=== PATIENT | male | born 1950 | race Caucasian/White ===

== ENCOUNTER 2017-04-28 07:20 | Inpatient (IN) | payer MEDICARE, OTHER, SELFPAY ==
[2017-04-24 14:51] VITALS: BP 151/82; PULSE 71; RESP 16; TEMP 36.3; O2SAT 96; BMI 27.5
--- NOTE | 2017-04-24 14:58 | SDCEKG_ITS ---
Test Reason : Blood Pressure : / mmHG Vent. Rate : 066 BPM Atrial Rate : 066 BPM P-R Int : 192 ms QRS Dur : 078 ms QT Int : 396 ms P-R-T Axes : 019 044 046 degrees QTc Int : 415 ms Normal sinus rhythm Normal ECG Confirmed by JONI DUKE, MAYRA ([id number]), editorial writer TALITA MORFIN ([id number]) on 04/25/2017 11:48:55 AM Referred By: Dimas Amezcua Confirmed By:MAYRA QUINONES MD
[2017-04-24 15:25] LABS: Hematocrit 42.6 % (40-54); Mean Corp Hgb Conc 32.9 g/gl (32-36); Mean Corpuscular Hgb 29.4 pg (27.0-32.0); Mean Corpuscular Volume 89.5 fL (80-94); Mean Platelet Vol. 10.5 fl (6.2-12.0); Platelet Count 254 K/mm3 (150-450); RBC Distribution Width CV 14.1 % (11.6-14.6); RBC Distribution Width SD 45.4 fl (35.1-43.9); Red Blood Count 4.76 M/mm3 (4.6-6.2)
[2017-04-24 15:53] LABS: Scan Indicated on CBC? Y/N NO
[2017-04-24 16:16] LABS: Anion Gap 9 (5-15); BUN 11 mg/dL (7-18); BUN/Creat Ratio 13.7 RATIO (10-20); Calcium,Total 9.1 mg/dL (8.5-10.1); Chloride 103 mmol/L (98-107); EST Glomerular Filtration Rate 103 mL/min (>60); Est Glom Filt Rate - Afr Amer 124 mL/min (>60); Estimated Creatinine Clearance 92.06 ml/min; Glucose 79 mg/dL (70-110); Potassium 3.9 mmol/L (3.5-5.1); Sodium Level 139 mmol/L (136-145)
[2017-04-25 08:37] LABS: Carcinoembryonic Antigen 2.2 ng/mL (0.0-4.7)
[2017-04-28] VITALS (12 sets, daily range): BP systolic 87–134; BP diastolic 55–79; PULSE 67–92; RESP 16–18; TEMP 36.2–36.8; O2SAT 91–100; BMI 27.5
--- NOTE | 2017-04-28 | COL_PTH ---
PATIENT: FREDY KAMARA LOC: MS3 U#:[id number] AGE/SX: 67/M ROOM: NV323 RE04/28/[address]: Dr. Dimas Amezcua MD : [id number] BED: 1 DIS: 04/30/2017 SPEC #: [id number] RECD: 04/28/17 09:56 STATUS: CHRIS RECleo #: [id number] FLORES: 04/28/17 00:[address]: Dimas Amezcua DEPT: SURGICAL PATHOLOGY RECD BY: Olivia Thompson ENTERED: 04/28/17 10:41 SP TYPE: COLON OTHR DR: Dr. Wil Timmons MD Tissues: Right colon Procedures: Frozen Section (charge) Surgery Specimen Level V HEADER OPERATION: Laparoscopic right hemicolectomy PRE-OP DIAGNOSIS: Ascending colon mass TISSUE SUBMITTED: Right colon to pathology for gross exam at 0951 FROZEN SECTION DIAGNOSIS Right colon, hemicolectomy: Ulcer located 2.5 cm distal to ileocecal valve. No evidence of carcinoma. AM:nahid 04/28/17 MICROSCOPIC DIAGNOSIS Right colon, hemicolectomy: Ulceration with associated acute and chronic inflammation, granulation and reactive epithelial changes. Margins of excision with no pathologic change. Appendix with no pathologic change. Thirteen out of 13 lymph nodes with no pathologic change. No evidence of malignancy. AM:nahid 04/30/17 COMMENT Case has been reviewed in consultation with Dr. Sawyer who concurs with the above diagnosis. IDC:SJ MICROSCOPIC DESCRIPTION Slides are reviewed. GROSS DESCRIPTION Received fresh for frozen section consultation labeled with the patient's name is a specimen designated right colon. The specimen consists of a 20 cm segment of large bowel with attached 7 cm segment of small bowel and a 7.8 cm appendix with an average diameter of 0.8 cm. Located 2.5 cm distal to the ileocecal valve and 9 cm from the closest (proximal) mucosal margin is an area of ulceration measuring 3.5 x 1.5 x 0.5 cm. No other mucosal lesions are identified. The remainder of the large bowel is grossly unremarkable. Serial sections of the appendix do not reveal mass lesions. A jewelry sales representative section of the ulcerated lesion is submitted for frozen section consultation in one block. The tissue contains a number of grossly unremarkable nodules representing lymph nodes. The serosa in the area of the ulcer is inked in black ink. Superintendent [employer] sections are submitted in 11 cassettes as follows: 1 ? frozen section and ulcer, 2 ? mucosal margins, 3 ? appendix, 4 ? ileocecal valve, 5-8 ? ulcer, 9 & 10 ? multiple lymph nodes, 11 ? one lymph node, serially sectioned. / AM:nahid 04/29/17 TC:2 CPT: 13224, 30560
--- NOTE | 2017-04-28 08:16 | PCM.DC.GS ---
Discharge Diet: Light diet - advance as tolerated - if you have questions about your diet instructions, please talk to you doctor. Discharge Activity: May Not Drive - for 1 week or while taking narcotic pain medicine. May shower in (days): 1 Lifting Restrictions: 10 pounds Call your doctor if your incision/area has: Continuous Slow Oozing, Sudden Increased Bleeding, Increased Pain/ Swelling, Increased Redness, Foul Smelling Discharge Call your doctor if you observe: Fever of 101 or Higher Suture Line Care: Avoid Pulling/Pushing, Avoid Pinching/Bending Additional Dressing/Incision Instructions:: Change or remove dressing in 3 days. Leave steri-strips in place for 1 week. Allergies/Adverse Reactions: Allergies ciprofloxacin [From Cipro] Allergy (Verified 04/24/17 14:19) Rash ciprofloxacin HCl [From Cipro] Allergy (Verified 04/24/17 14:19) Rash MAKES CRAZY ertapenem sodium [From Invanz] Allergy (Verified 04/24/17 14:19) Rash hydrocodone Adverse Reaction (Verified 04/24/17 14:19) makes him crazy Medications to take at Discharge Amitriptyline HCl [Elavil] 5 mg PO QHS 06/13/14 Hydrochlorothiazide [Hctz] 25 mg PO DAILY 06/13/14 Atorvastatin Calcium [Lipitor] 20 mg PO QHS 04/09/16 Methocarbamol 750 mg PO PRN PRN 17 Aspirin E.C. [Ecotrin] 81 mg PO DAILY@0800 04/24/17 Clopidogrel Bisulfate [Plavix] 75 mg PO QODAY 04/24/17 Diltiazem HCl [Cartia Xt] 180 mg PO BID 04/24/17 Oxycodone HCl/Acetaminophen [Percocet 5-325] 1 tablet PO Q6H PRN PRN 04/24/17 lisinopril 10 mg tablet 10 mg PO QDAY 04/24/17 Primary Care Physician: Wil Timmons MD [Primary Care Provider] - Please Follow Up With: Dimas Amezcua MD - [phone] When: Call to make an appointment to be seen in about 10 days.
[2017-04-28] MEDS: Bupivacaine Mpf 0.5% 30 ML VIAL (08:42)
--- NOTE | 2017-04-28 10:32 | PCM.OPRPT ---
Problem List (1) Acute colitis Status: Acute Report of Operation Date of Procedure: 04/28/17 Pre-Operative Diagnosis: Ascending colon mass, suspect acute colitis Post-Operative Diagnosis: Pathology pending, ascending colon ulceration Surgery/Procedure Performed:: Laparoscopic right colectomy Description of Surgical Findings:: Time out and informed consent was obtained. 67-year-old gentleman was taken the operating room. He was placed supine on the table. He underwent general endotracheal intubation anesthesia. Cefotetan 2 g are given intravenously preoperatively. The abdomen was sterilely prepped and draped. Ioban drape was used to help facilitate holding the drapes. A supraumbilical vertical incision was created and holding sutures of 0 Vicryl placed. Varies needle inserted. Saline drop test performed. The abdomen was insufflated with CO2 to a pressure of 10 mmHg pressure. 10mm trocar inserted. 10 lap scope inserted. No evidence abnormal trocar placement. The abdomen was inspected there was no free fluid bowel appear to be grossly normal except for photographs obtained of the cecum ascending colon and it was dramatically more pale in coloration than the surrounding bowel. I placed a 5 mm trocar site in the left epigastric area and one in the right lower quadrant. Using noncrushing graspers I was able to find the ileocolic vessels. Using harmonic scalpel I dissected free to identify the ileocolic vessels that I used an extra-large hemoclips as well as regular hemoclips and then the harmonic scalpel to transect these vessels. I incised up to the proximal transverse colon I then released the gastrocolic omentum. This is actually reasonably densely adherent to the greater curvature of the stomach. I had to identify the sweep of the duodenum was then able to free the hepatic flexure of the colon release the white line of Toldt all the way down to where the appendix was then released the appendix as well in the terminal ileum. Having now mobilized the entire right colon I then slightly lengthen the supraumbilical midline incision I placed a medium wound protector exited about that point. I completed the mesentery transection of the proximal transverse colon under direct visitation and hemostasis was obtained with interrupted 4-0 silk sutures were needed as well as hemoclips and Harmonic scalpel. I dissected free to the terminal ileum as well. Then I used Alvaro clamps and transected the bowel both proximally and distally. I elected to do a handsewn anastomosis. I performed a posterior row with interrupted 4-0 silk. I then released the clamps and performed the mucosa some mucosal approximation with a running 3-0 chromic. The posterior row was done in a simple fashion and the anterior row was done with a canal stitch. Despite the size mismatch I was able to get excellent approximation. The bowel appeared to be viable that had been good blood flow. I then reinforced the anterior wall with a running Lembert style 4-0 silk. Nicely patent anastomosis was achieved. Mesenteric trap was very minimal did not attempt to further follow-up on the bowel to close that. There is been no spillage. The bowel was viable. I dropped that back within the abdomen. I closed the midline fascia with a running #1 PDS. I then reinspected the abdomen inspected the anastomotic site it appeared to be nicely viable and intact there was no bleeding. There have been no spillage. Inspected the remainder of the bowel that she was unremarkable. I then released the intra-abdominal air remove the trochars. It is of note that at the very initial part of the operation I placed the trochars I used 20 cc of 0.5% Marcaine in a circumference around the epigastrium in the subcostal area extending down to the level of the umbilicus bilaterally injecting Marcaine under laparoscopic visualization to assure placement official to the posterior sheath. An attempt to perform a tap block. At the end the procedure I placed the remainder of the local directly around the wound area. The midline wound was irrigated. The remainder wounds were closed with a running or interrupted subcuticular 4-0 Monocryl. Steri-Strips Telfa and OpSite dressings were applied. Sponge instrument and needle counts were reported to surgeon for correct. Blood loss eczema 150 cc. He tired procedure well was taken to recovery or insect condition there is no apparent complication. The specimen was sent for simple gross analysis to the pathologist. Apparently they elected to do a frozen section as they identified an ulcer. All tissue the identified currently is benign. Specimens include right colon. Drains none. Blood loss 150 cc. Dimas Amezcua M.D., F.A.C.S.
--- NOTE | 2017-04-28 12:18 | PCM.DC.APPY ---
Discharge Diet: Light diet - advance as tolerated - if you have questions about your diet instructions, please talk to you doctor. Discharge Activity: May Not Drive - for 1 week or while taking narcotic pain medicine. May shower in (days): 1 Call your doctor if your incision/area has: Continuous Slow Oozing, Sudden Increased Bleeding, Increased Pain/ Swelling, Increased Redness, Foul Smelling Discharge Call your doctor if you observe: Fever of 101 or Higher Suture Line Care: Avoid Pulling/Pushing, Avoid Pinching/Bending Additional Dressing/Incision Instructions:: Change or remove dressing in 3 days. Leave steri-strips in place for 1 week. Medications to take at Discharge Amitriptyline HCl [Elavil] 5 mg PO QHS 06/13/14 Hydrochlorothiazide [Hctz] 25 mg PO DAILY 06/13/14 Atorvastatin Calcium [Lipitor] 20 mg PO QHS 04/09/16 Methocarbamol 750 mg PO PRN PRN 03/07/17 Aspirin E.C. [Ecotrin] 81 mg PO DAILY@0800 04/24/17 Clopidogrel Bisulfate [Plavix] 75 mg PO QODAY 04/24/17 Diltiazem HCl [Cartia Xt] 180 mg PO BID 04/24/17 Oxycodone HCl/Acetaminophen [Percocet 5-325] 1 tablet PO Q6H PRN PRN 04/24/17 lisinopril 10 mg tablet 10 mg PO QDAY 04/24/17 Oxycodone HCl/Acetaminophen [Percocet 5/325] 1 tablet PO Q6H PRN PRN #10 tablet 04/28/17 Allergies/Adverse Reactions: Allergies ciprofloxacin [From Cipro] Allergy (Verified 04/24/17 14:19) Rash ciprofloxacin HCl [From Cipro] Allergy (Verified 04/24/17 14:19) Rash MAKES CRAZY ertapenem sodium [From Invanz] Allergy (Verified 04/24/17 14:19) Rash hydrocodone Adverse Reaction (Verified 04/24/17 14:19) makes him crazy The following prescriptions were given: Oxycodone HCl/Acetaminophen [Percocet 5/325] 1 tablet PO Q6H PRN PRN #10 tablet PRN Reason: Pain Primary Care Physician: Wil Timmons MD [Primary Care Provider] - Please Follow Up With: Dimas Amezcua MD - [phone] When: Call the office to make a follow up appointment in one week.
[2017-04-28] MEDS: Lactated Ringers 1,000 ML 50 ML IV (16:36)
[2017-04-28] MEDS: Tamsulosin HCl 0.4 MG Capsule PO (19:44)
[2017-04-28] MEDS: 0.9% NaCl Peripheral Flush Adult/Peds IV ×2 (19:45→22:23)
[2017-04-28] MEDS: dilTIAZem CD 180 MG Capsule PO (21:58)
[2017-04-28] MEDS: Atorvastatin Calcium 20 MG Tablet PO (21:58)
[2017-04-28] MEDS: Amitriptyline 10 MG Tablet 5 MG PO (21:59)
[2017-04-29 02:00] VITALS: BP 100/61; PULSE 82; RESP 18; TEMP 36.7; O2SAT 93
[2017-04-29] MEDS: Enoxaparin 40 MG/0.4 ML Syringe SC (06:11)
--- NOTE | 2017-04-29 06:16 | PCM.PN.SRG ---
Subjective: Pt has been able to ambulate No flatus Still rating discomfort at 5 - Physical Exam General: Alert, Oriented x3, Cooperative, No apparent distress Lungs: Clear to auscultation Abdomen: Soft, Hypoactive Bowel Sounds, - - wounds clean Vital Signs Temp Pulse Resp BP Pulse Ox 98.1 F 82 18 100/61 93 04/29/17 02:00 04/29/17 02:00 04/29/17 02:00 04/29/17 02:00 04/29/17 02:00 Oxygen Flow Rate 2 Oxygen Delivery Method Room Air Weight: 186 lb 8.177 oz Body Mass Index (BMI) 27.5 Intake and Output for Last 24 Hours 04/27/17 04/28/17 04/29/17 23:59 23:59 23:59 Intake Total 3128 / 3128 507 / 507 Output Total 100 / 100 400 / 400 Balance 3028 / 3028 107 / 107 Assessment/Plan Will start clears
[2017-04-29] MEDS: oxyCODONE 5 MG Tablet PO ×3 (07:00→21:12)
[2017-04-29 08:09] VITALS: BP 104/53; PULSE 74; RESP 16; TEMP 36.6; O2SAT 92
[2017-04-29] MEDS: dilTIAZem CD 180 MG Capsule PO ×2 (08:13→21:12)
[2017-04-29] MEDS: Aspirin E.C. 81 MG Tablet PO (08:13)
[2017-04-29] MEDS: Lisinopril 10 MG Tablet PO (08:14)
[2017-04-29] MEDS: hydroCHLOROthiazide 25 MG Tablet PO (08:14)
[2017-04-29 11:12] VITALS: BP 101/62; PULSE 67; RESP 16; TEMP 36.6; O2SAT 93
[2017-04-29 14:54] VITALS: BP 102/62; PULSE 65; RESP 16; TEMP 36.2; O2SAT 92
--- NOTE | 2017-04-29 15:00 | CASEMGMT ---
RN ANDERS Face to Face with patient for initial transition planning/care coordination assessment. RN CM introduced self and role at [facility]. Patient lying in bed, alert and oriented, with at bedside. Patient willing to participate in assessment and is able to answer all questions appropriately. Care providers, pharmacy, and demographics verified. See link attached. Patient wishes to discharge home, denies need for home health at this time. Patient states he has no further needs or concerns at this time. CM to follow for discharge planning needs that may arise. Disposition Plan: Patient to discharge home with family support and follow-up plans in place.
[2017-04-29] MEDS: Tamsulosin HCl 0.4 MG Capsule PO (17:06)
[2017-04-29] MEDS: Lactated Ringers 1,000 ML 30 ML IV (17:07)
[2017-04-29 20:26] VITALS: BP 114/74; PULSE 76; RESP 18; TEMP 37; O2SAT 93
[2017-04-29] MEDS: Atorvastatin Calcium 20 MG Tablet PO (21:12)
[2017-04-29] MEDS: BENZOCAINE/MENTHOL 1 LOZENGE MUCOUS MEM (21:12)
[2017-04-29] MEDS: Amitriptyline 10 MG Tablet 5 MG PO (21:12)
[2017-04-30 02:30] VITALS: BP 113/67; PULSE 73; RESP 16; TEMP 36.9; O2SAT 92
[2017-04-30] MEDS: oxyCODONE 5 MG Tablet PO ×2 (03:34→12:56)
[2017-04-30] MEDS: Enoxaparin 40 MG/0.4 ML Syringe SC (05:38)
--- NOTE | 2017-04-30 06:04 | PCM.PN.SRG ---
Subjective: Steady progress, small smear of stool. No nausea. Pain is improved - Physical Exam Lungs: Clear to auscultation Abdomen: Soft, Non Tender, Hypoactive Bowel Sounds Vital Signs Temp Pulse Resp BP Pulse Ox 98.4 F 73 16 113/67 92 04/30/17 02:30 04/30/17 02:30 04/30/17 02:30 04/30/17 02:30 04/30/17 02:30 Oxygen Flow Rate 2 Oxygen Delivery Method Room Air Weight: 186 lb 8.177 oz Body Mass Index (BMI) 27.5 Intake and Output for Last 24 Hours 04/28/17 04/29/17 04/30/17 23:59 23:59 23:59 Intake Total 3128 / 3128 1654 / 1654 975 / 975 Output Total 100 / 100 2975 / 2975 900 / 900 Balance 3028 / 3028 -1321 / -1321 75 / 75 Assessment/Plan Diet advanced to fulls Hopeful discharge mid day today
[2017-04-30 07:43] VITALS: BP 124/81; PULSE 66; RESP 18; TEMP 36.5; O2SAT 94
[2017-04-30] MEDS: Lisinopril 10 MG Tablet PO (07:45)
[2017-04-30] MEDS: Aspirin E.C. 81 MG Tablet PO (07:45)
[2017-04-30] MEDS: dilTIAZem CD 180 MG Capsule PO (07:45)
[2017-04-30] MEDS: hydroCHLOROthiazide 25 MG Tablet PO (07:45)
--- NOTE | 2017-04-30 12:50 | PCM.DC.SUM ---
Discharge Date and Diagnosis Date of Admission: 04/28/17 Date of Discharge: 04/30/17 - Primary Discharge Diagnosis Acute colitis Colonic mass - Secondary Discharge Diagnosis Chronic Problems (Last Reviewed 04/24/17 @ 13:15 by Daniela Paz) History of abdominal pain (Chronic) Right sided Glaucoma (Chronic) HTN (hypertension) (Chronic) Hospital Course and Treatment Operations: colectomy - laparoscopic right hemicolectomy Procedures: None Summary of Care Provided: The patient is a 67 year old M with acute colitis and colonic mass. Dr. Amezcua performed a laparoscopic right hemicolectomy on 04/28/17. Patient tolerated the procedure well. He had an uneventful hospitalization. Upon discharge, he notes minimal amount of abdominal discomfort. He rates his pain at a 1 out of 10 on the pain scale. He denies nausea, vomiting. He is tolerating a full liquid diet well. He is passing large amounts of flatus and had a small bowel movement. He will follow-up at our office as an outpatient in 7-10 days. Discharge Diet: Light diet - advance as tolerated - if you have questions about your diet instructions, please talk to you doctor. Discharge Activity: May Not Drive - for 1 week or while taking narcotic pain medicine. May shower in (days): 1 Call your doctor if your incision/area has: Continuous Slow Oozing, Sudden Increased Bleeding, Increased Pain/ Swelling, Increased Redness, Foul Smelling Discharge Call your doctor if you observe: Fever of 101 or Higher Suture Line Care: Avoid Pulling/Pushing, Avoid Pinching/Bending Cleanse incision/area with: Soap & Water Additional Dressing/Incision Instructions:: Change or remove dressing in 3 days. Leave steri-strips in place for 1 week. Home Medications: Medications to take at Discharge Amitriptyline HCl [Elavil] 5 mg PO QHS 06/13/14 Hydrochlorothiazide [Hctz] 25 mg PO DAILY 06/13/14 Atorvastatin Calcium [Lipitor] 20 mg PO QHS 04/09/16 Methocarbamol 750 mg PO PRN PRN 03/07/17 Aspirin E.C. [Ecotrin] 81 mg PO DAILY@0800 04/24/17 Clopidogrel Bisulfate [Plavix] 75 mg PO QODAY 04/24/17 Diltiazem HCl [Cartia Xt] 180 mg PO BID 04/24/17 Oxycodone HCl/Acetaminophen [Percocet 5-325] 1 tablet PO Q6H PRN PRN 04/24/17 lisinopril 10 mg tablet 10 mg PO QDAY 04/24/17 Oxycodone HCl/Acetaminophen [Percocet 5/325] 1 tablet PO Q6H PRN PRN #10 tablet 04/28/17 Following Prescrptions Were Given to Patient: Oxycodone HCl/Acetaminophen [Percocet 5/325] 1 tablet PO Q6H PRN PRN #10 tablet PRN Reason: Pain Primary Care Physician: Wil Timmons MD [Primary Care Provider] - Please Follow Up With: Dimas Amezcua MD - [phone] When: Call to make an appointment to be seen in about 10 days. Disposition: Home Minutes spent on discharge:: 25 Patient Condition:: Stable Meaningful Use Info Meaningful Use Diagnoses (Choose all that apply): None applicable Code Visit Inpatient E&M: 88798 Disch Hosp
[2017-04-30 12:56] VITALS: BP 131/81; PULSE 71; RESP 18; TEMP 36.6; O2SAT 96
== END 2017-04-30 13:23 | disposition home or self-care (01) | DRG 330 ==
LOC: ACINP 07:23 → MS3 07:33
PROVIDERS: Admitting Provider Surgery; Family Provider Internal Medicine; PCP Internal Medicine; Visit Provider Surgery
PROC: 0DTF4ZZ Resection of Right Large Intestine, Percutaneous Endoscopic Approach (ICD-10-PCS; CPT 44205; principal; 2017-04-28 06:55)
DX: K52.9 Noninfective gastroenteritis and colitis, unspecified (principal); K63.3 Ulcer of intestine; H40.9 Unspecified glaucoma; I10 Essential (primary) hypertension; Z87.891 Personal history of nicotine dependence
CPT/HCPCS: 80048; 82378; 85027; 88305; 88307; 88331; 93005; J7120; A4216; J2405

== ENCOUNTER → 2017-07-11 10:14 | Outpatient (CLI) | payer MEDICARE, OTHER, SELFPAY ==
[2017-07-11 10:17] LABS: Bacteria 0 SEEN /hpf (None Seen); Mucous, Urine 0 SEEN /hpf (<or=2+); Red Blood Cells-Urine 0 SEEN /hpf (0-5); Squamous Epithelial Cells - UA 0 SEEN /hpf (0-5); White Blood Cells 0 SEEN /hpf (0-5)
[2017-07-11 12:09] LABS: Color, Urine Yellow (Yellow); Glucose, Dipstick Normal (Normal); Ketone-Dipstick Negative (Negative); Leukocyte Esterase-Dipstick Negative /ul (Negative); Nitrite-Dipstick Negative (Negative); Occult Blood-Urine Negative /ul (Negative); Protein-Dipstick Negative (Negative); Urine Bilirubin Dipstick Negative (Negative); Urine Clarity Clear (Clear); Urine Urobilinogen Normal (Normal)
[2017-07-11 12:14] LABS: Absolute Lymphocyte Count 1.75 X10^3/ul (0.83-4.51); Absolute Neutrophil Count 3.6 X10^3/uL (2.0-7.7); Basophil# 0.03 X10^3/uL; Basophil% 0.5 % (0-1); Eosinophils% 3.3 % (0-5); Hematocrit 47.1 % (40-54); Hemoglobin 15.4 g/dl (13.0-16.5); Lymphocyte # 1.75 X10^3/ul (4.0); Lymphocyte % 28.6 % (19-41); Mean Corp Hgb Conc 32.7 g/gl (32-36); Mean Corpuscular Hgb 28.5 pg (27.0-32.0); Mean Corpuscular Volume 87.2 fL (80-94); Mean Platelet Vol. 11.5 fl (6.2-12.0); Monocyte# 0.53 X10^3/uL; Monocyte% 8.7 % (0-10); Neutrophil # 3.58 X10^3/uL (2.7-7.7); Neutrophil % 58.6 % (47-70); POSITIVE COUNT NO; POSITIVE DIFFERENTIAL NO; POSITIVE MORPHOLOGY NO; Platelet Count 219 K/mm3 (150-450); RBC Distribution Width CV 13.2 % (11.6-14.6); RBC Distribution Width SD 41.8 fl (35.1-43.9); White Blood Count 6.1 K/mm3 (4.4-11.0)
[2017-07-11 12:46] LABS: Vitamin D,25 Hydroxy 34.4 ng/mL (29.95-100.01)
[2017-07-11 12:55] LABS: ALB/GLOB Ratio 1.3 RATIO (0.9-2.4); AST(SGOT) 22 U/L (15-37); Alanine Aminotransfer ALT/SGPT 30 U/L (16-61); Alkaline Phosphatase 98 U/L (45-117); Anion Gap 7 (5-15); BUN 15 mg/dL (7-18); BUN/Creat Ratio 17.3 RATIO (10-20); Calcium,Total 9.3 mg/dL (8.5-10.1); Chloride 104 mmol/L (98-107); Cholesterol 161 mg/dL (200); Creatinine, Serum 0.87 mg/dL (0.70-1.30); EST Glomerular Filtration Rate 94 mL/min (>60); Est Glom Filt Rate - Afr Amer 113 mL/min (>60); Glucose 79 mg/dL (74-106); High Density Lipoprotein 61 mg/dL; Potassium 3.6 mmol/L (3.5-5.1); Sodium Level 139 mmol/L (136-145); Thyroid Stim Hormone (TSH) 1.12 uIU/mL (0.358-3.74); Triglycerides 102 mg/dL; Very Low Density Lipoprotein 20 mg/dL (5-40)
== END ==
PROVIDERS: Family Provider Family Medicine; PCP Family Medicine; Visit Provider Family Medicine
DX: I10 Essential (primary) hypertension (principal); E78.5 Hyperlipidemia, unspecified; E55.9 Vitamin D deficiency, unspecified
CPT/HCPCS: 80053; 80061; 81001; 82306; 84443; 85025

== ENCOUNTER → 2017-08-08 09:29 | Outpatient (CLI) | payer MEDICARE, OTHER, SELFPAY ==
[2017-08-08 12:40] LABS: CPK Total, Creatine Kinase 73 U/L (39-308); Magnesium 2.1 mg/dL (1.6-2.6)
== END ==
PROVIDERS: Family Provider Family Medicine; PCP Family Medicine; Visit Provider Family Medicine
DX: R25.2 Cramp and spasm (principal)
CPT/HCPCS: 36415; 82550; 83735

== ENCOUNTER → 2017-08-21 13:14 | Outpatient (CLI) | payer MEDICARE, OTHER, SELFPAY ==
--- NOTE | 2017-08-21 13:17 | CT_ITS ---
STUDY: CT TEMPORAL BONES WITHOUT CONTRAST - ATTN: I.A.C. S REASON FOR EXAM: Male, 67 years old. Pain for 2 years after her bowel implant. RADIATION DOSAGE (If Supplied By Facility): CTDIvol = ( 77.13 ) mGy, DLP = ( 944.5 ) mGycm TECHNIQUE: The patient was scanned in a multi detector CT scanner. Transaxial imaging was performed without the administration of intravenous contrast material. Sagittal and coronal images were reconstructed. Individualized dose optimization techniques were used for this CT. COMPARISON: None. FINDINGS: RIGHT TEMPORAL BONE Normal right external auditory canal. Normal visualized ossicles. There is mild thickening of the tympanic cavity. Normal right cochlea and semicircular canals. Normal vestibular aqueduct. Normal right petrous carotid artery. Normal right jugular fossa. There is underdevelopment of the mastoid air cells. Normal right petrous apex. Slightly higher on the right there is a metallic device extending from the skin surface through to the inner table of the right parietal bone. There is no evidence of lucency about the device or evidence of this surrounding osseous abnormality. The soft tissues appear grossly unremarkable. LEFT TEMPORAL BONE Normal left external auditory canal. There is no demonstrated enhancing abnormality. Normal visualized ossicles and tympanic cavity. Normal left cochlea and semicircular canals. Normal vestibular aqueduct. Normal left petrous carotid artery. Normal right jugular fossa. Normal left mastoid air cells. Normal left petrous apex. CT/Orb Sella Post Fossa Ear w/o IMPRESSION: 1. Metallic device in the right posterior parietal bone. There is no evidence of bony resorption or soft tissue abnormality about the device. 2. Slight thickening of the right tympanic membrane. 3. Underdevelopment of the right mastoid air cells. 4. No other evidence of abnormality. Electronically Signed: Ezequiel Marquez DO at 15:27 EDT Tel [phone], Service support ,
== END ==
PROVIDERS: Family Provider Family Medicine; PCP Family Medicine
DX: H66.90 Otitis media, unspecified, unspecified ear (principal); H90.2 Conductive hearing loss, unspecified; G89.18 Other acute postprocedural pain
CPT/HCPCS: 70480

== ENCOUNTER → 2017-09-16 08:37 | Outpatient (CLI) | payer MEDICARE, OTHER, SELFPAY ==
--- NOTE | 2017-09-16 08:59 | EKG12_ITS ---
Test Reason : PRE OP Blood Pressure : / mmHG Vent. Rate : 073 BPM Atrial Rate : 073 BPM P-R Int : 210 ms QRS Dur : 080 ms QT Int : 388 ms P-R-T Axes : 047 064 062 degrees QTc Int : 427 ms Sinus rhythm with 1st degree A-V block Otherwise normal ECG Confirmed by PHILOMENA GALEANO ([id number]), assistant production editor TALITA MORFIN ([id number]) on 09/29/2017 5:00:00 PM Referred By: Elizabeth Romo Confirmed By:PHILOMENA GALEANO
[2017-09-16 10:53] LABS: Hematocrit 42.8 % (40-54); Hemoglobin 14.3 g/dl (13.0-16.5); Mean Corp Hgb Conc 33.4 g/gl (32-36); Mean Corpuscular Hgb 28.9 pg (27.0-32.0); Mean Corpuscular Volume 86.6 fL (80-94); Mean Platelet Vol. 11.4 fl (6.2-12.0); Platelet Count 258 K/mm3 (150-450); RBC Distribution Width CV 13.3 % (11.6-14.6); RBC Distribution Width SD 42.4 fl (35.1-43.9); Red Blood Count 4.94 M/mm3 (4.6-6.2)
[2017-09-16 10:56] LABS: Scan Indicated on CBC? Y/N NO
[2017-09-16 10:58] LABS: Prothrombin Time (Protime)PT. 12.7 SECONDS (11.7-14.9)
[2017-09-16 11:20] LABS: ALB/GLOB Ratio 1.2 RATIO (0.9-2.4); AST(SGOT) 17 U/L (15-37); Alanine Aminotransfer ALT/SGPT 24 U/L (16-61); Albumin, Serum 3.8 g/dL (3.2-5.0); Alkaline Phosphatase 98 U/L (45-117); Anion Gap 6 (5-15); BUN 15 mg/dL (7-18); BUN/Creat Ratio 15.2 RATIO (10-20); Calcium,Total 9.1 mg/dL (8.5-10.1); Chloride 107 mmol/L (98-107); Creatinine, Serum 0.99 mg/dL (0.70-1.30); EST Glomerular Filtration Rate 81 mL/min (>60); Est Glom Filt Rate - Afr Amer 98 mL/min (>60); Globulin 3.1 g/dL (2.2-4.2); Glucose 75 mg/dL (74-106); Potassium 3.8 mmol/L (3.5-5.1); Protein, Total 6.9 g/dL (6.4-8.2); Sodium Level 141 mmol/L (136-145)
== END ==
PROVIDERS: Family Provider Family Medicine; PCP Family Medicine; Visit Provider Radiology Diagnostic Radiology
DX: Z01.818 Encounter for other preprocedural examination (principal)
CPT/HCPCS: 36415; 80053; 85027; 85610; 93005

== ENCOUNTER → 2017-11-18 07:16 | Outpatient (CLI) | payer MEDICARE, OTHER, SELFPAY ==
--- NOTE | 2017-11-18 07:21 | CT_ITS ---
STUDY: CT TEMPORAL BONES WITHOUT CONTRAST - ATTN: I.A.C. S REASON FOR EXAM: Male, 67 years old. Hearing loss. RADIATION DOSAGE (If Supplied By Facility): CTDIvol = ( 82.28 ) mGy, DLP = ( 1146.17 ) mGycm TECHNIQUE: The patient was scanned in a multi detector CT scanner. Transaxial imaging was performed without the administration of intravenous contrast material. Sagittal and coronal images were reconstructed. Individualized dose optimization techniques were used for this CT. COMPARISON: Comparison is made with prior examination of August 21, 2017. FINDINGS: RIGHT TEMPORAL BONE Normal right internal auditory canal. Since prior study, there has been progressive soft tissue thickening along the ossicles of the middle air cavity and tympanic membrane. Normal right cochlea and semicircular canals. Normal vestibular aqueduct. Normal right petrous carotid artery. Normal right jugular fossa. Underdevelopment of the right mastoid air cells with mild mucosal thickening along its anterior medial portion. Normal right petrous apex. The previously seen metallic device overlying the right posterior parietal bone as been removed. LEFT TEMPORAL BONE Normal left internal auditory canal. Normal visualized ossicles and tympanic cavity. Normal left cochlea and semicircular canals. Normal vestibular aqueduct. Normal left petrous carotid artery. Normal right jugular fossa. Normal left mastoid air cells. Normal left petrous apex. CT/Orb Sella Post Fossa Ear w/o IMPRESSION: Since prior examination, there has been progressive soft tissue density in the right middle ear in the region of the ossicles. Electronically Signed: Jordan Cano MD at 15:24 EDT Tel [phone], Service support ,
== END ==
PROVIDERS: Family Provider Family Medicine; PCP Family Medicine; Visit Provider Radiology Diagnostic Radiology
DX: H66.90 Otitis media, unspecified, unspecified ear (principal); H90.2 Conductive hearing loss, unspecified; G89.18 Other acute postprocedural pain; Z98.890 Other specified postprocedural states
CPT/HCPCS: 70480

== ENCOUNTER → 2017-12-02 09:13 | Outpatient (CLI) | payer MEDICARE, OTHER, SELFPAY ==
[2017-12-02 12:04] LABS: Absolute Lymphocyte Count 1.14 X10^3/ul (0.83-4.51); Absolute Neutrophil Count 3.4 X10^3/uL (2.0-7.7); Basophil# 0.02 X10^3/uL; Basophil% 0.4 % (0-1); Eosinophil# 0.18 X10^3/uL; Eosinophils% 3.4 % (0-5); Hematocrit 46.2 % (40-54); Hemoglobin 15.4 g/dl (13.0-16.5); Lymphocyte # 1.14 X10^3/ul (4.0); Lymphocyte % 21.7 % (19-41); Mean Corp Hgb Conc 33.3 g/gl (32-36); Mean Corpuscular Hgb 29.1 pg (27.0-32.0); Mean Corpuscular Volume 87.3 fL (80-94); Mean Platelet Vol. 11.9 fl (6.2-12.0); Monocyte# 0.52 X10^3/uL; Monocyte% 9.9 % (0-10); Neutrophil # 3.38 X10^3/uL (2.7-7.7); Neutrophil % 64.4 % (47-70); Platelet Count 247 K/mm3 (150-450); RBC Distribution Width CV 12.8 % (11.6-14.6); RBC Distribution Width SD 40.5 fl (35.1-43.9); Red Blood Count 5.29 M/mm3 (4.6-6.2); White Blood Count 5.3 K/mm3 (4.4-11.0)
[2017-12-02 12:17] LABS: ALB/GLOB Ratio 1.4 RATIO (0.9-2.4); AST(SGOT) 16 U/L (15-37); Alanine Aminotransfer ALT/SGPT 22 U/L (16-61); Albumin, Serum 3.9 g/dL (3.2-5.0); Alkaline Phosphatase 93 U/L (45-117); Anion Gap 6 (5-15); BUN 14 mg/dL (7-18); BUN/Creat Ratio 14.6 RATIO (10-20); Calcium,Total 9.4 mg/dL (8.5-10.1); Chloride 106 mmol/L (98-107); Cholesterol 188 mg/dL (200); Creatinine, Serum 0.96 mg/dL (0.70-1.30); EST Glomerular Filtration Rate 84 mL/min (>60); Est Glom Filt Rate - Afr Amer 101 mL/min (>60); Globulin 2.8 g/dL (2.2-4.2); Glucose 87 mg/dL (74-106); High Density Lipoprotein 51 mg/dL; Potassium 4.3 mmol/L (3.5-5.1); Protein, Total 6.7 g/dL (6.4-8.2); Sodium Level 142 mmol/L (136-145); Triglycerides 109 mg/dL; Very Low Density Lipoprotein 22 mg/dL (5-40)
[2017-12-02 12:22] LABS: POSITIVE COUNT NO; POSITIVE DIFFERENTIAL NO; POSITIVE MORPHOLOGY NO
== END ==
PROVIDERS: Family Provider Family Medicine; PCP Family Medicine; Visit Provider Family Medicine
DX: I10 Essential (primary) hypertension (principal); E78.5 Hyperlipidemia, unspecified
CPT/HCPCS: 36415; 80053; 80061; 85025

== ENCOUNTER → 2017-12-24 11:03 | Outpatient (CLI) | payer MEDICARE, OTHER, SELFPAY | PROVIDERS: Family Provider Family Medicine; PCP Family Medicine; Visit Provider Family Medicine | DX: M46.90 Unspecified inflammatory spondylopathy, site unspecified (principal) | CPT/HCPCS: 72110 ==

== ENCOUNTER 2018-02-04 12:08 | Inpatient (IN) | payer MEDICARE, OTHER, SELFPAY ==
[2018-02-04 12:09] VITALS: BP 108/76; PULSE 98; RESP 16; TEMP 36.4; O2SAT 96; BMI 26.6
--- NOTE | 2018-02-04 12:27 | CT_ITS ---
STUDY: CT ABDOMEN AND PELVIS WITH CONTRAST REASON FOR EXAM: Male, 67 years old. Nausea and vomiting. Possible ischemic colitis. RADIATION DOSAGE (If Supplied By Facility): CTDIvol = ( 22.25 ) mGy, DLP = ( 769.91 ) mGycm TECHNIQUE: Transaxial images were obtained from the dome of the diaphragm to the symphysis pubis without oral contrast. 100 ml of Isovue 300 contrast was administered. Sagittal and coronal images were reconstructed. # of Images: 452 Individualized dose optimization techniques were used for this CT. COMPARISON: Comparison is made with prior examination dated March 06, 2017. FINDINGS: Linear density in the anterior medial aspect of the right middle lobe suggestive of scarring. The visualized portions of the heart are within normal limits. Stable appearance of the small cysts in the liver. The largest cyst is seen along the medial aspect of the left lobe measuring 1.7 cm. Normal gallbladder and extrahepatic biliary system. Normal spleen. Normal pancreas. Normal bilateral adrenal glands. Stable 1.6 cm cyst in the anterior midportion of the right kidney. Stable nonobstructive left intrarenal calculi. There is a small hiatal hernia. Normal small intestine. There is evidence of circumferential wall thickening of the transverse colon and the descending colon as well as sigmoid colon with increased markings in the surrounding peritoneal fat suggestive of colitis. The superior mesenteric artery and its major branches are patent as well as the celiac artery trunk. Scattered sigmoid diverticula. The appendix is visualized and appears normal. There is diffuse atherosclerotic calcification of the abdominal aorta, without a demonstrated aneurysm. Normal inferior vena cava. Normal retroperitoneum. Diffuse bladder wall thickening. Prominence of the prostate gland with indentation at the bladder base. Small right hydrocele. Normal abdominal wall. There are diffuse degenerative changes of the visualized lumbar spine. CT/Abdomen/Pelvis W IV Cont ONLY IMPRESSION: Findings in keeping with colitis involving the transverse colon as well as the left; scattered sigmoid diverticula. The remainder of the examination is unchanged. Electronically Signed: Jordan Cano MD at 14:23 EDT Tel [phone], Service support ,
--- NOTE | 2018-02-04 12:28 | ED.VISSUMM ---
- ER Visit Summary Date of Service: 02/04/18 Chief Complaint: Abdominal pain with rectal bleeding History of Present Illness: The patient is a 67 M history of ischemic colitis, hypertension and high cholesterol. Prior partial colectomy done by Dr. Dimas Amezcua. Patient states last evening he has had crampy diffuse abdominal pain. Intermittent rectal bleeding sometimes with clots. He is on Plavix and aspirin for his ischemic colitis. He is also had some mild nausea and vomiting. No fever. No diarrhea. No melena. He states the pain is not nearly as severe as the pain he had when he has prior ischemic colitis. Physical Examination: He does not look septic or toxic. He is in no distress. His is at bedside. H EENT exam unremarkable. Neck nontender. Lungs clear to auscultation bilaterally. Heart regular rate and rhythm no murmur about 90. Abdomen is soft. Nondistended. Normal bowel sounds. He has mild diffuse tenderness. Pain is not out of proportion to exam. There are no hernias or masses. No pulsatile mass. He is moving all 4 extremities. They are neurovascularly intact. There is no edema in the lower extremities. Calves are nontender. Neurologically is awake and alert without focal motor deficits. Test Results: CBC White count is 18,000. Hemoglobin 16. Electrolytes unremarkable normal creatinine and gap. Liver enzymes normal. Amylase and lipase normal. Lactate normal. CT abdomen pelvis with IV contrast shows transverse colitis. Otherwise no acute abnormality. Emergency Department Course and Treatment: Labs and CT abdomen and pelvis with IV contrast to be obtained. At this time patient does not want any pain medication or nausea medication. He is being given 1 L normal saline. Treatment Plan: [place] exam patient is doing well at 14 10 PM. I spoke to the hospitalist Dr. Monroe and the patient will be admitted. Disposition: admit Impression: Acute abdominal pain with hematochezia and transverse colitis on CT History of prior ischemic colitis with partial colectomy Anticoagulated on Plavix and aspirin This note was generated with [employer] dictation software. It may contain incorrect words, spelling, and punctuation that were not noted in review of the chart prior to signing ED Disposition - Plan for ED Patient: Chief Complaint: Abd Pain Referrals: Jose E Ace MD [Primary Care Provider] -
[2018-02-04 13:02] LABS: Absolute Lymphocyte Count 1.16 X10^3/ul (0.83-4.51); Absolute Neutrophil Count 16.3 X10^3/uL (2.0-7.7); Basophil# 0.01 X10^3/uL; Basophil% 0.1 % (0-1); Eosinophil# 0.01 X10^3/uL; Eosinophils% 0.1 % (0-5); Hemoglobin 16.5 g/dl (13.0-16.5); Lymphocyte # 1.16 X10^3/ul (4.0); Lymphocyte % 6.2 % (19-41); Mean Corp Hgb Conc 33.7 g/gl (32-36); Mean Corpuscular Hgb 29.5 pg (27.0-32.0); Mean Corpuscular Volume 87.7 fL (80-94); Monocyte% 5.9 % (0-10); Neutrophil # 16.32 X10^3/uL (2.7-7.7); Neutrophil % 87.5 % (47-70); Platelet Count 334 K/mm3 (150-450); RBC Distribution Width CV 13.3 % (11.6-14.6); Red Blood Count 5.59 M/mm3 (4.6-6.2); White Blood Count 18.6 K/mm3 (4.4-11.0)
[2018-02-04 13:03] LABS: POSITIVE COUNT NO; POSITIVE DIFFERENTIAL NO; POSITIVE MORPHOLOGY NO
[2018-02-04 13:05] LABS: AST(SGOT) 14 U/L (15-37); Alanine Aminotransfer ALT/SGPT 30 U/L (16-61); Albumin, Serum 4.4 g/dL (3.2-5.0); Alkaline Phosphatase 99 U/L (45-117); Amylase 49 U/L (25-115); BUN 11 mg/dL (7-18); Bilirubin, Direct 0.15 mg/dL (0.00-0.30); Calcium,Total 10.1 mg/dL (8.5-10.1); Chloride 100 mmol/L (98-107); EST Glomerular Filtration Rate 80 mL/min (>60); Est Glom Filt Rate - Afr Amer 96 mL/min (>60); Estimated Creatinine Clearance 73.65 ml/min; Globulin 3.5 g/dL (2.2-4.2); Glucose 116 mg/dL (74-106); Lipase 116 U/L (73-393); Potassium 3.7 mmol/L (3.5-5.1); Protein, Total 7.9 g/dL (6.4-8.2); Sodium Level 137 mmol/L (136-145)
[2018-02-04 13:06] LABS: Anion Gap 9 (5-15)
[2018-02-04 13:16] LABS: Lactic Acid 1.6 mmol/L (0.4-2.0)
[2018-02-04] MEDS: 0.9% Normal Saline 1,000 ML 1000 ML IV (13:17)
--- NOTE | 2018-02-04 14:49 | HP.PCM_ITS ---
Problem List (1) Hyperlipidemia Status: Chronic (2) History of ischemic colitis Status: Chronic (3) Glaucoma Status: Chronic (4) HTN (hypertension) Status: Chronic History of Present Illness Date of Admission: 02/04/18 Chief Complaint: Abdominal pain. The patient is a 67 year old M with past medical history as mentioned above p resented to the emergency room because of abdominal pain. Her symptoms started last evening with abdominal pain, around the mid abdomen, dull aching pain, 2-3 out of 10 in severity, not radiating, associated with rectal bleeding and nausea and without aggravating or relieving factors. Initially, he had couple of episodes of stool mixed with bright red blood and since early this morning, it has been bright red blood only. He estimated the amount of the bleeding as moderate amount of blood. He denies fever or chills. He had a history of ischemic colitis status post right hemicolectomy in April, and he has been on aspirin and Plavix since then. In the emergency department, his vital signs were stable. His routine blood work was remarkable for leukocytosis, otherwise normal. LFT and lipase were normal. Lactic acid was normal. CT scan abdomen and pelvis with IV contrast revealed findings consistent with acute colitis of the transverse colon as well as left hemicolon. He is being admitted for acute colitis of the transverse and left hemicolon for treatment. Past Medical History Past Medical History (Chronic Problems): Chronic Problems (Last Updated 02/04/18 @ 14:44 by Britta Evans MD) Hyperlipidemia (Chronic) History of ischemic colitis (Chronic) Glaucoma (Chronic) HTN (hypertension) (Chronic) Medical History: Medical History (Last Updated 02/04/18 @ 14:44 by Britta Evans MD) Glaucoma (Chronic) H40.9 HTN (hypertension) (Chronic) I10 Allergies ciprofloxacin [From Cipro] Allergy (Verified 02/04/18 13:43) Rash ciprofloxacin HCl [From Cipro] Allergy (Verified 02/04/18 13:43) Rash MAKES CRAZY ertapenem sodium [From Invanz] Allergy (Verified 02/04/18 13:43) Rash hydrocodone Adverse Reaction (Verified 02/04/18 13:43) makes him crazy Home Medications: Ambulatory Orders Medication Instructions Recorded Amitriptyline HCl [Elavil] 5 mg PO QHS 06/13/14 Hydrochlorothiazide [Hctz] 25 mg PO DAILY 06/13/14 Methocarbamol 750 mg PO PRN PRN 03/07/17 Aspirin E.C. [Ecotrin] 81 mg PO DAILY@0800 04/24/17 Clopidogrel Bisulfate [Plavix] 75 mg PO QODAY 04/24/17 Diltiazem HCl [Cartia Xt] 180 mg PO BID 04/24/17 Oxycodone HCl/Acetaminophen 1 tab PO Q6H PRN PRN 04/24/17 [Percocet 5-325] lisinopril 10 mg tablet 10 mg PO QDAY 04/24/17 Rosuvastatin Calcium 10 mg PO TH 02/04/18 Surgical History: Surgical History (Last Updated 02/04/18 @ 14:44 by Britta Evans MD) History of partial colectomy Z98.890, Z90.49 Surgical History: colectomy, - - RLE surgery s/p fracture x 2, R facial sinus surgery, R ear multiple surgeries. Psychiatric History: No pertinent psych hx Lives: Spouse/ Significant Other Smoking Status: Former smoker Alcohol: None Drugs: None - *Family History Maternal Family History: Family History (Last Reviewed 05/09/17 @ 13:56 by Alka Portillo) Mother Heart disease Hypertension Father Hypertension Heart disease History Items: Heart Disease, Hypertension Paternal Family History: Family History (Last Reviewed 05/09/17 @ 13:56 by Alka Portillo) Mother Heart disease Hypertension Father Hypertension Heart disease History Items: Heart Disease, Hypertension Review of Systems Constitutional: Denies: Anorexia, Chills, Fever, Weakness Eyes: Denies: Blurred vision, Double vision, Drainage, Redness HEENT: Denies: Difficulty Hearing, Ear Pain, Eye Pain, Nasal Congestion, Sore Throat Cardiovascular: Denies: Chest Pain, Chest Pressure, Edema, Heaviness, Palpitations Respiratory: Denies: Cough, Pleuritic Pain, Shortness of Breath, Sputum production, Wheezing Gastrointestinal: Reports: Abdominal Pain, Hematochezia, Nausea. Denies: Constipation, Diarrhea, Melena, Vomiting Genitourinary: Denies: Dysuria, Frequency, Hematuria Musculoskeletal: Denies: Arm Pain, Back Pain, Foot Pain Skin: Denies: Dryness, Rash Neurological: Denies: Balance problems, Double vision, Change in Speech, Slurred speech, Confusion, Headaches, Numbness Psychiatric: Denies: Anxiety, Depression Endocrine: Denies: Change in Body Habitus, Polydipsia VTE Information - Inpt Only VTE Present on Admission: No VTE Mechan Device Prophylaxis: SCD's VTE Pharm Prophylaxis ordered?: No - Physical Exam General: Alert, Oriented x3, Cooperative, No apparent distress HEENT: Atraumatic, PERRLA, EOMI, Normocephalic Oral: Moist Mucosa, No Gingival or Mucosal Lesions/ Ulcerations Neck: Supple, No JVD, Negative Carotid Bruits Lungs: Clear to auscultation, Normal air movement, No rhonchi, No wheeze, No rales Cardiovascular: Regular rate, Regular Rhythm, Normal S1, Normal S2, PMI Normal Abdomen: Bowel Sounds Present, Soft, Non-Distended, No Hepato-splenomegaly, Tender Extremities: No clubbing, No cyanosis, No edema Skin: No rashes, No breakdown Lymphatic: No Cervical, Supraclavicular, or Inguinal Adenopathy Neurological: Cranial nerves II-XII grossly intact, Motor Exam 5/5 strength throughout Psych/Mental Status: Normal Affect, Appropriate, Alert and oriented to time, place, person, mood and affect Vital Signs Temp Pulse Resp BP Pulse Ox 97.5 F L 98 16 108/76 96 02/04/18 12:09 02/04/18 12:09 02/04/18 12:09 02/04/18 12:09 02/04/18 12:09 Oxygen Delivery Method Room Air Weight: 180 lb Body Mass Index (BMI) 26.6 Laboratory Tests Past 24 Hrs 02/04/18 02/04/18 02/04/18 12:32 12:32 12:32 WBC 18.6 H RBC 5.59 Hgb 16.5 Hct 49.0 MCV 87.7 MCH 29.5 MCHC 33.7 RDW 13.3 RDW Differential 42.0 Plt Count 334 MPV 11.0 Immature Gran % (Auto) 0.200 Neut % (Auto) 87.5 H Lymph % (Auto) 6.2 L [place] % (Auto) 5.9 Eos % (Auto) 0.1 Baso % (Auto) 0.1 Absolute Neuts (auto) 16.3 H Absolute Lymphs (auto) 1.16 Total Counted Not Reportable Sodium 137 Potassium 3.7 Chloride 100 Carbon Dioxide 28.0 Anion Gap 9 BUN 11 Creatinine 1.00 Estim Creat Clear Calc 73.65 Est GFR (MDRD) Af Amer 96 Est GFR (MDRD) Non-Af 80 BUN/Creatinine Ratio 11.0 Glucose 116 H Lactic Acid 1.6 Calcium 10.1 Total Bilirubin 0.60 Direct Bilirubin 0.15 AST 14 L ALT 30 Alkaline Phosphatase 99 Total Protein 7.9 Albumin 4.4 Globulin 3.5 Amylase 49 Lipase 116 Clinical Impression(s) from Imaging Studies Abdomen/Pelvis CT 02/04/18 12:27 IMPRESSION: Findings in keeping with colitis involving the transverse colon as well as the left; scattered sigmoid diverticula. The remainder of the examination is unchanged. Electronically Signed: Jordan Cano MD at 14:23 EDT Tel [phone], Service support , Assessment/Plan This is a 67 years old male patient presented to the emergency room because of abdominal pain and hematochezia and he was found to have findings consistent with acute colitis of the transverse colon and left hemicolon and he is being admitted for treatment. #1 acute colitis of the transverse colon/left hemicolon: CT scan abdomen and pelvis with IV contrast reviewed. Patient has history of ischemic colitis status post right lavon-colectomy in April, and he has been on aspirin and Plavix since then. His lactic acid is normal. Differential diagnosis is ischemic colitis versus infectious colitis. Plan: Admit to [facility] floor, keep on clear liquids, IV fluids, IV morphine as needed, IV Flagyl and ciprofloxacin, IV antiemetics, repeat CBC and CMP tomorrow morning, general surgery consult. #2 hematochezia: Secondary to above. Hemoglobin and hematocrit are stable. Patient is not tachycardic, blood pressure stable. Plan to repeat CBC tomorrow morning. #3 history of ischemic colitis: Status post right lavon-colectomy. Patient has been on aspirin and Plavix since then. Both aspirin and Plavix will be held because of hematochezia, will do pro time and INR. #4 hypertension: Blood pressure stable, continue Cardizem, HCTZ and lisinopril. #5 hyperlipidemia: Continue statins. #6 DVT prophylaxis: SCDs. No chemical prophylaxis because of hematochezia. This note was generated with [employer] dictation software. It may contain incorrect words, spelling, and punctuation that were not noted in checking the note before signing. Code Visit Inpatient E&M: 18292 Init Hosp L3
[2018-02-04] MEDS: 0.9% Normal Saline 1,000 ML 100 ML IV (14:50)
[2018-02-04 15:17] VITALS: BMI 26.4
[2018-02-04 15:20] VITALS: BMI 26.5
[2018-02-04 15:24] VITALS: BP 158/83; PULSE 75; RESP 14; TEMP 36.8; O2SAT 100
[2018-02-04 15:56] VITALS: PULSE 80
[2018-02-04 18:02] LABS: Prothrombin Time (Protime)PT. 12.8 SECONDS (11.7-14.9)
--- NOTE | 2018-02-04 19:36 | CON.PCM_ITS ---
Problem List (1) Acute ischemic colitis Status: Acute Reason for Consult Date of Consultation: 02/04/18 History of Present Illness: The patient is a 67 year old M who I have been asked to see by for episode of recurrent colitis. Written copy my surgical consult will be placed on the chart. This is a very pleasant 67-year-old gentleman who I know well. The patient's had a remote history of splenic flexure colitis. More recently March and April had ascending colitis. CT scan failed to demonstrate resolution. Colonoscopy demonstrated significant inflammatory change with inability to reach the cecum. Out of concern regarding the etiology to the colitis the potential for mass-effect more proximally he underwent a laparoscopic right colectomy. Prior to that he had had ultrasound of the aorta he had had a CTA of the aorta all looking for potential source for embolization. None was identified. Unfortunately the right colon pathology is very nonspecific with ulceration with acute and chronic inflammation granulation and reactive epithelial changes. The appendix had no acute pathology. 13 lymph nodes were negative. The etiology to that episode of severe acute colitis remained indeterminate. It was still felt possibly be as an ischemic colitis. The patient was therefore maintained on clopidogrel and aspirin in addition to his routine medications. He is done very well. It is of note however that a month or so ago he had a brief episode of mid abdominal pain similar to his previous episode of colitis but in a different location. It resolved. On this occasion he has had slightly more severe pain with some rectal bleeding. He states that the degree of the pain that he has currently is nowhere near the severity of the pain that he had with his right-sided colitis prior to his laparoscopic right colectomy. He actually states that right now he is very mild amount of pain.On his presentation his white count is 18.6 with a hemoglobin 16.5 hematocrit 49 platelet count 3 and 34,000 with 87% neutrophils. BUN is 11 and creatinine 1. Liver panel normal. Amylase lipase normal. A CT scan had findings consistent with transverse and descending colitis. He also has diverticulosis.His most recent colonoscopy was March 11, 2017 identifying cecal and ascending colon colitis Past Medical History Past Medical History (Chronic Problems): Chronic Problems (Last Updated 02/04/18 @ 14:44 by Britta Evans MD) Hyperlipidemia (Chronic) History of ischemic colitis (Chronic) Glaucoma (Chronic) HTN (hypertension) (Chronic) Medical History: Medical History (Last Updated 02/04/18 @ 14:44 by Britta Evans MD) Glaucoma (Chronic) H40.9 HTN (hypertension) (Chronic) I10 Allergies ciprofloxacin [From Cipro] Allergy (Verified 02/04/18 13:43) Rash ciprofloxacin HCl [From Cipro] Allergy (Verified 02/04/18 13:43) Rash MAKES CRAZY ertapenem sodium [From Invanz] Allergy (Verified 02/04/18 13:43) Rash hydrocodone Adverse Reaction (Verified 02/04/18 13:43) makes him crazy Home Medications: Ambulatory Orders Medication Instructions Recorded Amitriptyline HCl [Elavil] 5 mg PO QHS 06/13/14 Hydrochlorothiazide [Hctz] 25 mg PO DAILY 06/13/14 Methocarbamol 750 mg PO PRN PRN 03/07/17 Aspirin E.C. [Ecotrin] 81 mg PO DAILY@0800 04/24/17 Clopidogrel Bisulfate [Plavix] 75 mg PO QODAY 04/24/17 Diltiazem HCl [Cartia Xt] 180 mg PO BID 04/24/17 Oxycodone HCl/Acetaminophen 1 tab PO Q6H PRN PRN 04/24/17 [Percocet 5-325] lisinopril 10 mg tablet 10 mg PO QDAY 04/24/17 Rosuvastatin Calcium 10 mg PO TH 02/04/18 Surgical History: Surgical History (Last Updated 02/04/18 @ 14:44 by Britta Evans MD) History of partial colectomy Z98.890, Z90.49 Surgical History: colectomy, - - RLE surgery s/p fracture x 2, R facial sinus surgery, R ear multiple surgeries. Psychiatric History: No pertinent psych hx Lives: Spouse/ Significant Other Smoking Status: Former smoker Alcohol: None Drugs: None - *Family History Maternal Family History: Family History (Last Reviewed 05/09/17 @ 13:56 by Alka Portillo) Mother Heart disease Hypertension Father Hypertension Heart disease History Items: Heart Disease, Hypertension Paternal Family History: Family History (Last Reviewed 05/09/17 @ 13:56 by Alka Portillo) Mother Heart disease Hypertension Father Hypertension Heart disease History Items: Heart Disease, Hypertension Review of Systems Constitutional: Denies: Anorexia HEENT: Denies: Difficulty Hearing Cardiovascular: Denies: Chest Pain Respiratory: Denies: Cough Gastrointestinal: Reports: Abdominal Pain, Diarrhea, Hematochezia. Denies: Vomiting Genitourinary: Denies: Dysuria Skin: Denies: Jaundice Endocrine: Denies: Change in Body Habitus Patient Problems: Active and Suspected Problems (Last Updated 02/04/18 @ 14:44 by Britta Evans MD) Acute ischemic colitis (Acute) - Physical Exam General: Alert, Oriented x3, Cooperative, No apparent distress HEENT: Atraumatic Oral: Moist Mucosa Neck: Supple Lungs: Clear to auscultation Cardiovascular: Regular rate, Regular Rhythm Abdomen: Bowel Sounds Present, Soft, Tender Extremities: No clubbing, No Calf Tenderness Skin: No rashes Lymphatic: No Cervical, Supraclavicular, or Inguinal Adenopathy Neurological: Cranial nerves II-XII grossly intact Psych/Mental Status: Normal Affect Vital Signs Temp Pulse Resp BP Pulse Ox 98.3 F 80 14 158/83 H 100 02/04/18 15:24 02/04/18 15:56 02/04/18 15:24 02/04/18 15:24 02/04/18 15:24 Oxygen Delivery Method Room Air Weight: 178 lb 12.8 oz Body Mass Index (BMI) 26.4 Laboratory Tests Past 24 Hrs 02/04/18 02/04/18 02/04/18 12:32 12:32 12:32 WBC 18.6 H RBC 5.59 Hgb 16.5 Hct 49.0 MCV 87.7 MCH 29.5 MCHC 33.7 RDW 13.3 RDW Differential 42.0 Plt Count 334 MPV 11.0 Immature Gran % (Auto) 0.200 Neut % (Auto) 87.5 H Lymph % (Auto) 6.2 L [place] % (Auto) 5.9 Eos % (Auto) 0.1 Baso % (Auto) 0.1 Absolute Neuts (auto) 16.3 H Absolute Lymphs (auto) 1.16 Total Counted Not Reportable PT INR Sodium 137 Potassium 3.7 Chloride 100 Carbon Dioxide 28.0 Anion Gap 9 BUN 11 Creatinine 1.00 Estim Creat Clear Calc 73.65 Est GFR (MDRD) Af Amer 96 Est GFR (MDRD) Non-Af 80 BUN/Creatinine Ratio 11.0 Glucose 116 H Lactic Acid 1.6 Calcium 10.1 Total Bilirubin 0.60 Direct Bilirubin 0.15 AST 14 L ALT 30 Alkaline Phosphatase 99 Total Protein 7.9 Albumin 4.4 Globulin 3.5 Amylase 49 Lipase 116 02/04/18 16:10 WBC RBC Hgb Hct MCV MCH MCHC RDW RDW Differential Plt Count MPV Immature Gran % (Auto) Neut % (Auto) Lymph % (Auto) [place] % (Auto) Eos % (Auto) Baso % (Auto) Absolute Neuts (auto) Absolute Lymphs (auto) Total Counted PT 12.8 INR 1.0 Sodium Potassium Chloride Carbon Dioxide Anion Gap BUN Creatinine Estim Creat Clear Calc Est GFR (MDRD) Af Amer Est GFR (MDRD) Non-Af BUN/Creatinine Ratio Glucose Lactic Acid Calcium Total Bilirubin Direct Bilirubin AST ALT Alkaline Phosphatase Total Protein Albumin Globulin Amylase Lipase Assessment/Plan All Active Problems (Last Updated 02/04/18 @ 14:44 by Britta Evans MD) Acute ischemic colitis (Acute) Recurrent acute colitis of undetermined etiology. This time it is involving the transverse and descending colon. Fortunately is of more mild degree. He does not have any significant ongoing blood loss. Recommendations would be for medical management and the patient is getting appropriate treatment. He will not be requiring a colonoscopy at this time. As noted above he has undergone previous extensive evaluation and did attempt to determine the etiology to this process. He even had a portion of his colon removed with active ulceration but still unable to determine a definitive cause. I anticipate that he likely will improve with appropriate medical management. I think then as an outpatient would be reasonable to recruit the help of tertiary level consultation regarding potential etiologies and treatment options. It is unlikely at this time that the patient will require emergent endoscopic or surgical intervention. I appreciate the opportunity of assisting with surgical care. We will follow expectantly. Dimas Amezcua M.D., F.A.C.S.
[2018-02-04 20:13] VITALS: BP 123/83; PULSE 85; RESP 18; TEMP 36.6; O2SAT 100
[2018-02-04] MEDS: dilTIAZem CD 180 MG Capsule PO (21:10)
[2018-02-05 02:27] VITALS: BP 131/75; PULSE 83; RESP 17; TEMP 37.2; O2SAT 98
[2018-02-05] MEDS: 0.9% Normal Saline 1,000 ML 100 ML IV (02:34)
--- NOTE | 2018-02-05 05:30 | PCM.PN.SRG ---
Patient Problems: Active and Suspected Problems (Last Updated 02/04/18 @ 14:44 by Britta Evans MD) Acute ischemic colitis (Acute) Subjective: Pt able to rest last night Flatus but no stool - Physical Exam Abdomen: Bowel Sounds Present, Soft, Non Tender Vital Signs Temp Pulse Resp BP Pulse Ox 99 F 83 17 131/75 H 98 02/05/18 02:27 02/05/18 02:27 02/05/18 02:27 02/05/18 02:27 02/05/18 02:27 Oxygen Delivery Method Room Air Weight: 178 lb 12.8 oz Body Mass Index (BMI) 26.4 Intake and Output for Last 24 Hours 02/03/18 02/04/18 02/05/18 23:59 23:59 23:59 Intake Total 1186 / 1186 594 / 594 Balance 1186 / 1186 594 / 594 Laboratory Tests Past 24 Hrs 02/04/18 02/04/18 02/04/18 12:32 12:32 12:32 WBC 18.6 H RBC 5.59 Hgb 16.5 Hct 49.0 MCV 87.7 MCH 29.5 MCHC 33.7 RDW 13.3 RDW Differential 42.0 Plt Count 334 MPV 11.0 Immature Gran % (Auto) 0.200 Neut % (Auto) 87.5 H Lymph % (Auto) 6.2 L [place] % (Auto) 5.9 Eos % (Auto) 0.1 Baso % (Auto) 0.1 Absolute Neuts (auto) 16.3 H Absolute Lymphs (auto) 1.16 Total Counted Not Reportable PT INR Sodium 137 Potassium 3.7 Chloride 100 Carbon Dioxide 28.0 Anion Gap 9 BUN 11 Creatinine 1.00 Estim Creat Clear Calc 73.65 Est GFR (MDRD) Af Amer 96 Est GFR (MDRD) Non-Af 80 BUN/Creatinine Ratio 11.0 Glucose 116 H Lactic Acid 1.6 Calcium 10.1 Total Bilirubin 0.60 Direct Bilirubin 0.15 AST 14 L ALT 30 Alkaline Phosphatase 99 Total Protein 7.9 Albumin 4.4 Globulin 3.5 Amylase 49 Lipase 116 02/04/18 16:10 WBC RBC Hgb Hct MCV MCH MCHC RDW RDW Differential Plt Count MPV Immature Gran % (Auto) Neut % (Auto) Lymph % (Auto) [place] % (Auto) Eos % (Auto) Baso % (Auto) Absolute Neuts (auto) Absolute Lymphs (auto) Total Counted PT 12.8 INR 1.0 Sodium Potassium Chloride Carbon Dioxide Anion Gap BUN Creatinine Estim Creat Clear Calc Est GFR (MDRD) Af Amer Est GFR (MDRD) Non-Af BUN/Creatinine Ratio Glucose Lactic Acid Calcium Total Bilirubin Direct Bilirubin AST ALT Alkaline Phosphatase Total Protein Albumin Globulin Amylase Lipase Medical Necessity - Tobacco Use Smoking Status: Former smoker Assessment/Plan All Active Problems (Last Updated 02/04/18 @ 14:44 by Britta Evans MD) Acute ischemic colitis (Acute) He would like to stay at [facility] at least for breakfast Await labs to evaluate leukocytosis Appears to be improving
[2018-02-05 06:39] LABS: Absolute Lymphocyte Count 1.09 X10^3/ul (0.83-4.51); Absolute Neutrophil Count 10.5 X10^3/uL (2.0-7.7); Basophil# 0.02 X10^3/uL; Basophil% 0.2 % (0-1); Eosinophil# 0.05 X10^3/uL; Eosinophils% 0.4 % (0-5); Hemoglobin 13.8 g/dl (13.0-16.5); Lymphocyte # 1.09 X10^3/ul (4.0); Lymphocyte % 8.6 % (19-41); Mean Corp Hgb Conc 33.7 g/gl (32-36); Mean Corpuscular Hgb 29.7 pg (27.0-32.0); Mean Corpuscular Volume 88.2 fL (80-94); Monocyte# 0.99 X10^3/uL; Monocyte% 7.8 % (0-10); Neutrophil # 10.53 X10^3/uL (2.7-7.7); Neutrophil % 82.8 % (47-70); Platelet Count 258 K/mm3 (150-450); RBC Distribution Width CV 13.7 % (11.6-14.6); RBC Distribution Width SD 43.4 fl (35.1-43.9); Red Blood Count 4.65 M/mm3 (4.6-6.2); White Blood Count 12.7 K/mm3 (4.4-11.0)
[2018-02-05 06:48] LABS: POSITIVE COUNT NO; POSITIVE DIFFERENTIAL NO; POSITIVE MORPHOLOGY NO
[2018-02-05 06:58] LABS: ALB/GLOB Ratio 1.1 RATIO (0.9-2.4); AST(SGOT) 11 U/L (15-37); Alanine Aminotransfer ALT/SGPT 22 U/L (16-61); Albumin, Serum 3.2 g/dL (3.2-5.0); Alkaline Phosphatase 72 U/L (45-117); Anion Gap 7 (5-15); BUN 12 mg/dL (7-18); BUN/Creat Ratio 13.8 RATIO (10-20); Calcium,Total 8.6 mg/dL (8.5-10.1); Chloride 106 mmol/L (98-107); Creatinine, Serum 0.87 mg/dL (0.70-1.30); EST Glomerular Filtration Rate 93 mL/min (>60); Est Glom Filt Rate - Afr Amer 113 mL/min (>60); Globulin 2.8 g/dL (2.2-4.2); Glucose 97 mg/dL (74-106); Potassium 3.7 mmol/L (3.5-5.1); Sodium Level 141 mmol/L (136-145)
[2018-02-05 07:50] VITALS: O2SAT 95
[2018-02-05 08:02] VITALS: BP 135/87; PULSE 82; RESP 18; TEMP 36.5; O2SAT 96
[2018-02-05] MEDS: Acetaminophen 325 MG Tablet 650 MG PO (08:08)
[2018-02-05] MEDS: Lisinopril 10 MG Tablet PO (08:08)
[2018-02-05] MEDS: hydroCHLOROthiazide 25 MG Tablet PO (08:09)
[2018-02-05] MEDS: dilTIAZem CD 180 MG Capsule PO (08:09)
[2018-02-05 08:11] VITALS: PULSE 90
--- NOTE | 2018-02-05 10:21 | PCM.DC ---
- Discharge Diagnoses Current Active Problems: Current Active and Chronic Problems (Last Updated 02/04/18 @ 14:44 by Britta Evans MD) Acute ischemic colitis (Acute) Hyperlipidemia (Chronic) History of ischemic colitis (Chronic) You will use the following diet at home:: Other - Liquid diet today and soft diet for next 3 days and low residue regular diet afterwards. Discharge Activity: Return to Normal Activity - After 3 days Call your doctor if you observe: Fever of 101 or Higher, Inability to have a bowel movement, Shortness of breath, Dizziness, Fainting spells, Swelling in the ankles, Chest pain, Increased palpitations (irregular heartbeat) Allergies/Adverse Reactions: Allergies ciprofloxacin [From Cipro] Allergy (Verified 02/04/18 13:43) Rash ciprofloxacin HCl [From Cipro] Allergy (Verified 02/04/18 13:43) Rash MAKES CRAZY ertapenem sodium [From Invanz] Allergy (Verified 02/04/18 13:43) Rash hydrocodone Adverse Reaction (Verified 02/04/18 13:43) makes him crazy Medications to take at Discharge Amitriptyline HCl [Elavil] 5 mg PO QHS 06/13/14 Hydrochlorothiazide [Hctz] 25 mg PO DAILY 06/13/14 Methocarbamol 750 mg PO PRN PRN 03/07/17 Diltiazem HCl [Cartia Xt] 180 mg PO BID 04/24/17 Oxycodone HCl/Acetaminophen [Percocet 5-325] 1 tab PO Q6H PRN PRN 04/24/17 lisinopril 10 mg tablet 10 mg PO QDAY 04/24/17 Rosuvastatin Calcium 10 mg PO TH 02/04/18 Aspirin E.C. [Ecotrin] 81 mg PO DAILY@0800 #0 02/05/18 Clopidogrel Bisulfate [Plavix] 75 mg PO QODAY #0 02/05/18 Metronidazole [Flagyl] 500 mg PO TID #15 tablet 02/05/18 The following prescriptions were given: Metronidazole [Flagyl] 500 mg PO TID #15 tablet Primary Care Physician: Jose E Ace MD [Primary Care Provider] - Please follow up with your Primary Care Physician in: [place] 1-2 weeks Test Results: Test results from this visit will be discussed in further detail at your follow-up appointment, if applicable. Please Follow Up With: Dimas Amezcua MD When: in 2 [facility]
--- NOTE | 2018-02-05 10:24 | DCINST_ITS ---
- Discharge Diagnoses Current Active Problems: Current Active and Chronic Problems (Last Updated 02/04/18 @ 14:44 by Britta Evans MD) Acute ischemic colitis (Acute) Hyperlipidemia (Chronic) History of ischemic colitis (Chronic) You will use the following diet at home:: Other - Liquid diet today and soft diet for next 3 days and low residue regular diet afterwards. Discharge Activity: Return to Normal Activity - After 3 days Call your doctor if you observe: Fever of 101 or Higher, Inability to have a bowel movement, Shortness of breath, Dizziness, Fainting spells, Swelling in the ankles, Chest pain, Increased palpitations (irregular heartbeat) Allergies/Adverse Reactions: Allergies ciprofloxacin [From Cipro] Allergy (Verified 02/04/18 13:43) Rash ciprofloxacin HCl [From Cipro] Allergy (Verified 02/04/18 13:43) Rash MAKES CRAZY ertapenem sodium [From Invanz] Allergy (Verified 02/04/18 13:43) Rash hydrocodone Adverse Reaction (Verified 02/04/18 13:43) makes him crazy Medications to take at Discharge Amitriptyline HCl [Elavil] 5 mg PO QHS 06/13/14 Hydrochlorothiazide [Hctz] 25 mg PO DAILY 06/13/14 Methocarbamol 750 mg PO PRN PRN 03/07/17 Diltiazem HCl [Cartia Xt] 180 mg PO BID 04/24/17 Oxycodone HCl/Acetaminophen [Percocet 5-325] 1 tab PO Q6H PRN PRN 04/24/17 lisinopril 10 mg tablet 10 mg PO QDAY 04/24/17 Rosuvastatin Calcium 10 mg PO TH 02/04/18 Aspirin E.C. [Ecotrin] 81 mg PO DAILY@0800 #0 02/05/18 Clopidogrel Bisulfate [Plavix] 75 mg PO QODAY #0 02/05/18 Metronidazole [Flagyl] 500 mg PO TID #15 tablet 02/05/18 The following prescriptions were given: Metronidazole [Flagyl] 500 mg PO TID #15 tablet Primary Care Physician: Jose E Ace MD [Primary Care Provider] - Please follow up with your Primary Care Physician in: [place] 1-2 weeks Test Results: Test results from this visit will be discussed in further detail at your follow- up appointment, if applicable. Please Follow Up With: Dimas Amezcua MD When: [facility]
--- NOTE | 2018-02-05 10:24 | DS.PCM_ITS ---
Discharge Date and Diagnosis - Problem List Patient Problems: Active and Suspected Problems (Last Updated 02/04/18 @ 14:44 by Britta Evans MD) Acute ischemic colitis (Acute) Date of Admission: 02/04/18 Date of Discharge: 02/05/18 - Primary Discharge Diagnosis Active and Suspected Problems (Last Updated 02/04/18 @ 14:44 by Britta Evans MD) Acute ischemic colitis (Acute) - Secondary Discharge Diagnosis Chronic Problems (Last Updated 02/04/18 @ 14:44 by Britta Evans MD) Hyperlipidemia (Chronic) History of ischemic colitis (Chronic) Glaucoma (Chronic) HTN (hypertension) (Chronic) Hospital Course and Treatment Operations: colectomy - laparoscopic right hemicolectomy Summary of Care Provided: [] This is a 67 years old male patient presented to the emergency room because of abdominal pain and hematochezia and he was found to have findings consistent with acute colitis of the transverse colon and left hemicolon, thought to be acute ischemic colitis but there is suspicion of infectious colitis too. #1 acute colitis of the transverse colon/left hemicolon: CT scan abdomen and pelvis with IV contrast reviewed. Patient has history of ischemic colitis status post right lavon-colectomy in April, and he has been on aspirin and Plavix since then. His lactic acid is normal. The patient was seen by Dr. Dimas Amezcua. He has a remarkable surgical history of ascending colitis in March/April this year with a concern of potential for mass-effect that led to laparoscopic right colectomy. Biopsy report was nonspecific with ulceration; acute on chronic inflammation and granulation tissue. 13 lymph nodes were negative. Exact etiology remained indeterminate. After that patient had this episode of colitis. His most recent colonoscopy in March 11, 2017 showed cecal/ascending colon colitis; prior to right hemicolectomy. Dr. Dimas Amezcua recommended outpatient tertiary level consultation regarding potential etiology and treatment option of this colitis. With conservative management, IV fluid, IV Flagyl, and supportive treatment he got better. He is requesting to go home as he has to accompany his for her doctor's appointment. The patient was advised to picker packer medical packet of Dr. Amezcua's office and follow-up with the [facility]. #2 hematochezia: Secondary to above. Hemoglobin and hematocrit are stable. Patient is not tachycardic, blood pressure stable. Plan to repeat CBC tomorrow morning. #3 history of ischemic colitis: Status post right lavon-colectomy. Patient has been on aspirin and Plavix since then. Both aspirin and Plavix will be held because of hematochezia, INR normal. LFT within normal limit. #4 hypertension: Blood pressure stable, continue Cardizem, HCTZ and lisinopril. #5 hyperlipidemia: Continue statins. #6 DVT prophylaxis: SCDs. No chemical prophylaxis because of hematochezia. Discharge medication reconciliation done. Discharge follow-up instructions completed. Patient was advised to hold aspirin and Plavix for 1 week and then resume Plavix every other day and aspirin. Discharge plan was discussed with the patient. The patient was advised to keep clear liquid today and start soft diet for next 3 days and gradually advance as per tolerated Total time spent, exact 35 minutes on discharge meds reconciliation, examination, review of imaging and blood test and discussion with the patient on follow-up instructions. Patient Problems: Active and Suspected Problems (Last Updated 02/04/18 @ 14:44 by Britta Evans MD) Acute ischemic colitis (Acute) - Physical Exam General: Alert, Oriented x3, Cooperative HEENT: Atraumatic, PERRLA, EOMI, Normocephalic Neck: Supple, No JVD, Negative Carotid Bruits Lungs: Clear to auscultation, Normal air movement, No rhonchi, No wheeze, No rales Cardiovascular: Regular rate, Regular Rhythm, Normal S1, Normal S2, No murmurs Abdomen: Bowel Sounds Present, Soft, Non Tender - No rebound tenderness, Non- Distended Extremities: No edema, Capillary Refill Less than 3 Seconds Skin: No rashes, No breakdown Musculoskeletal: No Tenderness to Palpation of Joints or Extremities, Arthritic Changes Neurological: Cranial nerves II-XII grossly intact, Motor Exam 5/5 strength throughout Psych/Mental Status: Normal Affect, Appropriate Vital Signs Temp Pulse Resp BP Pulse Ox 97.7 F L 90 18 135/87 H 96 02/05/18 08:02 02/05/18 08:11 02/05/18 08:02 02/05/18 08:02 02/05/18 08:02 Oxygen Delivery Method Room Air Weight: 178 lb 12.8 oz Body Mass Index (BMI) 26.4 Intake and Output for Last 24 Hours 02/03/18 02/04/18 02/05/18 23:59 23:59 23:59 Intake Total 1186 / 1186 594 / 594 Balance 1186 / 1186 594 / 594 Laboratory Tests Past 24 Hrs 02/04/18 02/04/18 02/04/18 12:32 12:32 12:32 WBC 18.6 H RBC 5.59 Hgb 16.5 Hct 49.0 MCV 87.7 MCH 29.5 MCHC 33.7 RDW 13.3 RDW Differential 42.0 Plt Count 334 MPV 11.0 Immature Gran % (Auto) 0.200 Neut % (Auto) 87.5 H Lymph % (Auto) 6.2 L [place] % (Auto) 5.9 Eos % (Auto) 0.1 Baso % (Auto) 0.1 Absolute Neuts (auto) 16.3 H Absolute Lymphs (auto) 1.16 Total Counted Not Reportable PT INR Sodium 137 Potassium 3.7 Chloride 100 Carbon Dioxide 28.0 Anion Gap 9 BUN 11 Creatinine 1.00 Estim Creat Clear Calc 73.65 Est GFR (MDRD) Af Amer 96 Est GFR (MDRD) Non-Af 80 BUN/Creatinine Ratio 11.0 Glucose 116 H Lactic Acid 1.6 Calcium 10.1 Total Bilirubin 0.60 Direct Bilirubin 0.15 AST 14 L ALT 30 Alkaline Phosphatase 99 Total Protein 7.9 Albumin 4.4 Globulin 3.5 Albumin/Globulin Ratio Amylase 49 Lipase 116 02/04/18 02/05/18 02/05/18 16:10 05:58 05:58 WBC 12.7 H RBC 4.65 Hgb 13.8 Hct 41.0 MCV 88.2 MCH 29.7 MCHC 33.7 RDW 13.7 RDW Differential 43.4 Plt Count 258 MPV 11.0 Immature Gran % (Auto) 0.200 Neut % (Auto) 82.8 H Lymph % (Auto) 8.6 L [place] % (Auto) 7.8 Eos % (Auto) 0.4 Baso % (Auto) 0.2 Absolute Neuts (auto) 10.5 H Absolute Lymphs (auto) 1.09 Total Counted Not Reportable PT 12.8 INR 1.0 Sodium 141 Potassium 3.7 Chloride 106 Carbon Dioxide 28.0 Anion Gap 7 BUN 12 Creatinine 0.87 Estim Creat Clear Calc 81.90 Est GFR (MDRD) Af Amer 113 Est GFR (MDRD) Non-Af 93 BUN/Creatinine Ratio 13.8 Glucose 97 Lactic Acid Calcium 8.6 Total Bilirubin 0.60 Direct Bilirubin AST 11 L ALT 22 Alkaline Phosphatase 72 Total Protein 6.0 L Albumin 3.2 Globulin 2.8 Albumin/Globulin Ratio 1.1 Amylase Lipase Discharge Activity: Return to Normal Activity - After 3 days Call your doctor if you observe: Fever of 101 or Higher, Inability to have a bowel movement, Shortness of breath, Dizziness, Fainting spells, Swelling in the ankles, Chest pain, Increased palpitations (irregular heartbeat) Home Medications: Medications to take at Discharge Amitriptyline HCl [Elavil] 5 mg PO QHS 06/13/14 Hydrochlorothiazide [Hctz] 25 mg PO DAILY 06/13/14 Methocarbamol 750 mg PO PRN PRN 03/07/17 Diltiazem HCl [Cartia Xt] 180 mg PO BID 04/24/17 Oxycodone HCl/Acetaminophen [Percocet 5-325] 1 tab PO Q6H PRN PRN 04/24/17 lisinopril 10 mg tablet 10 mg PO QDAY 04/24/17 Rosuvastatin Calcium 10 mg PO TH 02/04/18 Aspirin E.C. [Ecotrin] 81 mg PO DAILY@0800 #0 02/05/18 Clopidogrel Bisulfate [Plavix] 75 mg PO QODAY #0 02/05/18 Metronidazole [Flagyl] 500 mg PO TID #15 tablet 02/05/18 Following Prescrptions Were Given to Patient: Metronidazole [Flagyl] 500 mg PO TID #15 tablet Primary Care Physician: Jose E Ace MD [Primary Care Provider] - Please follow up with your Primary Care Physician in: IN 1-2 weeks Please Follow Up With: Dimas Amezcua MD When: [facility] Medical Necessity - Tobacco Use Smoking Status: Former smoker Meaningful Use Info Meaningful Use Diagnoses (Choose all that apply): None applicable
--- NOTE | 2018-02-05 11:20 | CASEMGMT ---
RN ANDERS Face to Face with patient for initial transition planning/care coordination assessment. RN CM introduced self and role at [facility]. Patient sitting in chair, alert and oriented. Patient willing to participate in assessment and is able to answer all questions appropriately. Care providers, pharmacy, and demographics verified. Patient wishes to discharge home, denies need for home health at this time. Patient states he has no further needs or concerns at this time. CM to follow for discharge planning needs that may arise. PCP: Db Specialists: None Preferred Pharmacy: [facility] Insurance: [facility] Prescription Benefit: [employer] Living Will/HPOA: No LNOK: Living Arrangements: Lives with in 1 story Transportation: DME/HHC: Declines DME and HHC Disposition Plan: Patient to discharge home with family support and follow-up plans in place. Argenis MATTSON, RN, CM
[2018-02-05 13:38] VITALS: BP 120/78; PULSE 76; RESP 18; TEMP 36.7; O2SAT 99
== END 2018-02-05 15:45 | disposition home or self-care (01) | DRG 395 ==
LOC: ED 12:52 → MS3 16:16
PROVIDERS: Admitting Provider Hospitalist; Emergency Provider Emergency Medicine; Family Provider Family Medicine; PCP Family Medicine; Visit Provider Family Medicine
DX: K55.039 Acute (reversible) ischemia of large intestine, extent unspecified (principal); I10 Essential (primary) hypertension; E78.5 Hyperlipidemia, unspecified; Z90.49 Acquired absence of other specified parts of digestive tract; H40.9 Unspecified glaucoma; Z87.891 Personal history of nicotine dependence
CPT/HCPCS: 36415; 74177; 80048; 80053; 80076; 82150; 83605; 83690; 85025; 85610; 99284; J7030; Q9967; A4216

== ENCOUNTER → 2018-02-16 07:23 | Outpatient (CLI) | payer MEDICARE, OTHER, SELFPAY ==
--- NOTE | 2018-02-16 07:27 | MRI_ITS ---
STUDY: MRI LUMBAR SPINE WITHOUT CONTRAST REASON FOR EXAM: Male, 67 years old. back pain, rt leg pain. TECHNIQUE: Standardized fat and water weighted pulse sequences were obtained in the sagittal and axial planes. # of Images: 129 COMPARISON: None FINDINGS: T12-L1: There is mild disc space narrowing and endplate spondylosis. There is no significant disc herniation, central canal or foraminal stenosis. Normal lumbar lordosis. There is no substantial scoliosis. Normal conus medullaris that terminates at the L1 L1-2: There is mild disc space narrowing and endplate spondylosis. There is no significant disc herniation, central canal or foraminal stenosis. L2-3: There is mild disc space narrowing and endplates spondylosis. There is a mild disc bulge and facet hypertrophy with mild central canal stenosis. There is mild bilateral foraminal stenosis. L3-4: There is mild disc space narrowing and endplates spondylosis. There is a mild disc bulge and facet hypertrophy with mild central canal stenosis. There is mild bilateral foraminal stenosis. L4-5: There is moderate disc space narrowing and endplates spondylosis. There is mild disc bulge and facet arthropathy with mild central canal stenosis. There is moderate right and mild left foraminal stenosis L5-S1: There is moderate disc space narrowing and endplates spondylosis. There is a moderate disc osteophyte complex and mild facet osteoarthropathy with mild central canal stenosis. There is moderate right and moderate left foraminal stenosis. Normal visualized sacral ala. Normal visualized paraspinous soft tissue structures. MRI/Spine Lumbar (Routine) IMPRESSION: L4/L5: Moderate right foraminal stenosis. L5/S1: Moderate bilateral foraminal stenosis. Electronically Signed: Alexandra Max MD at 8:03 EDT Tel , Service support ,
== END ==
PROVIDERS: Family Provider Family Medicine; PCP Family Medicine; Referring Provider Anesthesiology Pain Medicine; Visit Provider Anesthesiology Pain Medicine
DX: M54.9 Dorsalgia, unspecified (principal); M79.604 Pain in right leg
CPT/HCPCS: 72148

== ENCOUNTER → 2018-03-30 09:13 | Outpatient (CLI) | payer MEDICARE, OTHER, SELFPAY ==
[2018-03-30 09:17] LABS: Bacteria 0 SEEN /hpf (None Seen); Mucous, Urine 0 SEEN /hpf (<or=2+); Red Blood Cells-Urine 0 SEEN /hpf (0-5); White Blood Cells 0 SEEN /hpf (0-5)
[2018-03-30 10:05] LABS: Color, Urine Yellow (Yellow); Glucose, Dipstick Normal (Normal); Ketone-Dipstick Negative (Negative); Leukocyte Esterase-Dipstick Negative /ul (Negative); Nitrite-Dipstick Negative (Negative); Occult Blood-Urine Negative /ul (Negative); Protein-Dipstick Negative (Negative); Specific Gravity, Urine 1.015 (1.002-1.030); Urine Bilirubin Dipstick Negative (Negative); Urine Clarity Clear (Clear); Urine Urobilinogen Normal (Normal)
[2018-03-30 10:11] LABS: Squamous Epithelial Cells - UA 0-5 SEEN /hpf (0-5)
[2018-03-30 10:17] LABS: Absolute Lymphocyte Count 1.12 X10^3/ul (0.83-4.51); Basophil# 0.02 X10^3/uL; Basophil% 0.4 % (0-1); Eosinophil# 0.15 X10^3/uL; Eosinophils% 3.1 % (0-5); Hematocrit 43.2 % (40-54); Lymphocyte # 1.12 X10^3/ul (4.0); Lymphocyte % 23.2 % (19-41); Mean Corp Hgb Conc 32.4 g/gl (32-36); Mean Corpuscular Hgb 29.1 pg (27.0-32.0); Mean Corpuscular Volume 89.8 fL (80-94); Mean Platelet Vol. 10.6 fl (6.2-12.0); Monocyte# 0.53 X10^3/uL; Neutrophil % 62.1 % (47-70); POSITIVE COUNT NO; POSITIVE DIFFERENTIAL NO; POSITIVE MORPHOLOGY NO; Platelet Count 260 K/mm3 (150-450); RBC Distribution Width CV 13.5 % (11.6-14.6); RBC Distribution Width SD 43.7 fl (35.1-43.9); Red Blood Count 4.81 M/mm3 (4.6-6.2); White Blood Count 4.8 K/mm3 (4.4-11.0)
[2018-03-30 10:51] LABS: ALB/GLOB Ratio 1.3 RATIO (0.9-2.4); AST(SGOT) 19 U/L (15-37); Alanine Aminotransfer ALT/SGPT 26 U/L (16-61); Albumin, Serum 3.7 g/dL (3.2-5.0); Alkaline Phosphatase 88 U/L (45-117); Anion Gap 5 (5-15); BUN 14 mg/dL (7-18); BUN/Creat Ratio 15.3 RATIO (10-20); Calcium,Total 9.2 mg/dL (8.5-10.1); Chloride 105 mmol/L (98-107); Cholesterol 203 mg/dL (200); Creatinine, Serum 0.92 mg/dL (0.70-1.30); EST Glomerular Filtration Rate 88 mL/min (>60); Est Glom Filt Rate - Afr Amer 106 mL/min (>60); Globulin 2.9 g/dL (2.2-4.2); Glucose 83 mg/dL (74-106); High Density Lipoprotein 54 mg/dL; Potassium 4.1 mmol/L (3.5-5.1); Protein, Total 6.6 g/dL (6.4-8.2); Sodium Level 142 mmol/L (136-145); Triglycerides 114 mg/dL; Very Low Density Lipoprotein 23 mg/dL (5-40)
[2018-03-30 10:56] LABS: Vitamin D,25 Hydroxy 44.5 ng/mL (29.95-100.01)
== END ==
PROVIDERS: Family Provider Family Medicine; PCP Family Medicine; Visit Provider Family Medicine
DX: I10 Essential (primary) hypertension (principal); E55.9 Vitamin D deficiency, unspecified; E78.5 Hyperlipidemia, unspecified
CPT/HCPCS: 36415; 80053; 80061; 81001; 82306; 85025

== ENCOUNTER → 2018-08-01 | Outpatient (CLI) | payer MEDICARE, OTHER, SELFPAY ==
[2018-08-01 09:43] LABS: Absolute Lymphocyte Count 1.25 X10^3/ul (0.83-4.51); Absolute Neutrophil Count 3.2 X10^3/uL (2.0-7.7); Basophil# 0.04 X10^3/uL; Basophil% 0.8 % (0-1); Eosinophil# 0.22 X10^3/uL; Eosinophils% 4.2 % (0-5); Hematocrit 44.7 % (40-54); Hemoglobin 14.8 g/dl (13.0-16.5); Lymphocyte # 1.25 X10^3/ul (4.0); Lymphocyte % 23.7 % (19-41); Mean Corp Hgb Conc 33.1 g/gl (32-36); Mean Corpuscular Hgb 28.8 pg (27.0-32.0); Mean Platelet Vol. 10.7 fl (6.2-12.0); Monocyte# 0.56 X10^3/uL; Monocyte% 10.6 % (0-10); Neutrophil # 3.18 X10^3/uL (2.7-7.7); Neutrophil % 60.3 % (47-70); Platelet Count 256 K/mm3 (150-450); RBC Distribution Width CV 13.6 % (11.6-14.6); RBC Distribution Width SD 42.3 fl (35.1-43.9); Red Blood Count 5.14 M/mm3 (4.6-6.2); White Blood Count 5.3 K/mm3 (4.4-11.0)
[2018-08-01 09:44] LABS: POSITIVE COUNT NO; POSITIVE DIFFERENTIAL NO; POSITIVE MORPHOLOGY NO
[2018-08-01 10:33] LABS: ALB/GLOB Ratio 1.2 RATIO (0.9-2.4); AST(SGOT) 24 U/L (15-37); Alanine Aminotransfer ALT/SGPT 34 U/L (16-61); Albumin, Serum 3.8 g/dL (3.2-5.0); Alkaline Phosphatase 96 U/L (45-117); Anion Gap 5 (5-15); BUN 13 mg/dL (7-18); BUN/Creat Ratio 13.6 RATIO (10-20); Calcium,Total 9.4 mg/dL (8.5-10.1); Chloride 105 mmol/L (98-107); Cholesterol 192 mg/dL (200); Creatinine, Serum 0.96 mg/dL (0.70-1.30); EST Glomerular Filtration Rate 84 mL/min (>60); Est Glom Filt Rate - Afr Amer 101 mL/min (>60); Globulin 3.1 g/dL (2.2-4.2); Glucose 92 mg/dL (74-106); High Density Lipoprotein 60 mg/dL; Potassium 4.1 mmol/L (3.5-5.1); Protein, Total 6.9 g/dL (6.4-8.2); Sodium Level 142 mmol/L (136-145); Triglycerides 89 mg/dL; Very Low Density Lipoprotein 18 mg/dL (5-40)
[2018-08-03 09:57] LABS: Vitamin D,25 Hydroxy 31.3 ng/mL (29.95-100.01)
== END | disposition home or self-care (01) ==
LOC: LAB 09:23
PROVIDERS: Family Provider Family Medicine; PCP Family Medicine; Referring Provider Family Medicine; Visit Provider Family Medicine
DX: I10 Essential (primary) hypertension (principal); E55.9 Vitamin D deficiency, unspecified; E78.5 Hyperlipidemia, unspecified
CPT/HCPCS: 36415; 80053; 80061; 82306; 85025

== ENCOUNTER → 2018-12-09 | Outpatient (CLI) | payer MEDICARE, OTHER, SELFPAY ==
[2018-12-09 10:34] LABS: PSA,Total - Annual Screen 0.47 ng/mL (0.00-4.00)
== END | disposition home or self-care (01) ==
LOC: MFPLAB 09:16
PROVIDERS: Family Provider Family Medicine; PCP Family Medicine; Referring Provider Family Medicine; Visit Provider Family Medicine
DX: Z12.5 Encounter for screening for malignant neoplasm of prostate (principal)
CPT/HCPCS: 36415; 84153; G0103

== ENCOUNTER → 2019-03-26 08:58 | Outpatient (CLI) | payer MEDICARE, OTHER, SELFPAY ==
[2019-03-26 10:01] LABS: Absolute Neutrophil Count 2.3 X10^3/uL (2.0-7.7); Basophil# 0.03 X10^3/uL; Basophil% 0.7 % (0-1); Eosinophils% 2.3 % (0-5); Hematocrit 44.2 % (40-54); Hemoglobin 14.4 g/dL (13.0-16.5); Lymphocyte % 30.4 % (19-41); Mean Corp Hgb Conc 32.6 g/dL (32-36); Mean Corpuscular Hgb 29.9 pg (27.0-32.0); Mean Corpuscular Volume 91.7 fL (80-94); Mean Platelet Vol. 10.7 fl (6.2-12.0); Monocyte# 0.52 X10^3/uL; Monocyte% 12.2 % (0-10); NRBC Flagged by Analyzer 0 % (0-5); Neutrophil % 53.9 % (47-70); Platelet Count 259 K/mm3 (150-450); RBC Distribution Width SD 43.3 fl (35.1-43.9); Red Blood Count 4.82 M/mm3 (4.6-6.2); White Blood Count 4.3 K/mm3 (4.4-11.0)
[2019-03-26 10:38] LABS: ALB/GLOB Ratio 1.4 RATIO (0.9-2.4); AST(SGOT) 18 U/L (15-37); Alanine Aminotransfer ALT/SGPT 28 U/L (16-61); Albumin, Serum 3.9 g/dL (3.2-5.0); Alkaline Phosphatase 75 U/L (45-117); Anion Gap 3 (5-15); BUN 11 mg/dL (7-18); BUN/Creat Ratio 11.5 RATIO (10-20); Calcium,Total 9.3 mg/dL (8.5-10.1); Chloride 106 mmol/L (98-107); Cholesterol 185 mg/dL (200); Creatinine, Serum 0.95 mg/dL (0.70-1.30); EST Glomerular Filtration Rate 84 mL/min (>60); Est Glom Filt Rate - Afr Amer 101 mL/min (>60); Globulin 2.8 g/dL (2.2-4.2); Glucose 82 mg/dL (74-106); High Density Lipoprotein 65 mg/dL; Protein, Total 6.7 g/dL (6.4-8.2); Sodium Level 141 mmol/L (136-145); Triglycerides 66 mg/dL; Very Low Density Lipoprotein 13 mg/dL (5-40)
[2019-03-26 10:49] LABS: Vitamin D,25 Hydroxy 39.2 ng/mL (29.95-100.01)
== END ==
PROVIDERS: Family Provider Family Medicine; PCP Family Medicine; Referring Provider Family Medicine; Visit Provider Family Medicine
DX: I10 Essential (primary) hypertension (principal); E55.9 Vitamin D deficiency, unspecified; E78.5 Hyperlipidemia, unspecified
CPT/HCPCS: 36415; 80053; 80061; 82306; 85025

== ENCOUNTER → 2020-01-13 | Outpatient (CLI) | payer MEDICARE, OTHER, SELFPAY ==
[2020-01-13 09:54] LABS: Absolute Lymphocyte Count 1.17 X10^3/uL (0.83-4.51); Basophil# 0.04 X10^3/uL; Basophil% 0.8 % (0-1); Eosinophil# 0.27 X10^3/uL; Eosinophils% 5.4 % (0-5); Hematocrit 44.7 % (40-54); Hemoglobin 14.7 g/dL (13.0-16.5); Lymphocyte # 1.17 X10^3/ul (4.0); Lymphocyte % 23.5 % (19-41); Mean Corp Hgb Conc 32.9 g/dL (32-36); Mean Corpuscular Hgb 29.8 pg (27.0-32.0); Mean Corpuscular Volume 90.5 fL (80-94); Mean Platelet Vol. 11.6 fl (6.2-12.0); Monocyte# 0.49 X10^3/uL; Monocyte% 9.8 % (0-10); NRBC Flagged by Analyzer 0 % (0-5); Neutrophil # 2.98 X10^3/uL (2.7-7.7); Neutrophil % 59.9 % (47-70); Platelet Count 235 K/mm3 (150-450); RBC Distribution Width CV 12.8 % (11.6-14.6); RBC Distribution Width SD 42.1 fl (35.1-43.9); Red Blood Count 4.94 M/mm3 (4.6-6.2)
[2020-01-13 10:11] LABS: ALB/GLOB Ratio 1.3 RATIO (0.9-2.4); AST(SGOT) 19 U/L (15-37); Alanine Aminotransfer ALT/SGPT 27 U/L (16-61); Albumin, Serum 3.8 g/dL (3.2-5.0); Alkaline Phosphatase 87 U/L (45-117); Anion Gap 3 (5-15); BUN 11 mg/dL (7-18); BUN/Creat Ratio 11.4 RATIO (10-20); Calcium,Total 9.3 mg/dL (8.5-10.1); Chloride 103 mmol/L (98-107); Cholesterol 190 mg/dL (200); Creatinine, Serum 0.96 mg/dL (0.70-1.30); EST Glomerular Filtration Rate 83 mL/min (>60); Est Glom Filt Rate - Afr Amer 100 mL/min (>60); Globulin 2.9 g/dL (2.2-4.2); Glucose 85 mg/dL (74-106); High Density Lipoprotein 61 mg/dL; Potassium 3.9 mmol/L (3.5-5.1); Protein, Total 6.7 g/dL (6.4-8.2); Sodium Level 140 mmol/L (136-145); Triglycerides 82 mg/dL; Very Low Density Lipoprotein 16 mg/dL (5-40)
[2020-01-13 10:14] LABS: Vitamin D,25 Hydroxy 50.7 ng/mL
== END | disposition home or self-care (01) ==
LOC: MFPLAB 09:10
PROVIDERS: PCP Family Medicine; Referring Provider Family Medicine; Visit Provider Family Medicine
DX: I10 Essential (primary) hypertension (principal); E78.5 Hyperlipidemia, unspecified; E55.9 Vitamin D deficiency, unspecified
CPT/HCPCS: 36415; 80053; 80061; 82306; 85025

== ENCOUNTER → 2020-02-14 | Outpatient (CLI) | payer MEDICARE, OTHER, SELFPAY | END | disposition home or self-care (01) | LOC: MFPLAB 16:39 | PROVIDERS: PCP Family Medicine; Visit Provider Nurse Practitioner Adult Health | DX: R05 Cough (principal); Z20.828 Contact with and (suspected) exposure to other viral communicable diseases | CPT/HCPCS: 87633; 87635; U0003 ==

== ENCOUNTER → 2020-05-12 10:00 | Outpatient (CLI) | payer MEDICARE, OTHER, SELFPAY ==
[2020-05-12 12:49] LABS: Anion Gap 6 (5-15); BUN 15 mg/dL (7-18); BUN/Creat Ratio 15.9 RATIO (10-20); Chloride 107 mmol/L (98-107); Creatinine, Serum 0.95 mg/dL (0.70-1.30); EST Glomerular Filtration Rate 84 mL/min (>60); Est Glom Filt Rate - Afr Amer 102 mL/min (>60); Glucose 85 mg/dL (74-106); PSA,Total - Annual Screen 0.41 ng/mL (0.00-4.00); Potassium 4.1 mmol/L (3.5-5.1); Sodium Level 139 mmol/L (136-145)
== END ==
PROVIDERS: PCP Family Medicine; Referring Provider Family Medicine; Visit Provider Family Medicine
DX: I10 Essential (primary) hypertension (principal); Z12.5 Encounter for screening for malignant neoplasm of prostate
CPT/HCPCS: 36415; 80048; 84153; G0103

== ENCOUNTER → 2020-08-04 09:11 | Outpatient (CLI) | payer MEDICARE, OTHER, SELFPAY ==
[2020-08-04 10:05] LABS: Absolute Lymphocyte Count 1.26 X10^3/uL (0.83-4.51); Basophil# 0.07 X10^3/uL; Basophil% 0.9 % (0-1); Eosinophil# 0.41 X10^3/uL; Eosinophils% 5.4 % (0-5); Hematocrit 46.8 % (40-54); Hemoglobin 14.9 g/dL (13.0-16.5); Lymphocyte # 1.26 X10^3/ul (0.83-4.51); Lymphocyte % 16.7 % (19-41); Mean Corp Hgb Conc 31.8 g/dL (32-36); Mean Corpuscular Hgb 28.8 pg (27.0-32.0); Mean Corpuscular Volume 90.5 fL (80-94); Mean Platelet Vol. 10.8 fl (6.2-12.0); Monocyte# 0.55 X10^3/uL; Monocyte% 7.3 % (0-10); NRBC Flagged by Analyzer 0 % (0-5); Neutrophil # 5.04 X10^3/uL (2.7-7.7); Neutrophil % 66.7 % (47-70); Platelet Count 284 K/mm3 (150-450); RBC Distribution Width SD 42.7 fl (35.1-43.9); Red Blood Count 5.17 M/mm3 (4.6-6.2); White Blood Count 7.6 K/mm3 (4.4-11.0)
[2020-08-04 10:27] LABS: ALB/GLOB Ratio 1.3 RATIO (0.9-2.4); AST(SGOT) 11 U/L (15-37); Alanine Aminotransfer ALT/SGPT 30 U/L (16-61); Albumin, Serum 3.8 g/dL (3.2-5.0); Alkaline Phosphatase 79 U/L (45-117); Anion Gap 3 (5-15); BUN 13 mg/dL (7-18); BUN/Creat Ratio 13.8 RATIO (10-20); Calcium,Total 9.5 mg/dL (8.5-10.1); Chloride 102 mmol/L (98-107); Cholesterol 184 mg/dL (200); Creatinine, Serum 0.94 mg/dL (0.70-1.30); EST Glomerular Filtration Rate 85 mL/min (>60); Est Glom Filt Rate - Afr Amer 102 mL/min (>60); Globulin 2.9 g/dL (2.2-4.2); Glucose 95 mg/dL (74-106); High Density Lipoprotein 85 mg/dL; Protein, Total 6.7 g/dL (6.4-8.2); Sodium Level 138 mmol/L (136-145); Triglycerides 68 mg/dL; Very Low Density Lipoprotein 14 mg/dL (5-40)
[2020-08-04 10:39] LABS: Vitamin D,25 Hydroxy 43.1 ng/mL
== END ==
PROVIDERS: PCP Family Medicine; Referring Provider Family Medicine; Visit Provider Family Medicine
DX: E78.5 Hyperlipidemia, unspecified (principal); I10 Essential (primary) hypertension; E55.9 Vitamin D deficiency, unspecified
CPT/HCPCS: 36415; 80053; 80061; 82306; 85025

== ENCOUNTER → 2020-09-12 12:23 | Outpatient (CLI) | payer MEDICARE, OTHER, SELFPAY ==
[2020-09-12 12:30] LABS: Lyme Ab Screen Interpretation REF LAB
[2020-09-12 16:17] LABS: Absolute Lymphocyte Count 1.16 X10^3/uL (0.83-4.51); Absolute Neutrophil Count 4.6 X10^3/uL (2.0-7.7); Basophil# 0.05 X10^3/uL; Basophil% 0.7 % (0-1); Eosinophil# 0.15 X10^3/uL; Eosinophils% 2.2 % (0-5); Hematocrit 38.8 % (40-54); Hemoglobin 12.4 g/dL (13.0-16.5); Lymphocyte # 1.16 X10^3/ul (0.83-4.51); Lymphocyte % 17.1 % (19-41); Mean Corpuscular Hgb 29.2 pg (27.0-32.0); Mean Corpuscular Volume 91.3 fL (80-94); Mean Platelet Vol. 10.5 fl (6.2-12.0); Monocyte# 0.66 X10^3/uL; Monocyte% 9.7 % (0-10); NRBC Flagged by Analyzer 0 % (0-5); Neutrophil # 4.64 X10^3/uL (2.7-7.7); Neutrophil % 68.4 % (47-70); Platelet Count 371 K/mm3 (150-450); RBC Distribution Width CV 13.3 % (11.6-14.6); RBC Distribution Width SD 44.3 fl (35.1-43.9); Red Blood Count 4.25 M/mm3 (4.6-6.2); White Blood Count 6.8 K/mm3 (4.4-11.0)
[2020-09-12 16:35] LABS: ALB/GLOB Ratio 0.9 RATIO (0.9-2.4); AST(SGOT) 17 U/L (15-37); Alanine Aminotransfer ALT/SGPT 26 U/L (16-61); Albumin, Serum 3.3 g/dL (3.2-5.0); Alkaline Phosphatase 82 U/L (45-117); Anion Gap 5 (5-15); BUN 13 mg/dL (7-18); BUN/Creat Ratio 13.9 RATIO (10-20); Chloride 104 mmol/L (98-107); Creatinine, Serum 0.94 mg/dL (0.70-1.30); EST Glomerular Filtration Rate 85 mL/min (>60); Est Glom Filt Rate - Afr Amer 103 mL/min (>60); Globulin 3.6 g/dL (2.2-4.2); Glucose 95 mg/dL (74-106); Potassium 3.9 mmol/L (3.5-5.1); Protein, Total 6.9 g/dL (6.4-8.2); Rheumatoid Factor < 10.0 IU/mL (<15); Sodium Level 139 mmol/L (136-145); Thyroid Stim Hormone (TSH) 1.69 uIU/mL (0.358-3.74)
[2020-09-12 16:37] LABS: Erythrocyte Sedimentation Rate 15 mm/hr (0-20)
[2020-09-12 17:16] LABS: Vitamin B12 319 pg/mL (211-911)
[2020-09-14 17:33] LABS: Ferritin 253 ng/mL (26-388); Iron 36 ug/dL (65-175); Iron Binding Capacity,Total 204 ug/dL (250-450); PERCENT IRON SATURATION 17.6 % (15.0-55.0)
[2020-09-14 17:36] LABS: Lyme Scn Total Ab w/Rflx <0.91 ISR (0.00-0.90)
[2020-09-14 17:41] LABS: ANTINUCLEAR ANTIBODIES DIRECT Negative (Negative)
== END ==
PROVIDERS: PCP Family Medicine; Referring Provider Family Medicine; Visit Provider Family Medicine
DX: M25.50 Pain in unspecified joint (principal); R53.83 Other fatigue
CPT/HCPCS: 36415; 80053; 82607; 82728; 83540; 83550; 84443; 85025; 85652; 86038; 86431; 86618; 86644

== ENCOUNTER → 2020-09-15 11:35 | Outpatient (CLI) | payer MEDICARE, OTHER, SELFPAY ==
[2020-09-21 09:05] LABS: CMV by PCR Negative (Negative)
== END ==
PROVIDERS: PCP Family Medicine; Referring Provider Family Medicine; Visit Provider Family Medicine
DX: D64.9 Anemia, unspecified (principal)
CPT/HCPCS: 36415; 82746; 87496

== ENCOUNTER → 2020-11-02 06:22 | Outpatient (CLI) | payer MEDICARE, OTHER, SELFPAY ==
--- NOTE | 2020-11-02 06:37 | MRI_ITS ---
STUDY: MRI LUMBAR SPINE WITHOUT CONTRAST REASON FOR EXAM: Male, 70 years old. BACK PAIN TECHNIQUE: Standardized fat and water weighted pulse sequences were obtained in the sagittal and axial planes. COMPARISON: 12/24/2017. FINDINGS: T12-L1: Small Schmorl''s nodes. Disc dehydration. Normal bilateral facet joints. Normal central canal and bilateral lateral recesses. Normal bilateral intervertebral neural foramina. Normal lumbar lordosis. There is no substantial scoliosis. Normal conus medullaris that terminates at the L1 level. L1-2: Normal endplates. Disc dehydration. Normal bilateral facet joints. Normal central canal and bilateral lateral recesses. Normal bilateral intervertebral neural foramina. L2-3: Normal endplates. Disc dehydration. Mild spondylotic bar causes minimal effacement of the ventral thecal sac. No canal stenosis. Mild foraminal encroachment due to spurring. Mild facet hypertrophy. L3-4: Normal endplates. Disc dehydration and mild disc space narrowing. Mild, noncompressive spondylotic bar. Normal bilateral facet joints. Normal central canal and bilateral lateral recesses. Mild foraminal encroachment due to spurring L4-5: Normal endplates. Disc dehydration and moderate disc space narrowing. Mild, noncompressive spondylotic bar. Mild facet hypertrophy. Foraminal stenosis is mild on the left and severe on the right due to spurring. Normal central canal and bilateral lateral recesses. L5-S1: Normal endplates. Marked disc space narrowing. Mild, noncompressive spondylotic bar. Normal bilateral facet joints. Normal central canal and bilateral lateral recesses. Foraminal stenosis is moderate on the left and severe on the right due to spurring. Normal visualized sacral ala. 2.1 cm right renal cyst. MRI/Spine Lumbar (Routine) IMPRESSION: 1. No compressive disc disease or canal stenosis. 2. Moderate to severe foraminal stenosis at L4-5 and L5-S1. 3. Additional degenerative changes are detailed above. Electronically Signed: Ammy Mendoza MD at 23:52 EDT Tel , Service support ,
== END ==
PROVIDERS: PCP Family Medicine; Referring Provider Anesthesiology Pain Medicine; Visit Provider Anesthesiology Pain Medicine
DX: M54.16 Radiculopathy, lumbar region (principal); M54.5 Low back pain; M79.606 Pain in leg, unspecified
CPT/HCPCS: 72148

== ENCOUNTER → 2020-12-13 08:24 | Outpatient (CLI) | payer MEDICARE, OTHER, SELFPAY ==
[2020-12-13 09:54] LABS: Absolute Lymphocyte Count 1.58 X10^3/uL (0.83-4.51); Absolute Neutrophil Count 5.2 X10^3/uL (2.0-7.7); Basophil# 0.05 X10^3/uL; Basophil% 0.6 % (0-1); Eosinophil# 0.24 X10^3/uL; Eosinophils% 2.9 % (0-5); Hematocrit 41.3 % (40-54); Hemoglobin 14.1 g/dL (13.0-16.5); Lymphocyte # 1.58 X10^3/ul (0.83-4.51); Mean Corp Hgb Conc 34.1 g/dL (32-36); Mean Corpuscular Hgb 30.2 pg (27.0-32.0); Mean Corpuscular Volume 88.4 fL (80-94); Monocyte# 1.18 X10^3/uL; Monocyte% 14.2 % (0-10); NRBC Flagged by Analyzer 0 % (0-5); Neutrophil # 5.23 X10^3/uL (2.7-7.7); Neutrophil % 62.9 % (47-70); Platelet Count 318 K/mm3 (150-450); RBC Distribution Width CV 12.8 % (11.6-14.6); RBC Distribution Width SD 41.2 fl (35.1-43.9); Red Blood Count 4.67 M/mm3 (4.6-6.2); White Blood Count 8.3 K/mm3 (4.4-11.0)
[2020-12-13 10:11] LABS: Vitamin B12 371 pg/mL (211-911); Vitamin D,25 Hydroxy 52.8 ng/mL
[2020-12-13 10:49] LABS: ALB/GLOB Ratio 1.2 RATIO (0.9-2.4); AST(SGOT) 17 U/L (15-37); Alanine Aminotransfer ALT/SGPT 32 U/L (16-61); Albumin, Serum 3.7 g/dL (3.2-5.0); Alkaline Phosphatase 72 U/L (45-117); Anion Gap 7 (5-15); BUN 11 mg/dL (7-18); BUN/Creat Ratio 10.1 RATIO (10-20); Calcium,Total 9.2 mg/dL (8.5-10.1); Chloride 105 mmol/L (98-107); Cholesterol 161 mg/dL (200); Creatinine, Serum 1.09 mg/dL (0.70-1.30); EST Glomerular Filtration Rate 71 mL/min (>60); Est Glom Filt Rate - Afr Amer 86 mL/min (>60); Ferritin 171 ng/mL (26-388); Glucose 77 mg/dL (74-106); High Density Lipoprotein 53 mg/dL; Iron 61 ug/dL (65-175); Iron Binding Capacity,Total 241 ug/dL (250-450); Potassium 3.7 mmol/L (3.5-5.1); Protein, Total 6.7 g/dL (6.4-8.2); Sodium Level 138 mmol/L (136-145); Triglycerides 96 mg/dL; Very Low Density Lipoprotein 19 mg/dL (5-40)
== END ==
PROVIDERS: PCP Family Medicine; Referring Provider Family Medicine; Visit Provider Family Medicine
DX: E78.5 Hyperlipidemia, unspecified (principal); D64.9 Anemia, unspecified; E55.9 Vitamin D deficiency, unspecified
CPT/HCPCS: 36415; 80053; 80061; 82306; 82607; 82728; 82746; 83540; 83550; 85025

== ENCOUNTER → 2021-01-18 16:46 | Outpatient (CLI) | payer MEDICARE, OTHER, SELFPAY ==
[2021-01-18 17:32] LABS: Absolute Neutrophil Count 3.7 X10^3/uL (2.0-7.7); Basophil# 0.06 X10^3/uL; Eosinophil# 0.27 X10^3/uL; Eosinophils% 4.4 % (0-5); Hematocrit 43.5 % (40-54); Hemoglobin 14.3 g/dL (13.0-16.5); Lymphocyte % 24.4 % (19-41); Mean Corp Hgb Conc 32.9 g/dL (32-36); Mean Corpuscular Hgb 29.3 pg (27.0-32.0); Mean Corpuscular Volume 89.1 fL (80-94); Monocyte# 0.55 X10^3/uL; NRBC Flagged by Analyzer 0 % (0-5); Neutrophil # 3.73 X10^3/uL (2.7-7.7); Neutrophil % 60.7 % (47-70); Platelet Count 306 K/mm3 (150-450); RBC Distribution Width CV 12.7 % (11.6-14.6); RBC Distribution Width SD 41.9 fl (35.1-43.9); Red Blood Count 4.88 M/mm3 (4.6-6.2); White Blood Count 6.1 K/mm3 (4.4-11.0)
[2021-01-18 17:58] LABS: Anion Gap 9 (5-15); BUN 13 mg/dL (7-18); BUN/Creat Ratio 14.5 RATIO (10-20); Calcium,Total 9.1 mg/dL (8.5-10.1); Chloride 104 mmol/L (98-107); EST Glomerular Filtration Rate 90 mL/min (>60); Est Glom Filt Rate - Afr Amer 108 mL/min (>60); Ferritin 100 ng/mL (26-388); Glucose 85 mg/dL (74-106); Iron 79 ug/dL (65-175); Iron Binding Capacity,Total 250 ug/dL (250-450); Potassium 3.8 mmol/L (3.5-5.1); Sodium Level 139 mmol/L (136-145)
== END ==
PROVIDERS: PCP Family Medicine; Referring Provider Family Medicine; Visit Provider Family Medicine
DX: I10 Essential (primary) hypertension (principal); D64.9 Anemia, unspecified
CPT/HCPCS: 36415; 80048; 82728; 83540; 83550; 85025

== ENCOUNTER → 2021-03-08 08:51 | Outpatient (CLI) | payer MEDICARE, OTHER, SELFPAY ==
[2021-03-08 08:57] LABS: Bacteria 0 SEEN /hpf (None Seen); Mucous, Urine 0 SEEN /hpf (<or=2+); Red Blood Cells-Urine 0 SEEN /hpf (0-5); Squamous Epithelial Cells - UA 0 SEEN /hpf (0-5); White Blood Cells 0 SEEN /hpf (0-5)
[2021-03-08 10:10] LABS: Color, Urine Yellow (Yellow); Glucose, Dipstick Normal (Normal); Ketone-Dipstick Negative (Negative); Leukocyte Esterase-Dipstick Negative /ul (Negative); Nitrite-Dipstick Negative (Negative); Occult Blood-Urine Negative /ul (Negative); Protein-Dipstick Negative (Negative); Urine Bilirubin Dipstick Negative (Negative); Urine Clarity Clear (Clear); Urine Urobilinogen Normal (Normal)
[2021-03-08 10:14] LABS: Absolute Lymphocyte Count 1.35 X10^3/uL (0.83-4.51); Absolute Neutrophil Count 3.3 X10^3/uL (2.0-7.7); Basophil# 0.06 X10^3/uL; Basophil% 1.1 % (0-1); Eosinophil# 0.36 X10^3/uL; Eosinophils% 6.3 % (0-5); Hematocrit 42.1 % (40-54); Hemoglobin 13.9 g/dL (13.0-16.5); Lymphocyte # 1.35 X10^3/ul (0.83-4.51); Lymphocyte % 23.6 % (19-41); Mean Corpuscular Hgb 29.8 pg (27.0-32.0); Mean Corpuscular Volume 90.3 fL (80-94); Monocyte% 10.5 % (0-10); NRBC Flagged by Analyzer 0 % (0-5); Neutrophil # 3.32 X10^3/uL (2.7-7.7); Neutrophil % 58.1 % (47-70); Platelet Count 255 K/mm3 (150-450); RBC Distribution Width CV 12.7 % (11.6-14.6); RBC Distribution Width SD 41.2 fl (35.1-43.9); Red Blood Count 4.66 M/mm3 (4.6-6.2); White Blood Count 5.7 K/mm3 (4.4-11.0)
[2021-03-08 10:35] LABS: ALB/GLOB Ratio 1.1 RATIO (0.9-2.4); AST(SGOT) 20 U/L (15-37); Alanine Aminotransfer ALT/SGPT 26 U/L (16-61); Albumin, Serum 3.5 g/dL (3.2-5.0); Alkaline Phosphatase 83 U/L (45-117); Anion Gap 7 (5-15); BUN 11 mg/dL (7-18); BUN/Creat Ratio 11.7 RATIO (10-20); Chloride 104 mmol/L (98-107); Cholesterol 172 mg/dL (200); Creatinine, Serum 0.94 mg/dL (0.70-1.30); EST Glomerular Filtration Rate 84 mL/min (>60); Est Glom Filt Rate - Afr Amer 102 mL/min (>60); Globulin 3.2 g/dL (2.2-4.2); Glucose 87 mg/dL (74-106); High Density Lipoprotein 54 mg/dL; Potassium 3.9 mmol/L (3.5-5.1); Protein, Total 6.7 g/dL (6.4-8.2); Sodium Level 139 mmol/L (136-145); Thyroid Stim Hormone (TSH) 1.69 uIU/mL (0.358-3.74); Triglycerides 90 mg/dL; Very Low Density Lipoprotein 18 mg/dL (5-40)
== END ==
PROVIDERS: PCP Family Medicine; Referring Provider Family Medicine; Visit Provider Family Medicine
DX: I10 Essential (primary) hypertension (principal); E78.5 Hyperlipidemia, unspecified; E55.9 Vitamin D deficiency, unspecified
CPT/HCPCS: 36415; 80053; 80061; 81001; 82306; 84443; 85025

== ENCOUNTER → 2021-08-16 | Outpatient (CLI) | payer MEDICARE, OTHER, SELFPAY ==
[2021-08-16 09:56] LABS: Absolute Lymphocyte Count 1.04 X10^3/uL (0.83-4.51); Basophil# 0.04 X10^3/uL; Basophil% 0.7 % (0-1); Eosinophil# 0.29 X10^3/uL; Eosinophils% 4.9 % (0-5); Hematocrit 45.4 % (40-54); Hemoglobin 14.9 g/dL (13.0-16.5); Lymphocyte # 1.04 X10^3/ul (0.83-4.51); Lymphocyte % 17.5 % (19-41); Mean Corp Hgb Conc 32.8 g/dL (32-36); Mean Corpuscular Hgb 29.3 pg (27.0-32.0); Mean Corpuscular Volume 89.4 fL (80-94); Mean Platelet Vol. 11.2 fl (6.2-12.0); Monocyte# 0.56 X10^3/uL; Monocyte% 9.4 % (0-10); NRBC Flagged by Analyzer 0 % (0-5); Neutrophil % 67.3 % (47-70); Platelet Count 251 K/mm3 (150-450); RBC Distribution Width CV 12.1 % (11.6-14.6); RBC Distribution Width SD 39.7 fl (35.1-43.9); Red Blood Count 5.08 M/mm3 (4.6-6.2); White Blood Count 5.9 K/mm3 (4.4-11.0)
[2021-08-16 10:43] LABS: ALB/GLOB Ratio 1.3 RATIO (0.9-2.4); AST(SGOT) 22 U/L (15-37); Alanine Aminotransfer ALT/SGPT 33 U/L (16-61); Albumin, Serum 3.9 g/dL (3.2-5.0); Alkaline Phosphatase 77 U/L (45-117); Anion Gap 7 (5-15); BUN 9 mg/dL (7-18); Calcium,Total 9.3 mg/dL (8.5-10.1); Chloride 105 mmol/L (98-107); Cholesterol 179 mg/dL (200); EST Glomerular Filtration Rate 79 mL/min (>60); Est Glom Filt Rate - Afr Amer 95 mL/min (>60); Globulin 2.9 g/dL (2.2-4.2); Glucose 91 mg/dL (74-106); High Density Lipoprotein 62 mg/dL; PSA,Total - Annual Screen 0.41 ng/mL (0.00-4.00); Potassium 3.8 mmol/L (3.5-5.1); Protein, Total 6.8 g/dL (6.4-8.2); Sodium Level 140 mmol/L (136-145); Thyroid Stim Hormone (TSH) 1.61 uIU/mL (0.358-3.74); Triglycerides 110 mg/dL; Very Low Density Lipoprotein 22 mg/dL (5-40)
[2021-08-16 11:34] LABS: Vitamin D,25 Hydroxy 42.2 ng/mL
== END | disposition home or self-care (01) ==
LOC: MFPLAB 09:10
PROVIDERS: PCP Family Medicine; Referring Provider Family Medicine; Visit Provider Family Medicine
DX: I10 Essential (primary) hypertension (principal); Z12.5 Encounter for screening for malignant neoplasm of prostate; E55.9 Vitamin D deficiency, unspecified
CPT/HCPCS: 36415; 80053; 80061; 82306; 84153; 84443; 85025; G0103

== ENCOUNTER → 2021-11-06 | Outpatient (CLI) | payer MEDICARE, OTHER, SELFPAY | END | disposition home or self-care (01) | LOC: MFPLAB 11:49 | PROVIDERS: PCP Family Medicine; Visit Provider Family Medicine | DX: Z00.00 Encounter for general adult medical examination without abnormal findings (principal) ==

== ENCOUNTER → 2021-11-19 | Outpatient (CLI) | payer MEDICARE, OTHER, SELFPAY ==
[2021-11-19 10:18] LABS: Bacteria 0 SEEN /hpf (None Seen); Mucous, Urine 0 SEEN /hpf (<or=2+); Red Blood Cells-Urine 0 SEEN /hpf (0-5); Squamous Epithelial Cells - UA 0 SEEN /hpf (0-5); White Blood Cells 0 SEEN /hpf (0-5)
[2021-11-19 12:14] LABS: Absolute Lymphocyte Count 1.11 X10^3/uL (0.83-4.51); Basophil# 0.05 X10^3/uL; Eosinophil# 0.22 X10^3/uL; Eosinophils% 4.5 % (0-5); Hematocrit 43.9 % (40-54); Hemoglobin 14.5 g/dL (13.0-16.5); Lymphocyte # 1.11 X10^3/ul (0.83-4.51); Lymphocyte % 22.8 % (19-41); Mean Corpuscular Hgb 29.8 pg (27.0-32.0); Mean Corpuscular Volume 90.1 fL (80-94); Mean Platelet Vol. 10.8 fl (6.2-12.0); Monocyte# 0.52 X10^3/uL; Monocyte% 10.7 % (0-10); NRBC Flagged by Analyzer 0 % (0-5); Neutrophil # 2.95 X10^3/uL (2.7-7.7); Neutrophil % 60.8 % (47-70); Platelet Count 275 K/mm3 (150-450); RBC Distribution Width CV 12.5 % (11.6-14.6); RBC Distribution Width SD 41.2 fl (35.1-43.9); Red Blood Count 4.87 M/mm3 (4.6-6.2); White Blood Count 4.9 K/mm3 (4.4-11.0)
[2021-11-19 12:14] LABS: Color, Urine Yellow (Yellow); Glucose, Dipstick Normal (Normal); Ketone-Dipstick Negative (Negative); Leukocyte Esterase-Dipstick Negative /ul (Negative); Nitrite-Dipstick Negative (Negative); Occult Blood-Urine Negative /ul (Negative); Protein-Dipstick Negative (Negative); Urine Bilirubin Dipstick Negative (Negative); Urine Clarity Clear (Clear); Urine Urobilinogen Normal (Normal)
[2021-11-19 12:46] LABS: ALB/GLOB Ratio 1.3 RATIO (0.9-2.4); AST(SGOT) 20 U/L (15-37); Alanine Aminotransfer ALT/SGPT 36 U/L (16-61); Albumin, Serum 3.9 g/dL (3.2-5.0); Alkaline Phosphatase 80 U/L (45-117); Anion Gap 5 (5-15); BUN 9 mg/dL (7-18); BUN/Creat Ratio 8.7 RATIO (10-20); Calcium,Total 9.3 mg/dL (8.5-10.1); Chloride 103 mmol/L (98-107); Cholesterol 179 mg/dL (200); Creatinine, Serum 1.03 mg/dL (0.70-1.30); EST Glomerular Filtration Rate 76 mL/min (>60); Est Glom Filt Rate - Afr Amer 92 mL/min (>60); Globulin 2.9 g/dL (2.2-4.2); Glucose 99 mg/dL (74-106); High Density Lipoprotein 60 mg/dL; Potassium 3.9 mmol/L (3.5-5.1); Protein, Total 6.8 g/dL (6.4-8.2); Sodium Level 139 mmol/L (136-145); Thyroid Stim Hormone (TSH) 1.28 uIU/mL (0.358-3.74); Triglycerides 76 mg/dL; Very Low Density Lipoprotein 15 mg/dL (5-40)
[2021-11-19 13:22] LABS: Vitamin D,25 Hydroxy 52.3 ng/mL
== END | disposition home or self-care (01) ==
LOC: MFPLAB 10:17
PROVIDERS: PCP Family Medicine; Visit Provider Family Medicine
DX: I10 Essential (primary) hypertension (principal); E78.5 Hyperlipidemia, unspecified; E55.9 Vitamin D deficiency, unspecified
CPT/HCPCS: 80053; 80061; 81001; 82306; 84443; 85025

== ENCOUNTER → 2022-08-20 | Outpatient (CLI) | payer MEDICARE, OTHER, SELFPAY ==
[2022-08-20 08:42] LABS: Bacteria 0 SEEN /hpf (None Seen); Mucous, Urine 0 SEEN /hpf (<or=2+); Red Blood Cells-Urine 0 SEEN /hpf (0-5); Squamous Epithelial Cells - UA 0 SEEN /hpf (0-5); White Blood Cells 0 SEEN /hpf (0-5)
[2022-08-20 10:36] LABS: Color, Urine Yellow (Yellow); Glucose, Dipstick Normal (Normal); Ketone-Dipstick Negative (Negative); Leukocyte Esterase-Dipstick Negative /ul (Negative); Nitrite-Dipstick Negative (Negative); Occult Blood-Urine Negative /ul (Negative); Protein-Dipstick Negative (Negative); Urine Bilirubin Dipstick Negative (Negative); Urine Clarity Clear (Clear); Urine Urobilinogen Normal (Normal)
[2022-08-20 10:39] LABS: Absolute Lymphocyte Count 1.11 X10^3/uL (0.83-4.51); Absolute Neutrophil Count 3.9 X10^3/uL (2.0-7.7); Basophil# 0.06 X10^3/uL; Eosinophil# 0.24 X10^3/uL; Eosinophils% 4.1 % (0-5); Hematocrit 47.3 % (40-54); Hemoglobin 15.7 g/dL (13.0-16.5); Lymphocyte # 1.11 X10^3/ul (0.83-4.51); Mean Corp Hgb Conc 33.2 g/dL (32-36); Mean Corpuscular Hgb 29.8 pg (27.0-32.0); Mean Corpuscular Volume 89.8 fL (80-94); Mean Platelet Vol. 11.1 fl (6.2-12.0); Monocyte# 0.52 X10^3/uL; Monocyte% 8.9 % (0-10); NRBC Flagged by Analyzer 0 % (0-5); Neutrophil # 3.88 X10^3/uL (2.7-7.7); Neutrophil % 66.7 % (47-70); Platelet Count 266 K/mm3 (150-450); RBC Distribution Width CV 12.2 % (11.6-14.6); RBC Distribution Width SD 40.2 fl (35.1-43.9); Red Blood Count 5.27 M/mm3 (4.6-6.2); White Blood Count 5.8 K/mm3 (4.4-11.0)
[2022-08-20 11:14] LABS: ALB/GLOB Ratio 1.3 RATIO (0.9-2.4); AST(SGOT) 17 U/L (15-37); Alanine Aminotransfer ALT/SGPT 32 U/L (16-61); Albumin, Serum 3.8 g/dL (3.2-5.0); Alkaline Phosphatase 79 U/L (45-117); Anion Gap 6 (5-15); BUN 13 mg/dL (7-18); BUN/Creat Ratio 12.9 RATIO (10-20); Calcium,Total 9.4 mg/dL (8.5-10.1); Chloride 104 mmol/L (98-107); Cholesterol 158 mg/dL (200); Creatinine, Serum 1.01 mg/dL (0.70-1.30); EST Glomerular Filtration Rate 78 mL/min (>60); Est Glom Filt Rate - Afr Amer 94 mL/min (>60); Globulin 2.9 g/dL (2.2-4.2); Glucose 96 mg/dL (74-106); High Density Lipoprotein 56 mg/dL; PSA,Total - Annual Screen 0.41 ng/mL (0.00-4.00); Potassium 3.9 mmol/L (3.5-5.1); Protein, Total 6.7 g/dL (6.4-8.2); Sodium Level 139 mmol/L (136-145); Thyroid Stim Hormone (TSH) 1.98 uIU/mL (0.358-3.74); Triglycerides 126 mg/dL; Very Low Density Lipoprotein 25 mg/dL (5-40)
== END | disposition home or self-care (01) ==
LOC: MFPLAB 08:40
PROVIDERS: PCP Family Medicine; Visit Provider Family Medicine
DX: I10 Essential (primary) hypertension (principal); Z12.5 Encounter for screening for malignant neoplasm of prostate
CPT/HCPCS: 36415; 80053; 80061; 81001; 84153; 84443; 85025; G0103

== ENCOUNTER → 2022-08-21 | Outpatient (CLI) | payer MEDICARE, OTHER, SELFPAY ==
--- NOTE | 2022-08-21 12:40 | RAD_ITS ---
STUDY: X-RAY - RIGHT CALCANEUS REASON FOR EXAM: Male, 72 years old. Heel pain. TECHNIQUE: 2 view(s) of the calcaneus were obtained. COMPARISON: None. FINDINGS: There is a small plantar spur along the underside of the calcaneus. Minimal bony productivity in the distal Achilles tendon. Subtalar articulations appear normal. Unremarkable soft tissues. RAD/Calcaneus min 2 Views IMPRESSION: Plantar spur. There is no fracture or dislocation. Electronically Signed: Ezequiel Marquez DO at 17:57 EDT ,
== END | disposition home or self-care (01) ==
LOC: MTRAD 12:36
PROVIDERS: PCP Family Medicine; Referring Provider Family Medicine; Visit Provider Family Medicine
DX: M79.673 Pain in unspecified foot (principal)
CPT/HCPCS: 73650

== ENCOUNTER → 2022-12-12 | Outpatient (CLI) | payer MEDICARE, OTHER, SELFPAY ==
[2022-12-12 10:03] LABS: Bacteria 0 SEEN /hpf (None Seen); Mucous, Urine 0 SEEN /hpf (<or=2+); Squamous Epithelial Cells - UA 0 SEEN /hpf (0-5)
[2022-12-12 12:18] LABS: Absolute Lymphocyte Count 1.06 X10^3/uL (0.83-4.51); Absolute Neutrophil Count 9.2 X10^3/uL (2.0-7.7); Basophil# 0.07 X10^3/uL; Basophil% 0.6 % (0-1); Eosinophil# 0.29 X10^3/uL; Eosinophils% 2.5 % (0-5); Hematocrit 40.2 % (40-54); Hemoglobin 12.9 g/dL (13.0-16.5); Lymphocyte # 1.06 X10^3/ul (0.83-4.51); Mean Corp Hgb Conc 32.1 g/dL (32-36); Mean Corpuscular Hgb 30.1 pg (27.0-32.0); Mean Corpuscular Volume 93.7 fL (80-94); Mean Platelet Vol. 10.7 fl (6.2-12.0); Monocyte# 0.95 X10^3/uL; Monocyte% 8.1 % (0-10); NRBC Flagged by Analyzer 0 % (0-5); Neutrophil # 9.23 X10^3/uL (2.7-7.7); Neutrophil % 78.2 % (47-70); Platelet Count 332 K/mm3 (150-450); RBC Distribution Width CV 13.3 % (11.6-14.6); RBC Distribution Width SD 45.4 fl (35.1-43.9); Red Blood Count 4.29 M/mm3 (4.6-6.2); White Blood Count 11.8 K/mm3 (4.4-11.0)
[2022-12-12 12:43] LABS: Vitamin B12 309 pg/mL (211-911); Vitamin D,25 Hydroxy 40.9 ng/mL
[2022-12-12 12:46] LABS: ALB/GLOB Ratio 1.1 RATIO (0.9-2.4); AST(SGOT) 18 U/L (15-37); Alanine Aminotransfer ALT/SGPT 34 U/L (16-61); Albumin, Serum 3.3 g/dL (3.2-5.0); Alkaline Phosphatase 74 U/L (45-117); Anion Gap 6 (5-15); BUN 16 mg/dL (7-18); BUN/Creat Ratio 16.1 RATIO (10-20); Chloride 104 mmol/L (98-107); Cholesterol 146 mg/dL (200); EST Glomerular Filtration Rate 79 mL/min (>60); Est Glom Filt Rate - Afr Amer 95 mL/min (>60); Glucose 84 mg/dL (74-106); High Density Lipoprotein 64 mg/dL; Potassium 3.7 mmol/L (3.5-5.1); Protein, Total 6.3 g/dL (6.4-8.2); Sodium Level 138 mmol/L (136-145); T4 Free Direct 1.16 ng/dL (0.76-1.46); Thyroid Stim Hormone (TSH) 2.49 uIU/mL (0.358-3.74); Triglycerides 55 mg/dL; Very Low Density Lipoprotein 11 mg/dL (5-40)
[2022-12-12 12:50] LABS: Color, Urine Yellow (Yellow); Glucose, Dipstick Normal (Normal); Ketone-Dipstick Negative (Negative); Leukocyte Esterase-Dipstick Negative /ul (Negative); Nitrite-Dipstick Negative (Negative); Occult Blood-Urine Negative /ul (Negative); Protein-Dipstick Negative (Negative); Specific Gravity, Urine 1.005 (1.002-1.030); Urine Bilirubin Dipstick Negative (Negative); Urine Clarity Clear (Clear); Urine Urobilinogen Normal (Normal)
[2022-12-12 13:15] LABS: Red Blood Cells-Urine 0-5 SEEN /hpf (0-5); White Blood Cells 0-5 SEEN /hpf (0-5)
== END | disposition home or self-care (01) ==
PROVIDERS: PCP Family Medicine; Visit Provider Family Medicine
DX: I10 Essential (primary) hypertension (principal); E55.9 Vitamin D deficiency, unspecified; R53.83 Other fatigue
CPT/HCPCS: 36415; 80053; 80061; 81001; 82306; 82607; 84439; 84443; 85025

== ENCOUNTER 2022-12-13 08:33 | Emergency (ER) | payer MEDICARE, OTHER, SELFPAY ==
[2022-12-13 08:35] VITALS: BP 145/118; PULSE 100; RESP 18; TEMP 36.1; O2SAT 99; BMI 27.8
[2022-12-13 08:50] VITALS: BP 135/97; PULSE 99; RESP 24; O2SAT 97
--- NOTE | 2022-12-13 09:05 | EDS_ITS ---
HPI History of Present Illness Chief Complaint: Weakness Informant: patient and family (son) Narrative Narrative: Patient states he has been feeling achy all over and not feeling well for the last couple months. For the past week or 2, he has been having trouble sleeping at night. As a result, he is feeling fatigued all day every day. He saw his doctor for all of this yesterday and states that they did some blood and urine test. He has not heard about those yet, he is concerned about being anemic because he had been in the past and felt poorly although he has not been bleeding or having any obvious reason for anemia lately. He states that he slept poorly overnight, similar to the past week or so, and this morning feeling fatigued and anxious and as a result asked his son to bring him to the emergency department. He denies any other new symptoms. [facility] Medical History (Updated 12/13/22 @ 10:[address] Neftali Castle MD) Glaucoma History of ischemic colitis HTN (hypertension) Hyperlipidemia Home Medications amitriptyline 10 mg tablet 5 mg PO QHS sleep 06/13/14 [History Last Taken 02/03/18] hydrochlorothiazide 25 mg tablet 25 mg PO DAILY bp 06/13/14 [History Last Taken 02/04/18] methocarbamol 750 mg tablet 750 mg PO PRN PRN MUSCLE SPASMS 03/07/17 [History Last Taken 02/03/18] diltiazem HCl 180 mg capsule,extended release 24 hr 180 mg PO BID bp 04/24/17 [History Last Taken 02/04/18] lisinopril 10 mg tablet 10 mg PO QDAY bp 04/24/17 [History Last Taken 02/04/18] oxycodone-acetaminophen 5 mg-325 mg tablet 1 tab PO Q6H PRN PRN Pain 04/24/17 [History Last Taken Unknown] rosuvastatin 10 mg tablet 10 mg PO TH 02/04/18 [History Last Taken 01/29/18] aspirin 81 mg tablet,delayed release 81 mg PO DAILY@0800 heart health ##0 02/05/18 [Rx Last Taken 02/03/18] clopidogrel 75 mg tablet 75 mg PO QODAY blood thinner ##0 02/05/18 [Rx Last Taken 02/02/18] metronidazole 500 mg tablet 500 mg PO TID #15 tabs 02/05/18 [Rx Last Taken Unknown] Allergy/AdvReac Type Severity Reaction Status Date / Time ciprofloxacin [From Cipro] Allergy Rash Verified 12/13/22 08:34 ciprofloxacin HCl Allergy Rash Verified 12/13/22 08:34 [From Cipro] ertapenem sodium Allergy Rash Verified 12/13/22 08:34 [From Invanz] hydrocodone AdvReac makes him Verified 12/13/22 08:34 crazy Family History Mother Heart disease Hypertension Father Hypertension Heart disease Surgical History History of partial colectomy Social History Smoking Status: Former smoker second hand exposure: No alcohol intake: never substance use type: does not use seatbelt use: always ROS ROS ED Constitutional Constitutional ED: Reports body ache(s), chills, fatigue and other Details: insomnia ; Denies fever(s) or poor appetite Eyes Eyes: Denies change in vision or diplopia ENT ENT ED: Denies rhinorrhea or sore throat Cardiovascular Cardiovascular: Denies chest pain or palpitations Respiratory/Chest Respiratory/Chest: Denies cough or dyspnea Gastrointestinal Gastrointestinal: Denies abdominal pain, diarrhea, nausea or vomiting Genitourinary Genitourinary ED: Denies dysuria or hematuria Musculoskeletal Musculoskeletal: Denies back pain or neck pain Integumentary Denies abscess or rash Neurologic Neurologic: Denies headache(s), paresthesias or weakness Psychiatric Psychiatric: Denies anxiety or suicidal thoughts EXAM Physical Exam Const Vital Signs: 12/13/22 08:35 12/13/22 08:50 Temperature 97 F L Temperature Source Temporal Pulse Rate 100 99 Respiratory Rate 18 24 H Blood Pressure 145/118 H 135/97 H Blood Pressure Mean 127 109 Pulse Ox 99 97 Oxygen Delivery Method Room Air Room Air Positive well nourished and well developed Constitutional Narrative: occasional chills General Appearance ED: well developed and NAD HEENT Reports moist mucous membranes normocephalic and atraumatic Eyes PERRL and EOMs intact bilaterally Neck full ROM, no lymphadenopathy, supple and no JVD Resp normal respiratory effort and clear to auscultation bilaterally Cardio regular rate, regular rhythm and no murmurs Rate: tachycardic GI non-tender and non-distended Auscultation: normoactive bowel sounds Palpation: soft Back/Spine no CVA tenderness General Back: other FROM Extremity normal to inspection General Extremety ED: Negative for edema, pulses abnormal or tenderness General Extremity: Negative for edema or pulses abnormal Neuro oriented x3, CN's II-XII intact bilaterally and no sensory deficits noted Sensorium / Orientation: awake and alert Motor Exam: strength 5/5 throughout Psych Mood & Affect: anxious Skin no rashes or lesions noted and no wounds MDM MDM MDM Narrative Medical decision making narrative: I reviewed the patient's outpatient labs that he had done yesterday. They were all normal except for his white blood count which is a little elevated, I repeated that it is lower today, there are a few immature's yesterday and today this is of undetermined significance, I added on a 2 view chest x-ray, it is normal in my interpretation and radiology is in agreement. I also did an EKG given the intermittent throat discomfort he was talking about having, it shows no acute ischemic abnormalities and is essentially normal, and his troponin is normal as well as his lactic acid, arguing against an acute dangerous infection. I reassured the patient, I discussed with his PCP Dr. Ace, who also adds that the patient's within the last several months, and there may be a depression/anxiety component to this more so than the patient has been wanting to admit. I think this makes sense as well. His blood pressure has been fine, although diastolics are a little high, nothing to address emergently. We will discharge him with his son, reassuring him with regards to medical issues right now, his PCP still thinks there could be a component of sleep apnea which is being worked up as an outpatient, advised to continue forward on that as well. His PCP will contact him later after business hours. History & Record Review Additional record(s) reviewed:: Prior labs Lab Data Attestation: I reviewed the patient's lab results. Labs: Laboratory Results - last 24 hr 12/13/22 12/13/22 08:50 09:17 WBC 10.5 RBC 4.54 L Hgb 13.6 Hct 42.5 MCV 93.6 MCH 30.0 MCHC 32.0 RDW Std Deviation 46.4 H RDW Coeff of Marielena 13.5 Plt Count 333 MPV 10.4 Immature Gran % (Auto) 1.700 H Neut % (Auto) 70.7 H Lymph % (Auto) 14.9 L [place] % (Auto) 8.9 Eos % (Auto) 2.8 Baso % (Auto) 1.0 Absolute Neuts (auto) 7.4 Absolute Lymphs (auto) 1.57 Nucleated RBC % 0 Lactic Acid 0.7 Troponin I High Sens 39 Radiography Diagnostic Testing: Clinical Impression(s) from Imaging Studies Chest X-Ray 12/13/22 09:33 IMPRESSION: Hyperinflated lungs. Electronically Signed: Garima Parekh MD at 9:52 EDT , Rhythm Strip Rhythm Strip: Sinus Tach Rate: 102 Ectopy: None EKG Initial EKG: Attestation: I personally reviewed and interpreted this EKG as follows: Interpretation: Sinus Rhythm and No Acute Injury Pattern Prior EKG tracings: available for review Prior: Unchanged Management Discussion w/another healthcare provider: PCP Discharge Plan Triage Chief Complaint: Weakness ED Provider: Neftali Castle Dx/Rx/DC Orders Clinical Impression: Insomnia, Fatigue, Anxiety Instructions: ED Insomnia Prescriptions: No Action lisinopril 10 mg tablet 10 mg PO QDAY amitriptyline 10 MG tablet 5 mg PO QHS Patient Comments: depression hydrochlorothiazide 25 MG tablet 25 mg PO DAILY Patient Comments: bp methocarbamol 750 MG tablet 750 mg PO PRN PRN (Reason: MUSCLE SPASMS) Patient Comments: restless legs diltiazem HCl 180 MG capsule,extended release 24hr 180 mg PO BID oxycodone-acetaminophen 1 TABLET tablet 1 tab PO Q6H PRN PRN (Reason: Pain) rosuvastatin 10 MG tablet 10 mg PO TH metronidazole 500 MG tablet 500 mg PO TID Qty: 15 0RF clopidogrel 75 MG tablet 75 mg PO QODAY Qty: 0 0RF aspirin 81 MG tablet 81 mg PO DAILY@0800 Qty: 0 0RF Primary Care Provider: Jose E Ace Referrals: Jose E Ace MD [Primary Care Provider] - (To contact you later today) Disposition Disposition: Home, Self Care
[2022-12-13 09:29] LABS: Absolute Lymphocyte Count 1.57 X10^3/uL (0.83-4.51); Absolute Neutrophil Count 7.4 X10^3/uL (2.0-7.7); Basophil# 0.11 X10^3/uL; Eosinophils% 2.8 % (0-5); Hematocrit 42.5 % (40-54); Hemoglobin 13.6 g/dL (13.0-16.5); Lymphocyte # 1.57 X10^3/ul (0.83-4.51); Lymphocyte % 14.9 % (19-41); Mean Corpuscular Volume 93.6 fL (80-94); Mean Platelet Vol. 10.4 fl (6.2-12.0); Monocyte# 0.94 X10^3/uL; Monocyte% 8.9 % (0-10); NRBC Flagged by Analyzer 0 % (0-5); Neutrophil # 7.43 X10^3/uL (2.7-7.7); Neutrophil % 70.7 % (47-70); Platelet Count 333 K/mm3 (150-450); RBC Distribution Width CV 13.5 % (11.6-14.6); RBC Distribution Width SD 46.4 fl (35.1-43.9); Red Blood Count 4.54 M/mm3 (4.6-6.2); White Blood Count 10.5 K/mm3 (4.4-11.0)
--- NOTE | 2022-12-13 09:33 | RAD_ITS ---
INDICATION: chills, weakness EXAMINATION/TECHNIQUE: X-RAY - XR Chest 2 Views COMPARISON: Prior study dated: CT of the chest dated March 25, 2017 FINDINGS: LINES/DEVICES: None. LUNGS: The lungs are hyperinflated. No focal consolidation is visualized. No pneumothorax. MEDIASTINUM AND CARDIOVASCULAR STRUCTURES: Cardiac silhouette not enlarged. Central airways and mediastinal contour are unremarkable. BONES AND SOFT TISSUES: Unremarkable. RAD/Chest PA and Lateral IMPRESSION: Hyperinflated lungs. Electronically Signed: Garima Parekh MD at 9:52 EDT ,
[2022-12-13 09:38] LABS: Troponin-I HS 39 pg/mL (3.0-78.0)
[2022-12-13 09:49] LABS: Lactic Acid 0.7 mmol/L (0.4-1.9)
[2022-12-13] MEDS: Acetaminophen 500 MG Tablet 1000 MG PO (10:03)
[2022-12-13 10:34] VITALS: BP 138/78; PULSE 64; RESP 16; O2SAT 98
[2022-12-13 11:00] VITALS: BP 136/76; PULSE 89; RESP 14; TEMP 37.2; O2SAT 99
[2022-12-14 08:10] LABS: Lyme Scn Total Ab w/Rflx Negative (Negative)
== END 2022-12-13 11:29 | disposition home or self-care (01) ==
PROVIDERS: Emergency Provider Emergency Medicine; PCP Family Medicine; Visit Provider Emergency Medicine
DX: G47.00 Insomnia, unspecified (principal); F41.9 Anxiety disorder, unspecified; Z87.891 Personal history of nicotine dependence; R53.1 Weakness; I10 Essential (primary) hypertension; Z63.4 Disappearance and death of family member; E78.5 Hyperlipidemia, unspecified
CPT/HCPCS: 71046; 83605; 84484; 85025; 86618; 87811; 93005; 96360; 99282; J7040; A4216

== ENCOUNTER → 2022-12-19 | Outpatient (CLI) | payer MEDICARE, OTHER, SELFPAY ==
--- NOTE | 2022-12-19 16:15 | RAD_ITS ---
STUDY: X-RAY CHEST REASON FOR EXAM: Male, 72 years old. clear sputurm TECHNIQUE: Frontal and lateral views of the chest. COMPARISON: 12/13/2022 FINDINGS: There is hyperinflation of the lungs consistent with chronic obstructive lung disease (COPD). No infiltrates or effusions. There is no demonstrated pleural abnormality. Normal size heart. Normal mediastinum and xiomara. Normal visualized pulmonary arteries. Normal visualized aortic arch and descending thoracic aorta. There are diffuse degenerative changes of the visualized thoracic spine. There is diffuse ankylosis of the thoracic spine. Normal visualized ribs, clavicles, and shoulders. There is no demonstrated abnormality of the visualized soft tissue structures of the upper abdomen. RAD/Chest PA and Lateral IMPRESSION: There are findings consistent with COPD. There is no evidence of acute chest disease. No change. Electronically Signed: Mehdi Pepper MD at 20:29 EDT ,
--- NOTE | 2022-12-19 16:15 | RAD_ITS ---
STUDY: X-RAY - ABDOMEN/PELVIS REASON FOR EXAM: Male, 72 years old. RUQ pain and bloating after eating TECHNIQUE: AP supine and upright views of the abdomen and pelvis. COMPARISON: None. FINDINGS: Normal visualized lung bases. There is an unremarkable bowel gas pattern. There is no demonstrated free abdominal air. Several calcifications consistent with renal stones seen on the left. The visualized liver, spleen are grossly normal in size and morphology. Normal soft tissue structures. Normal visualized osseous structures. RAD/Abd Inc Decub and/or Erect IMPRESSION: No definite acute or significant abnormality seen. Electronically Signed: Mehdi Pepper MD at 20:31 EDT ,
== END | disposition home or self-care (01) ==
LOC: MTRAD 16:12
PROVIDERS: PCP Family Medicine; Visit Provider Family Medicine
DX: R10.11 Right upper quadrant pain (principal); R05.8 Other specified cough
CPT/HCPCS: 36415; 71046; 74019; 80053; 83690; 85652; 86140

== ENCOUNTER → 2022-12-19 | Outpatient (CLI) | payer MEDICARE, OTHER, SELFPAY ==
[2022-12-19 18:32] LABS: Erythrocyte Sedimentation Rate 21 mm/hr (0-20)
[2022-12-19 18:47] LABS: ALB/GLOB Ratio 0.8 RATIO (0.9-2.4); AST(SGOT) 19 U/L (15-37); Alanine Aminotransfer ALT/SGPT 37 U/L (16-61); Albumin, Serum 2.8 g/dL (3.2-5.0); Alkaline Phosphatase 64 U/L (45-117); Anion Gap 6 (5-15); BUN 13 mg/dL (7-18); BUN/Creat Ratio 13.6 RATIO (10-20); Calcium,Total 8.9 mg/dL (8.5-10.1); Chloride 98 mmol/L (98-107); Creatinine, Serum 0.96 mg/dL (0.70-1.30); EST Glomerular Filtration Rate 83 mL/min (>60); Est Glom Filt Rate - Afr Amer 100 mL/min (>60); Globulin 3.5 g/dL (2.2-4.2); Glucose 76 mg/dL (74-106); Lipase 24 U/L (13-75); Potassium 4.3 mmol/L (3.5-5.1); Protein, Total 6.3 g/dL (6.4-8.2); Sodium Level 131 mmol/L (136-145)
== END | disposition home or self-care (01) ==
LOC: MFPLAB 16:15
PROVIDERS: PCP Family Medicine; Visit Provider Family Medicine
DX: R05.8 Other specified cough (principal); R10.11 Right upper quadrant pain
CPT/HCPCS: 36415; 80053; 83690; 85652; 86140

== ENCOUNTER → 2022-12-31 | Outpatient (CLI) | payer MEDICARE, OTHER, SELFPAY ==
[2022-12-31 10:02] LABS: Erythrocyte Sedimentation Rate 25 mm/hr (0-20)
== END | disposition home or self-care (01) ==
PROVIDERS: PCP Family Medicine; Visit Provider Family Medicine
DX: R05.8 Other specified cough (principal)
CPT/HCPCS: 36415; 85652; 86140

== ENCOUNTER → 2023-01-02 | Outpatient (CLI) | payer MEDICARE, OTHER, SELFPAY ==
--- NOTE | 2023-01-02 13:26 | ECHOD_ITS ---
Reason For Study: SOB Procedure This was a 2D Doppler, Color Flow transthoracic echocardiogram. Exam performed in department. Left Ventricle Normal LV size. Left ventricular systolic function is normal. The estimated ejection fraction is 55 %. Stage 1 diastolic dysfunction. No regional wall motion abnormalities noted. Right Ventricle Normal RV size. Normal systolic function. Tricuspid Valve Normal tricuspid valve. Mild tricuspid valve insufficiency. Pulmonary artery systolic pressure is 34 mmHg. Aortic Valve Normal aortic valve. Trisinus/trileaflet aortic valve. Pulmonic Valve The pulmonic valve is not well visualized. Great Vessels Normal aortic root. The pulmonary artery is normal size. Normal inferior vena cava. Pericardium/Pleural No pericardial effusion. MMode/2D Measurements & Calculations LVIDd: 4.3 cm IVSd: 1.1 cm Ao root diam: 3.2 cm LVIDs: 3.2 cm LVPWd: 1.1 cm FS: 25.3 % LAV(MOD-bp): 81.7 ml LVAd ap4: 29.1 cm2 LVAd ap2: 27.6 cm2 LAV(MOD-bp) Indexed: 41.4 ml/m2 LVLd ap4: 8.6 cm LVLd ap2: 8.2 cm LAV(MOD-sp2): 74.6 ml EDV(MOD-sp4): 80.1 ml EDV(MOD-sp2): 76.9 ml LAV(MOD-sp4): 91.1 ml EDV(sp4-el): 83.8 ml EDV(sp2-el): 78.9 ml LVAs ap4: 17.9 cm2 LVAs ap2: 14.5 cm2 LVLs ap4: 7.2 cm LVLs ap2: 6.3 cm ESV(MOD-sp4): 37.9 ml ESV(MOD-sp2): 28.7 ml ESV(sp4-el): 37.9 ml ESV(sp2-el): 28.3 ml EF(MOD-sp4): 52.7 % EF(MOD-sp2): 62.6 % EF(sp4-el): 54.9 % SV(MOD-sp4): 42.2 ml SV(MOD-sp2): 48.2 ml SV(sp4-el): 46.0 ml LA A4 area: 25.2 cm2 LA dimension(2D): 4.3 cm RA A4 area: 13.6 cm2 Time Measurements MV dec time: 0.19 sec Doppler Measurements & Calculations MV E max felipe: 70.9 cm/sec Lat Peak E' Felipe: 8.5 cm/sec Med Peak E' Felipe: 7.5 cm/sec MV A max felipe: 99.0 cm/sec E/E' lat: 8.4 E/E' med: 9.5 MV E/A: 0.72 MV V2 max: 88.2 cm/sec Ao V2 max: 144.9 cm/sec LV V1 max: 109.7 cm/sec MV max P.1 mmHg Ao max P.4 mmHg LV V1 max P.8 mmHg MV V2 mean: 57.6 cm/sec Ao V2 mean: 100.4 cm/sec LV V1 mean P.9 mmHg MV mean P.5 mmHg Ao mean P.6 mmHg LV V1 mean: 81.3 cm/sec MV V2 VTI: 21.2 cm Ao V2 VTI: 30.9 cm LV V1 VTI: 22.5 cm AV (velocity ratio): 0.73 PA V2 max: 88.4 cm/sec TR max felipe: 281.2 cm/sec PA V2 mean: 59.5 cm/sec TR max P.6 mmHg ECHO/Echo Complete Interpretation Summary Normal LV size. Left ventricular systolic function is normal. The estimated ejection fraction is 55 %. Stage 1 diastolic dysfunction. Pulmonary artery systolic pressure is 34 mmHg. Ordering Physician: Jose E Ace Referring Physician: Jose E Ace Performed By: Arin Najera RDCS, RVT
== END | disposition home or self-care (01) ==
LOC: CVS 13:24
PROVIDERS: PCP Family Medicine; Referring Provider Family Medicine; Visit Provider Family Medicine
DX: R06.02 Shortness of breath (principal)
CPT/HCPCS: 93306

== ENCOUNTER 2023-03-24 09:37 | Observation (INO) | payer MEDICARE, OTHER, SELFPAY ==
[2023-03-24] VITALS (20 sets, daily range): BP systolic 109–188; BP diastolic 73–105; PULSE 69–90; RESP 14–25; TEMP 35.8–36.4; O2SAT 94–100; BMI 28.0; BMI 26.4
--- NOTE | 2023-03-24 09:45 | CT_ITS ---
STUDY: CT HEAD STROKE PROTOCOL W/O CONTRAST INJECTION REASON FOR EXAM: Male, 72 years old. Neuro deficit, acute, stroke suspected RADIATION DOSAGE (If Supplied By Facility): CTDIvol = ( 44.99 ) mGy, DLP = ( 829.85 ) mGycm TECHNIQUE: Transaxial CT imaging of the brain was performed without administration of intravenous contrast material. Individualized dose optimization techniques were used for this CT. COMPARISON: No relevant priors. FINDINGS: Normal soft tissue structures. Normal calvarium. There is mild cerebral atrophy with widening of the extra-axial spaces and ventricular dilatation. There are areas of decreased attenuation within the white matter tracts of the supratentorial brain, consistent with microvascular disease changes. Normal basal ganglia and thalami. Normal brainstem. Normal cerebellum. There is no intracranial hemorrhage. There are no findings of an acute ischemic infarction. Atherosclerotic plaque formation of the cavernous portions of the internal carotid arteries bilaterally. Mucosal thickening at the base of the right maxillary sinus. ASPECT score: 10 CT/STROKE Brain/Head without Cont IMPRESSION: Chronic involutional changes of the brain. N.B. : The above Results were Read Back by Jordan Cano MD to [facility] and understanding confirmed on 03/24/2023 10:20:39 (ET). Electronically Signed: Jordan Cano MD at 10:22 EST ,
--- NOTE | 2023-03-24 09:45 | CT_ITS ---
STUDY: CTA HEAD AND NECK WITH CONTRAST REASON FOR EXAM: Male, 72 years old. Neuro deficit, acute, stroke suspected RADIATION DOSAGE (If Supplied By Facility): CTDIvol = ( 23.78 ) mGy, DLP = ( 725.84 ) mGycm TECHNIQUE: CT angiography was performed with a multi-detector CT scanner. Data acquisition was obtained from the skull base through the vertex following intravenous administration of IV 100mL [id number]-[id number]. MIP images were reconstructed from the axial data set. Post-processing of the angiographic images was performed, with multiplanar reformation and 3D reconstruction. Individualized dose optimization techniques were used for this CT. COMPARISON: No relevant priors. FINDINGS: Normal bilateral petrous carotid arteries. There is calcified plaque formation of the right cavernous carotid artery, without a cross-sectional luminal stenosis. There is calcified plaque formation of the left cavernous carotid artery, without a cross-sectional luminal stenosis. Normal right A1 segments of the anterior cerebral artery. Normal left A1 segments of the anterior cerebral artery. Normal intact anterior communicating artery (ACOM). Normal bilateral A2 segments of the anterior cerebral arteries. Normal right M1 and M2 segments of the middle cerebral arteries, with a normal M1 bifurcation. Normal left M1 and M2 segments of the middle cerebral arteries, with a normal M1 bifurcation. Normal right posterior communicating artery (PCOM). Normal left posterior communicating artery (PCOM). Normal bilateral vertebral arteries. Normal basilar artery with a normal basilar bifurcation. The visualized bilateral superior cerebellar (SCA) arteries are normal. Normal bilateral P1, P2 and visualized P3 segments of the posterior cerebral arteries. There is no demonstrated aneurysm of the iliamna of [place]. There is no demonstrated abnormality of the visualized brain. AORTIC ARCH: There is atherosclerotic calcific plaque formation of the aortic arch and great vessels arising from the aortic arch, without a hemodynamically significant stenosis. There is a normal origin of the brachiocephalic, left common carotid, and left subclavian arteries. Calcific plaques at the origin of the right brachiocephalic artery and left subclavian artery. RIGHT CAROTID ARTERIES: Normal right common carotid artery (CCA). Normal right common carotid bulb. There is extensive atherosclerotic plaque formation of the origin of the right internal carotid artery with an estimated stenosis of greater than 70%. Normal visualized cervical portion of the right internal carotid artery. Normal origin of the right external carotid artery (ECA). LEFT CAROTID ARTERIES: Normal left common carotid artery (CCA). Normal left common carotid bulb. There is severe atherosclerotic plaque formation of the origin of the left internal carotid artery with a near complete occlusion. Normal visualized cervical portion of the left internal carotid artery. Normal origin of the left external carotid artery (ECA). VERTEBRAL ARTERIES: There is enhancement within the bilateral vertebral arteries with a small right vertebral artery, and a dominant left vertebral artery. CT/STROKE CTA Head AND Neck W/Con IMPRESSION: Calcific plaques at the origin of the right internal carotid artery causing 70% stenosis. Calcific plaque at the origin of the left internal carotid artery causing between 85 and 90% stenosis N.B. : The above Results were Read Back by Jordan Cnao MD to [facility] and understanding confirmed on 03/24/2023 10:26:22 (ET). Electronically Signed: Jordan Cano MD at 10:27 EST ,
--- NOTE | 2023-03-24 09:46 | NURSING ---
0944 STROKE ALERT CALLED FROM TRIAGE
--- NOTE | 2023-03-24 09:48 | ED.VIS.STROK ---
HPI History of Present Illness Chief Complaint: Neuro S/Sx Detail of Chief Complaint: Numbness of right upper extremity and face. Informant: patient and family (Daughter is with him.) Onset/Context/Timing Onset: Today (0830 and 3 days ago) Context: Sudden Onset Timing: Intermittent (Duration of symptoms 3 days ago was 10 minutes. He is still having symptoms but they have improved.) Quality and Location: Positive for Right Face Paresthesia and Right Arm Parasthesia Onset: Onset today at 0830. Current Severity: Mild Maximum Severity: Mild Worsened by: Nothing Relieved by: Nothing Associated Symptoms Associated Symptoms: Negative for Headache, Nausea, Vomiting or Chest Pain Narrative Narrative: Patient is a 72-year-old male with history of hypertension. He is on antithrombotic. He is on aspirin as well as Plavix he is also noted to be on an anticholesterol medicine. Patient presents because of numbness to his right upper extremity face that started at 0830. Patient was unaware that his smile is asymmetric. He has asymmetry noted on the right. 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 Patient states he had symptoms approximate 3 days ago that lasted 10 minutes that were similar to today's symptoms which prompted him to come to the emergency department. He denies headache, visual, ocular auditory symptoms. No trouble speech or swallowing. He denies weakness in his upper or lower extremities. No trouble with balance. He denies problems with his vision i.e. blurred, double or loss. Prior similar symptoms: Yes Recent Illness/Hospitalization: No [facility] Medical History Glaucoma History of ischemic colitis HTN (hypertension) Hyperlipidemia Home Medications hydrochlorothiazide 25 mg tablet 25 mg PO DAILY bp 06/13/14 [History Last Taken 03/24/23] diltiazem HCl 180 mg capsule,extended release 24 hr 180 mg PO BID bp 04/24/17 [History Last Taken 03/24/23] oxycodone-acetaminophen 5 mg-325 mg tablet 1 tab PO Q6H PRN PRN Pain 04/24/17 [History Last Taken Unknown] rosuvastatin 10 mg tablet 10 mg PO .COMPLEX 02/04/18 [History Last Taken 03/23/23] aspirin 81 mg tablet,delayed release 81 mg PO DAILY@0800 TwoFish ##0 02/05/18 [Rx Last Taken 03/24/23] Allergy/AdvReac Type Severity Reaction Status Date / Time ciprofloxacin [From Cipro] Allergy Rash Verified 03/24/23 09:37 ciprofloxacin HCl Allergy Rash Verified 03/24/23 09:37 [From Cipro] ertapenem sodium Allergy Rash Verified 03/24/23 09:37 [From Invanz] hydrocodone AdvReac makes him Verified 03/24/23 09:37 gary Family History Mother Heart disease Hypertension Father Hypertension Heart disease Surgical History (Updated 03/24/23 @ 10:31 by Marycarmen Lind) History of partial colectomy History of surgery on lower extremity Social History Smoking Status: Former smoker second hand exposure: No alcohol intake: never substance use type: does not use seatbelt use: always ROS ROS ED Constitutional Constitutional ED: Denies chills, fever(s), subjective, sweats or weakness Eyes Eyes: Denies blurry vision, change in vision or diplopia Cardiovascular Cardiovascular: Denies chest pain or palpitations Respiratory/Chest Respiratory/Chest: Denies cough, dyspnea or dyspnea on exertion Gastrointestinal Gastrointestinal: Denies abdominal pain, nausea or vomiting Musculoskeletal Musculoskeletal: Denies arthralgias, back pain, myalgias or neck pain Integumentary Denies rash Neurologic Neurologic: Reports paresthesias; Denies headache(s) or weakness Endocrine Endocrinology: Denies polydipsia, polyphagia or polyuria EXAM Physical Exam Const Vital Signs: 03/24/23 09:38 03/24/23 09:45 03/24/23 09:45 Temperature 96.9 F L 96.4 F L Temperature Source Temporal Temporal Pulse Rate 77 90 Respiratory Rate 18 17 Blood Pressure 170/81 H 170/81 H Blood Pressure Mean 110 110 Pulse Ox 97 99 99 Oxygen Delivery Method Room Air Room Air Room Air 03/24/23 10:00 03/24/23 10:30 Temperature 96.5 F L 97.5 F L Temperature Source Temporal Temporal Pulse Rate 85 75 Respiratory Rate 16 16 Blood Pressure 188/105 H 167/81 H Blood Pressure Mean 132 109 Pulse Ox 100 98 Oxygen Delivery Method Room Air Room Air Positive well nourished and well developed General Appearance ED: well developed and NAD HEENT Reports moist mucous membranes atraumatic Eyes PERRL and EOMs intact bilaterally Eyes Narrative: There is no nystagmus. There is no visual field cut. Neck no lymphadenopathy, supple and no JVD Neck Narrative: There is no carotid bruit. Chest Wall inspection of chest normal and palpation of chest normal Resp normal respiratory effort and clear to auscultation bilaterally Cardio no murmurs Rate: regular rate Rhythm: regular rhythm Heart Sounds: S1 normal and S2 normal GI normal to inspection, nondistended, normoactive bowel sounds, non-tender, non-distended and no masses Extremity normal to inspection Neuro oriented x3, No CN's II-XII intact bilaterally and No no sensory deficits noted Neuro Narrative: Slight decrease sensation right side of the face. There is asymmetry right side of the face. 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 patient's [place] Coma Scale: document GCS findings Spontaneous Obeys Commands Oriented 15 Sensorium / Orientation: alert Speech: speech normal Gait (Neuro): normal gait Motor Exam: strength 5/5 throughout Psych mental status grossly normal Skin no wounds Lesions: no lesions Rashes: no rashes NIHSS NIHSS Initial: 1a Level of Consciousness: 0 1b LOC Questions (Score 2 if aphasic/stupor): 0 1c LOC Commands (Only score 1st attempt): 0 2 Best Gaze (If aphasic, use reflexive mvmts.): 0 3 Visual: 0 4 Facial Palsy: 1 5 Motor Arm Right (UN = amputation/fusion): 0 5 Motor Arm Left: 0 6 Motor Leg Right: 0 6 Motor Leg Left: 0 7 Limb ataxia (Only + if out of proportion): 0 8 Sensory (Aphasia/stupor=0 or 1, coma=2): 1 9 Best Language: 0 10 Dysarthria (mute, coma=2, intubated=UN): 0 11 Extinction and Inattention (only scored if +): 0 Total Score: 2 MDM MDM MDM Narrative Medical decision making narrative: Patient presents with strokelike symptoms. Patient had a TIA 3 days ago. Patient still has symptoms but they have improved from onset. His only complaint was the right-sided facial numbness and right upper extremity numbness. He was unaware that his face was asymmetric. Stroke team was ordered. Because patient has recurrent symptoms CTA was obtained as well to see if there is any significant stenosis that would require transfer for vascular intervention. Prior records were reviewed. He does have history of hypertension hypercholesterolemia. Patient had an echo December 2022. Summary interpretation authored by Dr. Pankaj Major was reviewed and pasted. Interpretation Summary Normal LV size. Left ventricular systolic function is normal. The estimated ejection fraction is 55 %. Stage 1 diastolic dysfunction. Pulmonary artery systolic pressure is 34 mmHg. Patient is no longer on Plavix. Neurologist, Dr. Rose, recommended full dose aspirin. History & Record Review Additional record(s) reviewed:: Prior inpatient record (Patient was last admitted in 2018 for ischemic colitis. He has had other visits prior to 2018 for ischemic colitis. He also has history of glaucoma.), Prior outpatient record, Prior ED visit (He was recently seen for anxiety in the emergency department.) and Prior labs Lab Data Attestation: I reviewed the patient's lab results. Lab results narrative: CBC is unremarkable. Labs: Laboratory Results - last 24 hr 03/24/23 03/24/23 09:48 10:00 WBC 5.9 RBC 5.10 Hgb 14.3 Hct 44.2 MCV 86.7 MCH 28.0 MCHC 32.4 RDW Std Deviation 42.9 RDW Coeff of Marielena 13.5 Plt Count 250 MPV 10.3 Immature Gran % (Auto) 0.200 Neut % (Auto) 51.6 Lymph % (Auto) 19.5 Kinney % (Auto) 10.7 H Eos % (Auto) 16.8 H Baso % (Auto) 1.2 H Absolute Neuts (auto) 3.1 Absolute Lymphs (auto) 1.15 Nucleated RBC % 0 PT 12.6 INR 0.9 APTT 37.8 H Sodium 139 Potassium 3.7 Chloride 104 Carbon Dioxide 30.0 Anion Gap 5 BUN 13 Creatinine 1.02 Estim Creat Clear Calc 65.20 Est GFR (MDRD) Af Amer 93 Est GFR (MDRD) Non-Af 77 BUN/Creatinine Ratio 12.7 Glucose 85 Calcium 9.0 Troponin I High Sens 17 POC Glucose 78 Radiography Diagnostic Testing: Clinical Impression(s) from Imaging Studies Brain CT 03/24/23 09:45 IMPRESSION: Chronic involutional changes of the brain. N.B. : The above Results were [facility] and understanding confirmed on 03/24/2023 10:20:39 (ET). Electronically Signed: Jordan Cano MD at 10:22 EST , ADDENDUM: 03/24/23 1028 IMPRESSION: Chronic involutional changes of the brain. N.B. : The above Results were Read Back [facility] and understanding confirmed on 03/24/2023 10:20:39 (ET). Electronically Signed: Jordan Cano MD at 10:22 EST , Head/Neck CTA 03/24/23 09:45 IMPRESSION: Calcific plaques at the origin of the right internal carotid artery causing 70% stenosis. Calcific plaque at the origin of the left internal carotid artery causing between 85 and 90% stenosis N.B. : The above Results were Read Back by [facility] to [facility] and understanding confirmed on 03/24/2023 10:26:22 (ET). Electronically Signed: Jordan Cano MD at 10:27 EST , ADDENDUM: 03/24/23 1034 IMPRESSION: Calcific plaques at the origin of the right internal carotid artery causing 70% stenosis. Calcific plaque at the origin of the left internal carotid artery causing between 85 and 90% stenosis N.B. : The above Results were Read Back by [facility] to [facility] and understanding confirmed on 03/24/2023 10:26:22 (ET). Electronically Signed: Jordan Cano MD at 10:27 EST , CT of the head with out contrast was reviewed by me at 0956. There is no evidence of hemorrhage. There is no obvious stroke per my review. Awaiting formal read by radiologist. EKG Initial EKG: Attestation: I personally reviewed and interpreted this EKG as follows: Interpretation: Sinus Rhythm (Rate is 70. There is decreased anterior force. KY interval is 204 ms. Cures duration 72 ms. QT duration 308 ms. Melvin is normal. There are no acute ischemic changes noted.) Management Discussion w/another healthcare provider: Hospitalist, Reception (Patient was evaluated by Dr. Rose the neurologist at [facility]. Patient has an NIH of 0. Recommended admission for TIA workup since this is his second episode within 72 hours.) and Radiologist (Received call from radiologist at [address] without contrast.) Treatment and Re-Evaluation Narrative: Blood pressure is up. We will allow for permissive hypertension since he is not a thrombolytic candidate. Dr. Rose called back to make sure I was aware of the significant stenosis of the left carotid artery. He was informed that we do have vascular capability here. Dr. Gutierrez was repaged for admission. Stroke Documentation Questions Stroke Team Activated: Yes Reviewed Inclusion/Exclusion criteria: Yes No contraindications from thrombolytic administration: Yes Discharge Plan Triage Chief Complaint: Neuro S/Sx ED Provider: Zaid Rogers Dx/Rx/DC Orders Clinical Impression: Transient ischemic attack (TIA), Hypercholesterolemia, HTN (hypertension) Prescriptions: No Action hydrochlorothiazide 25 MG tablet 25 mg PO DAILY Patient Comments: bp diltiazem HCl 180 MG capsule,extended release 24hr 180 mg PO BID oxycodone-acetaminophen 1 TABLET tablet 1 tab PO Q6H PRN PRN (Reason: Pain) rosuvastatin 10 MG tablet 10 mg PO .COMPLEX Patient Comments: TAKES ON FRIDAY, FRIDAY, FRIDAY Rx Instructions: 10 mg orally FRIDAY, FRIDAY, FRIDAY; aspirin 81 MG tablet 81 mg PO DAILY@0800 Qty: 0 0RF Primary Care Provider: Jose E Ace Referrals: Jose E Ace MD [Primary Care Provider] -
[2023-03-24 10:07] LABS: Absolute Lymphocyte Count 1.15 X10^3/uL (0.83-4.51); Absolute Neutrophil Count 3.1 X10^3/uL (2.0-7.7); Basophil# 0.07 X10^3/uL; Basophil% 1.2 % (0-1); Eosinophil# 0.99 X10^3/uL; Eosinophils% 16.8 % (0-5); Hematocrit 44.2 % (40-54); Hemoglobin 14.3 g/dL (13.0-16.5); Lymphocyte # 1.15 X10^3/ul (0.83-4.51); Lymphocyte % 19.5 % (19-41); Mean Corp Hgb Conc 32.4 g/dL (32-36); Mean Corpuscular Volume 86.7 fL (80-94); Mean Platelet Vol. 10.3 fl (6.2-12.0); Monocyte# 0.63 X10^3/uL; Monocyte% 10.7 % (0-10); NRBC Flagged by Analyzer 0 % (0-5); Neutrophil # 3.06 X10^3/uL (2.7-7.7); Neutrophil % 51.6 % (47-70); Platelet Count 250 K/mm3 (150-450); RBC Distribution Width CV 13.5 % (11.6-14.6); RBC Distribution Width SD 42.9 fl (35.1-43.9); White Blood Count 5.9 K/mm3 (4.4-11.0)
[2023-03-24 10:15] LABS: Partial Thromboplast Time 37.8 Seconds (24.1-36.2)
[2023-03-24 10:18] LABS: Bedside Glucose 78 mg/dL (74-106)
[2023-03-24 10:20] LABS: International Normalized Ratio 0.9; Prothrombin Time (Protime)PT. 12.6 SECONDS (11.7-14.9)
[2023-03-24 10:24] LABS: Anion Gap 5 (5-15); BUN 13 mg/dL (7-18); BUN/Creat Ratio 12.7 RATIO (10-20); Chloride 104 mmol/L (98-107); Creatinine, Serum 1.02 mg/dL (0.70-1.30); EST Glomerular Filtration Rate 77 mL/min (>60); Est Glom Filt Rate - Afr Amer 93 mL/min (>60); Glucose 85 mg/dL (74-106); Potassium 3.7 mmol/L (3.5-5.1); Sodium Level 139 mmol/L (136-145); Troponin-I HS 17 pg/mL (3.0-78.0)
--- NOTE | 2023-03-24 10:39 | NURSING ---
DR MARY METZ
--- NOTE | 2023-03-24 10:44 | CDU_ITS ---
Reason For Study: Carotid stenosis Rt. Velocities/BP Lt. Velocities/BP Prox CCA 76.8/18.2 cm/sec. Prox CCA 84.6/18.8 cm/sec. Mid CCA 80.6/20.1 cm/sec. Mid CCA 79/17.6 cm/sec. Dist CCA 75.9/19.2 cm/sec. Dist CCA 90/22.5 cm/sec. Prox ICA 179.6/57.8 cm/sec. Prox ICA 205.5/55.2 cm/sec. Mid ICA 121.4/33.6 cm/sec. Mid ICA 148.5/39.7 cm/sec. Dist ICA 93.7/29.8 cm/sec. Dist ICA 143.3/31.9 cm/sec. Rt. ICA/CCA = 2.34. Lt. ICA/CCA = 2.43. Prox ECA 77.8/6.9 cm/sec. Prox ECA 70.4/7.7 cm/sec. Rt. Vert. 66.3/9.1 cm/sec. Lt. Vert. 54.2/19 cm/sec. Right Extracranial There is intimal thickening but no significant atherosclerotic plaque noted in the right common carotid artery. There is heterogeneous, irregular atherosclerotic plaque noted in the right internal carotid artery. There is homogeneous, smooth atherosclerotic plaque noted in the right external carotid artery. Antegrade flow is noted in the right vertebral artery. Left Extracranial There is intimal thickening but no significant atherosclerotic plaque noted in the left common carotid artery. There is heterogeneous, irregular atherosclerotic plaque noted in the left internal carotid artery. There is intimal thickening but no significant atherosclerotic plaque noted in the left external carotid artery. Antegrade flow is noted in the left vertebral artery. Procedure Carotid Duplex [id number]. This is a Carotid Duplex examination using B-mode, color flow and specral Doppler. Exam performed portable in ED. VL/Carotid Duplex Ultrasound Interpretation Summary Moderate (50-69%) stenosis right extracranial internal carotid. Moderate (50-69%) stenosis left extracranial internal carotid. Patent and antegrade vertebrals bilaterally. Ordering Physician: Ewa Gutierrez Referring Physician: Jose E Ace Performed By: Argenis Benavides RVT
--- NOTE | 2023-03-24 10:44 | MRI_ITS ---
STUDY: MRI BRAIN WITHOUT CONTRAST REASON FOR EXAM: Male, 72 years old. tia/stroke TECHNIQUE: Standardized multiplanar fat and water weighted pulse sequences were obtained. COMPARISON: Head CT dated March 24, 2023 FINDINGS: There is mild cerebral atrophy with widening of the extra-axial spaces and ventricular dilatation. There are a limited number of small white matter hyperintensities, distributed throughout the deep white matter tracts of the cerebral hemispheres, consistent with mild chronic white matter ischemic changes. There is no evidence for recent intracranial ischemia or other cause of cytotoxic edema on diffusion weighted imaging (DWI). Normal T2* images of the brain without demonstrated susceptibility artifact. There is no demonstrated hemosiderin stain. Normal bilateral basal ganglia. Normal thalami. There is no extra-axial fluid accumulation. Normal flow voids within the major intracranial circulation suggesting patency by spin echo criteria. Normal sella turcica, pituitary gland, infundibular stalk, optic chiasm and hypothalamus. Normal tectal plate and pineal gland. Normal midbrain, rico and medulla. Normal cerebellum. Normal basal cisterns. Normal bilateral temporal bones. Normal bilateral internal auditory canals. No demonstrated orbital abnormality, within the constraints of a routine brain study. Normal visualized paranasal sinuses. Normal calvarium and skull base. Normal visualized soft tissue structures. Normal visualized upper cervical spine. MRI/Brain without Contrast IMPRESSION: 1. Involutional and chronic ischemic changes of the brain, as described above. 2. No demonstrated acute infarct or intracranial hemorrhage Electronically Signed: Keaton Benitez MD at 14:16 EST ,
--- NOTE | 2023-03-24 10:44 | ECHOL_ITS ---
Reason For Study: TIA/CVA Procedure This was a limited 2D transthoracic echocardiogram. Performed portable in the ED. Left Ventricle Normal size and thickness. The left ventricular ejection fraction is 65 %. Right Ventricle Normal right ventricle. Atria The left atrium is moderately enlarged. Bubble contrast study negative for right to left interatrial shunt. Mitral Valve Suspect minimal prolapse anterior mitral leaflet. Tricuspid Valve Normal tricuspid valve. Aortic Valve Aortic sclerosis, no stenosis. Pulmonic Valve The pulmonic valve is not well visualized. Great Vessels Normal sized aortic root. Pericardium/Pleural No pericardial effusion. Medication Performed a rapid injection of agitated mix of 9 cc saline and 1cc air to assess for atrial septal defect. MMode/2D Measurements & Calculations LVIDd: 4.2 cm IVSd: 1.4 cm Ao root diam: 3.2 cm LVIDs: 2.5 cm LVPWd: 1.2 cm RVDd: 3.0 cm FS: 41.2 % LAV(MOD-bp): 58.0 ml LVAd ap4: 29.3 cm2 LVAd ap2: 32.1 cm2 LAV(MOD-bp) Indexed: 29.0 ml/m2 LVLd ap4: 8.5 cm LVLd ap2: 8.9 cm LAV(MOD-sp2): 52.0 ml EDV(MOD-sp4): 81.5 ml EDV(MOD-sp2): 94.5 ml LAV(MOD-sp4): 61.3 ml EDV(sp4-el): 85.9 ml EDV(sp2-el): 97.9 ml LVAs ap4: 16.2 cm2 LVAs ap2: 16.9 cm2 LVLs ap4: 7.4 cm LVLs ap2: 7.9 cm ESV(MOD-sp4): 31.0 ml ESV(MOD-sp2): 31.9 ml ESV(sp4-el): 29.8 ml ESV(sp2-el): 30.5 ml EF(MOD-sp4): 62.0 % EF(MOD-sp2): 66.2 % EF(sp4-el): 65.3 % SV(MOD-sp4): 50.5 ml SV(MOD-sp2): 62.6 ml SV(sp4-el): 56.0 ml LA A4 area: 19.7 cm2 LA dimension(2D): 4.4 cm RA A4 area: 14.0 cm2 ECHO/Echo, Limited Study Interpretation Summary The left ventricular ejection fraction is 65 %. Suspect minimal prolapse anterior mitral leaflet. Ordering Physician: Ewa Gutierrez Referring Physician: Jose E Ace Performed By: Melany Michelle RDCS
--- NOTE | 2023-03-24 11:01 | NURSING ---
MEHNAZ HERNANDEZ OBS RECURRENT TIA
--- NOTE | 2023-03-24 12:22 | RAD_ITS ---
STUDY: X-RAY CHEST REASON FOR EXAM: Male, 72 years old. Neuro deficit, acute, stroke suspected TECHNIQUE: Single AP portable view of the chest. COMPARISON: Comparison is made with prior study dated December 19, 2022. FINDINGS: EKG electrodes are seen. The lungs are clear and expanded. There is no demonstrated pleural abnormality. Normal size heart. Normal mediastinum and xiomara. Normal visualized pulmonary arteries. There is atherosclerotic calcification of the aortic arch with tortuosity. There are diffuse degenerative changes of the visualized thoracic spine. Normal visualized ribs, clavicles, and shoulders. There is no demonstrated abnormality of the visualized soft tissue structures of the upper abdomen. RAD/Chest 1 View IMPRESSION: No acute abnormality is seen. Electronically Signed: Jordan Cano MD at 13:10 EST ,
--- NOTE | 2023-03-24 12:39 | ED.RN ---
OK TO DC [facility] PER DR METZ
[2023-03-24 14:14] LABS: Hemoglobin A1c 5.6 % (3.8-5.6)
--- NOTE | 2023-03-24 16:24 | PCM.HP.STD ---
HPI - General General Date of Admission: 03/24/23 Date of Service: 03/24/23 Chief Complaint: Right facial paresthesias right upper extremity paresthesias HPI Narrative FREDY KAMARA, is a 72 M who presented to the ED at [facility] with R UE paraesthesias and R facial paraesthesias that started on the am prior to presenting. Sx are currently resolved. Evidently, he had symptoms that were similar about 3 days ago that lasted a little bit longer but resolved similarly. He has never had anything like this previously. He does have a history of hypertension hyperlipidemia. He does take aspirin daily and has been on Plavix previously. He states Plavix was stopped by his primary doctor as he was having pretty significant bleeding. I did discuss with him the likelihood that we would need to reinitiate Plavix due to the fact that he had these events off Plavix. He was hypertensive on presentation but the rest of his vital signs were unremarkable. His CBC was unremarkable. His chemistry panel was unremarkable. His EKG showed normal sinus rhythm without any ST-T wave changes concerning for acute ischemia. CT of the brain was unremarkable for any acute findings and showed only chronic involutional changes. CTA of the head and neck demonstrated no acute cutoffs however he does have 70% stenosis of the right internal carotid artery and 85 to 90% stenosis of the left internal carotid artery. He was seen by the stroke neurologist in the emergency department they requested admission with TIA workup and permissive hypertension. They recommended full dose aspirin however with the carotid artery stenosis the case was discussed with vascular surgery we will go ahead and add baby aspirin and Plavix. [facility] Medical History Former smoker GI bleed Glaucoma History of ischemic colitis HTN (hypertension) Hyperlipidemia Migraines Sleep apnea Home Medications hydrochlorothiazide 25 mg tablet 25 mg PO DAILY bp 06/13/14 [History Last Taken 03/24/23] diltiazem HCl 180 mg capsule,extended release 24 hr 180 mg PO BID bp 04/24/17 [History Last Taken 03/24/23] oxycodone-acetaminophen 5 mg-325 mg tablet 1 tab PO Q6H PRN PRN Pain 04/24/17 [History Last Taken Unknown] rosuvastatin 10 mg tablet 10 mg PO .COMPLEX 02/04/18 [History Last Taken 03/23/23] aspirin 81 mg tablet,delayed release 81 mg PO DAILY@0800 [facility] Bharat Matrimony ##0 02/05/18 [Rx Last Taken 03/24/23] Allergy/AdvReac Type Severity Reaction Status Date / Time ciprofloxacin [From Cipro] Allergy Rash Verified 03/24/23 09:37 ciprofloxacin HCl Allergy Rash Verified 03/24/23 09:37 [From Cipro] ertapenem sodium Allergy Rash Verified 03/24/23 09:37 [From Invanz] hydrocodone AdvReac makes him Verified 03/24/23 09:37 gary Family History Mother Heart disease Hypertension Father Hypertension Heart disease Surgical History History of partial colectomy History of surgery on lower extremity Social History Smoking Status: Former smoker second hand exposure: No alcohol intake: never substance use type: does not use seatbelt use: always ROS Constitutional Constitutional: Denies anorexia, change in weight, chills, fatigue, fever(s), malaise, night sweats, weakness or other Eyes Eyes: Denies blurry vision, change in eye color, change in vision, discharge from eye(s), double vision, erythema, eye pain, loss of vision or other ENT HEENT: Denies abnormal hearing, dysphagia, ear pain, epistaxis, headache(s), hearing loss, nasal congestion, nasal discharge, post nasal drip, sinus pressure, sore throat or other Cardiovascular Cardiovascular: Denies chest pain, claudication, dyspnea on exertion, edema, lightheadedness, orthopnea, palpitations, paroxysmal nocturnal dyspnea, rapid heart rate, syncope or other Respiratory/Chest Respiratory/Chest: Denies cough, dyspnea, excessive phlegm production, hemoptysis, productive cough, shortness of breath at rest, shortness of breath with exertion, wheezing or other Gastrointestinal Gastrointestinal: Denies abdominal pain, coffee ground emesis, constipation, diarrhea, dyspepsia, hematemesis, hematochezia, loose stools, melena, nausea, vomiting or other Genitourinary Genitourinary: Denies burning urination, difficulty urinating, dysuria, hematuria, nocturia, urinary frequency, urinary hesitancy, urinary incontinence, urinary urgency or other Musculoskeletal Musculoskeletal: Denies arthralgias, back pain, joint pain, joint stiffness, joint swelling, myalgias, neck pain or other Neurologic Neurologic: Reports paresthesias RUE and other Details: Right facial paresthesias Psychiatric Psychiatric: Denies anxiety, depression, homicidal ideation, suicidal ideation or other Endocrine Endocrinology: Denies change in body appearance, cold intolerance, excessive sweating, heat intolerance, polydipsia, polyuria or other Hematologic/Lymphatic Hematologic/Lymphatic: Denies anemia, easy bleeding, easy bruising, lymphadenopathy or other Allergic/Immunologic Allergic/Immunologic: Denies rhinitis, hives, eczemia, asthma or other Vital Signs Vital Signs Vital Signs: 03/24/23 09:38 03/24/23 09:45 03/24/23 09:45 Temperature 96.9 F L 96.4 F L Temperature Source Temporal Temporal Pulse Rate 77 90 Respiratory Rate 18 17 Blood Pressure 170/81 H 170/81 H Blood Pressure Mean 110 110 Blood Pressure Source Blood Pressure Position Blood Pressure Location Pulse Ox 97 99 99 Oxygen Delivery Method Room Air Room Air Room Air 03/24/23 10:00 03/24/23 10:30 03/24/23 11:00 Temperature 96.5 F L 96.6 F L 96.8 F L Temperature Source Temporal Temporal Temporal Pulse Rate 85 75 78 Respiratory Rate 16 16 16 Blood Pressure 188/105 H 167/81 H 166/88 H Blood Pressure Mean 132 109 114 Blood Pressure Source Blood Pressure Position Blood Pressure Location Pulse Ox 100 98 97 Oxygen Delivery Method Room Air Room Air Room Air 03/24/23 11:30 03/24/23 12:00 03/24/23 12:29 Temperature 96.7 F L 96.5 F L 97.6 F L Temperature Source Temporal Temporal Pulse Rate 77 74 78 Respiratory Rate 16 16 18 Blood Pressure 160/81 H 158/82 H 155/84 H Blood Pressure Mean 107 107 107 Blood Pressure Source Blood Pressure Position Blood Pressure Location Pulse Ox 97 99 97 Oxygen Delivery Method Room Air Room Air 03/24/23 13:00 03/24/23 14:00 03/24/23 14:11 Temperature 96.9 F L Temperature Source Temporal Pulse Rate 74 Respiratory Rate 18 18 19 H Blood Pressure 136/74 H Blood Pressure Mean 94 Blood Pressure Source Monitor Blood Pressure Position Semi-Fowlers Blood Pressure Location Right Arm Pulse Ox 99 Oxygen Delivery Method 03/24/23 14:26 03/24/23 14:41 03/24/23 14:56 Temperature Temperature Source Pulse Rate 69 70 75 Respiratory Rate 18 15 14 Blood Pressure 141/73 H 140/75 H 136/74 H Blood Pressure Mean 95 96 94 Blood Pressure Source Monitor Monitor Monitor Blood Pressure Position Semi-Fowlers Semi-Fowlers Semi-Fowlers Blood Pressure Location Left Arm Left Arm Left Arm Pulse Ox 98 99 98 Oxygen Delivery Method Room Air Room Air Room Air Weight Weight: 81.2 kg Body Mass Index (BMI) 26.4 Physical Exam Const alert, oriented x3, no apparent distress, average body habitus, healthy appearing and well nourished HEENT normocephalic, head/scalp atraumatic and hearing grossly normal bilaterally HEENT Narrative: Mallampati 2, no thrush Eyes PERRL, EOMs intact bilaterally and conjunctivae normal Eyes Narrative: No scleral icterus Neck no lymphadenopathy and supple Neck Narrative: Trachea midline, no thyroid enlargement Resp normal respiratory effort, no retractions, no use of accessory muscles and clear to auscultation bilaterally Auscultation: Negative for rales, rhonchi or wheezes Cardio regular rate, regular rhythm, S1 normal heart sound, S2 normal heart sound, no murmurs, no rub, no gallops and no clicks GI normal to inspection, nondistended, normoactive bowel sounds, soft to palpation and non-tender Extremity no clubbing, cyanosis or edema Extremity Narrative: 2+ pedal pulses Neuro oriented x3, moves all extremities and no focal motor deficits Speech: speech normal Psych affect normal Psych Narrative: Pleasant, interacts appropriately Results Lab / Micro Data Attestation: I reviewed the patient's lab results. 03/24/23 10:00 03/24/23 10:00 Labs: Laboratory Results - last 24 hr 03/24/23 09:48: POC Glucose 78 03/24/23 10:00: WBC 5.9, RBC 5.10, Hgb 14.3, Hct 44.2, MCV 86.7, MCH 28.0, MCHC 32.4, RDW Std Deviation 42.9, RDW Coeff of Marielena 13.5, Plt Count 250, MPV 10.3, Immature Gran % (Auto) 0.200, Neut % (Auto) 51.6, Lymph % (Auto) 19.5, Hardin % (Auto) 10.7 H, Eos % (Auto) 16.8 H, Baso % (Auto) 1.2 H, Absolute Neuts (auto) 3.1, Absolute Lymphs (auto) 1.15, Nucleated RBC % 0, PT 12.6, INR 0.9, APTT 37.8 H, Sodium 139, Potassium 3.7, Chloride 104, Carbon Dioxide 30.0, Anion Gap 5, BUN 13, Creatinine 1.02, Estim Creat Clear Calc 65.20, Est GFR (MDRD) Af Amer 93, Est GFR (MDRD) Non-Af 77, BUN/Creatinine Ratio 12.7, Glucose 85, Hemoglobin A1c 5.6, Calcium 9.0, Troponin I High Sens 17 Imagaing Rad[address] Imp[address] Brain CT 03/24/23 09:45 IMPRESSION: Chronic involutional changes of the brain. N.B. : The above Results were Read Back by Jordan Cano MD to Zaid Rogers and understanding confirmed on 03/24/2023 10:20:39 (ET). Electronically Signed: Jordan Cano MD at 10:22 EST , ADDENDUM: 03/24/23 1028 IMPRESSION: Chronic involutional changes of the brain. N.B. : The above Results [facility] and understanding confirmed on 03/24/2023 10:20:39 (ET). Electronically Signed: Jordan Cano MD at 10:22 EST , Head/Neck CTA 03/24/23 09:45 IMPRESSION: Calcific plaques at the origin of the right internal carotid artery causing 70% stenosis. Calcific plaque at the origin of the left internal carotid artery causing between 85 and 90% stenosis N.B. : The above Results were Read Back by Jordan Cano MD to [facility] and understanding confirmed on 03/24/2023 10:26:22 (ET). Electronically Signed: Jordan Cano MD at 10:27 EST , ADDENDUM: 03/24/23 1034 IMPRESSION: Calcific plaques at the origin of the right internal carotid artery causing 70% stenosis. Calcific plaque at the origin of the left internal carotid artery causing between 85 and 90% stenosis N.B. : The above Results were Read Back by Jordan Cano MD to [facility] and understanding confirmed on 03/24/2023 10:26:22 (ET). Electronically Signed: Jordan Cano MD at 10:27 EST , Brain MRI 03/24/23 10:44 IMPRESSION: 1. Involutional and chronic ischemic changes of the brain, as described above. 2. No demonstrated acute infarct or intracranial hemorrhage Electronically Signed: Keaton Benitez MD at 14:16 EST , Carotid Duplex 03/24/23 10:44 Interpretation Summary Moderate (50-69%) stenosis right extracranial internal carotid. Moderate (50-69%) stenosis left extracranial internal carotid. Patent and antegrade vertebrals bilaterally. Ordering Physician: Ewa Gutierrez Referring Physician: Jose E Ace By: Argenis Benavides RVT Echocardiogram 03/24/23 10:44 Interpretation Summary The left ventricular ejection fraction is 65 %. Suspect minimal prolapse anterior mitral leaflet. Ordering Physician: Ewa Gutierrez Referring Physician: Jose E Ace Performed By: Mleany Michelle RDCS Chest X-Ray 03/24/23 12:22 IMPRESSION: No acute abnormality is seen. Electronically Signed: Jordan Cano MD at 13:10 EST , Assessment & Plan Assessment/Plan (1) Paresthesia of right upper extremity: (2) Facial paresthesia: (3) Carotid artery stenosis: PLAN: Plan Paresthesias of the right face and right upper extremity -Currently resolved with an NIH of 0 -Suspect TIA -Continue home aspirin -We will load with Plavix 300 mg x 1 dose now and then start Plavix 75 mg daily -Check echocardiogram -Check MRI -Stroke order set protocol -Check lipids -Check hemoglobin A1c -High intensity dose statin -Will allow for some permissive hypertension while hospitalized -PT/OT consultation Bilateral carotid artery stenosis -Right ICA stenosis at 70% with left ICA stenosis at 85 to 90% -Check carotid Dopplers -Aspirin and Plavix as above -Vascular surgery consultation Hypertension -hold home diltiazem -We will continue home hydrochlorothiazide -As needed occasions per stroke order set protocol Hyperlipidemia -Check lipids -Continue statin with atorvastatin 80 mg daily History of glaucoma -Patient does not appear to be on any medications at this time -Continued outpatient follow-up Remote history of tobacco abuse -Continue ongoing cessation -Patient with about a [id number] history DVT prophylaxis -Lovenox subcu daily CODE STATUS Full code Charges/Coding Visit Charges Inpatient E&M: 16184 Init Hosp L2
[2023-03-24] MEDS: Atorvastatin Calcium 80 MG Tablet PO (21:50)
[2023-03-25] VITALS (11 sets, daily range): BP systolic 107–168; BP diastolic 57–93; PULSE 70–107; RESP 12–21; TEMP 36.3–36.5; O2SAT 92–97
[2023-03-25 04:29] LABS: Absolute Lymphocyte Count 1.05 X10^3/uL (0.83-4.51); Absolute Neutrophil Count 4.5 X10^3/uL (2.0-7.7); Basophil# 0.09 X10^3/uL; Basophil% 1.2 % (0-1); Eosinophil# 1.16 X10^3/uL; Eosinophils% 15.3 % (0-5); Hematocrit 42.5 % (40-54); Hemoglobin 13.7 g/dL (13.0-16.5); Lymphocyte # 1.05 X10^3/ul (0.83-4.51); Lymphocyte % 13.8 % (19-41); Mean Corp Hgb Conc 32.2 g/dL (32-36); Mean Corpuscular Volume 86.7 fL (80-94); Mean Platelet Vol. 11.2 fl (6.2-12.0); Monocyte# 0.81 X10^3/uL; Monocyte% 10.7 % (0-10); NRBC Flagged by Analyzer 0 % (0-5); Neutrophil # 4.48 X10^3/uL (2.7-7.7); Neutrophil % 58.9 % (47-70); Platelet Count 247 K/mm3 (150-450); RBC Distribution Width CV 13.4 % (11.6-14.6); RBC Distribution Width SD 42.5 fl (35.1-43.9); White Blood Count 7.6 K/mm3 (4.4-11.0)
[2023-03-25 05:22] LABS: ALB/GLOB Ratio 1.1 RATIO (0.9-2.4); AST(SGOT) 25 U/L (15-37); Alanine Aminotransfer ALT/SGPT 27 U/L (16-61); Albumin, Serum 3.1 g/dL (3.2-5.0); Alkaline Phosphatase 61 U/L (45-117); Anion Gap 5 (5-15); BUN 12 mg/dL (7-18); BUN/Creat Ratio 12.6 RATIO (10-20); Calcium,Total 8.3 mg/dL (8.5-10.1); Chloride 107 mmol/L (98-107); Cholesterol 134 mg/dL (200); Creatinine, Serum 0.95 mg/dL (0.70-1.30); EST Glomerular Filtration Rate 83 mL/min (>60); Est Glom Filt Rate - Afr Amer 100 mL/min (>60); Estimated Creatinine Clearance 72.35 ml/min; Globulin 2.8 g/dL (2.2-4.2); Glucose 92 mg/dL (74-106); High Density Lipoprotein 47 mg/dL; Phosphorus 3.1 mg/dL (2.5-4.9); Potassium 3.8 mmol/L (3.5-5.1); Protein, Total 5.9 g/dL (6.4-8.2); Sodium Level 140 mmol/L (136-145); Thyroid Stim Hormone (TSH) 1.18 uIU/mL (0.358-3.74); Triglycerides 86 mg/dL; Very Low Density Lipoprotein 17 mg/dL (5-40)
--- NOTE | 2023-03-25 09:11 | NURSING ---
03/25/23@0910- CALLED PTS PCP DR. CAPONE FOR ACCURATE MED REC PER DR. HERNANDEZ D/T LACK OF KNOWLEDGE BY PT.
[2023-03-25] MEDS: Aspirin E.C. 81 MG Tablet PO (11:13)
[2023-03-25] MEDS: Clopidogrel Bisulfate 75 MG Tablet PO (11:13)
[2023-03-25] MEDS: hydroCHLOROthiazide 25 MG Tablet PO (11:13)
[2023-03-25] MEDS: Enoxaparin 40 MG/0.4 ML Syringe SC (11:13)
[2023-03-25] MEDS: 0.9% Saline Lock 10 ML Syringe IV (11:14)
--- NOTE | 2023-03-25 11:20 | STROKE.CONS ---
Assessment and Plan: Stroke Assessment/Plan FREDY KAMARA, is a 72 M who presents and a history of HTN, HLD, being evaluated by teleneurology due to concern for stroke. MRI Brain with small stroke on L frontal parietal region. The LICA was read as 90% on the CTA but the carotid dopplars are not as severe as the cTA would suggest (and on review of the imaging it is not that severe although it is narrowed). Stroke etiology: large vessel atherosclerosis The following tests for stroke work-up have been/should be obtained:? ? Neuroimaging:MRI BRain as above ? Vascular imaging: CTA and carotid dopplers as below and discussed above ? Cardiac testing: TTE with dilated LA ? Cardiac monitoring: continue telemetry while inpatient ? Labs: HgbA1c 5.6, LDL 70 ? Permissive hypertension to goal SBP < 180 mm Hg in the hospital, recommend normotension per vascular risk factor modification below ? Anti-platelet medication: Aspirin 81mg daily and Plavix 75mg daily for 90 days given carotid stenosis <70%, medical management is likely appropriate ? Statin therapy: increase rosuvastatin use 10mg to daily rather than every other day for now. ? Occupational/Physical therapy consults ? NPO until swallow evaluation.? IVF until able to take po ? DVT prophylaxis with SCDs and heparin SQ. ? Vascular risk factor modification.? The following are the recommended guidelines: LDL Goal < 70 Smoking Cessation Diabetes management MCC Blood pressure control should achieve <130/80 mmHg.? BP management should aim to achieve long term acute care registered nurse control in a reasonable amount of time, taking into consideration the individual patient's requirements and characteristics. Weight Management: Goal for BMI is 18.5-24.9 kg/m2. Alcohol: No more than 2 drinks/day for men or 1 drink/day for non- women. ? Promote lifestyle modification: weight control, physical activity, moderation of alcohol intake, moderate sodium intake. Recommend medical therapy with DAPT and statin elevation for 90 days and then repeat outpatient doppler with neurology or PCP followup. If improved, can continue statin therapy and change to single antiplatelet full dose ASA. If the ICA stenosis is proggressed, recommend followup with vascular surgery for intervention planning. HPI Consult Data Date of Consult: 03/25/23 HPI Narrative HPI Narrative: FREDY KAMARA is a 72 M who presents Patient is a 72-year-old male with history of hypertension. He is on antithrombotic. He is on aspirin as well as Plavix he is also noted to be on an anticholesterol medicine. Patient presents because of numbness to his right upper extremity face that started at 0830. Patient was unaware that his smile is asymmetric. He has asymmetry noted on the right. 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 Patient states he had symptoms approximate 3 days ago that lasted 10 minutes that were similar to today's symptoms which prompted him to come to the emergency department. He denies headache, visual, ocular auditory symptoms. No trouble speech or swallowing. He denies weakness in his upper or lower extremities. No trouble with balance. He denies problems with his vision i.e. blurred, double or loss. Neurologic History The above history ws confirmed. Endorses numbness in the R hand (digits 1-3) and R face. When symptoms started, had just finished breakfast. The episode on Friday progressed more slowly and happened while pt was shopping. Did not notice a facial droop when he looked in the mirror. Resolved after 5 min Not as intense as what happened the prior Friday. No difficulty walking afterwards. Was having difficulty stopping bleeding with plavix after he got cuts d/t work but no spontaneous bleeding noted. Compliant on ASA 81mg daily, is on crestor three times a week d/t how good his LDL numbers are (no muscle cramps). Pt is no longer a smoker. BP at home is measures daily and usually 120/70-80s. 10+ years ago had good blood vessels on the neck on angio was normal. Had it checked because of headache and had some visual auras and was likley headache. These occur a couple times an year normally. The scotoma was streaking lights on the R eye Currently feels back to normal, no history of stroke. [facility] Medical History Former smoker GI bleed Glaucoma History of ischemic colitis HTN (hypertension) Hyperlipidemia Migraines Sleep apnea Home Medications hydrochlorothiazide 25 mg tablet 25 mg PO DAILY bp 06/13/14 [History Last Taken 03/24/23] diltiazem HCl 180 mg capsule,extended release 24 hr 180 mg PO BID bp 04/24/17 [History Last Taken 03/24/23] oxycodone-acetaminophen 5 mg-325 mg tablet 1 tab PO Q8H PRN Pain 04/24/17 [History Last Taken Unknown] aspirin 325 mg capsule 325 mg PO DAILY #30 caps 03/25/23 [Rx Last Taken Unknown] cetirizine 10 mg tablet (24Hour Allergy) 10 mg PO DAILY 03/25/23 [History Last Taken 03/24/23] cholecalciferol (vitamin D3) 25 mcg (1,000 unit) capsule (Vitamin D3) 50 mcg PO DAILY 03/25/23 [History Last Taken 03/24/23] clopidogrel 75 mg tablet 75 mg PO DAILY #30 tabs 03/25/23 [Rx Last Taken Unknown] coenzyme Q10 100 mg capsule (Co Q-10) 100 mg PO DAILY 03/25/23 [History Last Taken 03/24/23] fluticasone propionate 50 mcg/actuation nasal spray,suspension 1 spray intranasal BID 03/25/23 [History Last Taken 03/24/23] hydralazine 50 mg tablet 50 mg PO Q8H 03/25/23 [History Last Taken 03/24/23] meloxicam 15 mg tablet 15 mg PO DAILY 03/25/23 [History Last Taken 03/24/23] qlyksare-hxl-swrei acid 0.4 mg-lycopene 300 mcg-lutein 250 mcg tablet (A Thru Z Select 50 Plus Formula) 1 tab PO DAILY 03/25/23 [History Last Taken 03/24/23] riboflavin (vitamin B2) 100 mg tablet (Vitamin B-2) 200 mg PO BID 03/25/23 [History Last Taken 03/24/23] rosuvastatin 10 mg tablet 10 mg PO DAILY #30 tabs 03/25/23 [Rx Last Taken Unknown] valsartan 320 mg tablet 320 mg PO DAILY 03/25/23 [History Last Taken 03/24/23] Allergy/AdvReac Type Severity Reaction Status Date / Time ciprofloxacin [From Cipro] Allergy Rash Verified 03/24/23 09:37 ciprofloxacin HCl Allergy Rash Verified 03/24/23 09:37 [From Cipro] ertapenem sodium Allergy Rash Verified 03/24/23 09:37 [From Invanz] hydrocodone AdvReac makes him Verified 03/24/23 09:37 crazy Family History Mother Heart disease Hypertension Father Hypertension Heart disease Surgical History History of partial colectomy History of surgery on lower extremity Social History Smoking Status: Former smoker second hand exposure: No alcohol intake: never substance use type: does not use seatbelt use: always Vital Signs Vital Signs Vital Signs: 03/24/23 11:30 03/24/23 12:00 03/24/23 12:29 Temperature 96.7 F L 96.5 F L 97.6 F L Temperature Source Temporal Temporal Pulse Rate 77 74 78 Respiratory Rate 16 16 18 Blood Pressure 160/81 H 158/82 H 155/84 H Blood Pressure [BP] Blood Pressure Mean 107 107 107 Blood Pressure Mean [BP] Blood Pressure Source Blood Pressure Source [BP] Blood Pressure Position Blood Pressure Position [BP] Blood Pressure Location Blood Pressure Location [BP] Pulse Ox 97 99 97 Oxygen Delivery Method Room Air Room Air 03/24/23 13:00 03/24/23 14:00 03/24/23 14:11 Temperature 96.9 F L Temperature Source Temporal Pulse Rate 74 Respiratory Rate 18 18 19 H Blood Pressure 136/74 H Blood Pressure [BP] Blood Pressure Mean 94 Blood Pressure Mean [BP] Blood Pressure Source Monitor Blood Pressure Source [BP] Blood Pressure Position Semi-Fowlers Blood Pressure Position [BP] Blood Pressure Location Right Arm Blood Pressure Location [BP] Pulse Ox 99 Oxygen Delivery Method 03/24/23 14:26 03/24/23 14:41 03/24/23 14:56 Temperature Temperature Source Pulse Rate 69 70 75 Respiratory Rate 18 15 14 Blood Pressure 141/73 H 140/75 H 136/74 H Blood Pressure [BP] Blood Pressure Mean 95 96 94 Blood Pressure Mean [BP] Blood Pressure Source Monitor Monitor Monitor Blood Pressure Source [BP] Blood Pressure Position Semi-Fowlers Semi-Fowlers Semi-Fowlers Blood Pressure Position [BP] Blood Pressure Location Left Arm Left Arm Left Arm Blood Pressure Location [BP] Pulse Ox 98 99 98 Oxygen Delivery Method Room Air Room Air Room Air 03/24/23 16:00 03/24/23 16:10 03/24/23 17:50 Temperature Temperature Source Pulse Rate 69 71 Respiratory Rate 14 Blood Pressure 147/87 H Blood Pressure [BP] 147/87 H Blood Pressure Mean 107 Blood Pressure Mean [BP] 107 Blood Pressure Source Monitor Blood Pressure Source [BP] Monitor Blood Pressure Position Semi-Fowlers Blood Pressure Position [BP] Semi-Fowlers Blood Pressure Location Left Arm Blood Pressure Location [BP] Left Arm Pulse Ox 95 97 94 Oxygen Delivery Method Room Air Room Air Room Air 03/24/23 18:00 03/24/23 18:00 03/24/23 20:00 Temperature Temperature Source Pulse Rate 78 85 76 Respiratory Rate 14 15 Blood Pressure Blood Pressure [BP] 109/77 118/73 Blood Pressure Mean Blood Pressure Mean [BP] 87 88 Blood Pressure Source Blood Pressure Source [BP] Monitor Monitor Blood Pressure Position Blood Pressure Position [BP] Blood Pressure Location Blood Pressure Location [BP] Pulse Ox 95 94 Oxygen Delivery Method Room Air Room Air 03/24/23 22:00 03/25/23 00:00 03/25/23 02:00 Temperature Temperature Source Pulse Rate 81 79 80 Respiratory Rate 25 H 19 H 12 Blood Pressure 107/57 L Blood Pressure [BP] 145/86 H 140/85 H Blood Pressure Mean 73 Blood Pressure Mean [BP] 105 103 Blood Pressure Source Blood Pressure Source [BP] Monitor Monitor Blood Pressure Position Blood Pressure Position [BP] Blood Pressure Location Blood Pressure Location [BP] Pulse Ox 97 93 92 Oxygen Delivery Method Room Air Room Air Room Air 03/25/23 04:00 03/25/23 06:00 Temperature Temperature Source Pulse Rate 71 107 H Respiratory Rate 18 21 H Blood Pressure 120/80 Blood Pressure [BP] 125/84 H Blood Pressure Mean 93 Blood Pressure Mean [BP] 97 Blood Pressure Source Monitor Blood Pressure Source [BP] Monitor Blood Pressure Position Blood Pressure Position [BP] Blood Pressure Location Blood Pressure Location [BP] Pulse Ox 92 96 Oxygen Delivery Method Room Air Room Air Weight Weight: 81.2 kg Body Mass Index (BMI) 26.4 EEG Results Procedure Details EEG Procedure Details: FREDY KAMARA is a 72 year old M with a past medical history of , who presents for evaluation of Electroencephalogram on DATE at TIME NIHSS NIHSS Nursing Documentation NIHSS Nursing Documentation: NIHSS: Ischemic Stroke/TIA Start: 03/24/23 14:11 Text: For PCU Patients: NIH and Neuro Check every 4 Status: Active hours and PRN Freq: [id number] Protocol: Activity Type Activity Date Activity User E-sign Co-sign Detail Recorded Client Recorded Date Recorded By Document 03/25/23 05:33 TM Desktop 03/25/23 05:33 TM 03/25/23 05:33 NIH Stroke Scale [NIHSS] A score of 0 is normal or asymptomatic . Total possible score is 42. Inpatient: RN or Physician to activate a stroke alert for onset of new stroke symptoms or with NIHSS increase >/= 3 points. Following change in neurological status, NIHSS will be performed per physician order or more frequently PRN. -1a. Level of Consciousness Alert; keenly responsive -1b. LOC Questions Answers BOTH questions correctly. -1c. LOC Commands Performs both tasks correctly . -2. Best Gaze Normal -3. Visual No visual loss -4. Facial Palsy Normal symmetrical movements -5a. Left Arm No drift; arm holds 90 (or 45 ) degrees for full 10 seconds -5b. Right Arm No drift; arm holds 90 (or 45 ) degrees for full 10 seconds -6a. Left Leg No drift; leg holds 30-degree position for full 5 seconds -6b. Right Leg No drift; leg holds 30-degree position for full 5 seconds -7. Limb Ataxia Absent -8. Sensory Normal; no sensory loss -9. Best Language No aphasia; normal -10. Dysarthria Normal -11. Extinction and Inattention No abnormality -Total 0 Query Text:A score of 0 is normal or asymptomatic. Total possible score is 42 . ED: Notify Physician for NIHSS increase by > / = 3 points. Inpatient: RN or Physician to activate a stroke alert for NIHSS increase of > / = 3 points. NIHSS 1a. Level of Consciousness: Alert; keenly responsive 1b. LOC Questions: Answers BOTH questions correctly. 1c. LOC Commands: Performs both tasks correctly. 2. Best Gaze: Normal 3. Visual: No visual loss 4. Facial Palsy: Normal symmetrical movements 5a. Left Arm: No drift; arm holds 90 (or 45) degrees for full 10 seconds 5b. Right Arm: No drift; arm holds 90 (or 45) degrees for full 10 seconds 6a. Left Leg: No drift; leg holds 30-degree position for full 5 seconds 6b. Right Leg: No drift; leg holds 30-degree position for full 5 seconds 7. Limb Ataxia: Absent 8. Sensory: Normal; no sensory loss 9. Best Language: No aphasia; normal 10. Dysarthria: Normal 11. Extinction and Inattention: No abnormality Total: 0 Physical Exam Narrative -? General: Laying comfortably in bed; in no acute distress. -? HENT: Normal oropharynx and mucosa. Normal external appearance of ears and nose. Exophthalmos. -? Neck: Supple, no pain or tenderness -? CV:? No peripheral edema. -? Pulmonary:? Normal respiratory effort. -? Ext: No cyanosis, edema, or deformity -? Skin: No rash. Normal palpation of skin.? -? Musculoskeletal: full range of motion; no joint tenderness. Normal digits and nails by inspection. No clubbing. -? NEURO: -? Mental Status: The patient was alert and oriented to time, place, and person. Normal recent/remote memory, concentration, and general fund of knowledge. -? Language: speech is clear.? Naming, repetition, fluency, and comprehension intact. -? Cranial Nerves: EOMI, visual bundy full, no facial asymmetry, facial sensation intact, hearing intact -? Motor: normal bulk, tone, and strength throughout. No pronator drift or satelliting. Upper and lower extremities equal bilaterally. -?Detailed strength exam as performed by the nurse/PAUL and witnessed by the physician: R L SA 5 5 EE 5 5 EF 5 5 WE WF Proof Press Operator 5 5 HF KE KF DF PF -? Detailed reflex exam as performed by the nurse/PAUL and witnessed by the physician: R L Biceps Patellar Ankle Babinski Mute mute -? Tone: is normal and bulk is normal -? Sensation- Intact to light touch bilaterally, no difference on LT on dermatomal evaluation of the UE -? Coordination: No dysmetria on [id number], finger follow finger or [id number]. -? Gait- deferred Lab / Micro Data 03/25/23 04:21 03/25/23 04:21 Labs: Laboratory Results - last 24 hr 03/24/23 10:00: Hemoglobin A1c 5.6 03/25/23 04:21: WBC 7.6, RBC 4.90, Hgb 13.7, Hct 42.5, MCV 86.7, MCH 28.0, MCHC 32.2, RDW Std Deviation 42.5, RDW Coeff of Marielena 13.4, Plt Count 247, MPV 11.2, Immature Gran % (Auto) 0.100, Neut % (Auto) 58.9, Lymph % (Auto) 13.8 L, Lake % (Auto) 10.7 H, Eos % (Auto) 15.3 H, Baso % (Auto) 1.2 H, Absolute Neuts (auto) 4.5, Absolute Lymphs (auto) 1.05, Nucleated RBC % 0, Sodium 140, Potassium 3.8, Chloride 107, Carbon Dioxide 28.0, Anion Gap 5, BUN 12, Creatinine 0.95, Estim Creat Clear Calc 72.35, Est GFR (MDRD) Af Amer 100, Est GFR (MDRD) Non-Af 83, BUN/Creatinine Ratio 12.6, Glucose 92, Calcium 8.3 L, Phosphorus 3.1, Magnesium 2.0, Total Bilirubin 0.40, AST 25, ALT 27, Alkaline Phosphatase 61, Total Protein 5.9 L, Albumin 3.1 L, Globulin 2.8, Albumin/Globulin Ratio 1.1, Triglycerides 86, Cholesterol 134, LDL Cholesterol 70, VLDL Cholesterol 17, HDL Cholesterol 47, TSH 1.18 Imagaing Radiology Impression Brain MRI 03/24/23 10:44 IMPRESSION: 1. Involutional and chronic ischemic changes of the brain, as described above. 2. No demonstrated acute infarct or intracranial hemorrhage Electronically Signed: Keaton Benitez MD at 14:16 EST Reading Location ID and State: [facility] / [place] , Service support , Carotid Duplex 03/24/23 10:44 Interpretation Summary Moderate (50-69%) stenosis right extracranial internal carotid. Moderate (50-69%) stenosis left extracranial internal carotid. Patent and antegrade vertebrals bilaterally. Ordering Physician: Ewa Gutierrez Referring Physician: Jose E Ace Performed By: Argenis Benavides Sandy Echocardiogram 03/24/23 10:44 Interpretation Summary The left ventricular ejection fraction is 65 %. Suspect minimal prolapse anterior mitral leaflet. Ordering Physician: Ewa Gutierrez Referring Physician: Jose E Ace Performed By: Melany Michelle [facility] Chest X-Ray 03/24/23 12:22 IMPRESSION: No acute abnormality is seen. Electronically Signed: Jordan Cano MD at 13:10 EST , Active Medications Active Medications Active Medications: Current Medications Generic Name Dose Route Start Last Admin Trade Name Freq PRN Reason Stop Dose Admin Acetaminophen 650 mg 03/24/23 14:11 Acetaminophen 325 Mg Tablet PO Q4H PRN PRN Pain 1-10 Or Fever>99.6 Albuterol Sulfate 2.5 mg 03/24/23 14:11 Albuterol 2.5 Mg/3 Ml Vial.Neb. INHALATION Q2H PRN PRN SOB/Wheezing Aspirin 81 mg 03/25/23 08:00 03/25/23 11:13 Aspirin E.C. 81 Mg Tablet PO 81 mg DAILY@0800 GENEVA Administration Atorvastatin Calcium 80 mg 03/24/23 22:00 03/24/23 21:50 Atorvastatin Calcium 80 Mg Tablet PO 80 mg QHS GENEVA Administration Clopidogrel Bisulfate 75 mg 03/25/23 10:00 03/25/23 11:13 Clopidogrel Bisulfate 75 Mg Tablet PO 75 mg DAILY GENEVA Administration Enoxaparin Sodium 40 mg 03/25/23 10:00 03/25/23 11:13 Enoxaparin 40 Mg/0.4 Ml Syringe SC 40 mg DAILY GENEVA Administration Hydralazine HCl 5 mg 03/24/23 14:11 Hydralazine 20 Mg/Ml Vial IV Q30M PRN to maintain BP goals Hydrochlorothiazide 25 mg 03/25/23 10:00 03/25/23 11:13 Hydrochlorothiazide 25 Mg Tablet PO 25 mg DAILY GENEVA Administration Protocol Sodium Chloride 250 mls @ 15 mls/hr 03/24/23 14:19 IV .[id number] PRN Additional IVPB Infusion Sodium Chloride 250 mls @ 15 mls/hr 03/24/23 14:19 IV .[id number] PRN Saline Flush Labetalol HCl 20 mg 03/24/23 09:45 Labetalol (Prefilled) 20 Mg/4 Ml IV X1 PRN Blood Pressure Labetalol HCl 10 - 20 mg 03/24/23 14:11 Labetalol (Prefilled) 20 Mg/4 Ml IV Q10M PRN PRN to Maintain BP Goals Melatonin 3 mg 03/24/23 14:11 Melatonin 3 Mg Tablet PO QHS PRN PRN INSOMNIA Ondansetron HCl 4 mg 03/24/23 14:11 Ondansetron 4 Mg/2 Ml Vial IV Q8H PRN PRN NAUSEA/VOMITING Oxycodone/Acetaminophen 1 tablet 03/24/23 14:11 Oxycodone/Apap 5/325 Tablet PO Q6H PRN PRN BREAKTHROUGH PAIN (>4/10) Senna/Docusate Sodium 2 tablet 03/24/23 14:11 Senna/Docusate Sodium 1 Tablet PO BID PRN PRN Constipation Sodium Chloride 10 - 40 ml 12/04/23 14:19 03/25/23 11:14 0.9% Saline Lock 10 Ml Syringe IV 40 ml UD PRN Administration SALINE FLUSH
--- NOTE | 2023-03-25 13:01 | CASEMGMT ---
SW completed a PHQ 9 with patient as he may have had a TIA. Patient scored a 0 which indicates no depression. Patient denies need for counseling resources. Sariah MIGUEL
[2023-03-25] MEDS: hydrALAZINE 50 MG Tablet PO (13:26)
--- NOTE | 2023-03-25 13:46 | DS.PCM_ITS ---
Providers Date of Admission: 03/24/23 Date of Discharge: 03/25/23 Primary Care Physician: Dr. Jose E Ace MD Consultations 03/24/23 14:11 Consult: Vascular Surgery Routine Consulting Provider: Caleb Garcia Reason for Consult: carotid artery stenosis EMERGENT Consult: No Notified: Yes Date Notified: 03/24/23 Time Notified: 15:41 Method of Notification: Text 03/25/23 08:29 [facility] [Consult: Tele-Neurology] Routine Consulting Provider: [facility] Reason for Consult: stroke follow up EMERGENT Consult: No Notified: Yes Date Notified: 03/25/23 Time Notified: 10:43 Method of Notification: Answering Service Nursing Unit Staff Notify [facility] of Tele-Neurology Consult: Yes Reason For Visit: R UE AND FACE PARASTHESIAS Diagnosis Discharge Diagnosis (1) Paresthesia of right upper extremity: Status: Acute Code(s): R20.2 - Paresthesia of skin (2) Facial paresthesia: Status: Acute Code(s): R20.2 - Paresthesia of skin (3) Carotid artery stenosis: Status: Acute Code(s): I65.29 - Occlusion and stenosis of unspecified carotid artery Medications at Discharge Home Medications hydrochlorothiazide 25 mg tablet 25 mg PO DAILY bp 06/13/14 diltiazem HCl 180 mg capsule,extended release 24 hr 180 mg PO BID bp 04/24/17 oxycodone-acetaminophen 5 mg-325 mg tablet 1 tab PO Q8H PRN Pain 04/24/17 aspirin 325 mg capsule 325 mg PO DAILY #30 caps 03/25/23 cetirizine 10 mg tablet (24Hour Allergy) 10 mg PO DAILY 03/25/23 cholecalciferol (vitamin D3) 25 mcg (1,000 unit) capsule (Vitamin D3) 50 mcg PO DAILY 03/25/23 clopidogrel 75 mg tablet 75 mg PO DAILY #30 tabs 03/25/23 coenzyme Q10 100 mg capsule (Co Q-10) 100 mg PO DAILY 03/25/23 fluticasone propionate 50 mcg/actuation nasal spray,suspension 1 spray intranasal BID 03/25/23 hydralazine 50 mg tablet 50 mg PO Q8H 03/25/23 meloxicam 15 mg tablet 15 mg PO DAILY 03/25/23 kflkamlp-xvl-dazoo acid 0.4 mg-lycopene 300 mcg-lutein 250 mcg tablet (A Thru Z Select 50 Plus Formula) 1 tab PO DAILY 03/25/23 riboflavin (vitamin B2) 100 mg tablet (Vitamin B-2) 200 mg PO BID 03/25/23 rosuvastatin 10 mg tablet 10 mg PO DAILY #30 tabs 03/25/23 valsartan 320 mg tablet 320 mg PO DAILY 03/25/23 Hospital Course Operations None Procedures 2-D Echocardiogram, EKG and - (CT brain/CTA head and neck/MRI brain) Summary of Care Provided Minutes Spent on Discharge: 38 Hospital Course: Mr. Brar is a 72-year-old white male who presents emergency department at [facility] on 03/24/2023 complaining of right upper extremity paresthesias and right facial paresthesias that started on the morning prior to presenting. At the time my evaluation his symptoms were resolved. Evidently, he had had some symptoms that were similar about 3 days ago that lasted a bit longer but resolved similarly. He takes aspirin at baseline and had been on Plavix previously but this was discontinued due to superficial bleeding. 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 He also has a history of hypertension hyperlipidemia and is compliant with his home medications. He initially was hypertensive on presentation but the rest of his vital signs were unremarkable. His CBC was unremarkable. His chemistry panel was unremarkable. His EKG showed normal sinus rhythm without any ST-T wave changes concerning for acute ischemia. CT of the brain was unremarkable for any acute findings and showed only chronic involutional changes. CTA of the head and neck demonstrated no acute cutoffs however he does have 70% stenosis of the right internal carotid artery and 85 to 90% stenosis of the left internal carotid artery. I did obtain ultrasound which showed a 50 to 69% stenosis bilaterally. Echocardiogram was obtained and demonstrated negative bubble study with an EF of 65% and suspected minimal prolapse of the anterior mitral leaflet. MRI was performed and was reported out with only involutional and chronic ischemic changes of the brain however upon my discussion with neurology they felt that there was a small subacute left middle cerebral artery stroke and recommended aspirin and Plavix. Vascular surgery was consulted as well due to his carotid artery stenosis and recommended full dose aspirin and Plavix 75 mg daily until he follows him up and can intervene upon his carotid stenosis in the future. The patient was agreeable to this. We also recommended that he increase his rosuvastatin from 10 mg 3 times a week to 10 mg daily. His lipid panel demonstrated a total cholesterol of 134, LDL 70, HDL 47 and a triglyceride level of 86. TSH was within normal limits. Hemoglobin A1c was within normal limits. We did order an event monitor to be performed after discharge to rule out any arrhythmia that could be causing stroke as well. Patient was able to be discharged home in stable condition on 03/25/2023. The prescription for his daily rosuvastatin and Plavix were sent to his local pharmacy and he was instructed to take a full dose aspirin daily. I did instruct him to hold his meloxicam and avoid NSAIDs including ibuprofen and naproxen. Discharge diagnoses: Small left MCA stroke Right facial paresthesias-resolved Right upper extremity paresthesias-resolved Bilateral carotid artery stenosis Hyperlipidemia Hypertension History of glaucoma Remote history of tobacco abuse Seasonal allergies Physical Exam Narrative NIH remains 0. Patient states he still has no symptoms. And had no recurrent symptoms overnight. Anxious to go home Const alert, oriented x3, no apparent distress, average body habitus, healthy appearing and well nourished Constitutional Narrative: Older, white male, sitting up in bed, appears comfortable, nontoxic General Appearance: cooperative, comfortable, well kempt and well developed Orientation / Consciousness: awake, oriented to person, oriented to place and oriented to time Exam Limitations: no limitations HEENT normocephalic, head/scalp atraumatic and hearing grossly normal bilaterally HEENT Narrative: Mallampati 2, no thrush Eyes PERRL, EOMs intact bilaterally and conjunctivae normal Eyes Narrative: No scleral icterus Neck no lymphadenopathy and supple Neck Narrative: Trachea midline, no thyroid enlargement Resp normal respiratory effort, no retractions, no use of accessory muscles and clear to auscultation bilaterally Auscultation: Negative for rales, rhonchi or wheezes Cardio regular rate, regular rhythm, S1 normal heart sound, S2 normal heart sound, no murmurs, no rub, no gallops and no clicks GI normal to inspection, nondistended, normoactive bowel sounds, soft to palpation and non-tender Extremity no clubbing, cyanosis or edema Extremity Narrative: 2+ pedal pulses Skin no rashes or lesions noted, no wounds, skin turgor normal and no jaundice Neuro oriented x3, CN's II-XII intact bilaterally, moves all extremities, no focal motor deficits and no sensory deficits noted Speech: speech normal Motor Exam: strength 5/5 throughout Psych affect normal Psych Narrative: Pleasant, interacts appropriately Weight / BMI Weight Weight: 81.2 kg Body Mass Index (BMI) 26.4 ABG / Lab / Microbiology Data 03/25/23 04:21 03/25/23 04:21 Laboratory: Laboratory Results - last 24 hr 03/24/23 10:00: Hemoglobin A1c 5.6 03/25/23 04:21: WBC 7.6, RBC 4.90, Hgb 13.7, Hct 42.5, MCV 86.7, MCH 28.0, MCHC 32.2, RDW Std Deviation 42.5, RDW Coeff of Marielena 13.4, Plt Count 247, MPV 11.2, Immature Gran % (Auto) 0.100, Neut % (Auto) 58.9, Lymph % (Auto) 13.8 L, Hardy % (Auto) 10.7 H, Eos % (Auto) 15.3 H, Baso % (Auto) 1.2 H, Absolute Neuts (auto) 4.5, Absolute Lymphs (auto) 1.05, Nucleated RBC % 0, Sodium 140, Potassium 3.8, Chloride 107, Carbon Dioxide 28.0, Anion Gap 5, BUN 12, Creatinine 0.95, Estim Creat Clear Calc 72.35, Est GFR (MDRD) Af Amer 100, Est GFR (MDRD) Non-Af 83, BUN/Creatinine Ratio 12.6, Glucose 92, Calcium 8.3 L, Phosphorus 3.1, Magnesium 2.0, Total Bilirubin 0.40, AST 25, ALT 27, Alkaline Phosphatase 61, Total Protein 5.9 L, Albumin 3.1 L, Globulin 2.8, Albumin/Globulin Ratio 1.1, Trig lycerides 86, Cholesterol 134, LDL Cholesterol 70, VLDL Cholesterol 17, HDL Cholesterol 47, TSH 1.18 Radiography Diagnostic Testing: Radiology Impression Brain MRI 03/24/23 10:44 IMPRESSION: 1. Involutional and chronic ischemic changes of the brain, as described above. 2. No demonstrated acute infarct or intracranial hemorrhage Electronically Signed: Keaton Benitez MD at 14:16 EST , Carotid Duplex 03/24/23 10:44 Interpretation Summary Moderate (50-69%) stenosis right extracranial internal carotid. Moderate (50-69%) stenosis left extracranial internal carotid. Patent and antegrade vertebrals bilaterally. Ordering Physician: Ewa Gutierrez Referring Physician: Jose E Ace Performed By: Argenis Benavides RVT Meaningful Use Info Meaningful Use Diagnoses (Choose all that apply): Ischemic CVA CVA Therapy Assessed for PT,OT and/or ST?: Yes Ischemic Stroke Antithrombotic order at d/c?: Yes Dx of Atrial fib/flutter?: No Anticoagulant at discharge?: No Reason anticoagulant not ordered: Treatment not Indicated Statins at discharge?: Yes Primary Dx Acute Ischemic CVA?: Yes IV thrombolytic ordered during stay?: No Reason IV thrombolytic not ordered: Treatment not Indicated Discharge Plan Admission Admit Date/Time: 03/24/23 10:34 Primary Reason for Your Visit: stroke Attending Provider: Ewa Gutierrez Primary Care Provider: Jose E Ace Consulting Providers: Caleb Garcia; Daniel Herrera; Patricia Munoz; Mila Reynoso; Jacey Hampton; Lydia Singh; Noah Rose; Val Urias; Eduardo Mckeon; Wilder Yanes; Jane Curry; Calvin Munguia; Mily Angel; Dahiana Younger; Pema Mcneal; Andres Martinez; Wolf Malone; Melchor Cha; Irma Gutierrez; Tabitha Holland Discharge Orders/Prescriptions Prescriptions: New clopidogrel 75 mg Tablet 75 mg PO DAILY Qty: 30 2RF aspirin 325 mg capsule 325 mg PO DAILY Qty: 30 0RF Continued hydrochlorothiazide 25 MG tablet 25 mg PO DAILY Patient Comments: bp diltiazem HCl 180 MG capsule,extended release 24hr 180 mg PO BID oxycodone-acetaminophen 1 TABLET tablet 1 tab PO Q8H PRN (Reason: Pain) fluticasone propionate 50 mcg/actuation spray,suspension 1 spray INTRANASAL BID Patient Comments: SPRAY 1 SPRAY INTO EACH NOSTRIL TWICE A DAY hydralazine 50 mg tablet 50 mg PO Q8H Patient Comments: TAKE 1 TABLET BY MOUTH EVERY 8 HOURS valsartan 320 mg tablet 320 mg PO DAILY Patient Comments: TAKE 1 TABLET BY MOUTH EVERY DAY cholecalciferol (vitamin D3) [Vitamin D3] 25 mcg (1,000 unit) capsule 50 mcg PO DAILY coenzyme Q10 [Co Q-10] 100 mg capsule 100 mg PO DAILY A Thru Z Select 50Plus Formula 0.4 mg-300 mcg- 250 mcg tablet 1 tab PO DAILY cetirizine [24Hour Allergy] 10 mg tablet 10 mg PO DAILY riboflavin (vitamin B2) [Vitamin B-2] 100 mg tablet 200 mg PO BID Changed rosuvastatin 10 MG tablet 10 mg PO DAILY Qty: 30 2RF Held meloxicam 15 mg tablet 15 mg PO DAILY Hold Instructions: hold while on aspirn and plavix and avoid all NSAIDs (Advil, Naproxen, etc) Patient Comments: TAKE 1 TABLET BY MOUTH EVERY DAY. TAKE 1 DAY AFTER COMPLETING STEROID Discontinued aspirin 81 MG tablet 81 mg PO DAILY@0800 Qty: 0 0RF Other Ambulatory Orders: 30 Day Event Recorder Preventi (Urgent) Timeframe: 1 Day Facility: [facility] - Location: Cardiovascular Services Ordered By: Dr. Ewa Gutierrez Referrals / Follow Up: Caleb Garcia MD [Med Staff - Active Staff] - See Referral Note (As directed by Dr. Garcia) Jose E Ace MD [Primary Care Provider] - Within 2 Weeks Roger Gonzalez MD [Non-Staff -Ordering Privileges] - Within 1 Month (stroke hospital follow-up) Disposition Disposition (needs filled in before D/C Order can be placed): Home, Self Care Charges/Coding Visit Charges Inpatient E&M: 62112 Disch Hosp >30min
--- NOTE | 2023-03-25 14:16 | EX.PCM.CON.S ---
Assessment & Plan Assessment/Plan (1) Carotid artery stenosis: QUALIFIERS: Laterality: left Qualified Code(s): I65.22 - Occlusion and stenosis of left carotid artery PLAN: -transient right facial and upper extremity symptoms, sensory only -CTA images reviewed, left ICA 55% stenosis with ulcerated/irregular plaque -duplex 50-69% stenosis -with appearance of plaque, degree of stenosis, and possible left hemispheric symptoms i would recommend endarterectomy -was previously on ASA 81 mg; recommend DC with 325 asa, plavix, increase statin to daily -will schedule for CEA as outpatient; sooner if symptoms recur HPI Consult Data Date of Consult: 03/25/23 HPI Narrative HPI Narrative: FREDY KAMARA, is a 72 M who presents with two episodes of right hand numbness/right facial numbness. First event was most severe and lasted 10 minutes on 03/21. Resolved abruptly with no lingering symptoms. On 03/24 a second event occurred lasting 5 minutes, less severe, and in the same distribution. He denies any motor/speech/vision changes during the events. No prior similar symptoms. No cardiac or pulmonary history, is newly diagnosed with DAYA. He is active at work and around the house doing strenuous activity without CP/SOB. [facility] Medical History Former smoker GI bleed Glaucoma History of ischemic colitis HTN (hypertension) Hyperlipidemia Migraines Sleep apnea Home Medications hydrochlorothiazide 25 mg tablet 25 mg PO DAILY bp 06/13/14 [History Last Taken 03/24/23] diltiazem HCl 180 mg capsule,extended release 24 hr 180 mg PO BID bp 04/24/17 [History Last Taken 03/24/23] oxycodone-acetaminophen 5 mg-325 mg tablet 1 tab PO Q8H PRN Pain 04/24/17 [History Last Taken Unknown] aspirin 325 mg capsule 325 mg PO DAILY #30 caps 03/25/23 [Rx Last Taken Unknown] cetirizine 10 mg tablet (24Hour Allergy) 10 mg PO DAILY 03/25/23 [History Last Taken 03/24/23] cholecalciferol (vitamin D3) 25 mcg (1,000 unit) capsule (Vitamin D3) 50 mcg PO DAILY 03/25/23 [History Last Taken 03/24/23] clopidogrel 75 mg tablet 75 mg PO DAILY #30 tabs 03/25/23 [Rx Last Taken Unknown] coenzyme Q10 100 mg capsule (Co Q-10) 100 mg PO DAILY 03/25/23 [History Last Taken 03/24/23] fluticasone propionate 50 mcg/actuation nasal spray,suspension 1 spray intranasal BID 03/25/23 [History Last Taken 03/24/23] hydralazine 50 mg tablet 50 mg PO Q8H 03/25/23 [History Last Taken 03/24/23] meloxicam 15 mg tablet 15 mg PO DAILY 03/25/23 [History Last Taken 03/24/23] nkjtssfh-siv-bqwxy acid 0.4 mg-lycopene 300 mcg-lutein 250 mcg tablet (A Thru Z Select 50 Plus Formula) 1 tab PO DAILY 03/25/23 [History Last Taken 03/24/23] riboflavin (vitamin B2) 100 mg tablet (Vitamin B-2) 200 mg PO BID 03/25/23 [History Last Taken 03/24/23] rosuvastatin 10 mg tablet 10 mg PO DAILY #30 tabs 03/25/23 [Rx Last Taken Unknown] valsartan 320 mg tablet 320 mg PO DAILY 03/25/23 [History Last Taken 03/24/23] Allergy/AdvReac Type Severity Reaction Status Date / Time ciprofloxacin [From Cipro] Allergy Rash Verified 03/24/23 09:37 ciprofloxacin HCl Allergy Rash Verified 03/24/23 09:37 [From Cipro] ertapenem sodium Allergy Rash Verified 03/24/23 09:37 [From Invanz] hydrocodone AdvReac makes him Verified 03/24/23 09:37 crazy Family History Mother Heart disease Hypertension Father Hypertension Heart disease Surgical History History of partial colectomy History of surgery on lower extremity Social History Smoking Status: Former smoker second hand exposure: No alcohol intake: never substance use type: does not use seatbelt use: always ROS Constitutional Constitutional: Denies chills, fever(s), frequent falls, lethargy or weakness Eyes Eyes: Denies blind spots, change in vision or loss of vision ENT HEENT: Denies bleeding gums, hoarseness or sore throat Cardiovascular Cardiovascular: Denies abdominal pain, bluish discoloration of hand/feet, chest pain with activity, claudication, cold extremities, cyanosis, dyspnea on exertion, erythema on extremities, irregular heart rhythm, leg edema, leg ulcers, numbness in extremities or weakness in extremities Respiratory/Chest Respiratory/Chest: Denies cough, excessive phlegm production, shortness of breath at rest, shortness of breath with exertion or wheezing Gastrointestinal Gastrointestinal: Denies anorexia, change in stool character, constipation, diarrhea, melena or rectal bleeding Genitourinary Genitourinary: Denies dysuria or hematuria Musculoskeletal Musculoskeletal: Denies abnormal gait Integumentary Integumentary: Reports other Details: ; Denies erythema, non-healing lesions or wounds Neurologic Neurologic: Denies abnormal speech, focal weakness, headache(s), loss of vision, numbness, paresthesias or sensory deficit Hematologic/Lymphatic Hematologic/Lymphatic: Denies easy bleeding, easy bruising or lymphadenopathy Physical Exam Back/Spine Cervical Spine: cervical ROM normal Extremity no clubbing, cyanosis or edema Neuro oriented x3, CN's II-XII intact bilaterally, moves all extremities, no focal motor deficits and no sensory deficits noted Lab / Micro Data 03/25/23 04:21 03/25/23 04:21 Labs: Laboratory Results - last 24 hr 03/25/23 04:21: WBC 7.6, RBC 4.90, Hgb 13.7, Hct 42.5, MCV 86.7, MCH 28.0, MCHC 32.2, RDW Std Deviation 42.5, RDW Coeff of Marielena 13.4, Plt Count 247, MPV 11.2, Immature Gran % (Auto) 0.100, Neut % (Auto) 58.9, Lymph % (Auto) 13.8 L, [place] % (Auto) 10.7 H, Eos % (Auto) 15.3 H, Baso % (Auto) 1.2 H, Absolute Neuts (auto) 4.5, Absolute Lymphs (auto) 1.05, Nucleated RBC % 0, Sodium 140, Potassium 3.8, Chloride 107, Carbon Dioxide 28.0, Anion Gap 5, BUN 12, Creatinine 0.95, Estim Creat Clear Calc 72.35, Est GFR (MDRD) Af Amer 100, Est GFR (MDRD) Non-Af 83, BUN/Creatinine Ratio 12.6, Glucose 92, Calcium 8.3 L, Phosphorus 3.1, Magnesium 2.0, Total Bilirubin 0.40, AST 25, ALT 27, Alkaline Phosphatase 61, Total Protein 5.9 L, Albumin 3.1 L, Globulin 2.8, Albumin/Globulin Ratio 1.1, Triglycerides 86, Cholesterol 134, LDL Cholesterol 70, VLDL Cholesterol 17, HDL Cholesterol 47, TSH 1.18 Imagaing Radiology Impression Brain MRI 03/24/23 10:44 IMPRESSION: 1. Involutional and chronic ischemic changes of the brain, as described above. 2. No demonstrated acute infarct or intracranial hemorrhage Electronically Signed: Keaton Benitez MD at 14:16 EST Reading Location ID and State: [address] [place] [address] , Service support , Carotid Duplex 03/24/23 10:44 Interpretation Summary Moderate (50-69%) stenosis right extracranial internal carotid. Moderate (50-69%) stenosis left extracranial internal carotid. Patent and antegrade vertebrals bilaterally. Ordering Physician: Ewa Gutierrez Referring Physician: Jose E Ace Performed By: Argenis Benavides RVT Charges/Coding Visit Charges Inpatient E&M: 37836 Init Hosp L3
--- NOTE | 2023-03-25 14:48 | CASEMGMT ---
RN CM NOTE: Pt being discharged home. RN CM to room. Pt denies home-going/discharge needs. Abraham CARON RN CM
--- NOTE | 2023-03-25 14:54 | CASEMGMT ---
Met with patient to complete MENDEZ form. MENDEZ form explained to patient who voiced understanding and signed form. Original form placed in pt?s chart and copy provided to?patient. Promise Caceres, Discharge Planning Asst
== END 2023-03-25 16:05 | disposition home or self-care (01) ==
LOC: ED 10:49 → ICU 12:15
PROVIDERS: Admitting Provider Internal Medicine; Emergency Provider Emergency Medicine; PCP Family Medicine; Visit Provider Internal Medicine
DX: R20.2 Paresthesia of skin (principal); I65.23 Occlusion and stenosis of bilateral carotid arteries; I10 Essential (primary) hypertension; E78.00 Pure hypercholesterolemia, unspecified; Z87.891 Personal history of nicotine dependence; Z79.82 Long term (current) use of aspirin; Z79.899 Other long term (current) drug therapy
CPT/HCPCS: 70450; 70496; 70498; 70551; 71045; 80048; 80053; 80061; 82962; 83036; 83735; 84100; 84443; 84484; 85025; 85610; 85730; 93005; 93308; 93880; 94668; 96372; 99221; 99252; 99285; Q9967; A4216; G0378; G0463

== ENCOUNTER 2023-04-15 09:14 | Inpatient (IN) | payer MEDICARE, OTHER, SELFPAY ==
[2023-04-15] VITALS (20 sets, daily range): BP systolic 100–179; BP diastolic 42–96; PULSE 66–99; RESP 11–18; TEMP 36.2–36.8; O2SAT 92–100; BMI 27.2; BMI 27.3
[2023-04-15] MEDS: Lactated Ringers 1,000 ML 15 ML IV (09:58)
--- NOTE | 2023-04-15 11:21 | HP.PCM_ITS ---
History and Physical Allergies ciprofloxacin [From Cipro] Allergy (Verified 04/02/23 15:42) Rashciprofloxacin HCl [From Cipro] Allergy (Verified 04/02/23 15:42) Rashertapenem sodium [From Invanz] Allergy (Verified 04/02/23 15:42) Rashhydrocodone Adverse Reaction (Verified 04/02/23 15:42) makes him crazy Medications hydrochlorothiazide 25 mg tablet 25 mg PO DAILY bp 06/13/14 [History Confirmed 04/02/23] diltiazem HCl 180 mg capsule,extended release 24 hr 180 mg PO BID bp 04/24/17 [History Confirmed 04/02/23] oxycodone-acetaminophen 5 mg-325 mg tablet 1 tab PO Q8H PRN Pain 04/24/17 [History Confirmed 04/02/23] aspirin 325 mg capsule 325 mg PO DAILY #30 caps 03/25/23 [Rx Confirmed 04/02/23] cetirizine 10 mg tablet (24Hour Allergy) 10 mg PO DAILY 03/25/23 [History Confirmed 04/02/23] cholecalciferol (vitamin D3) 25 mcg (1,000 unit) capsule (Vitamin D3) 50 mcg PO DAILY 03/25/23 [History Confirmed 04/02/23] clopidogrel 75 mg tablet 75 mg PO DAILY #30 tabs 03/25/23 [Rx Confirmed 04/02/23] coenzyme Q10 100 mg capsule (Co Q-10) 100 mg PO DAILY 03/25/23 [History Confirmed 04/02/23] fluticasone propionate 50 mcg/actuation nasal spray,suspension 1 spray intranasal BID 03/25/23 [History Confirmed 04/02/23] hydralazine 50 mg tablet 50 mg PO Q8H 03/25/23 [History Confirmed 04/02/23] vhwqwzvd-mmq-jaxqb acid 0.4 mg-lycopene 300 mcg-lutein 250 mcg tablet (A Thru Z Select 50 Plus Formula) 1 tab PO DAILY 03/25/23 [History Confirmed 04/02/23] riboflavin (vitamin B2) 100 mg tablet (Vitamin B-2) 200 mg PO BID 03/25/23 [History Confirmed 04/02/23] rosuvastatin 10 mg tablet 10 mg PO DAILY #30 tabs 03/25/23 [Rx Confirmed 04/02/23] valsartan 320 mg tablet 320 mg PO DAILY 03/25/23 [History Confirmed 04/02/23] FOR[facility]LY [facility] Medical History Cochlear implant in place Former smoker GI bleed Glaucoma History of ischemic colitis HTN (hypertension) Hypercholesterolemia Hyperlipidemia Migraines Sleep apnea Transient ischemic attack (TIA) Surgical History History of partial colectomy History of surgery on lower extremity Family History Mother Heart disease HypertensionFather Hypertension Heart disease Social History Smoking Status: Former smoker Tobacco: How many years used: 16 second hand exposure: No alcohol intake: never substance use type: does not use seatbelt use: always HPI HPI HPI: FREDY KAMARA, is a 72 M who presents to the office today for follow up discussion of left carotid stenosis with left hemispheric transient neurologic symptoms. Currently tolerating ASA/plavix/daily statin. No recurrence of RUE/face sensory changes after discharge. ROS General General: Yes fatigue; No weight change, appetite, colon cancer, breast cancer or weakness HEENT HEENT: Yes difficulty swallowing; No eye injury, eye surgery, swollen glands or hoarseness Endo Endocrine: No thyroid disease, diabetes mellitus, thyroid cancer, Hair loss, heat intolerance or cold intolerance Skin Skin: No rash or changing moles Musc Musculoskeletal: No back problems, arthritis, rheumatoid arthritis, gout or joint pain Cardio Cardiovascular: Yes high blood pressure; No murmur, pacemaker, heart disease, atrial fibrillation, heart attack, heart stent, palpitations, shortness of breat with exertion or chest pain Psych Psychiatric: No depression, anxiety or hearing voices Resp Respiratory: No shortness of breath, Yes sleep apnea, No cough, No COPD, No asthma, No emphysema and No wheezing Gastro Gastrointestinal: No abdominal pain, No nausea or vomiting, No diarrhea, No constipation, No blood in stool, No acid reflux, No hemorrhoids, No ulcers, No gallbladder problem and No black,tarry stools Aidan Hematologic: Yes blood thinners, No blood disorders, No bleeding, No anemia and No blood clots Neuro Neurologic: No system reviewed and no additional complaints, except as documented, No as per HPI, No abnormal gait, No abnormal hearing, No abnormal movements, No abnormal speech, No behavioral changes, No burning sensations, No confusion, No convulsions, No disequilibrium, No dizziness, No localized weakness, No frequent falls, No headache(s), No lack of coordination, No loss of vision, No memory loss, Yes numbness, No other visual disturbances, No radicular pain, No restless legs, No sensory deficit, No syncope, No tingling, No tremor(s), No weakness and No other Exam Const General: cooperative, healthy appearing, comfortable, no acute distress and well developed Nutritional Appearance: well nourished Orientation: alert, awake and oriented x3 HENMT Head: normocephalic and atraumatic Ears: hearing grossly normal bilaterally Nose: external nose normal Eyes General: appearance normal, both eyes and all related structures EOM: EOM intact bilaterally Neck Neck: normal visual inspection, full ROM, no lymphadenopathy and trachea midline Thyroid: thyroid normal Lymphatic: no lymphadenopathy noted Resp Effort & Inspection: normal respiratory effort, able to speak in complete sentences, symmetric chest movement, no audible wheezes, not labored, no stridor and no use of accessory muscles Cardio Rate: regular rate Rhythm: regular rhythm Skin General: no rashes or lesions noted and no erythema Wounds: no wounds Neuro Cranial Nerves: CN's II-XI intact bilaterally and EOM intact bilaterally Speech: speech normal Gait: normal gait Motor: strength 5/5 throughout Sensory Exam: no sensory deficits noted Psych Appearance: grossly normal and well kempt Mental Status: mental status grossly normal Mood: congruent mood Speech and Movement: speech and movement normal Thought Content: normal Judgment: judgment good Coding Level of Care Code Off vis,est,level 3 Diagnoses Stenosis of left carotid artery I65.22 Laterality: left Assessment and Plan Assessment and Plan (1) Carotid artery stenosis: Status: Chronic Qualifiers: Laterality: left Qualified Code(s): I65.22 - Occlusion and stenosis of left carotid artery Comment: CTA- left ICA 55% stenosis, irregular/ulcerated plaque Plan: -left CEA
[2023-04-15] MEDS: 0.9% Normal Saline (1000mL) 1,000 ML IV (11:30)
--- NOTE | 2023-04-15 11:30 | PLAQ_PTH ---
PATHOLOGY RESULTS PATIENT: FREDY KAMARA LOC: [facility] U#:[id number] AGE/SX: 72/M ROOM: [place] [id number] RE04/15/[address]: Dr. Caleb Garcia MD : 1950 BED: 1 DIS: 04/16/2023 SPEC #: [id number] RECD: 04/16/23 07:33 STATUS: CHRIS MIGUEL #: [id number] FLORES: 04/15/23 11:[address]: Caleb Garcia DEPT: SURGICAL PATHOLOGY RECD BY: Yudith Krishna ENTERED: 04/16/23 07:34 SP TYPE: PLAQUE OTHR DR: Dr. Jose E Ace MD Tissues: PLAQUE Procedures: Surgery Specimen Level III HEADER OPERATION: Carotid endarterectomy PRE-OP DIAGNOSIS: Carotid artery stenosis TISSUE SUBMITTED: Left carotid plaque MICROSCOPIC DIAGNOSIS Left carotid plaque, endarterectomy: A piece of tissue with moderate atherosclerotic changes with focal moderate calcifications (plaque). SJ:nahid 04/17/2023 GROSS DESCRIPTION Received in fixative is one container labeled with the patient's name and designated left carotid plaque. The specimen consists of a previously opened tubular piece of bonner, indurated tissue measuring 2.0 x 1.0 x 0.7 cm. The specimen is serially sectioned and submitted entirely in one cassette. / DEMARCUS:nahid 04/16/2023 TC:5 CPT: 70300
[2023-04-15] MEDS: Cefazolin 2 GM in 0.9% Normal Saline (100mL Bag) 100 ML IV (12:05)
[2023-04-15] MEDS: Heparin Injection (Vial) 5,000 UNIT/ML VIAL 5000 UNIT (12:28)
--- NOTE | 2023-04-15 14:25 | OP.PCM_ITS ---
Report of Operation Date of Procedure: 04/15/23 Pre-Operative Diagnosis: symptomatic left carotid stenosis Post-Operative Diagnosis: same Surgery/Procedure Performed:: left carotid endarterectomy Surgeon: Caleb Garcia Type of Anesthesia: General Specimen's removed: plaque Drains: 19 Fr MATT Estimated Blood Loss (mL): 25 Description of Procedure: HPI: Patient is a 72-year-old male who initially presented with right upper extremity and right facial neurologic symptoms consistent with a cerebrovascular event. These were transient in nature and his MRI revealed no ischemic injury. CT angiography did not reveal a greater than 50% stenosis ulcerated plaque that was felt to be the culprit and he had already been on appropriate medical therapy. He presents now for left carotid endarterectomy for stroke risk reduction. Description of procedure: Upon obtaining form consent and verification correct patient procedure site patient was taken to the operating was placed under general esthesia. He was then positioned prepped and draped in usual fashion and timeout was performed. Oblique incision made along medial border of the sternocleidomastoid but electrocautery was dissect down through subcutaneous tissue to the level of platysma. The platysma was then divided self-retaining tractors in position after which further dissection was carried down to the sternocleidomastoid. This then freed along the interval order and retracted posterior laterally exposing the carotid sheath. Sharp dissection was then used to dissect free the anterior sternocleidomastoid with the facial vein identified, ligated with silk ties and divided. The internal jugular vein was then retracted laterally exposing the carotid vessels. Sharp dissection was dissect free the proximal common carotid artery with care taken to identify and protect the vagus nerve. A right angle loop has a vessel loop around the proximal common carotid artery and attention was turned to the distal internal carotid artery. Sharp dissection used to dissect free circumferentially beyond the area of palpable and visible plaque with care taken to identify and protect the hypoglossal and vagus nerves. A right angle was then used to place a vessel loop and the patient was heparinized and allowed to circulate for 3 minutes. Further heparin dosing was performed based on ACT results. Next sharp dissection used to dissect free the external carotid artery and a right angle to place a vessel loop. The vessels were then occluded first the internal followed by the common and external. A longitudinal arteriotomy was created with 11 blade on the common carotid artery extended Camp[place] scissors onto the internal carotid artery beyond the area of plaque. A 12 [place] shunt was then placed first distally in the internal carotid artery artery on the backbleed and then placed proximally in the common carotid artery. The shunt was interrogated Doppler from repeating low resistance signal. We then performed her endarterectomy on the plaque that had the appearance of ulceration and intra plaque hemorrhage. We had satisfactory endpoint distally on the internal carotid artery and performed an eversion endarterectomy of the external carotid artery. The limb was then flushed heparinized saline to clear debris in the distal endpoint tacked with 7-0 Prolene interrupted sutures. A bovine pericardial patch was then secured in position with a 6-0 Prolene running fashion. Prior to completing suture line the shunt was removed and the vessels backbled. Prior to complete suture line the internal carotid artery allowed to backbleed and bifurcation then reoccluded as origin. After completing suture line clamps removed from the external and common carotid artery allowing 10 heartbeats of antegrade flow to flush into the external carotid artery before reestablishing flow into the internal carotid artery. The vessel was then interrogated Doppler and the internal carotid arteries patent with low resistance signal in the external carotid arteries patent. Heparin reversed with protamine and hemoblast topical hemostatic applied after which satisfactory stasis was noted. A 19 Green[place]ic channel MATT was then placed via separate stab incision and the incision closed with 2-0 Vicryl, 3-0 Vicryl, 4 Monocryl and Dermabond for the skin. At the conclusion of case patient was loaded anesthesia moving all extremities command cranial nerves intact. He was then taken to recovery room with dissipate admission intensive care unit for hemodynamic and neurologic monitoring.
[2023-04-15] MEDS: Bupivacaine Mpf 0.5% 30 ML VIAL (14:31)
[2023-04-15] MEDS: 0.45% Normal Saline 1,000 ML 100 ML IV (16:59)
[2023-04-15] MEDS: oxyCODONE 5 MG Tablet PO ×2 (17:02→22:31)
[2023-04-15] MEDS: Cefazolin 1 GM/50 ML BAG IV (20:29)
[2023-04-15] MEDS: hydrALAZINE 20 MG/ML Vial 10 MG IV (20:31)
[2023-04-15] MEDS: Fluticasone 0.05% 1 SPRAY NASAL.SRY NASAL (20:34)
[2023-04-15] MEDS: Atorvastatin Calcium 20 MG Tablet PO (20:36)
[2023-04-15] MEDS: Acetaminophen 500 MG Tablet 1000 MG PO (20:36)
[2023-04-16] VITALS (20 sets, daily range): BP systolic 100–159; BP diastolic 56–86; PULSE 68–92; RESP 10–17; TEMP 36.4–36.7; O2SAT 92–98; BMI 27.3; BMI 27.0
[2023-04-16] MEDS: 0.45% Normal Saline 1,000 ML 100 ML IV (03:17)
[2023-04-16] MEDS: Labetalol (Prefilled) 20 MG/4 ML 10 MG IV (03:18)
[2023-04-16] MEDS: oxyCODONE 5 MG Tablet PO (03:22)
[2023-04-16 03:42] LABS: Absolute Lymphocyte Count 0.89 X10^3/uL (0.83-4.51); Absolute Neutrophil Count 7.8 X10^3/uL (2.0-7.7); Basophil# 0.06 X10^3/uL; Basophil% 0.6 % (0-1); Eosinophil# 0.22 X10^3/uL; Eosinophils% 2.2 % (0-5); Hematocrit 40.2 % (40-54); Hemoglobin 12.6 g/dL (13.0-16.5); Lymphocyte # 0.89 X10^3/ul (0.83-4.51); Lymphocyte % 9.1 % (19-41); Mean Corp Hgb Conc 31.3 g/dL (32-36); Mean Corpuscular Hgb 27.8 pg (27.0-32.0); Mean Corpuscular Volume 88.5 fL (80-94); Monocyte# 0.78 X10^3/uL; Monocyte% 7.9 % (0-10); NRBC Flagged by Analyzer 0 % (0-5); Neutrophil # 7.83 X10^3/uL (2.7-7.7); Neutrophil % 79.7 % (47-70); Platelet Count 263 K/mm3 (150-450); Red Blood Count 4.54 M/mm3 (4.6-6.2); White Blood Count 9.8 K/mm3 (4.4-11.0)
[2023-04-16] MEDS: Cefazolin 1 GM/50 ML BAG IV (05:52)
[2023-04-16] MEDS: Acetaminophen 500 MG Tablet 1000 MG PO (05:54)
[2023-04-16] MEDS: Fluticasone 0.05% 1 SPRAY NASAL.SRY NASAL (08:49)
[2023-04-16] MEDS: Enoxaparin 40 MG/0.4 ML Syringe SC (08:50)
[2023-04-16] MEDS: hydroCHLOROthiazide 25 MG Tablet PO (08:51)
[2023-04-16] MEDS: Clopidogrel Bisulfate 75 MG Tablet PO (08:51)
[2023-04-16] MEDS: Loratadine 10 MG Tablet PO (08:51)
[2023-04-16] MEDS: Cholecalciferol (VIT D3) 25 MCG TABLET (1,000 UNITS) 50 MCG PO (08:51)
[2023-04-16] MEDS: Multivitamins,Ther W-Minerals Tablet 1 TABLET PO (08:52)
[2023-04-16] MEDS: Aspirin 325 MG Tablet PO (08:52)
--- NOTE | 2023-04-16 08:57 | PN.SURG_ITS ---
Subjective Subjective Patient was resting comfortably this morning. Reports some discomfort around the operative dressings, he reports his skin is sensitive to adhesive. His blood pressure was elevated through the night requiring PRN medications. Otherwise, he has been hemodynamically stable. Has been voiding without issue. Has tolerated clears. Objective Data Objective Data Vital Signs: Vital Signs Temp Pulse Resp BP Pulse Ox O2 Del Method O2 Flow Rate 98.1 F 78 16 158/64 H 96 Nasal Cannula 2 04/16/23 02:58 04/16/23 07:50 04/16/23 07:50 04/16/23 07:52 04/16/23 08:19 04/16/23 08:19 04/16/23 08:19 Oxygen Flow Rate (L/min) 2 Oxygen Delivery Method Nasal Cannula Weight: 182 lb 12.211 oz Body Mass Index (BMI) 27.0 Intake & Output: Intake and Output for Last 24 Hours 04/14/23 04/15/23 04/16/23 23:59 23:59 23:59 Intake Total 1268.25 / 1268.25 1000 / 1000 Output Total 112 / 132 520 / 520 Balance 1156.25 / 1136.25 480 / 480 Lab / Micro Data 04/16/23 03:27 Labs: Laboratory Results - last 24 hr 04/15/23 09:50: Blood Type O POSITIVE, Antibody Screen NEGATIVE 04/16/23 03:27: WBC 9.8, RBC 4.54 L, Hgb 12.6 L, Hct 40.2, MCV 88.5, MCH 27.8, MCHC 31.3 L, RDW Std Deviation 45.0 H, RDW Coeff of Marielena 14.0, Plt Count 263, MPV 11.0, Immature Gran % (Auto) 0.500, Neut % (Auto) 79.7 H, Lymph % (Auto) 9.1 L, Calvert % (Auto) 7.9, Eos % (Auto) 2.2, Baso % (Auto) 0.6, Absolute Neuts (auto) 7.8 H, Absolute Lymphs (auto) 0.89, Nucleated RBC % 0 Physical Exam Const alert, oriented x3 and no apparent distress General Appearance: cooperative and comfortable HEENT normocephalic, head/scalp atraumatic, hearing grossly normal bilaterally, external ears normal and external nose normal Eyes EOMs intact bilaterally General Eye: normal appearance of both eyes Neck Neck Narrative: L neck incision site with surgical glue intact. Some erythema where the adhesive dressings were in contact with his skin. Mild swelling, no significant ecchymosis. Resp normal respiratory effort, normal air movement, no retractions and no use of accessory muscles Effort and Inspection: able to speak in complete sentences Cardio regular rate and regular rhythm Extremity no clubbing, cyanosis or edema Neuro oriented x3, CN's II-XII intact bilaterally, moves all extremities, no focal motor deficits and no sensory deficits noted Speech: speech normal Psych mental status grossly normal Appearance: grossly normal Attitude: calm and engaged Activity / Motor Behavior: appropriate eye contact Speech: normal speech Mood & Affect: euthymic mood Judgement: judgement good Assessment & Plan Assessment/Plan (1) Carotid artery stenosis: QUALIFIERS: Laterality: left Qualified Code(s): I65.22 - Occlusion and stenosis of left carotid artery PLAN: Plan He is s/p L CEA on 04/15/23. MATT drain was removed without issue. There was noted irritation from the adhesive, will monitor. Restarted his home diltiazem and valsartan. If pressure remain high through the morning can also restart his home hydralazine. Will progress to normal diet. Will plan to have him up to the chair and ambulating with nursing/PT. Will wean O2. Anticipate discharge this afternoon.
[2023-04-16] MEDS: dilTIAZem CD 180 MG Capsule PO (09:23)
[2023-04-16] MEDS: Losartan Potassium 100 MG Tablet PO (09:23)
--- NOTE | 2023-04-16 12:51 | CASEMGMT ---
ROSIE MCNAMARA Assessment Face to Face with patient for initial transition planning/care coordination assessment. ROSIE MCNAMARA introduced self and role at [facility], pt voices understanding. Pt is A&Ox4 and is sitting up in the chair and is calm. Care providers, pharmacy, and demographics verified. Admitting dx:Carotid Endarterectomy LACE Strata: 1 PCP: Db Specialists: Nakita (Pulmonary) Preferred Pharmacy: [facility] Insurance: [facility], [employer] Prescription Benefit: Yes LNOK: Son - Rah Brar Living Arrangements: Pt states living in a 1 story home with a basement. Pt reports there are 14 steps to enter the home and he has no difficulty with these. Pt states that he is working on getting hand rails installed for the steps. Pt states he is living with his step daughter at this time. ADLs/IADLs: States complete independence Transportation: Pt drives DME: Denies all DME use or needs HHC/SNF: Denies history or needs. Pt?s goal/plan: Pt goal and plan is to DC home with his step daughter with no needs. Siena Solis RN, CM
--- NOTE | 2023-04-16 13:03 | PCM.DC.SUM ---
Providers Date of Admission: 04/15/23 Date of Discharge: 04/16/23 Primary Care Physician: Dr. Jose E Ace MD Reason For Visit: Carotid Endarterectomy Diagnosis Discharge Diagnosis (1) Carotid artery stenosis: Status: Chronic Code(s): I65.29 - Occlusion and stenosis of unspecified carotid artery Qualifiers: Laterality: left Qualified Code(s): I65.22 - Occlusion and stenosis of left carotid artery Medications at Discharge Home Medications hydrochlorothiazide 25 mg tablet 25 mg PO DAILY bp 06/13/14 diltiazem HCl 180 mg capsule,extended release 24 hr 180 mg PO BID bp 04/24/17 oxycodone-acetaminophen 5 mg-325 mg tablet 1 tab PO Q8H PRN Pain 04/24/17 aspirin 325 mg capsule 325 mg PO DAILY HEART #30 caps 03/25/23 cetirizine 10 mg tablet (24Hour Allergy) 10 mg PO DAILY ALLERGY 03/25/23 cholecalciferol (vitamin D3) 25 mcg (1,000 unit) capsule (Vitamin D3) 50 mcg PO DAILY SUPPLEMENT 03/25/23 clopidogrel 75 mg tablet 75 mg PO DAILY BLOOD THINNER #30 tabs 03/25/23 coenzyme Q10 100 mg capsule (Co Q-10) 100 mg PO DAILY SUPPLEMENT 03/25/23 fluticasone propionate 50 mcg/actuation nasal spray,suspension 1 spray intranasal BID NASAL CONGESTION 03/25/23 hydralazine 50 mg tablet 50 mg PO Q8H BP 03/25/23 hqnclekj-fyo-dozfk acid 0.4 mg-lycopene 300 mcg-lutein 250 mcg tablet (A Thru Z Select 50 Plus Formula) 1 tab PO DAILY SUPPLEMENT 03/25/23 riboflavin (vitamin B2) 100 mg tablet (Vitamin B-2) 200 mg PO BID SUPPELEMENT 03/25/23 rosuvastatin 10 mg tablet 10 mg PO DAILY CHOLESTEROL #30 tabs 03/25/23 valsartan 320 mg tablet 320 mg PO DAILY BP 03/25/23 oxycodone 5 mg tablet 5 mg PO Q8H PRN PRN Pain Score 4-10 3 days #9 tabs 04/16/23 Hospital Course Summary of Care Provided Hospital Course: Mr. Tian Barr is a 72-year-old male who underwent left carotid endarterectomy with Dr. Garcia on 04/15/2023. He tolerated the procedure well. He was routinely admitted to the ICU for hemodynamic and neurologic monitoring postoperatively. He has had some elevated blood pressures overnight but these have improved with resumption being his home antihypertensive regimen. He has remained neurologically stable. His MATT drain was removed today on postop day 1 without issue. The incision site is satisfactory in appearance with surgical glue intact. He is voiding without difficulty, tolerating a normal diet, ambulating well, and his pain is well-controlled. He denies any headaches, vision changes, weakness, difficulty speaking/chewing swallowing. He is medically stable and appropriate for discharge today. He has outpatient follow-up with our office on 05/15/2023. Physical Exam Const alert, oriented x3 and no apparent distress General Appearance: cooperative and comfortable HEENT normocephalic, head/scalp atraumatic, hearing grossly normal bilaterally, external ears normal and external nose normal Eyes EOMs intact bilaterally General Eye: normal appearance of both eyes Neck Neck Narrative: L neck incision site with surgical glue intact. Some erythema where the adhesive dressings were in contact with his skin. Mild swelling, no significant ecchymosis. Resp normal respiratory effort, normal air movement, no retractions and no use of accessory muscles Effort and Inspection: able to speak in complete sentences Cardio regular rate and regular rhythm Extremity no clubbing, cyanosis or edema Neuro oriented x3, CN's II-XII intact bilaterally, moves all extremities, no focal motor deficits and no sensory deficits noted Speech: speech normal Psych mental status grossly normal Appearance: grossly normal Attitude: calm and engaged Activity / Motor Behavior: appropriate eye contact Speech: normal speech Mood & Affect: euthymic mood Judgement: judgement good Weight / BMI Weight Weight: 182 lb 12.211 oz Body Mass Index (BMI) 27.0 ABG / Lab / Microbiology Data 04/16/23 03:27 Laboratory: Laboratory Results - last 24 hr 04/16/23 03:27: WBC 9.8, RBC 4.54 L, Hgb 12.6 L, Hct 40.2, MCV 88.5, MCH 27.8, MCHC 31.3 L, RDW Std Deviation 45.0 H, RDW Coeff of Marielena 14.0, Plt Count 263, MPV 11.0, Immature Gran % (Auto) 0.500, Neut % (Auto) 79.7 H, Lymph % (Auto) 9.1 L, Stephenson % (Auto) 7.9, Eos % (Auto) 2.2, Baso % (Auto) 0.6, Absolute Neuts (auto) 7.8 H, Absolute Lymphs (auto) 0.89, Nucleated RBC % 0 D/C Instructions Discharge Diet: No restrictions May shower in (days): 1 Weight Bearing Status: Weight bearing as tolerated Lifting Restricted to (Lbs): 20 Lifting Restrictions: Do not lift greater than 20 pounds for 3 weeks Call your doctor if your incision/area has: Sudden Increased Bleeding, Increased Pain/ Swelling and Foul Smelling Discharge Call your doctor if you observe: Fever of 101 or Higher and Uncontrolled pain Additional Instructions: You have a small bandage over the site from which the surgical drain was removed. You may remove this bandage tomorrow. As long as there is no residual drainage, you may leave this open to air. If you do notice some continued drainage, you may re-cover with a Band-Aid. Your incision site is covered with surgical glue which will continue to protect it. The surgical glue will peel/flake off on its own over the next few weeks. Please do not pick at it. You may shower tomorrow. It is okay for soap and water to rinse over the incision site, pat to dry. Do not submerge the incision site in water such as to take a bath or go swimming etc. for 3 weeks. Do not lift greater than 20 pounds for 3 weeks. Otherwise, please continue with activity as tolerated. Do not drive until you can turn your head well enough to safely check your blind spots. I have prescribed a prescription pain medication oxycodone 5 mg tablets to be taken by mouth every 8 hours as needed for pain. This is an opioid pain medication and is to be taken only as directed. Do not take in combination with any other prescription pain medications. You may take this in addition to Tylenol or ibuprofen as allowed. You are scheduled to follow-up in the office on 05/15/2022 at 10:30 AM. Please contact the office at [phone] if you need to change her appointment or if you have any other questions or concerns. Please Follow Up With: Jacey Roblero PA When: 05/15/2023 Meaningful Use Info Meaningful Use Diagnoses (Choose all that apply): None applicable Discharge Plan Admission Admit Date/Time: 04/15/23 09:14 Primary Reason for Your Visit: L carotid endarterectomy Attending Provider: Caleb Garcia Primary Care Provider: Jose E Ace Instructions Additional Instructions / Restrictions: You have a small bandage over the site from which the surgical drain was removed. You may remove this bandage tomorrow. As long as there is no residual drainage, you may leave this open to air. If you do notice some continued drainage, you may re-cover with a Band-Aid. Your incision site is covered with surgical glue which will continue to protect it. The surgical glue will peel/flake off on its own over the next few weeks. Please do not pick at it. You may shower tomorrow. It is okay for soap and water to rinse over the incision site, pat to dry. Do not submerge the incision site in water such as to take a bath or go swimming etc. for 3 weeks. Do not lift greater than 20 pounds for 3 weeks. Otherwise, please continue with activity as tolerated. Do not drive until you can turn your head well enough to safely check your blind spots. I have prescribed a prescription pain medication oxycodone 5 mg tablets to be taken by mouth every 8 hours as needed for pain. This is an opioid pain medication and is to be taken only as directed. Do not take in combination with any other prescription pain medications. You may take this in addition to Tylenol or ibuprofen as allowed. You are scheduled to follow-up in the office on 05/15/2022 at 10:30 AM. Please contact the office at [phone] if you need to change her appointment or if you have any other questions or concerns. Discharge Orders/Prescriptions Prescriptions: New oxycodone 5 mg Tablet 5 mg PO Q8H PRN PRN (Reason: Pain Score 4-10) 3 Days Qty: 9 0RF Continued hydrochlorothiazide 25 MG tablet 25 mg PO DAILY Patient Comments: bp diltiazem HCl 180 MG capsule,extended release 24hr 180 mg PO BID fluticasone propionate 50 mcg/actuation spray,suspension 1 spray INTRANASAL BID Patient Comments: SPRAY 1 SPRAY INTO EACH NOSTRIL TWICE A DAY hydralazine 50 mg tablet 50 mg PO Q8H Patient Comments: TAKE 1 TABLET BY MOUTH EVERY 8 HOURS valsartan 320 mg tablet 320 mg PO DAILY Patient Comments: TAKE 1 TABLET BY MOUTH EVERY DAY cholecalciferol (vitamin D3) [Vitamin D3] 25 mcg (1,000 unit) capsule 50 mcg PO DAILY coenzyme Q10 [Co Q-10] 100 mg capsule 100 mg PO DAILY A Thru Z Select 50Plus Formula 0.4 mg-300 mcg- 250 mcg tablet 1 tab PO DAILY cetirizine [24Hour Allergy] 10 mg tablet 10 mg PO DAILY riboflavin (vitamin B2) [Vitamin B-2] 100 mg tablet 200 mg PO BID clopidogrel 75 mg Tablet 75 mg PO DAILY Qty: 30 2RF aspirin 325 mg capsule 325 mg PO DAILY Qty: 30 0RF rosuvastatin 10 MG tablet 10 mg PO DAILY Qty: 30 2RF Held oxycodone-acetaminophen 1 TABLET tablet 1 tab PO Q8H PRN (Reason: Pain) Hold Instructions: Resume on 04/20/23. Referrals / Follow Up: Jose E Ace MD [Primary Care Provider] - Disposition Disposition (needs filled in before D/C Order can be placed): Home, Self Care
[2023-04-17 04:31] LABS: ACT Activated Clotting Time 169 sec (74-137)
[2023-04-17 04:32] LABS: ACT Activated Clotting Time 266 sec (74-137)
[2023-04-17 04:34] LABS: ACT Activated Clotting Time 233 sec (74-137)
== END 2023-04-16 14:29 | disposition home or self-care (01) | DRG 39 ==
LOC: ACINP 09:17 → ICU 04-16 08:46
PROVIDERS: Admitting Provider Surgery Trauma Surgery; PCP Family Medicine; Referring Provider Surgery Trauma Surgery; Visit Provider Surgery Trauma Surgery
PROC: 03CL0ZZ Extirpation of Matter from Left Internal Carotid Artery, Open Approach (ICD-10-PCS; CPT 35301; principal; 2023-04-15 11:10)
DX: I65.22 Occlusion and stenosis of left carotid artery (principal); E78.00 Pure hypercholesterolemia, unspecified; I10 Essential (primary) hypertension; Z79.02 Long term (current) use of antithrombotics/antiplatelets; Z79.82 Long term (current) use of aspirin; Z79.899 Other long term (current) drug therapy; Z86.16 Personal history of COVID-19; Z86.73 Personal history of transient ischemic attack (TIA), and cerebral infarction without residual deficits; Z87.891 Personal history of nicotine dependence
CPT/HCPCS: 85025; 85347; 86850; 86900; 86901; 88304; 88311; 94668; 94762; 97802; 99252; A4648; J7030; J7120; G0463; J2405

== ENCOUNTER → 2023-05-28 | Outpatient (CLI) | payer MEDICARE, OTHER, SELFPAY ==
[2023-05-28 10:10] LABS: Bacteria 0 SEEN /hpf (None Seen); Mucous, Urine 0 SEEN /hpf (<or=2+); Red Blood Cells-Urine 0 SEEN /hpf (0-5); Squamous Epithelial Cells - UA 0 SEEN /hpf (0-5); White Blood Cells 0 SEEN /hpf (0-5)
[2023-05-28 12:18] LABS: Absolute Lymphocyte Count 0.91 X10^3/uL (0.83-4.51); Absolute Neutrophil Count 3.9 X10^3/uL (2.0-7.7); Basophil# 0.05 X10^3/uL; Basophil% 0.7 % (0-1); Eosinophil# 1.48 X10^3/uL; Eosinophils% 21.2 % (0-5); Hematocrit 43.1 % (40-54); Hemoglobin 13.6 g/dL (13.0-16.5); Lymphocyte # 0.91 X10^3/ul (0.83-4.51); Mean Corp Hgb Conc 31.6 g/dL (32-36); Mean Corpuscular Hgb 28.3 pg (27.0-32.0); Mean Corpuscular Volume 89.8 fL (80-94); Mean Platelet Vol. 11.3 fl (6.2-12.0); Monocyte% 8.6 % (0-10); NRBC Flagged by Analyzer 0 % (0-5); Neutrophil # 3.91 X10^3/uL (2.7-7.7); Neutrophil % 56.1 % (47-70); Platelet Count 281 K/mm3 (150-450); RBC Distribution Width CV 14.6 % (11.6-14.6); RBC Distribution Width SD 47.7 fl (35.1-43.9)
[2023-05-28 12:24] LABS: Color, Urine Yellow (Yellow); Glucose, Dipstick Normal (Normal); Ketone-Dipstick Negative (Negative); Leukocyte Esterase-Dipstick Negative /ul (Negative); Nitrite-Dipstick Negative (Negative); Occult Blood-Urine Negative /ul (Negative); Protein-Dipstick Negative (Negative); Urine Bilirubin Dipstick Negative (Negative); Urine Clarity Clear (Clear); Urine Urobilinogen Normal (Normal)
[2023-05-28 12:45] LABS: Vitamin D,25 Hydroxy 51.4 ng/mL
[2023-05-28 12:49] LABS: ALB/GLOB Ratio 1.3 RATIO (0.9-2.4); AST(SGOT) 23 U/L (15-37); Alanine Aminotransfer ALT/SGPT 39 U/L (16-61); Albumin, Serum 3.6 g/dL (3.2-5.0); Alkaline Phosphatase 79 U/L (45-117); Anion Gap 2 (5-15); BUN 14 mg/dL (7-18); BUN/Creat Ratio 14.8 RATIO (10-20); CPK Total, Creatine Kinase 116 U/L (39-308); Chloride 107 mmol/L (98-107); Cholesterol 119 mg/dL (200); Creatinine, Serum 0.95 mg/dL (0.70-1.30); EST Glomerular Filtration Rate 83 mL/min (>60); Est Glom Filt Rate - Afr Amer 101 mL/min (>60); Ferritin 49 ng/mL (26-388); Globulin 2.7 g/dL (2.2-4.2); Glucose 94 mg/dL (74-106); High Density Lipoprotein 55 mg/dL; Magnesium 2.1 mg/dL (1.6-2.6); Potassium 3.9 mmol/L (3.5-5.1); Protein, Total 6.3 g/dL (6.4-8.2); Sodium Level 139 mmol/L (136-145); Thyroid Stim Hormone (TSH) 2.25 uIU/mL (0.358-3.74); Triglycerides 69 mg/dL; Very Low Density Lipoprotein 14 mg/dL (5-40)
== END | disposition home or self-care (01) ==
LOC: MFPLAB 10:07
PROVIDERS: PCP Family Medicine; Visit Provider Family Medicine
DX: I10 Essential (primary) hypertension (principal); R25.2 Cramp and spasm; M25.50 Pain in unspecified joint; E55.9 Vitamin D deficiency, unspecified
CPT/HCPCS: 36415; 80053; 80061; 81001; 82306; 82550; 82728; 83735; 84443; 85025

== ENCOUNTER 2023-06-17 08:30 | Outpatient (RCR) | payer MEDICARE, OTHER, SELFPAY ==
--- NOTE | 2023-04-10 11:59 | HP.PTEVAL_ITS ---
Patient's Visit Information Visit Information Visit Information: FREDY KAMARA is a 72 year old M referred to Physical Therapy by Dr. Celestino Vang DPM with a diagnosis of Right Plantar Fascitis. Date of Evaluation: 04/10/23 Physical Therapist: Niraj Aldana Visit Plan Frequency: 2x /Week Duration: 6 Weeks Plan: Continue with right calf/foot stretches, ankle/foot strengthening, and balance exercises. Use manual therapy and modalities as needed for pain control. Subjective Subjective: Pt. is a 72 y.o. male who has been having right foot pain for about a couple months with no specific injury that he is aware of. His PLOF includes no history of right foot/ankle pain in the past. He had recent x-ray of his foot/ankle which was negative. He also had recent cortisone injection which has helped some. Pt. has some mild tingling in his foot. 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 His goal with physical therapy is to decrease his pain. Pt. has never had physical therapy in the past. Pt. denies any pain currently, at worst 6/10 and describes the pain as achy. He will take Tylenol for pain. His PMH includes TIA, HBP controlled with medication, right tib/fib fx with two giraldo rgeries, right ear surgery, glaucoma, and bowel surgery. His hobbies include snowmobiling, cutting firewood, fishing, hunting, and welding work. Objective Objective: Palpation- No tenderness palpation Left ankle ROM DF 15 degrees, PF 42 degrees, Inv 38 degrees, Ev 18 degrees Right ankle ROM DF 15 degrees, PF 40 degrees, Inv 30 degrees, Ev 15 degrees Left LE strength hip flexion 5/5, abduction 5/5, adduction 5/5, extension 5/5, knee flexion 5/5, knee extension 5/5, ankle DF 5/5, PF 5/5, Inv 5/5, Ev 5/5 Right LE strength hip flexion 5/5, abduction 5/5, adduction 5/5, extension 5/5, knee flexion 5/5, knee extension 5/5, ankle DF 5/5, PF 4+/5, Inv 4+/5, Ev 4+/5 Left tandem 12 secs, right tandem 26 secs Left SLS 23 secs, right SLS 14 secs Gait- Pt. ambulates with no noticeable gait deviations. Balance/Special Test Scores Lower Extremity Functional Score: 80 Goals Goal 1:: Pt. will report no pain first thing in the morning when he gets up. Goal Time Frame: 4-6 Weeks Goal 2:: Pt. will be able to sleep a full night with no right foot pain. Goal Time Frame: 4-6 Weeks Goal 3:: Pt. will be able to stand/walk for at least 30 minutes with no right foot pain. Goal Time Frame: 4-6 Weeks Goal 4:: Pt. 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 Goal Time Frame: 4-6 Weeks Rehabilitation Potential Physical Therapy Diagnosis: Decreased right ankle/foot strength, balance, and pain. Pt. presents at this time with possible right foot plantar fascitis Rehabilitation Potential: Good Anticipated Interventions Patient/Client Instruction: Educate patient on: Condition and Plan of Care For the Purpose of:: To decrease pain, To improve ability to perform ADL's, To improve performance and independence with ADL's, To assume or resume ADL's and To improve tolerance to ADL's Therapeutic Exercise to Include: Strength training, Balance training, Flexibilty training, Gait and locomotor training and Active ROM Comment: Continue with calf stretching, foot stretches, ankle/foot strengthening, and balance exercises. For the Purpose of:: To decrease pain, To increase ROM, To improve ability to perform ADL's, To improve performance and independence with ADL's, To increase flexibility/ROM, To assume or resume ADL's and To improve tolerance to ADL's Functional Training to Include: ADL Training and Gait training For the Purpose of:: To decrease pain, To improve ability to perform ADL's, To improve performance and independence with ADL's, To increase flexibility/ROM, To assume or resume ADL's and To improve tolerance to ADL's Manual Therapy Techniques to Include: Mobilization, Passive ROM and Soft tissue mobilization For the Purpose of:: To decrease pain, To decrease swelling/inflammation, To improve ability to perform ADL's, To improve performance and independence with ADL's, To assume or resume ADL's and To improve tolerance to ADL's Cryotherapy (ice pack, ice massage): Yes For the Purpose of:: To decrease pain, To decrease swelling/inflammation, To improve ability to perform ADL's, To improve performance and independence with ADL's and To improve tolerance to ADL's Text: Thank you for the opportunity to evaluate your patient. For Medicare and Medicare HMO plans, please review the plan of care and approve it. It will need to be FAXED BACK to us at [phone] for Medicare purposes. For Medicare only, by signing this I certify the plan of care. Please let me know if there are questions or concerns regarding this plan of care. Physician Signature: Date:
--- NOTE | 2023-05-14 13:47 | HP.PTREVAL_ITS ---
Re-Evaluation Intro: Dr. Celestino Vang, RENE, It has been my pleasure to treat FREDY KAMARA over the last 7 visits for Right Plantar Fascitis. Please see the progress note below for an update on the physical therapy plan of care! Subjective Subjective: He was doing good. He would be tighter in the evening the day of therapy and then the next day he was good and back at it again. He felt looser with PT and next day good. After the last PT he has been inflammed again but not as painful as it was before. Pain on the outside of his calf and the inside of his foot behind the arch. It is better today. He sees the Dr Taj jackson. Objective Objective/Function: Pt did not want to do anything today as he is starting to feel a little better since and talk to his Dr about further PT sessions Plan Plan Plan: Pt to see his Dr jackson and will call in and let us know if he wants to continue further PT. Continue with right calf/foot stretches, ankle/foot strengthening, and balance exercises. Use manual therapy and modalities as needed for pain control. 05/14/23 Pt left message that Dr wants him to continue PT... will request further appts Balance/Gait/Functional tests Balance/Special Test Scores Lower Extremity Functional Score: 80 Goals Goals Goal 1:: Pt. will report no pain first thing in the morning when he gets up. Goal Time Frame: 4-6 Weeks Goal Progress: Goal Met Goal 2:: Pt. will be able to sleep a full night with no right foot pain. Goal Time Frame: 4-6 Weeks Goal Progress: Progressing Goal 3:: Pt. will be able to stand/walk for at least 30 minutes with no right foot pain. 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 Goal Time Frame: 4-6 Weeks Goal Progress: Progressing Anticipated Interventions Anticipated Interventions Patient/Client Instruction: Educate patient on: Condition and Plan of Care For the Purpose of:: To decrease pain, To improve ability to perform ADL's, To improve performance and independence with ADL's, To assume or resume ADL's and To improve tolerance to ADL's Therapeutic Exercise to Include: Strength training, Balance training, Flexibilty training, Gait and locomotor training and Active ROM Comment: Continue with calf stretching, foot stretches, ankle/foot strengthening, and balance exercises. For the Purpose of:: To decrease pain, To increase ROM, To improve ability to perform ADL's, To improve performance and independence with ADL's, To increase flexibility/ROM, To assume or resume ADL's and To improve tolerance to ADL's Functional Training to Include: ADL Training and Gait training For the Purpose of:: To decrease pain, To improve ability to perform ADL's, To improve performance and independence with ADL's, To increase flexibility/ROM, To assume or resume ADL's and To improve tolerance to ADL's Manual Therapy Techniques to Include: Mobilization, Passive ROM and Soft tissue mobilization For the Purpose of:: To decrease pain, To decrease swelling/inflammation, To improve ability to perform ADL's, To improve performance and independence with ADL's, To assume or resume ADL's and To improve tolerance to ADL's Cryotherapy (ice pack, ice massage): Yes For the Purpose of:: To decrease pain, To decrease swelling/inflammation, To improve ability to perform ADL's, To improve performance and independence with ADL's and To improve tolerance to ADL's Re-Evaluation Ending Re-evaluation ending: Please do not hesitate to contact me at [phone] by phone or Fax: if you have questions or concerns regarding this new plan of care! Sincerely, SP Ocampo
--- NOTE | 2023-06-24 09:24 | HP.PTDCSUM ---
Discharge Summary D/C summary: It has been my pleasure to treat FREDY KAMARA referred by Dr. Celestino Vang DPM, with the diagnosis of Right Plantar Fascitis for a total of 10 visit(s). Discharge Date: 06/24/23 Please see the following information for a summary of their discharge status. Subjective Subjective: Pt reports that he did have a RODNEY and it is now gone. He is feeling good as far as the Plantar Fascititis. Ice and Heat help a lot Pain R foot pain: Pain Intensity (Out of 10): 3 Overall Improvement % Improvement: 85 Objective Objective/Function: Pt had increase pain on the lateral side of base of 5th med. Therapist felt a little knot . showed pt and he thought it was a Rodney. He said he would look into it. Goals Goal 1:: Pt. will report no pain first thing in the morning when he gets up. Goal Progress: Goal Met Goal 2:: Pt. will be able to sleep a full night with no right foot pain. Goal Progress: Progressing Goal 3:: Pt. will be able to stand/walk for at least 30 minutes with no right foot pain. 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 Goal Progress: Goal Met Plan Plan: DC PT to HEP D/C Information Discharge Comments: DC PT to HEP d/c sentence: If there are questions or concerns regarding this patient's physical therapy, please feel free to call me at [phone]. Thank you for the referral of this patient. Sincerely, Gifty Segal, MPT Balance/Gait/Functional tests Balance/Special Test Scores Lower Extremity Functional Score: 80 Improvement % Improvement: 85
== END 2023-06-17 19:00 | disposition home or self-care (01) ==
LOC: PT 08:30
PROVIDERS: PCP Family Medicine; Referring Provider Student in an Organized Health Care Education/Training Program; Visit Provider Student in an Organized Health Care Education/Training Program
DX: M72.2 Plantar fascial fibromatosis (principal)
CPT/HCPCS: 97035; 97110; 97140; 97161; 97530

== ENCOUNTER → 2023-07-10 | Outpatient (CLI) | payer MEDICARE, OTHER, SELFPAY ==
[2023-07-10 12:57] LABS: ALB/GLOB Ratio 1.2 RATIO (0.9-2.4); AST(SGOT) 21 U/L (15-37); Alanine Aminotransfer ALT/SGPT 37 U/L (16-61); Albumin, Serum 3.4 g/dL (3.2-5.0); Alkaline Phosphatase 73 U/L (45-117); Anion Gap 7 (5-15); BUN 13 mg/dL (7-18); BUN/Creat Ratio 13.4 RATIO (10-20); CPK Total, Creatine Kinase 117 U/L (39-308); Calcium,Total 9.1 mg/dL (8.5-10.1); Chloride 101 mmol/L (98-107); Creatinine, Serum 0.97 mg/dL (0.70-1.30); EST Glomerular Filtration Rate 81 mL/min (>60); Est Glom Filt Rate - Afr Amer 98 mL/min (>60); Globulin 2.9 g/dL (2.2-4.2); Glucose 86 mg/dL (74-106); Potassium 4.1 mmol/L (3.5-5.1); Protein, Total 6.3 g/dL (6.4-8.2); Sodium Level 138 mmol/L (136-145)
== END | disposition home or self-care (01) ==
LOC: MFPLAB 10:35
PROVIDERS: PCP Family Medicine; Visit Provider Family Medicine
DX: R25.2 Cramp and spasm (principal)
CPT/HCPCS: 36415; 80053; 82550

== ENCOUNTER → 2023-08-06 | Outpatient (CLI) | payer MEDICARE, OTHER, SELFPAY ==
--- NOTE | 2023-08-06 15:42 | RAD_ITS ---
STUDY: X-RAY - LEFT RADIUS AND ULNA REASON FOR EXAM: Male, 73 years old. Pain, trauma, swelling. TECHNIQUE: 2 views of the left forearm. COMPARISON: None. FINDINGS: There is no demonstrated soft tissue swelling. Normal visualized radius. Normal visualized ulna. There is no demonstrated acute fracture. RAD/Forearm 2 Views IMPRESSION: Normal x-ray examination of the left radius and ulna. Electronically Signed: Medardo Gutierrez MD at 9:13 EDT ,
== END | disposition home or self-care (01) ==
LOC: MTRAD 15:41
PROVIDERS: PCP Family Medicine; Referring Provider Family Medicine; Visit Provider Family Medicine
DX: T14.90XA Injury, unspecified, initial encounter (principal); X58.XXXA Exposure to other specified factors, initial encounter
CPT/HCPCS: 73090

== ENCOUNTER → 2023-08-22 | Outpatient (CLI) | payer MEDICARE, OTHER, SELFPAY ==
--- NOTE | 2023-08-22 16:13 | US_ITS ---
STUDY: SUPERFICIAL ULTRASOUND - LEFT FOREARM REASON FOR EXAM: Male, 73 years old. INCREASED LEFT ARM SWELLING AND PAIN TECHNIQUE: A superficial ultrasound was performed with real-time and static richter-scale imaging. COMPARISON: None. FINDINGS: Multiple longitudinal and transverse ultrasound images of the left forearm demonstrates enlargement and edema of the musculature but no discrete solid or cystic mass or lymphadenopathy. US/Ext Non Vasc Limited/Soft Tiss IMPRESSION: Soft tissue edema but no discrete mass. Electronically Signed: Hugo Meier MD at 21:33 EDT ,
== END | disposition home or self-care (01) ==
LOC: US 16:06
PROVIDERS: PCP Family Medicine; Referring Provider Family Medicine; Visit Provider Family Medicine
DX: M79.89 Other specified soft tissue disorders (principal)
CPT/HCPCS: 76882

== ENCOUNTER → 2023-08-27 | Outpatient (CLI) | payer MEDICARE, OTHER, SELFPAY ==
--- NOTE | 2023-08-27 12:08 | CT_ITS ---
STUDY: CT SCAN OF THE EXTREMITY LEFT REASON FOR EXAM: Male, 73 years old. Left arm DX: compartment syndrome: pain: swelling. 2 SERIES DONE . PLEASE REVIEW ALL IMAGES RADIATION DOSAGE (If Supplied By Facility): CTDIvol = ( 24.65 ) mGy, DLP = ( 2692.05 ) mGycm. Individualized dose optimization techniques were used for this CT.? TECHNIQUE: Multiple axial tomographic images of the left forearm were obtained following intravenous contrast administration of 100 mL of Isovue-300. Sagittal and coronal reconstruction was obtained as well. COMPARISON: Comparison is made with prior ultrasound of the left upper extremity dated August 22, 2023. FINDINGS: There is evidence of skin thickening and subcutaneous edema overlying the anterior aspect of the mid and distal portion of the arm and forearm. No evidence of compartment syndrome. The vascular structures are not compromise. CT/Extremity Upper WITH Contrast IMPRESSION: Overlying skin thickening and thickening of the subcutaneous findings suggestive of a cellulitis. No evidence of compartment syndrome. Electronically Signed: Jordan Cano MD at 12:53 EDT ,
[2023-08-27 12:34] LABS: CREATININE FINGERSTICK < 1.0 mg/dL (0.70-1.30); EGFR FINGERSTICK > 60.0000 mL/min (>60)
== END | disposition home or self-care (01) ==
LOC: CT 11:59
PROVIDERS: PCP Family Medicine; Referring Provider Family Medicine; Visit Provider Family Medicine
DX: Z01.812 Encounter for preprocedural laboratory examination (principal); T79.A0XA Compartment syndrome, unspecified, initial encounter
CPT/HCPCS: 73201; Q9967

== ENCOUNTER → 2023-09-09 | Outpatient (CLI) | payer MEDICARE, OTHER, SELFPAY ==
[2023-09-09 13:04] LABS: Erythrocyte Sedimentation Rate 6 mm/hr (0-20)
[2023-09-09 13:56] LABS: AST(SGOT) 19 U/L (15-37); Alanine Aminotransfer ALT/SGPT 30 U/L (16-61); Alkaline Phosphatase 79 U/L (45-117); Anion Gap 8 (5-15); BUN 14 mg/dL (7-18); BUN/Creat Ratio 14.1 RATIO (10-20); CPK Total, Creatine Kinase 112 U/L (39-308); Calcium,Total 9.1 mg/dL (8.5-10.1); Chloride 102 mmol/L (98-107); Creatinine, Serum 0.99 mg/dL (0.70-1.30); EST Glomerular Filtration Rate 79 mL/min (>60); Est Glom Filt Rate - Afr Amer 95 mL/min (>60); Ferritin 150 ng/mL (26-388); Globulin 2.9 g/dL (2.2-4.2); Glucose 85 mg/dL (74-106); Magnesium 1.9 mg/dL (1.6-2.6); Potassium 4.3 mmol/L (3.5-5.1); Protein, Total 5.9 g/dL (6.4-8.2); Rheumatoid Factor < 10.0 IU/mL (<15); Sodium Level 136 mmol/L (136-145); Thyroid Stim Hormone (TSH) 1.95 uIU/mL (0.358-3.74); Uric Acid 7.4 mg/dL (3.5-7.2)
[2023-09-10 13:08] LABS: ANTINUCLEAR ANTIBODIES DIRECT Negative (Negative)
== END | disposition home or self-care (01) ==
LOC: MFPLAB 09:26
PROVIDERS: PCP Family Medicine; Visit Provider Family Medicine
DX: M79.10 Myalgia, unspecified site (principal); M25.40 Effusion, unspecified joint; I65.23 Occlusion and stenosis of bilateral carotid arteries
CPT/HCPCS: 36415; 80053; 82550; 82728; 83735; 84443; 84550; 85652; 86038; 86431

== ENCOUNTER → 2023-09-24 | Outpatient (CLI) | payer MEDICARE, OTHER, SELFPAY ==
[2023-09-24 14:03] LABS: PSA,Total - Annual Screen 0.34 ng/mL (0.00-4.00)
== END | disposition home or self-care (01) ==
LOC: MFPLAB 10:52
PROVIDERS: PCP Family Medicine; Visit Provider Family Medicine
DX: Z12.5 Encounter for screening for malignant neoplasm of prostate (principal)
CPT/HCPCS: 36415; 84153; G0103

== ENCOUNTER 2023-10-04 07:46 | Outpatient (CLI) | payer MEDICARE, OTHER, SELFPAY | END 2023-10-04 23:59 | disposition home or self-care (01) | LOC: LAB 07:47 | PROVIDERS: PCP Family Medicine; Referring Provider Family Medicine; Visit Provider Family Medicine | DX: R53.83 Other fatigue (principal) | CPT/HCPCS: 36415; 82533 ==

== ENCOUNTER → 2023-10-13 | Outpatient (CLI) | payer MEDICARE, OTHER, SELFPAY ==
--- NOTE | 2023-10-13 08:54 | CDU_ITS ---
Reason For Study: s/p LCEA Rt. Velocities/BP Lt. Velocities/BP Prox CCA 107/19 cm/sec. Prox CCA 94/21 cm/sec. Mid CCA 83/22 cm/sec. Mid CCA 89/27 cm/sec. Dist CCA 92/20 cm/sec. Dist CCA 97/8 cm/sec. Prox ICA 185/53 cm/sec. Prox ICA 94/27 cm/sec. Mid ICA 85/27 cm/sec. Mid ICA 126/36 cm/sec. Dist ICA 64/24 cm/sec. Dist ICA 90/34 cm/sec. Rt. ICA/CCA = 2.2. Lt. ICA/CCA = 1.4. Prox ECA 84/15 cm/sec. Prox ECA 74/11 cm/sec. Rt. Vert. 67/13 cm/sec. Lt. Vert. 55/19 cm/sec. Right Extracranial There is intimal thickening but no significant atherosclerotic plaque noted in the right common carotid artery. There is heterogeneous, irregular atherosclerotic plaque noted in the right internal carotid artery. There is intimal thickening but no significant atherosclerotic plaque noted in the right external carotid artery. Antegrade flow is noted in the right vertebral artery. Left Extracranial There is heterogeneous, irregular atherosclerotic plaque noted in the left common carotid artery. There is intimal thickening but no significant atherosclerotic plaque noted in the left internal carotid artery. There is intimal thickening but no significant atherosclerotic plaque noted in the left external carotid artery. Antegrade flow is noted in the left vertebral artery. VL/Carotid Duplex Ultrasound Interpretation Summary Moderate (50-69%) stenosis right extracranial internal carotid. Normal left extracranial internal carotid. Patent and antegrade vertebrals bilaterally. Ordering Physician: Jacey Roblero Referring Physician: Jose E Ace Performed By: Naa Fountain, IVANIA, RVT
== END | disposition home or self-care (01) ==
LOC: CVS 08:52
PROVIDERS: PCP Family Medicine; Visit Provider Physician Assistant
DX: I65.22 Occlusion and stenosis of left carotid artery (principal)
CPT/HCPCS: 93880

== ENCOUNTER → 2023-12-03 | Outpatient (CLI) | payer MEDICARE, OTHER, SELFPAY ==
--- NOTE | 2023-12-03 16:45 | RAD_ITS ---
EXAM: XR LUMBOSACRAL SPINE, 4 OR 5 VIEWS CLINICAL INDICATION: DDD TECHNIQUE: Frontal, lateral and bilateral oblique views of the lumbar spine. COMPARISON: MRI November 02, 2020 FINDINGS: VERTEBRAE: Similar appearance minimal straightening of the usual lordotic curvature and multilevel spondylosis and mild disc space narrowing at multiple levels, most pronounced at L4-5 and L5-S1. No visible spondylolisthesis. Mild decreased height of lower thoracic body levels. Preserved vertebral body height. No fracture. No significant facet arthropathy. DISC SPACES: See above. GASTROINTESTINAL TRACT: Unremarkable as visualized. Included bowel gas pattern is non-obstructive. RAD/L/S Spine Min 4 Views IMPRESSION: Multilevel degenerative changes appear similar to MRI 2020. Electronically Signed: Sarika Blanchard MD at 3:23 EDT ,
== END | disposition home or self-care (01) ==
LOC: RAD 16:28
PROVIDERS: PCP Family Medicine; Referring Provider Anesthesiology Pain Medicine; Visit Provider Anesthesiology Pain Medicine
DX: M51.36 Other intervertebral disc degeneration, lumbar region (principal)
CPT/HCPCS: 72110

== ENCOUNTER → 2023-12-11 | Outpatient (CLI) | payer MEDICARE, OTHER, SELFPAY ==
[2023-12-11 11:55] LABS: Absolute Lymphocyte Count 2.18 X10^3/uL (0.83-4.51); Absolute Neutrophil Count 8.7 X10^3/uL (2.0-7.7); Basophil# 0.06 X10^3/uL; Basophil% 0.3 % (0-1); Eosinophil# 10.17 X10^3/uL; Eosinophils% 46.5 % (0-5); Hematocrit 42.2 % (40-54); Hemoglobin 13.5 g/dL (13.0-16.5); Lymphocyte # 2.18 X10^3/ul (0.83-4.51); Mean Corpuscular Hgb 29.9 pg (27.0-32.0); Mean Corpuscular Volume 93.6 fL (80-94); Mean Platelet Vol. 10.9 fl (6.2-12.0); Monocyte% 3.2 % (0-10); NRBC Flagged by Analyzer 0 % (0-5); Neutrophil # 8.68 X10^3/uL (2.7-7.7); Neutrophil % 39.6 % (47-70); POSITIVE DIFFERENTIAL YES; POSITIVE MORPHOLOGY YES; Platelet Count 370 K/mm3 (150-450); RBC Distribution Width SD 47.8 fl (35.1-43.9); Red Blood Count 4.51 M/mm3 (4.6-6.2); White Blood Count 21.9 K/mm3 (4.4-11.0)
[2023-12-11 11:59] LABS: Differential Indicated SCAN CRITERIA MET
[2023-12-12 12:09] LABS: Pathologist Review Reviewed
== END | disposition home or self-care (01) ==
LOC: MFPLAB 09:05
PROVIDERS: PCP Family Medicine; Visit Provider Family Medicine
DX: D72.829 Elevated white blood cell count, unspecified (principal)
CPT/HCPCS: 36415; 85025

== ENCOUNTER 2023-12-15 10:12 | Inpatient (IN) | payer MEDICARE, OTHER, SELFPAY ==
[2023-12-15] VITALS (28 sets, daily range): BP systolic 66–185; BP diastolic 51–119; PULSE 60–117; RESP 16–24; TEMP 36.4–37.4; O2SAT 91–100; BMI 25.3; BMI 27.2
--- NOTE | 2023-12-15 10:28 | EKG12_ITS ---
Test Reason : SOB Blood Pressure : / mmHG Vent. Rate : 094 BPM Atrial Rate : 094 BPM P-R Int : 184 ms QRS Dur : 062 ms QT Int : 354 ms P-R-T Axes : 022 041 041 degrees QTc Int : 442 ms Sinus rhythm with Premature supraventricular complexes and CAN NOT RULE OUT Septal infarct (cited o n or before 13-DEC-2022) Abnormal ECG Confirmed by Celestino Gomez ([id number]), supervising editor news reel [id number] [email or web address] ([id number]) on 12/17/2023 8:16:55 AM Referred By: NANNETTE/ALFONSO Confirmed By:Celestino Gomez
--- NOTE | 2023-12-15 11:00 | RAD_ITS ---
STUDY: X-RAY CHEST REASON FOR EXAM: Male, 73 years old. TUBE PLACEMENT -- #2 TECHNIQUE: Single AP portable view of the chest. COMPARISON: Comparison is made with prior study done earlier today. FINDINGS: An endotracheal tube is in situ. The tip is at 4.5 cm proximal to the carol. EKG electrodes are seen. Patchy bibasilar infiltrates. There is no demonstrated pleural abnormality. Normal size heart. Normal mediastinum and xiomara. Normal visualized pulmonary arteries. Normal visualized aortic arch and descending thoracic aorta. There are diffuse degenerative changes of the visualized thoracic spine. Normal visualized ribs, clavicles, and shoulders. Gaseous distention of the stomach. RAD/Chest 1 View (Portable) IMPRESSION: The tip of the endotracheal tube is at 4.5 cm proximal to the carol. Patchy bibasilar infiltrates. Electronically Signed: Jordan Cano MD at 11:50 EDT ,
--- NOTE | 2023-12-15 11:00 | RAD_ITS ---
STUDY: X-RAY CHEST REASON FOR EXAM: Male, 73 years old. Intubation -- #1 TECHNIQUE: Single AP portable view of the chest. COMPARISON: Comparison is made with prior study dated March 24, 2023. FINDINGS: An endotracheal tube has been placed. The tip is at 6 cm proximal to the carol. EKG electrode are seen. EKG electrodes are seen. Mild areas of increased markings at the lung bases suggestive of either atelectasis and/or infiltrate. There is no demonstrated pleural abnormality. Normal size heart. Normal mediastinum and xiomara. Normal visualized pulmonary arteries. There is atherosclerotic tortuosity of the aortic arch and descending thoracic aorta. There are diffuse degenerative changes of the visualized thoracic spine. Normal visualized ribs, clavicles, and shoulders. Gaseous distention of the stomach. RAD/Chest 1 View (Portable) IMPRESSION: The tip of the endotracheal tube is at 6 times approximately carol. Increased markings at the lung bases with areas of confluent suggestive of either atelectasis and/or infiltrates. Electronically Signed: Jordan Cano MD at 11:51 EDT ,
--- NOTE | 2023-12-15 11:03 | EX.ED.CRITCA ---
HPI History of Present Illness Chief Complaint: Shortness of Breath Detail of Chief Complaint: Angioedema Informant: patient and family Onset/Context/Timing Onset: Hours (Recurrence this morning) and Weeks (1 week ago) Context: Sudden Onset Timing: Continuous Quality: Angioedema Location: Angioedema Current Severity: Moderate Maximum Severity: Moderate Worsened by: Valsartan Relieved by: Nothing Narrative Narrative: Patient is a 73-year-old male. He was on lisinopril. Lisinopril was canceled because of coughing. He is on valsartan for his blood pressure. Patient states last week he had swelling that resolved. Swelling began this morning. He is having trouble with his speech and swallowing. Patient was seen and respiratory was paged for rapid intubation. Difficult airway cart was brought to the room. History is limited due to acuity Prior similar symptoms: Yes Recent Illness/Hospitalization: No PFSH PFS Medical History Loss of hearing Wears glasses Arthritis Anemia Back pain Leg cramps History of edema History of echocardiogram Cochlear implant in place GI bleed Former smoker Sleep apnea Migraines Hypercholesterolemia Transient ischemic attack (TIA) Hyperlipidemia History of ischemic colitis HTN (hypertension) Glaucoma Home Medications ?Medication ?Instructions ?Recorded ?Last Taken ?Type hydrochlorothiazide 25 mg tablet 25 mg PO DAILY bp 06/13/14 04/14/23 History diltiazem HCl 180 mg 180 mg PO BID bp 04/24/17 04/15/23 History capsule,extended release 24 hr oxycodone-acetaminophen 5 mg-325 1 tab PO Q8H PRN Pain 04/24/17 Unknown History mg tablet aspirin 325 mg capsule 325 mg PO DAILY HEART #30 caps 03/25/23 04/14/23 Rx cetirizine 10 mg tablet (24Hour 10 mg PO DAILY ALLERGY 03/25/23 04/14/23 History Allergy) cholecalciferol (vitamin D3) 25 50 mcg PO DAILY SUPPLEMENT 03/25/23 04/14/23 History mcg (1,000 unit) capsule (Vitamin D3) coenzyme Q10 100 mg capsule (Co 100 mg PO DAILY SUPPLEMENT 03/25/23 04/14/23 History Q-10) fluticasone propionate 50 1 spray intranasal BID NASAL 03/25/23 04/15/23 History mcg/actuation nasal CONGESTION spray,suspension hydralazine 50 mg tablet 50 mg PO Q8H BP 03/25/23 04/15/23 History zptarauf-zid-gytzf acid 0.4 1 tab PO DAILY SUPPLEMENT 03/25/23 04/14/23 History mg-lycopene 300 mcg-lutein 250 mcg tablet (A Thru Z Select 50 Plus Formula) riboflavin (vitamin B2) 100 mg 200 mg PO BID SUPPELEMENT 03/25/23 04/14/23 History tablet (Vitamin B-2) rosuvastatin 10 mg tablet 10 mg PO DAILY CHOLESTEROL #30 tabs 03/25/23 04/14/23 Rx valsartan 320 mg tablet 320 mg PO DAILY BP 03/25/23 04/15/23 History oxycodone 5 mg tablet 5 mg PO Q8H PRN PRN Pain Score 04/16/23 Unknown Rx 4-10 3 days #9 tabs Allergy/AdvReac Type Severity Reaction Status Date / Time ciprofloxacin (From Cipro) Allergy Rash Verified 12/15/23 10:22 ciprofloxacin HCl (From Allergy Rash Verified 12/15/23 10:22 Cipro) ertapenem sodium (From Allergy Rash Verified 12/15/23 10:22 Invanz) hydrocodone AdvReac makes him Verified 12/15/23 10:22 crazy Family History Mother Heart disease Hypertension Father Hypertension Heart disease Surgical History Hx of facial fracture repair History of ear surgery Hx of tympanostomy History of surgery on lower extremity History of partial colectomy Social History Smoking Status: Former smoker Tobacco: How many years used: 16 second hand exposure: No alcohol intake: never substance use type: does not use seatbelt use: always ROS ROS ED Review of Systems ROS Unobtainable: other Details: Angioedema EXAM Physical Exam Const Vital Signs: 12/15/23 10:13 12/15/23 10:16 12/15/23 10:20 Temperature 97.8 F 97.9 F Temperature Source Temporal Temporal Pulse Rate 90 89 Respiratory Rate 24 H 20 H Respiratory Effort Short of Breath Respiratory Depth Normal Respiratory Pattern Tachypnea Blood Pressure 185/107 H 185/107 H Blood Pressure Mean 133 133 Pulse Ox 99 100 Oxygen Delivery Method Room Air Room Air Room Air 12/15/23 10:38 Temperature Temperature Source Pulse Rate Respiratory Rate Respiratory Effort Short of Breath Respiratory Depth Normal Respiratory Pattern Tachypnea Blood Pressure Blood Pressure Mean Pulse Ox Oxygen Delivery Method Positive well nourished and well developed General Appearance ED: well developed; Negative for NAD HEENT HEENT Narrative: Ears normal. Nares patent. Mallampati score 3 atraumatic; Negative for normocephalic or cyanosis of lips/distal nose Eyes PERRL and EOMs intact bilaterally General Eye ED: Negative for pale conjunctiva or scleral icterus Neck full ROM, no lymphadenopathy, No supple and No no JVD Neck Narrative: Patient has swelling from the mandible to the larynx. There is stridor noted. Resp Resp Narrative: Breath sounds are symmetric with no abnormal breath sounds noted. Cardio regular rate, regular rhythm, S1 normal heart sound, S2 normal heart sound and no murmurs GI non-tender, non-distended and no masses Auscultation: normoactive bowel sounds Back/Spine no CVA tenderness Neuro oriented x3 and CN's II-XII intact bilaterally Sensorium / Orientation: alert Speech: Negative for speech normal Psych Mood & Affect: anxious Skin Skin Narrative: Normal MDM MDM Radiography Chest X-Ray - ED: 1 View and Read by ED Physician (Endotracheal tube is in proper position. It is a significant distance about the carol however cannot advance because of the tube size that was used. Orogastric tube was placed as well and placement confirmed.) Procedures Other Procedures Procedure(s): Orotracheal intubation: Patient was prepped for oral. Patient was preoxygenated. Patient received 20 mg etomidate. I was unable to open the patient's mouth. He received 80 mg of succinylcholine. The glide scope was passed past the base of the tongue. Epiglottis was visualized. There is no swelling. Vocal cords are very anterior. Attempt was made and was unsuccessful. Airway team was called. Innervate LMA was placed. Attempt at fiberoptic innervation by me was unsuccessful. I was able to visualize the epiglottis but not the vocal cords. Dr. Christopher and Dr. Newton were present. Dr. Diaz took control of the bronchoscope. He was able to place a 6 endotracheal tube. With the assistance of Dr. Christopher and myself using exchange catheter the LMA was removed. The endotracheal tube placement was confirmed by Dr. Diaz. Chest x-ray reveals the endotracheal tube to be quite a distance from the carol. It is in the endotracheal tube. Critical Care Time Critical Care Time: Yes Critical care time (excluding procedures): 30-74 minutes (49 minutes), Including time spent: (History, physical, documentation, airway management), Discussing w/Patient &/or Family/Stripper Shovel Operator, Discussing w/Consultants (Hospitalist, director of resource development, curriculum and assessment director,), Arranging Admission or Transfer and Performing Direct Patient Care at Bedside (At bedside assisting fiberoptic intubation and exchange for airway management) Discharge Plan Triage Chief Complaint: Shortness of Breath ED Provider: Zaid Rogers Dx/Rx/DC Orders Clinical Impression: Angioedema, Carotid artery stenosis, Glaucoma, Elevated blood pressure reading with diagnosis of hypertension Prescriptions: No Action hydrochlorothiazide 25 MG tablet 25 mg PO DAILY Patient Comments: bp diltiazem HCl 180 MG capsule,extended release 24hr 180 mg PO BID oxycodone-acetaminophen 1 TABLET tablet 1 tab PO Q8H PRN (Reason: Pain) fluticasone propionate 50 mcg/actuation spray,suspension 1 spray INTRANASAL BID Patient Comments: SPRAY 1 SPRAY INTO EACH NOSTRIL TWICE A DAY hydralazine 50 mg tablet 50 mg PO Q8H Patient Comments: TAKE 1 TABLET BY MOUTH EVERY 8 HOURS valsartan 320 mg tablet 320 mg PO DAILY Patient Comments: TAKE 1 TABLET BY MOUTH EVERY DAY cholecalciferol (vitamin D3) [Vitamin D3] 25 mcg (1,000 unit) capsule 50 mcg PO DAILY coenzyme Q10 [Co Q-10] 100 mg capsule 100 mg PO DAILY A Thru Z Select 50Plus Formula 0.4 mg-300 mcg- 250 mcg tablet 1 tab PO DAILY cetirizine [24Hour Allergy] 10 mg tablet 10 mg PO DAILY riboflavin (vitamin B2) [Vitamin B-2] 100 mg tablet 200 mg PO BID aspirin 325 mg capsule 325 mg PO DAILY Qty: 30 0RF rosuvastatin 10 MG tablet 10 mg PO DAILY Qty: 30 2RF oxycodone 5 mg Tablet 5 mg PO Q8H PRN PRN (Reason: Pain Score 4-10) 3 Days Qty: 9 0RF Primary Care Provider: Jose E Ace Referrals: Jose E Ace MD [Primary Care Provider] - Print Language: Belarusian Disposition Disposition: Acute Care Hospital [facility]
[2023-12-15] MEDS: Propofol 10MG/Ml 1,000 MG/100 ML Bottle 4.7 MG CONT INF (11:05)
[2023-12-15] MEDS: Succinylcholine Chloride 200 MG/10 ML Vial 78 MG IV (11:07)
[2023-12-15] MEDS: Etomidate 20 MG/10 ML Vial IV (11:07)
[2023-12-15] MEDS: 0.9% Normal Saline (1000mL) 1,000 ML 150 ML IV ×2 (11:10→19:02)
[2023-12-15 11:24] LABS: Absolute Lymphocyte Count 2.71 X10^3/uL (0.83-4.51); Absolute Neutrophil Count 4.9 X10^3/uL (2.0-7.7); Basophil# 0.11 X10^3/uL; Basophil% 0.3 % (0-1); Eosinophil# 25.16 X10^3/uL; Eosinophils% 74.7 % (0-5); Hematocrit 44.1 % (40-54); Hemoglobin 14.7 g/dL (13.0-16.5); Lymphocyte # 2.71 X10^3/ul (0.83-4.51); Mean Corp Hgb Conc 33.3 g/dL (32-36); Mean Corpuscular Hgb 30.2 pg (27.0-32.0); Mean Corpuscular Volume 90.6 fL (80-94); Mean Platelet Vol. 10.8 fl (6.2-12.0); Monocyte% 2.1 % (0-10); NRBC Flagged by Analyzer 0 % (0-5); Neutrophil # 4.93 X10^3/uL (2.7-7.7); Neutrophil % 14.6 % (47-70); POSITIVE COUNT YES; POSITIVE DIFFERENTIAL YES; Platelet Count 442 K/mm3 (150-450); RBC Distribution Width CV 13.9 % (11.6-14.6); Red Blood Count 4.87 M/mm3 (4.6-6.2); White Blood Count 33.7 K/mm3 (4.4-11.0)
--- NOTE | 2023-12-15 11:27 | ED.RN ---
DR. METZ SEEN PT, CALLED FOR DIFFICULT AIRWAY CART, AND SEDATION MEDICATIONS. ETOMIDATE -20 WAS GIVEN AT 1033. SUCC 78MG GIVEN AT SAME TIME. AND 1LT OF FLUID. DR. METZ ATTEMPTED INTUBATION, PT THROAT TOO SWOLLEN. DR. METZ CALLS DIFFICULT AIRWAY TEAM. DR. WONG, AND DR. IVERSON TO BEDSIDE. DR. WONG BRONCHOSCOPES PT ADITIONAL 75 LEYDA AND 4 VERSED GIVEN AT THIS TIME. DR. WONG PLACES 6FR ET AT 26@ TEETH. STATES TO NOT MOVE PT. TO MUCH. XRAY TAKEN. FOR VERIFICATION. O2 98% ON VENTILATOR. DR. WONG AND DR. IVERSON BOTH STATE TO HOLD OFF ON OG/NG AT THIS TIME DUE TO SWELLING, AND FRAGILITY OF TUBE PLACEMENT.
[2023-12-15 11:36] LABS: Allen Test Positive; Base Excess -2 mmol/L (-2 to +2); Bicarbonate 24.6 mmol/L (22-26); Blood Gas Specimen Type ART; Mode AC; O2 Delivery Device Adult Vent; PEEP 5; PO2 106 mmHG (75-100); RR 16; SITE L Radial; SO2 97 % (95-99); Total Carbon Dioxide 26 mmol/L; pCO2 50.8 mmHg (35-45); pH 7.29 (7.35-7.45)
[2023-12-15 11:36] LABS: Differential Indicated SCAN CRITERIA MET
[2023-12-15] MEDS: Ondansetron 4 MG/2 ML Vial IV (11:36)
[2023-12-15] MEDS: dexAMETHasone 10 MG/ML Vial IV (11:36)
--- NOTE | 2023-12-15 11:37 | ED.RN ---
WBC 33.1 dr loyd notified
[2023-12-15] MEDS: fentaNYL drip 100 ML 2.5 MCG CONT INF (11:39)
[2023-12-15 12:11] LABS: Anion Gap 6 (5-15); BUN 9 mg/dL (7-18); BUN/Creat Ratio 9.4 RATIO (10-20); Calcium,Total 9.3 mg/dL (8.5-10.1); Chloride 108 mmol/L (98-107); Creatinine, Serum 0.95 mg/dL (0.70-1.30); EST Glomerular Filtration Rate 83 mL/min (>60); Est Glom Filt Rate - Afr Amer 100 mL/min (>60); Glucose 91 mg/dL (74-106); Potassium 3.7 mmol/L (3.5-5.1); Sodium Level 142 mmol/L (136-145)
--- NOTE | 2023-12-15 12:22 | EX.PCM.CONCC ---
Assessment & Plan Assessment/Plan (1) Acute respiratory failure with hypoxemia: PLAN: Plan RECOMMENDATIONS: 1. Continue assist-control mode mechanical ventilation. Wean FiO2 and PEEP to maintain saturations at or above 90%. 2. Obtain follow-up ABG. 3. Obtain and send sputum for culture. 4. Propofol and fentanyl for sedation. 5. Pepcid and Decadron as ordered. 6. Continue appropriate ICU prophylaxis. IMPRESSIONS: 1. Acute hypoxemic respiratory failure secondary to angioedema The patient presented with angioedema and impending respiratory failure with concern for reaction to valsartan. The patient was emergently intubated with fiberoptic assistance. He will be continued on assist-control mode of mechanical ventilation, pending improvement in his edema. I would recommend that we keep him highly sedated with a goal RASS of -4 over the next 24 hours. He will be continued on propofol and fentanyl for sedation. The patient has already been initiated on Pepcid and Decadron, both of which will be continued. 2. History of bilateral carotid artery stenosis/hypertension/hyperlipidemia/remote history of tobacco dependency Complicates care, management, recovery and prognosis. Hold home medications for now. Continue supportive care as noted above. TIME: 42 minutes of critical care time, inclusive of procedures, was spent addressing the patient's acute respiratory failure secondary to angioedema, review of all data and collaboration with the care team. HPI Consult Data Date of Consult: 12/15/23 HPI Narrative Reason for Consultation: Acute respiratory failure HPI Narrative: The patient is a 73-year-old male, with a history as outlined below, who presented to the emergency department on December 14 with facial swelling and swallowing difficulties, which came on rather acutely. The patient was previously on an MARTHA inhibitor, which was ultimately discontinued due to the presence of a cough. He was then transitioned to valsartan. Ultimately, and presentation, the patient was felt to be experiencing impending respiratory failure due to airway compromise. A stat airway team was paged. Initial attempts at endotracheal intubation was unsuccessful due to swelling. An intubating LMA was placed. With fiberoptic assistance, the patient was ultimately able to be intubated with a 6.0 endotracheal tube. The intubation itself was extremely difficult. The patient received supplemental IV fluid hydration along with IV steroids. He was subsequently admitted to the medical intensive care unit for further management. FORMERLY [facility] Medical History Loss of hearing Wears glasses Arthritis Anemia Back pain Leg cramps History of edema History of echocardiogram Cochlear implant in place GI bleed Former smoker Sleep apnea Migraines Hypercholesterolemia Transient ischemic attack (TIA) Hyperlipidemia History of ischemic colitis HTN (hypertension) Glaucoma Home Medications ?Medication ?Instructions ?Recorded ?Last Taken ?Type hydrochlorothiazide 25 mg tablet 25 mg PO DAILY bp 06/13/14 12/15/23 History diltiazem HCl 180 mg 180 mg PO BID bp 04/24/17 12/15/23 History capsule,extended release 24 hr oxycodone-acetaminophen 5 mg-325 1 tab PO Q8H PRN Pain 04/24/17 Unknown History mg tablet aspirin 325 mg capsule 325 mg PO DAILY HEART #30 caps 03/25/23 04/14/23 Rx cetirizine 10 mg tablet (24Hour 10 mg PO DAILY ALLERGY 03/25/23 04/14/23 History Allergy) cholecalciferol (vitamin D3) 25 50 mcg PO DAILY SUPPLEMENT 03/25/23 04/14/23 History mcg (1,000 unit) capsule (Vitamin D3) coenzyme Q10 100 mg capsule (Co 100 mg PO DAILY SUPPLEMENT 03/25/23 04/14/23 History Q-10) fluticasone propionate 50 1 spray intranasal BID NASAL 03/25/23 04/15/23 History mcg/actuation nasal CONGESTION spray,suspension hydralazine 50 mg tablet 50 mg PO Q8H BP 03/25/23 12/15/23 History wvdfycko-qrx-cfwxv acid 0.4 1 tab PO DAILY SUPPLEMENT 03/25/23 04/14/23 History mg-lycopene 300 mcg-lutein 250 mcg tablet (A Thru Z Select 50 Plus Formula) riboflavin (vitamin B2) 100 mg 200 mg PO BID SUPPELEMENT 03/25/23 04/14/23 History tablet (Vitamin B-2) rosuvastatin 10 mg tablet 10 mg PO DAILY CHOLESTEROL #30 tabs 03/25/23 04/14/23 Rx valsartan 320 mg tablet 320 mg PO DAILY BP 03/25/23 12/15/23 History albuterol sulfate 90 mcg/actuation 1 inh inhalation 4XD 12/15/23 Unknown History aerosol inhaler fluticasone 232 mcg-salmeterol 14 1 inh inhalation DAILY 12/15/23 Unknown History mcg/actuation breath activated powdr Allergy/AdvReac Type Severity Reaction Status Date / Time ciprofloxacin (From Cipro) Allergy Rash Verified 12/15/23 10:22 ciprofloxacin HCl (From Allergy Rash Verified 12/15/23 10:22 Cipro) ertapenem sodium (From Allergy Rash Verified 12/15/23 10:22 Invanz) hydrocodone AdvReac makes him Verified 12/15/23 10:22 crazy Family History Mother Heart disease Hypertension Father Hypertension Heart disease Surgical History Hx of facial fracture repair History of ear surgery Hx of tympanostomy History of surgery on lower extremity History of partial colectomy Social History Smoking Status: Former smoker Tobacco: How many years used: 16 second hand exposure: No alcohol intake: never substance use type: does not use seatbelt use: always ROS Review of Systems ROS Unobtainable: due to endotracheal tube Physical Exam Const Constitutional Narrative: Intubated, sedated and mechanically ventilated. HEENT normocephalic HEENT Narrative: Diffuse oropharyngeal swelling. Eyes EOMs intact bilaterally and conjunctivae normal Neck supple General: trachea midline Chest inspection of chest normal Resp normal respiratory effort Auscultation: Negative for rales, rhonchi or wheezes Cardio regular rate and regular rhythm GI normal to inspection, nondistended, normoactive bowel sounds Extremity no clubbing, cyanosis or edema Skin no rashes or lesions noted Neuro Sensorium / Orientation: sedated on vent Lab / Micro Data 12/15/23 10:15 12/15/23 10:15 Labs: Laboratory Results - last 24 hr 12/15/23 10:15: WBC 33.7 H*, RBC 4.87, Hgb 14.7, Hct 44.1, MCV 90.6, MCH 30.2, MCHC 33.3, RDW Std Deviation 46.0 H, RDW Coeff of Marielena 13.9, Plt Count 442, MPV 10.8, Immature Gran % (Auto) 0.300, Neut % (Auto) 14.6 L, Lymph % (Auto) 8.0 L, [place] % (Auto) 2.1, Eos % (Auto) 74.7 H, Baso % (Auto) 0.3, Absolute Neuts (auto) 4.9, Absolute Lymphs (auto) 2.71, Nucleated RBC % 0, Diff Path Review May foll, Sodium 142, Potassium 3.7, Chloride 108 H, Carbon Dioxide 28.0, Anion Gap 6, BUN 9, Creatinine 0.95, Estim Creat Clear Calc 69.00, Est GFR (MDRD) Af Amer 100, Est GFR (MDRD) Non-Af 83, BUN/Creatinine Ratio 9.4 L, Glucose 91, Calcium 9.3 ABG Data ABG results: ABG 12/15/23 11:30 Specimen Type ART Sample Site L Radial pH 7.29 L Bicarbonate Actual 24.6 Total CO2 26 Base Excess -2 O2 Saturation 97 O2 % 100.0 ABG pCO2 50.8 H ABG pO2 106 H Alvaro Test Positive Respiration Rate 16 O2 Delivery Device Adult Vent Vent Mode AC Tidal Volume 450.0 POC PEEP 5 Imaging Radiology Impression Chest X-Ray 12/15/23 11:00 IMPRESSION: The tip of the endotracheal tube is at 6 times approximately carol. Increased markings at the lung bases with areas of confluent suggestive of either atelectasis and/or infiltrates. Electronically Signed: Jordan Cano MD at 11:51 EDT , Chest X-Ray 12/15/23 11:00 IMPRESSION: The tip of the endotracheal tube is at 4.5 cm proximal to the carol. Patchy bibasilar infiltrates. Electronically Signed: Jordan Cano MD at 11:50 EDT , Charges/Coding Procedures Hospitalists Procedures: [id number] Critical Care 1st Hr
[2023-12-15] MEDS: Norepinephrine 8 MG in 0.9% Normal Saline (250mL Bag) 242 ML 9.4 MG CONT INF (13:15)
[2023-12-15] MEDS: DiphenhydrAMINE 50 MG/ML Syringe 25 MG IV ×3 (13:18→23:17)
[2023-12-15 13:24] LABS: CPK Total, Creatine Kinase 119 U/L (39-308); Triglycerides 143 mg/dL
--- NOTE | 2023-12-15 14:32 | CON.PCM_ITS ---
Assessment & Plan Assessment/Plan (1) Acute respiratory failure with hypoxemia: PLAN: Plan 73 year old with acute airway edema -severe laryngeal edema upon flexible laryngoscopy -#6 ETT placed fiberoptically and placement confirmed -to the ICU for further management HPI Consult Data Date of Consult: 12/15/23 HPI Narrative Reason for Consultation: airway code HPI Narrative: FREDY KAMARA, is a 73 M who presents with acute airway edema, potentially pharmacologically induced. he had some throat irritation, perhaps cervical lymphadenopathy vs edema yesterday. this seemed to resolve. this am, he was drinking coffee and noted difficulty swallowing secretions, phonation, etc. this worsened on the way to the ED. an LMA was placed by the ED staff but an endotracheal tube was unsucessfully placed. upon arrival, he had an intubating LMA placed with mid 90s saturations. FORMERLY [facility] Medical History Loss of hearing Wears glasses Arthritis Anemia Back pain Leg cramps History of edema History of echocardiogram Cochlear implant in place GI bleed Former smoker Sleep apnea Migraines Hypercholesterolemia Transient ischemic attack (TIA) Hyperlipidemia History of ischemic colitis HTN (hypertension) Glaucoma Home Medications ?Medication ?Instructions ?Recorded ?Last Taken ?Type hydrochlorothiazide 25 mg tablet 25 mg PO DAILY bp 06/13/14 12/15/23 History diltiazem HCl 180 mg 180 mg PO BID bp 04/24/17 12/15/23 History capsule,extended release 24 hr oxycodone-acetaminophen 5 mg-325 1 tab PO Q8H PRN Pain 04/24/17 Unknown History mg tablet aspirin 325 mg capsule 325 mg PO DAILY HEART #30 caps 03/25/23 04/14/23 Rx cetirizine 10 mg tablet (24Hour 10 mg PO DAILY ALLERGY 03/25/23 04/14/23 History Allergy) cholecalciferol (vitamin D3) 25 50 mcg PO DAILY SUPPLEMENT 03/25/23 04/14/23 History mcg (1,000 unit) capsule (Vitamin D3) coenzyme Q10 100 mg capsule (Co 100 mg PO DAILY SUPPLEMENT 03/25/23 04/14/23 History Q-10) fluticasone propionate 50 1 spray intranasal BID NASAL 03/25/23 04/15/23 History mcg/actuation nasal CONGESTION spray,suspension hydralazine 50 mg tablet 50 mg PO Q8H BP 03/25/23 12/15/23 History savtmonk-lmh-wbmoi acid 0.4 1 tab PO DAILY SUPPLEMENT 03/25/23 04/14/23 History mg-lycopene 300 mcg-lutein 250 mcg tablet (A Thru Z Select 50 Plus Formula) riboflavin (vitamin B2) 100 mg 200 mg PO BID SUPPELEMENT 03/25/23 04/14/23 History tablet (Vitamin B-2) rosuvastatin 10 mg tablet 10 mg PO DAILY CHOLESTEROL #30 tabs 03/25/23 04/14/23 Rx valsartan 320 mg tablet 320 mg PO DAILY BP 03/25/23 12/15/23 History albuterol sulfate 90 mcg/actuation 1 inh inhalation 4XD 12/15/23 Unknown History aerosol inhaler fluticasone 232 mcg-salmeterol 14 1 inh inhalation DAILY 12/15/23 Unknown History mcg/actuation breath activated powdr Allergy/AdvReac Type Severity Reaction Status Date / Time ciprofloxacin (From Cipro) Allergy Rash Verified 12/15/23 10:22 ciprofloxacin HCl (From Allergy Rash Verified 12/15/23 10:22 Cipro) ertapenem sodium (From Allergy Rash Verified 12/15/23 10:22 Invanz) hydrocodone AdvReac makes him Verified 12/15/23 10:22 crazy Family History Mother Heart disease Hypertension Father Hypertension Heart disease Surgical History Hx of facial fracture repair History of ear surgery Hx of tympanostomy History of surgery on lower extremity History of partial colectomy Social History Smoking Status: Former smoker Tobacco: How many years used: 16 second hand exposure: No alcohol intake: never substance use type: does not use seatbelt use: always Physical Exam Narrative LMA in place. sedated. Lab / Micro Data 12/15/23 10:15 12/15/23 10:15 Labs: Laboratory Results - last 24 hr 12/15/23 10:15: WBC 33.7 H*, RBC 4.87, Hgb 14.7, Hct 44.1, MCV 90.6, MCH 30.2, MCHC 33.3, RDW Std Deviation 46.0 H, RDW Coeff of Marielena 13.9, Plt Count 442, MPV 10.8, Immature Gran % (Auto) 0.300, Neut % (Auto) 14.6 L, Lymph % (Auto) 8.0 L, [place] % (Auto) 2.1, Eos % (Auto) 74.7 H, Baso % (Auto) 0.3, Absolute Neuts (auto) 4.9, Absolute Lymphs (auto) 2.71, Nucleated RBC % 0, Diff Path Review August, Sodium 142, Potassium 3.7, Chloride 108 H, Carbon Dioxide 28.0, Anion Gap 6, BUN 9, Creatinine 0.95, Estim Creat Clear Calc 69.00, Est GFR (MDRD) Af Amer 100, Est GFR (MDRD) Non-Af 83, BUN/Creatinine Ratio 9.4 L, Glucose 91, Calcium 9.3, Total Creatine Kinase 119, Triglycerides 143 ABG Data ABG results: ABG 12/15/23 11:30 Specimen Type ART Sample Site L Radial pH 7.29 L Bicarbonate Actual 24.6 Total CO2 26 Base Excess -2 O2 Saturation 97 O2 % 100.0 ABG pCO2 50.8 H ABG pO2 106 H Alvaro Test Positive Respiration Rate 16 O2 Delivery Device Adult Vent Vent Mode AC Tidal Volume 450.0 POC PEEP 5 Imaging Radiology Impression Chest X-Ray 12/15/23 11:00 IMPRESSION: The tip of the endotracheal tube is at 6 times approximately carol. Increased markings at the lung bases with areas of confluent suggestive of either atelectasis and/or infiltrates. Electronically Signed: Jordan Cano MD at 11:51 EDT , Chest X-Ray 12/15/23 11:00 IMPRESSION: The tip of the endotracheal tube is at 4.5 cm proximal to the carol. Patchy bibasilar infiltrates. Electronically Signed: Jordan Cano MD at 11:50 EDT ,
--- NOTE | 2023-12-15 14:36 | OP.PCM_ITS ---
Problems Associated Problem List Diagnoses (1) Acute respiratory failure with hypoxemia: Report of Operation Date of Procedure: 12/15/23 Pre-Operative Diagnosis: 1. airway edema 2. respiratory failure Post-Operative Diagnosis: 1. airway edema 2. respiratory failure Surgery/Procedure Performed:: 1. flexible fiberoptic laryngoscopy 2. fiberoptic endotracheal intubation Surgeon: Jose L Diaz Type of Anesthesia: General Description of Procedure: upon arrival, an intubating LMA was in place. oxygen saturation was 95%, moving good air. the flexible laryngoscope was placed into the LMA. no recognizable landmarks were seen aside from a very edematous epiglottis. the supraglottis with severe edema was nearly swollen shut. the endoscope was pushed through cord spasm with adduction. tracheal rings were seen. a loaded 6-0 endotracheal tube was advanced as deep as possible. the patient was re- oxygenated/ventilated. the fiberoptic scope was removed. a cook catheter was placed. the LMA was removed over the catheter/tube with the tube held in place. the cook catheter was removed and the scope was reintroduced. the patient had a tortuous trachea. the carol was not visualized but the end of the tube was certainly in the trachea. the tube was secured.
--- NOTE | 2023-12-15 14:53 | CHAPLAIN ---
Type of Pastoral Visit ___ Initial Visit ___ Follow-up Visit ___ On-call Visit ___ General Patient Visit ___ Spiritual Assessment ___ Family Conference ___ Bereavement _x__ Rapid Response ___ Code Blue ___ Other (describe below) Pastoral Care Referral From ___ Patient ___ Family ___ Nurse ___ Physician ___ Automobile Carpets Molder ___ Bender Helper _x__ Other (describe below) Sacrament/Intervention ___ Active listening ___ Anointing ___ Nondenominational ___ Bereavement ___ Communion ___ Nelly exploration ___ ___ Life review ___ Prayer ___ Reconciliation ___ Sacrament of Sick _x__ Supportive presence ___ Wedding ___ Other (describe below) Pastoral Comments responded to the ED where a stat airway was called; found a family member in the room as patient was being medically treated by several doctors, RT, and RNs; family member wishes to stay in the room and so this strategic account executive remained with her throughout the process until an airway was provided; the patient will be moved to ICU; later went back to this room to inquire of any further needs but none reported by family member
[2023-12-15] MEDS: Propofol 10MG/Ml 1,000 MG/100 ML Bottle 21 MG CONT INF ×2 (15:28→20:00)
[2023-12-15] MEDS: TITRATION PARAMETER CHANGE 1 EACH IV (15:29)
[2023-12-15] MEDS: fentaNYL drip 100 ML 20 MCG CONT INF ×2 (16:19→21:19)
[2023-12-15] MEDS: dexAMETHasone 4 MG/ML Vial IV ×2 (17:44→23:17)
--- NOTE | 2023-12-15 17:59 | PCM.HP.STD ---
HPI - General General Date of Admission: 12/15/23 Date of Service: 12/15/23 Chief Complaint: Facial swelling, shortness of breath HPI Narrative FREDY KAMARA, is a 73 M who presents to the emergency room at [facility] with complaints of facial swelling and extreme shortness of breath, the symptoms started this morning, patient had an episode of swelling last week that resolved on its own. Patient also complained today of having problems with speech. Patient was evaluated immediately by the emergency room physician and respiratory was paged for rapid intubation, on examination, vocal cords could not be visualized by the emergency room physician, airway team was called and pulmonary medicine and ENT arrived, ENT was able to intubate the patient with a #6 endotracheal tube. The cause of the patient's airway compromise was felt to be due to valsartan which the patient was taking for hypertension. Labs were obtained on the patient, his white blood cell count was elevated at 33.7, chemistry profile was unremarkable. Patient was transferred to ICU for further care, he will receive IV corticosteroids and IV Benadryl as well as aerosol treatments. [facility] Medical History Loss of hearing Wears glasses Arthritis Anemia Back pain Leg cramps History of edema History of echocardiogram Cochlear implant in place GI bleed Former smoker Sleep apnea Migraines Hypercholesterolemia Transient ischemic attack (TIA) Hyperlipidemia History of ischemic colitis HTN (hypertension) Glaucoma Home Medications ?Medication ?Instructions ?Recorded ?Last Taken ?Type hydrochlorothiazide 25 mg tablet 25 mg PO DAILY bp 06/13/14 12/15/23 History diltiazem HCl 180 mg 180 mg PO BID bp 04/24/17 12/15/23 History capsule,extended release 24 hr oxycodone-acetaminophen 5 mg-325 1 tab PO Q8H PRN Pain 04/24/17 Unknown History mg tablet aspirin 325 mg capsule 325 mg PO DAILY HEART #30 caps 03/25/23 04/14/23 Rx cetirizine 10 mg tablet (24Hour 10 mg PO DAILY ALLERGY 03/25/23 04/14/23 History Allergy) cholecalciferol (vitamin D3) 25 50 mcg PO DAILY SUPPLEMENT 03/25/23 04/14/23 History mcg (1,000 unit) capsule (Vitamin D3) coenzyme Q10 100 mg capsule (Co 100 mg PO DAILY SUPPLEMENT 03/25/23 04/14/23 History Q-10) fluticasone propionate 50 1 spray intranasal BID NASAL 03/25/23 04/15/23 History mcg/actuation nasal CONGESTION spray,suspension hydralazine 50 mg tablet 50 mg PO Q8H BP 03/25/23 12/15/23 History illnlnlj-owx-gkfvr acid 0.4 1 tab PO DAILY SUPPLEMENT 03/25/23 04/14/23 History mg-lycopene 300 mcg-lutein 250 mcg tablet (A Thru Z Select 50 Plus Formula) riboflavin (vitamin B2) 100 mg 200 mg PO BID SUPPELEMENT 03/25/23 04/14/23 History tablet (Vitamin B-2) rosuvastatin 10 mg tablet 10 mg PO DAILY CHOLESTEROL #30 tabs 03/25/23 04/14/23 Rx valsartan 320 mg tablet 320 mg PO DAILY BP 03/25/23 12/15/23 History albuterol sulfate 90 mcg/actuation 1 inh inhalation 4XD 12/15/23 Unknown History aerosol inhaler fluticasone 232 mcg-salmeterol 14 1 inh inhalation DAILY 12/15/23 Unknown History mcg/actuation breath activated powdr Allergy/AdvReac Type Severity Reaction Status Date / Time ciprofloxacin (From Cipro) Allergy Rash Verified 12/15/23 10:22 ciprofloxacin HCl (From Allergy Rash Verified 12/15/23 10:22 Cipro) ertapenem sodium (From Allergy Rash Verified 12/15/23 10:22 Invanz) hydrocodone AdvReac makes him Verified 12/15/23 10:22 crazy Family History Mother Heart disease Hypertension Father Hypertension Heart disease Surgical History Hx of facial fracture repair History of ear surgery Hx of tympanostomy History of surgery on lower extremity History of partial colectomy Social History Smoking Status: Former smoker Tobacco: How many years used: 16 second hand exposure: No alcohol intake: never substance use type: does not use seatbelt use: always ROS ROS Narrative Review of systems was unobtainable due to the patient being intubated Review of Systems ROS Unobtainable: due to endotracheal tube Vital Signs Vital Signs Vital Signs: 12/15/23 10:13 12/15/23 10:16 12/15/23 10:20 Temperature 97.8 F 97.9 F Temperature Source Temporal Temporal Pulse Rate 90 89 Respiratory Rate 24 H 20 H Respiratory Effort Short of Breath Respiratory Depth Normal Respiratory Pattern Tachypnea Blood Pressure 185/107 H 185/107 H Blood Pressure Mean 133 133 Blood Pressure Source Blood Pressure Position Blood Pressure Location Pulse Ox 99 100 Oxygen Delivery Method Room Air Room Air Room Air Fraction of Inspired Oxygen (FIO2) 12/15/23 10:38 12/15/23 11:08 12/15/23 11:16 Temperature 97.8 F Temperature Source Core Pulse Rate 112 H 114 H Respiratory Rate 16 16 Respiratory Effort Short of Breath Respiratory Depth Normal Respiratory Pattern Tachypnea Blood Pressure 163/119 H Blood Pressure Mean 133 Blood Pressure Source Blood Pressure Position Blood Pressure Location Pulse Ox 94 99 Oxygen Delivery Method Mechanical Ventilator Fraction of Inspired Oxygen (FIO2) 80 12/15/23 11:16 12/15/23 11:40 12/15/23 11:47 Temperature 97.8 F 97.8 F Temperature Source Core Pulse Rate 117 H 100 Respiratory Rate 16 18 Respiratory Effort Respiratory Depth Respiratory Pattern Blood Pressure 163/119 H 132/70 H Blood Pressure Mean 133 90 Blood Pressure Source Blood Pressure Position Blood Pressure Location Pulse Ox 99 93 Oxygen Delivery Method Mechanical Ventilator Fraction of Inspired Oxygen (FIO2) 80 12/15/23 12:09 12/15/23 12:15 12/15/23 12:30 Temperature Temperature Source Pulse Rate 95 87 Respiratory Rate 24 H Respiratory Effort Mechanically Ventilated Respiratory Depth Respiratory Pattern Blood Pressure 111/79 Blood Pressure Mean 89 Blood Pressure Source Monitor Blood Pressure Position Semi-Fowlers Blood Pressure Location Left Arm Pulse Ox 94 Oxygen Delivery Method Mechanical Ventilator Fraction of Inspired Oxygen (FIO2) 80 80 12/15/23 12:30 12/15/23 12:45 12/15/23 13:00 Temperature Temperature Source Pulse Rate 91 97 87 Respiratory Rate 17 19 H 18 Respiratory Effort Respiratory Depth Respiratory Pattern Blood Pressure 86/59 L 86/68 L 66/51 L Blood Pressure Mean 68 74 56 Blood Pressure Source Monitor Monitor Monitor Blood Pressure Position Semi-Fowlers Semi-Fowlers Semi-Fowlers Blood Pressure Location Left Arm Left Arm Left Arm Pulse Ox 91 98 95 Oxygen Delivery Method Mechanical Ventilator Mechanical Ventilator Mechanical Ventilator Fraction of Inspired Oxygen (FIO2) 80 80 80 12/15/23 13:15 12/15/23 13:30 12/15/23 13:45 Temperature 99.3 F H Temperature Source Core Pulse Rate 83 75 71 Respiratory Rate 18 18 18 Respiratory Effort Respiratory Depth Respiratory Pattern Blood Pressure 76/53 L 86/61 L 86/63 L Blood Pressure Mean 60 69 70 Blood Pressure Source Monitor Monitor Monitor Blood Pressure Position Semi-Fowlers Semi-Fowlers Semi-Fowlers Blood Pressure Location Left Arm Left Arm Left Arm Pulse Ox 94 99 100 Oxygen Delivery Method Mechanical Ventilator Mechanical Ventilator Mechanical Ventilator Fraction of Inspired Oxygen (FIO2) 80 80 80 12/15/23 14:00 12/15/23 14:30 12/15/23 15:00 Temperature Temperature Source Pulse Rate 72 69 69 Respiratory Rate 18 18 18 Respiratory Effort Respiratory Depth Respiratory Pattern Blood Pressure 92/66 92/70 90/65 Blood Pressure Mean 74 77 73 Blood Pressure Source Monitor Monitor Monitor Blood Pressure Position Semi-Fowlers Semi-Fowlers Semi-Fowlers Blood Pressure Location Left Arm Left Arm Left Arm Pulse Ox 100 100 100 Oxygen Delivery Method Mechanical Ventilator Mechanical Ventilator Mechanical Ventilator Fraction of Inspired Oxygen (FIO2) 80 80 80 12/15/23 15:25 12/15/23 16:00 12/15/23 16:00 Temperature 98.7 F Temperature Source Core Pulse Rate 68 65 Respiratory Rate 18 18 Respiratory Effort Mechanically Ventilated Respiratory Depth Respiratory Pattern Blood Pressure 90/63 Blood Pressure Mean 72 Blood Pressure Source Monitor Blood Pressure Position Semi-Fowlers Blood Pressure Location Left Arm Pulse Ox 99 100 Oxygen Delivery Method Mechanical Ventilator Mechanical Ventilator Fraction of Inspired Oxygen (FIO2) 65 65 65 12/15/23 17:00 Temperature Temperature Source Pulse Rate 64 Respiratory Rate 18 Respiratory Effort Respiratory Depth Respiratory Pattern Blood Pressure 95/67 Blood Pressure Mean 76 Blood Pressure Source Monitor Blood Pressure Position Semi-Fowlers Blood Pressure Location Left Arm Pulse Ox 100 Oxygen Delivery Method Mechanical Ventilator Fraction of Inspired Oxygen (FIO2) 65 Weight Weight: 83.489 kg Body Mass Index (BMI) 27.2 Physical Exam Const Constitutional Narrative: Patient is intubated and sedated on the ventilator General Appearance: well developed HEENT normocephalic, head/scalp atraumatic and moist oral mucous membranes Eyes conjunctivae normal Neck no JVD, thyroid normal and no carotid bruits General: trachea midline Resp normal respiratory effort and clear to auscultation bilaterally Auscultation: Negative for rales, rhonchi or wheezes Cardio regular rate, regular rhythm, S1 normal heart sound, S2 normal heart sound, no murmurs, no rub and no gallops GI normal to inspection, nondistended, normoactive bowel sounds, soft to palpation, non-tender and non-distended Extremity no clubbing, cyanosis or edema Skin no rashes or lesions noted General Skin Exam: no breakdown Neuro Neuro Narrative: Patient is sedated and on the ventilator at this time Psych Psych Narrative: Patient is sedated and on the ventilator Results Lab / Micro Data 12/15/23 10:15 12/15/23 10:15 Labs: Laboratory Results - last 24 hr 12/15/23 10:15: WBC 33.7 H*, RBC 4.87, Hgb 14.7, Hct 44.1, MCV 90.6, MCH 30.2, MCHC 33.3, RDW Std Deviation 46.0 H, RDW Coeff of Marielena 13.9, Plt Count 442, MPV 10.8, Immature Gran % (Auto) 0.300, Neut % (Auto) 14.6 L, Lymph % (Auto) 8.0 L, [place] % (Auto) 2.1, Eos % (Auto) 74.7 H, Baso % (Auto) 0.3, Absolute Neuts (auto) 4.9, Absolute Lymphs (auto) 2.71, Nucleated RBC % 0, Diff Path Review August, Sodium 142, Potassium 3.7, Chloride 108 H, Carbon Dioxide 28.0, Anion Gap 6, BUN 9, Creatinine 0.95, Estim Creat Clear Calc 69.00, Est GFR (MDRD) Af Amer 100, Est GFR (MDRD) Non-Af 83, BUN/Creatinine Ratio 9.4 L, Glucose 91, Calcium 9.3, Total Creatine Kinase 119, Triglycerides 143 Micro: Microbiology 12/15/23 11:19 Sputum, Induced/Lukens Gram Stain - Final ABG Data ABG results: ABG 12/15/23 11:30 Specimen Type ART Sample Site L Radial pH 7.29 L Bicarbonate Actual 24.6 Total CO2 26 Base Excess -2 O2 Saturation 97 O2 % 100.0 ABG pCO2 50.8 H ABG pO2 106 H Alvaro Test Positive Respiration Rate 16 O2 Delivery Device Adult Vent Vent Mode AC Tidal Volume 450.0 POC PEEP 5 Imaging Radiology Impression Chest X-Ray 12/15/23 11:00 IMPRESSION: The tip of the endotracheal tube is at 6 times approximately carol. Increased markings at the lung bases with areas of confluent suggestive of either atelectasis and/or infiltrates. Electronically Signed: Jordan Cano MD at 11:51 EDT , Chest X-Ray 12/15/23 11:00 IMPRESSION: The tip of the endotracheal tube is at 4.5 cm proximal to the carol. Patchy bibasilar infiltrates. Electronically Signed: Jordan Cano MD at 11:50 EDT , Assessment & Plan Assessment/Plan (1) Acute respiratory failure with hypoxemia: PLAN: Plan 1. Acute hypoxic respiratory failure secondary to angioedema-patient will be continued on IV Decadron, he will receive IV Benadryl and aerosol treatments #2 essential hypertension-patient's blood pressure is under control at this time, blood pressure will be monitored, he may need IV medication such as Trandate or Apresoline for blood pressure #3 hyperlipidemia-patient's Crestor will be held at this time #4 leukocytosis-etiology unclear at this point, patient does not appear to have an infection, CBC will be monitored Total clinical time spent by myself addressing the patient's medical issues, reviewing all of his data, and collaborating with patient's care team: 55 minutes Charges/Coding Visit Charges Inpatient E&M: 70535 Init Hosp L2
[2023-12-15] MEDS: Albuterol 2.5 MG/3 ML VIAL.NEB. INHALATION (19:54)
[2023-12-15] MEDS: Heparin Injection (Vial) 5,000 UNIT/ML VIAL 5000 UNIT SC (20:42)
[2023-12-15] MEDS: Famotidine 200 MG/20 ML MDV 20 MG in 0.9% Normal Saline (Pres. free 8 ML 300 MG IV (20:43)
[2023-12-16] VITALS (55 sets, daily range): BP systolic 83–147; BP diastolic 47–78; PULSE 57–75; RESP 11–18; TEMP 36.2–36.6; O2SAT 93–100; BMI 27.4
[2023-12-16] MEDS: Propofol 10MG/Ml 1,000 MG/100 ML Bottle 21 MG CONT INF ×5 (00:46→22:40)
[2023-12-16] MEDS: Albuterol 2.5 MG/3 ML VIAL.NEB. INHALATION ×4 (01:05→19:00)
[2023-12-16] MEDS: 0.9% Normal Saline (1000mL) 1,000 ML 150 ML IV ×4 (01:41→20:56)
[2023-12-16 01:57] LABS: Absolute Neutrophil Count 13.3 X10^3/uL (2.0-7.7); Basophil# 0.05 X10^3/uL; Basophil% 0.3 % (0-1); Eosinophil# 2.64 X10^3/uL; Eosinophils% 14.2 % (0-5); Hemoglobin 13.1 g/dL (13.0-16.5); Lymphocyte % 11.3 % (19-41); Mean Corp Hgb Conc 32.8 g/dL (32-36); Mean Corpuscular Hgb 29.8 pg (27.0-32.0); Mean Corpuscular Volume 91.1 fL (80-94); Monocyte# 0.34 X10^3/uL; Monocyte% 1.8 % (0-10); NRBC Flagged by Analyzer 0 % (0-5); Neutrophil # 13.33 X10^3/uL (2.7-7.7); Neutrophil % 71.4 % (47-70); POSITIVE DIFFERENTIAL YES; Platelet Count 456 K/mm3 (150-450); RBC Distribution Width CV 13.9 % (11.6-14.6); RBC Distribution Width SD 46.3 fl (35.1-43.9); Red Blood Count 4.39 M/mm3 (4.6-6.2); White Blood Count 18.7 K/mm3 (4.4-11.0)
[2023-12-16 02:17] LABS: Differential Indicated SCAN CRITERIA MET
[2023-12-16] MEDS: fentaNYL drip 100 ML 20 MCG CONT INF (02:19)
[2023-12-16 02:20] LABS: Anion Gap 10 (5-15); BUN 15 mg/dL (7-18); BUN/Creat Ratio 14.9 RATIO (10-20); Calcium,Total 8.4 mg/dL (8.5-10.1); Chloride 110 mmol/L (98-107); Creatinine, Serum 1.01 mg/dL (0.70-1.30); EST Glomerular Filtration Rate 77 mL/min (>60); Est Glom Filt Rate - Afr Amer 94 mL/min (>60); Estimated Creatinine Clearance 70.63 ml/min; Glucose 184 mg/dL (74-106); Potassium 3.7 mmol/L (3.5-5.1); Sodium Level 142 mmol/L (136-145)
[2023-12-16 03:20] LABS: Differential Comment SCANNED
[2023-12-16] MEDS: DiphenhydrAMINE 50 MG/ML Syringe 25 MG IV ×4 (05:08→23:09)
[2023-12-16] MEDS: dexAMETHasone 4 MG/ML Vial IV ×4 (05:09→23:09)
[2023-12-16] MEDS: fentaNYL drip 100 ML 15 MCG CONT INF ×3 (08:09→20:57)
[2023-12-16] MEDS: Heparin Injection (Vial) 5,000 UNIT/ML VIAL 5000 UNIT SC ×2 (10:14→20:57)
[2023-12-16] MEDS: Famotidine 200 MG/20 ML MDV 20 MG in 0.9% Normal Saline (Pres. free 8 ML 300 MG IV ×2 (10:15→20:56)
--- NOTE | 2023-12-16 10:15 | CASEMGMT ---
ROSIE CM Face to Face with daughter in law, Connie, for initial transition planning/care coordination assessment. RN CM introduced self and role at [facility]. Patient lying in bed, resting quitely, currently intubated and unable to participate in assessment. Connie willing to participate in assessment and is able to answer all questions appropriately. Care providers, pharmacy, and demographics verified. Strata: 2 PCP: Db Specialists: New hematology and logger all round referrals Preferred Pharmacy: [facility] Insurance: [place] Prescription Benefit: yes Living Will/HPOA: none LNOK: son, daughter in law Living Arrangements: Patient lives alone in a single story home with no steps to enter. Patient was independent at home. Lives next door to son and daughter in law. Transportation: self, family DME/HHC: Patient has cpap at home. No previous HHC or SNF Family wishes for patient to return home at discharge. Will monitor course of treatment and progress with therapy for safe deposition at discharge. Daughter in law states she has no further needs or concerns at this time. CM to follow for discharge planning needs that may arise. Disposition Plan: TBD, pending course of treatment and progress with therapy. Argenis MATTSON, RN, CM
[2023-12-16] MEDS: Propofol 10MG/Ml 1,000 MG/100 ML Bottle 18.6 MG CONT INF (10:16)
--- NOTE | 2023-12-16 11:17 | PN.CC_ITS ---
Assessment & Plan Assessment/Plan (1) Acute respiratory failure with hypoxemia: PLAN: Plan RECOMMENDATIONS: 1. Continue assist-control mode mechanical ventilation. Wean FiO2 and PEEP to maintain saturations at or above 90%. 2. Propofol and fentanyl for sedation. 3. Pepcid and Decadron as ordered. 4. Continue appropriate ICU prophylaxis. 5. Check airleak and perform spontaneous breathing trial in the morning. IMPRESSIONS: 1. Acute hypoxemic respiratory failure secondary to angioedema The patient presented with angioedema and impending respiratory failure with concern for reaction to valsartan. The patient was emergently intubated with fiberoptic assistance. He will be continued on assist-control mode of mechanical ventilation, pending improvement in his edema. I would recommend that we keep him highly sedated with a goal RASS of -4 for now. He will be continued on propofol and fentanyl for sedation. The patient will be continued on Pepcid and Decadron. 2. History of bilateral carotid artery stenosis/hypertension/hyperlipidemia/remote history of tobacco dependency Complicates care, management, recovery and prognosis. Hold home medications for now. Continue supportive care as noted above. TIME: 33 minutes of critical care time, inclusive of procedures, was spent addressing the patient's acute respiratory failure secondary to angioedema, review of all data and collaboration with the care team. Subjective Subjective The patient was seen and examined at the bedside this morning. Events from the last 24 hours have been reviewed. The patient is currently afebrile and maintaining appropriate oxygen saturations on assist-control mode of mechanical ventilation with an FiO2 requirement of 21%. The patient continues to require Levophed at 5 mcg/min to maintain hemodynamic stability. He remains heavily sedated on propofol and fentanyl. White count has improved to 18,000. Objective Data Objective Data The patient's most recent lab work, culture data and imaging studies have all been personally reviewed. Sputum culture is pending. Vital Signs: Vital Signs Temp Pulse Resp BP Pulse Ox O2 Del Method FiO2 97.3 F L 62 11 L 124/67 H 94 Mechanical Ventilator 12/16/23 08:00 12/16/23 11:12/16/23 11:12/16/23 11:00 12/16/23 11:00 12/16/23 11:12/16/23 11:00 Oxygen Delivery Method Mechanical Ventilator Weight: 185 lb 3.013 oz Body Mass Index (BMI) 27.4 Intake & Output: Intake and Output for Last 24 Hours 12/14/23 12/15/23 12/16/23 23:59 23:59 23:59 Intake Total 1535.12 / 1585.52 2947.76 / 2947.76 Output Total 625 / 625 400 / 400 Balance 910.12 / 960.52 2547.76 / 2547.76 Lab / Micro Data Attestation: I reviewed the patient's lab results. 12/16/23 01:45 12/16/23 01:45 Labs: Laboratory Results - last 24 hr 12/15/23 10:15: WBC 33.7 H*, RBC 4.87, Hgb 14.7, Hct 44.1, MCV 90.6, MCH 30.2, MCHC 33.3, RDW Std Deviation 46.0 H, RDW Coeff of Marielena 13.9, Plt Count 442, MPV 10.8, Immature Gran % (Auto) 0.300, Neut % (Auto) 14.6 L, Lymph % (Auto) 8.0 L, [place] % (Auto) 2.1, Eos % (Auto) 74.7 H, Baso % (Auto) 0.3, Absolute Neuts (auto) 4.9, Absolute Lymphs (auto) 2.71, Nucleated RBC % 0, Diff Path Review August, Sodium 142, Potassium 3.7, Chloride 108 H, Carbon Dioxide 28.0, Anion Gap 6, BUN 9, Creatinine 0.95, Estim Creat Clear Calc 69.00, Est GFR (MDRD) Af Amer 100, Est GFR (MDRD) Non-Af 83, BUN/Creatinine Ratio 9.4 L, Glucose 91, Calcium 9.3, Total Creatine Kinase 119, Triglycerides 143 12/16/23 01:45: WBC 18.7 H, RBC 4.39 L, Hgb 13.1, Hct 40.0, MCV 91.1, MCH 29.8, MCHC 32.8, RDW Std Deviation 46.3 H, RDW Coeff of Marielena 13.9, Plt Count 456 H, MPV 10.0, Immature Gran % (Auto) 1.000 H, Neut % (Auto) 71.4 H, Lymph % (Auto) 11.3 L, [place] % (Auto) 1.8, Eos % (Auto) 14.2 H, Baso % (Auto) 0.3, Absolute Neuts (auto) 13.3 H, Absolute Lymphs (auto) 2.10, Nucleated RBC % 0, Differential Comment SCANNED, Sodium 142, Potassium 3.7, Chloride 110 H, Carbon Dioxide 22.0, Anion Gap 10, BUN 15, Creatinine 1.01, Estim Creat Clear Calc 70.63, Est GFR (MDRD) Af Amer 94, Est GFR (MDRD) Non-Af 77, BUN/Creatinine Ratio 14.9, Glucose 184 H, Calcium 8.4 L Micro: Microbiology 12/15/23 11:19 Sputum, Induced/Lukens Gram Stain - Final ABG Data ABG results: ABG 12/15/23 11:30 Specimen Type ART Sample Site L Radial pH 7.29 L Bicarbonate Actual 24.6 Total CO2 26 Base Excess -2 O2 Saturation 97 O2 % 100.0 ABG pCO2 50.8 H ABG pO2 106 H Alvaro Test Positive Respiration Rate 16 O2 Delivery Device Adult Vent Vent Mode AC Tidal Volume 450.0 POC PEEP 5 Radiography Diagnostic Testing: Radiology Impression Chest X-Ray 12/15/23 11:00 IMPRESSION: The tip of the endotracheal tube is at 6 times approximately carol. Increased markings at the lung bases with areas of confluent suggestive of either atelectasis and/or infiltrates. Electronically Signed: Jordan Cano MD at 11:51 EDT , Chest X-Ray 12/15/23 11:00 IMPRESSION: The tip of the endotracheal tube is at 4.5 cm proximal to the carol. Patchy bibasilar infiltrates. Electronically Signed: Jordan Cano MD at 11:50 EDT , Physical Exam Const Constitutional Narrative: Intubated, sedated and mechanically ventilated. HEENT normocephalic HEENT Narrative: Diffuse oropharyngeal swelling, which has improved since yesterday. Mouth: endotracheal tube in place Eyes EOMs intact bilaterally and conjunctivae normal Neck supple General: trachea midline Chest inspection of chest normal Resp normal respiratory effort Auscultation: Negative for rales, rhonchi or wheezes Cardio regular rate and regular rhythm GI normal to inspection, nondistended, normoactive bowel sounds Extremity no clubbing, cyanosis or edema Skin no rashes or lesions noted Neuro Sensorium / Orientation: sedated on vent Charges/Coding Procedures Hospitalists Procedures: 80083 Critical Care 1st Hr
[2023-12-16 13:50] LABS: Pathologist Review Reviewed
[2023-12-16] MEDS: Norepinephrine 8 MG in 0.9% Normal Saline (250mL Bag) 242 ML 5.6 MG CONT INF (14:24)
--- NOTE | 2023-12-16 14:37 | PN.HOSP_ITS ---
Reason for Visit Reason for Visit: Diagnoses Acute respiratory failure with hypoxia (12/15/23) Subjective Subjective Patient was seen and examined today, he is under sedation on the ventilator. I talked with his daughter who was in the room at the time my examination. Objective Data Objective Data Vital Signs: Vital Signs Temp Pulse Resp BP Pulse Ox O2 Del Method FiO2 97.5 F L 67 11 L 111/64 95 Mechanical Ventilator 21 12/16/23 12:00 12/16/23 14:00 12/16/23 14:00 12/16/23 14:00 12/16/23 14:00 12/16/23 14:00 12/16/23 14:00 Oxygen Delivery Method Mechanical Ventilator Weight: 84 kg Body Mass Index (BMI) 27.4 Intake & Output: Intake and Output for Last 24 Hours 12/14/23 12/15/23 12/16/23 23:59 23:59 23:59 Intake Total 1535.12 / 1585.52 3599.25 / 3599.25 Output Total 625 / 625 400 / 400 Balance 910.12 / 960.52 3199.25 / 3199.25 Lab / Micro Data 12/16/23 01:45 12/16/23 01:45 Labs: Laboratory Results - last 24 hr 12/15/23 10:15: Diff Path Review Reviewed 12/16/23 01:45: WBC 18.7 H, RBC 4.39 L, Hgb 13.1, Hct 40.0, MCV 91.1, MCH 29.8, MCHC 32.8, RDW Std Deviation 46.3 H, RDW Coeff of Marielena 13.9, Plt Count 456 H, MPV 10.0, Immature Gran % (Auto) 1.000 H, Neut % (Auto) 71.4 H, Lymph % (Auto) 11.3 L, [place] % (Auto) 1.8, Eos % (Auto) 14.2 H, Baso % (Auto) 0.3, Absolute Neuts (auto) 13.3 H, Absolute Lymphs (auto) 2.10, Nucleated RBC % 0, Differential Comment SCANNED, Sodium 142, Potassium 3.7, Chloride 110 H, Carbon Dioxide 22.0, Anion Gap 10, BUN 15, Creatinine 1.01, Estim Creat Clear Calc 70.63, Est GFR (MDRD) Af Amer 94, Est GFR (MDRD) Non-Af 77, BUN/Creatinine Ratio 14.9, Glucose 184 H, Calcium 8.4 L Micro: Microbiology 12/15/23 11:19 Sputum, Induced/Lukens Gram Stain - Final Physical Exam Const healthy appearing Constitutional Narrative: Patient is sedated and on the ventilator General Appearance: well kempt and well developed HEENT normocephalic, head/scalp atraumatic and moist oral mucous membranes Eyes PERRL, EOMs intact bilaterally and conjunctivae normal Neck no JVD and thyroid normal General: trachea midline Resp clear to auscultation bilaterally Auscultation: Negative for rales, rhonchi or wheezes Cardio regular rate, regular rhythm, S1 normal heart sound, S2 normal heart sound, no murmurs, no rub and no gallops GI normal to inspection, nondistended, normoactive bowel sounds, soft to palpation, non-tender and non-distended Extremity no clubbing, cyanosis or edema Skin no rashes or lesions noted General Skin Exam: no breakdown Neuro Neuro Narrative: Patient is sedated and on the ventilator Psych Psych Narrative: Patient is sedated and on the ventilator Assessment & Plan Assessment/Plan (1) Acute respiratory failure with hypoxemia: PLAN: Plan 1. Acute hypoxic respiratory failure secondary to angioedema-patient will be continued on IV Decadron, he will receive IV Benadryl and aerosol treatments, pulmonary medicine is participating in his care #2 essential hypertension-patient is currently on low-dose Levophed to maintain his blood pressure #3 hyperlipidemia-patient's Crestor will be held at this time #4 leukocytosis-etiology unclear at this point, patient does not appear to have an infection, CBC will be monitored Total clinical time spent by myself addressing the patient's medical issues, reviewing all of his data, and collaborating with patient's care team: 35 minutes Charges/Coding Visit Charges Inpatient E&M: 50688 Subs Hosp L2
[2023-12-17] VITALS (36 sets, daily range): BP systolic 99–155; BP diastolic 54–92; PULSE 61–88; RESP 18–23; TEMP 36.4–36.9; O2SAT 88–96; BMI 28.3
[2023-12-17] MEDS: Albuterol 2.5 MG/3 ML VIAL.NEB. INHALATION ×4 (01:00→18:46)
[2023-12-17] MEDS: Propofol 10MG/Ml 1,000 MG/100 ML Bottle 21 MG CONT INF ×2 (03:26→07:31)
[2023-12-17] MEDS: 0.9% Normal Saline (1000mL) 1,000 ML 150 ML IV ×4 (03:29→22:29)
[2023-12-17] MEDS: 0.9% Saline Lock 10 ML Syringe IV ×3 (03:29→17:25)
[2023-12-17] MEDS: fentaNYL drip 100 ML 15 MCG CONT INF (03:33)
[2023-12-17] MEDS: DiphenhydrAMINE 50 MG/ML Syringe 25 MG IV ×4 (04:55→23:08)
[2023-12-17] MEDS: dexAMETHasone 4 MG/ML Vial IV ×4 (04:55→23:08)
[2023-12-17 05:15] LABS: Absolute Lymphocyte Count 1.04 X10^3/uL (0.83-4.51); Absolute Neutrophil Count 18.7 X10^3/uL (2.0-7.7); Basophil# 0.03 X10^3/uL; Basophil% 0.1 % (0-1); Eosinophils% 2.3 % (0-5); Hematocrit 35.3 % (40-54); Hemoglobin 11.5 g/dL (13.0-16.5); Lymphocyte # 1.04 X10^3/ul (0.83-4.51); Lymphocyte % 4.8 % (19-41); Mean Corp Hgb Conc 32.6 g/dL (32-36); Mean Corpuscular Hgb 29.7 pg (27.0-32.0); Mean Corpuscular Volume 91.2 fL (80-94); Mean Platelet Vol. 10.6 fl (6.2-12.0); Monocyte% 5.5 % (0-10); NRBC Flagged by Analyzer 0 % (0-5); Neutrophil # 18.65 X10^3/uL (2.7-7.7); Neutrophil % 85.9 % (47-70); Platelet Count 320 K/mm3 (150-450); RBC Distribution Width CV 14.2 % (11.6-14.6); RBC Distribution Width SD 46.7 fl (35.1-43.9); Red Blood Count 3.87 M/mm3 (4.6-6.2); White Blood Count 21.7 K/mm3 (4.4-11.0)
[2023-12-17] MEDS: Famotidine 200 MG/20 ML MDV 20 MG in 0.9% Normal Saline (Pres. free 8 ML 300 MG IV ×2 (09:44→20:52)
[2023-12-17] MEDS: Heparin Injection (Vial) 5,000 UNIT/ML VIAL 5000 UNIT SC ×2 (09:49→20:52)
--- NOTE | 2023-12-17 10:00 | PN.CC_ITS ---
Assessment & Plan Assessment/Plan (1) Acute respiratory failure with hypoxemia: PLAN: Plan RECOMMENDATIONS: 1. Continue assist-control mode mechanical ventilation. Wean FiO2 and PEEP to maintain saturations at or above 90%. 2. Propofol and fentanyl for sedation. 3. Pepcid and Decadron as ordered. 4. At this time, plan to wean sedation back to establish a RASS of -1 to 1. 5. Continue appropriate ICU prophylaxis. 6. Plan to move forward with spontaneous breathing trial in the morning. IMPRESSIONS: 1. Acute hypoxemic respiratory failure secondary to angioedema The patient presented with angioedema and impending respiratory failure with concern for reaction to valsartan. The patient was emergently intubated with fiberoptic assistance. He will be continued on assist-control mode of mechanical ventilation, pending improvement in his edema. Given improvement noted in his swelling, we will plan to begin to wean his sedation over the course of today, with plans to move forward with a spontaneous breathing trial tomorrow morning. Pepcid and Decadron will be continued as ordered. 2. History of bilateral carotid artery stenosis/hypertension/hyperlipidemia/remote history of tobacco dependency Complicates care, management, recovery and prognosis. Hold home medications for now. Continue supportive care as noted above. TIME: 32 minutes of critical care time, inclusive of procedures, was spent addressing the patient's acute respiratory failure secondary to angioedema, review of all data and collaboration with the care team. Subjective Subjective The patient was seen and examined at the bedside this morning. Events from the last 24 hours have been reviewed. The patient is currently afebrile, hemodynamically stable and maintaining appropriate oxygen saturations on assist- control mode of mechanical ventilation with an FiO2 requirement of 28%. White count remains elevated at 21,000. No overnight issues were identified by the nursing staff. The patient did have an endotracheal tube cuff leak noted by respiratory therapy this morning. He remains heavily sedated on propofol and fentanyl. Overall, the patient's swelling is improving. Objective Data Objective Data The patient's most recent lab work, culture data and imaging studies have all been personally reviewed. Sputum culture is pending. Vital Signs: Vital Signs Temp Pulse Resp BP Pulse Ox O2 Del Method FiO2 98.4 F 68 18 155/92 H 91 Mechanical Ventilator 12/17/23 09:00 12/17/23 09:32 12/17/23 09:32 12/17/23 09:00 12/17/23 09:32 12/17/23 09:00 12/17/23 09:32 Oxygen Delivery Method Mechanical Ventilator Weight: 191 lb 1.6 oz Body Mass Index (BMI) 28.3 Intake & Output: Intake and Output for Last 24 Hours 12/15/23 12/16/23 12/17/23 23:59 23:59 23:59 Intake Total 1535.12 / 1585.52 4929.48 / 4965.48 2289.90 / 2289.90 Output Total 625 / 625 1375 / 1375 750 / 750 Balance 910.12 / 960.52 3554.48 / 3590.48 1539.90 / 1539.90 Lab / Micro Data Attestation: I reviewed the patient's lab results. 12/17/23 04:50 12/16/23 01:45 Labs: Laboratory Results - last 24 hr 12/15/23 10:15: Diff Path Review Reviewed 12/17/23 04:50: WBC 21.7 H, RBC 3.87 L, Hgb 11.5 L, Hct 35.3 L, MCV 91.2, MCH 29.7, MCHC 32.6, RDW Std Deviation 46.7 H, RDW Coeff of Marielena 14.2, Plt Count 320, MPV 10.6, Immature Gran % (Auto) 1.400 H, Neut % (Auto) 85.9 H, Lymph % (Auto) 4.8 L, [place] % (Auto) 5.5, Eos % (Auto) 2.3, Baso % (Auto) 0.1, Absolute Neuts (auto) 18.7 H, Absolute Lymphs (auto) 1.04, Nucleated RBC % 0 Micro: Microbiology 12/15/23 11:19 Sputum, Induced/Lukens Gram Stain - Final 12/15/23 11:19 Sputum, Induced/Lukens Respiratory Culture - Final ABG Data ABG results: ABG 12/15/23 11:30 Specimen Type ART Sample Site L Radial pH 7.29 L Bicarbonate Actual 24.6 Total CO2 26 Base Excess -2 O2 Saturation 97 O2 % 100.0 ABG pCO2 50.8 H ABG pO2 106 H Alvaro Test Positive Respiration Rate 16 O2 Delivery Device Adult Vent Vent Mode AC Tidal Volume 450.0 POC PEEP 5 Radiography Diagnostic Testing: Radiology Impression Chest X-Ray 12/15/23 11:00 IMPRESSION: The tip of the endotracheal tube is at 6 times approximately carol. Increased markings at the lung bases with areas of confluent suggestive of either atelectasis and/or infiltrates. Electronically Signed: Jordan Cano MD at 11:51 EDT , Chest X-Ray 12/15/23 11:00 IMPRESSION: The tip of the endotracheal tube is at 4.5 cm proximal to the carol. Patchy bibasilar infiltrates. Electronically Signed: Jordan Cano MD at 11:50 EDT , Physical Exam Const Constitutional Narrative: Intubated, sedated and mechanically ventilated. HEENT normocephalic HEENT Narrative: Improving oropharyngeal swelling Mouth: endotracheal tube in place Eyes EOMs intact bilaterally and conjunctivae normal Neck supple General: trachea midline Chest inspection of chest normal Resp normal respiratory effort Auscultation: Negative for rales, rhonchi or wheezes Cardio regular rate and regular rhythm GI normal to inspection, nondistended, normoactive bowel sounds Extremity no clubbing, cyanosis or edema Skin no rashes or lesions noted Neuro Sensorium / Orientation: sedated on vent Charges/Coding Procedures Hospitalists Procedures: 80133 Critical Care 1st Hr
--- NOTE | 2023-12-17 10:15 | NURSING ---
Fentanyl timed out on JUN, still running with adequate amount in bag. Spoke with Dr. Christopher, passed air leak test with RT, now has goal RASS of 0 to -1. Slowly weaning sedation meds to allow for SBT in 12/17 AM. Fentanyl turned down to 125 at this time.
[2023-12-17] MEDS: TITRATION PARAMETER CHANGE 1 EACH IV (10:34)
--- NOTE | 2023-12-17 11:00 | NURSING ---
Fentanyl @125 timed out on JUN, new bag not needed at this time. CPOT 0/1 charted under PRN pain assessment
--- NOTE | 2023-12-17 12:00 | NURSING ---
Fentanyl @100mcg/hr now. Timed out on JUN, bag still has ample amount. CPOT 0/1 charted under PRN pain assessment
[2023-12-17] MEDS: Propofol 10MG/Ml 1,000 MG/100 ML Bottle 18.6 MG CONT INF (12:05)
--- NOTE | 2023-12-17 12:32 | NURSING ---
Fentanyl @100mcg/hr. CPOT 0/1 under PRN Pain Assessment.
--- NOTE | 2023-12-17 13:00 | NURSING ---
New fentanyl bag not due yet. CPOT 0/1 charted under PRN pain assessment. Running at 100mcg/hr
[2023-12-17] MEDS: fentaNYL drip 100 ML 10 MCG CONT INF ×2 (14:01→23:59)
[2023-12-17] MEDS: Propofol 10MG/Ml 1,000 MG/100 ML Bottle 16.3 MG CONT INF ×2 (17:07→22:30)
--- NOTE | 2023-12-17 17:30 | PCM.PN.HOSP ---
Reason for Visit Reason for Visit: Diagnoses Acute respiratory failure with hypoxia (12/15/23) Subjective Subjective Patient was seen and examined, I talk with the patient's family was in the room today at the time my examination. He remains sedated and on ventilator at this Objective Data Objective Data Vital Signs: Vital Signs Temp Pulse Resp BP Pulse Ox O2 Del Method FiO2 98.5 F 66 18 127/69 H 93 Mechanical Ventilator 12/17/23 17:00 12/17/23 17:00 12/17/23 17:00 12/17/23 17:00 12/17/23 17:00 12/17/23 17:00 12/17/23 17:00 Oxygen Delivery Method Mechanical Ventilator Weight: 86.682 kg Body Mass Index (BMI) 28.3 Intake & Output: Intake and Output for Last 24 Hours 12/15/23 12/16/23 12/17/23 23:59 23:59 23:59 Intake Total 1535.12 / 1585.52 4929.48 / 4965.48 3399.70 / 3399.70 Output Total 625 / 625 1375 / 1375 1270 / 1270 Balance 910.12 / 960.52 3554.48 / 3590.48 2129.70 / 2129.70 Lab / Micro Data 12/17/23 04:50 12/16/23 01:45 Labs: Laboratory Results - last 24 hr 12/17/23 04:50: WBC 21.7 H, RBC 3.87 L, Hgb 11.5 L, Hct 35.3 L, MCV 91.2, MCH 29.7, MCHC 32.6, RDW Std Deviation 46.7 H, RDW Coeff of Marielena 14.2, Plt Count 320, MPV 10.6, Immature Gran % (Auto) 1.400 H, Neut % (Auto) 85.9 H, Lymph % (Auto) 4.8 L, [place] % (Auto) 5.5, Eos % (Auto) 2.3, Baso % (Auto) 0.1, Absolute Neuts (auto) 18.7 H, Absolute Lymphs (auto) 1.04, Nucleated RBC % 0 Micro: Microbiology 12/15/23 11:19 Sputum, Induced/Lukens Gram Stain - Final 12/15/23 11:19 Sputum, Induced/Lukens Respiratory Culture - Final Physical Exam Narrative healthy appearing Constitutional Narrative: Patient is sedated and on the ventilator General Appearance: well kempt and well developed HEENT normocephalic, head/scalp atraumatic and moist oral mucous membranes Eyes PERRL, EOMs intact bilaterally and conjunctivae normal Neck no JVD and thyroid normal General: trachea midline Resp clear to auscultation bilaterally Auscultation: Negative for rales, rhonchi or wheezes Cardio regular rate, regular rhythm, S1 normal heart sound, S2 normal heart sound, no murmurs, no rub and no gallops GI normal to inspection, nondistended, normoactive bowel sounds, soft to palpation, non-tender and non-distended Extremity no clubbing, cyanosis or edema Skin no rashes or lesions noted General Skin Exam: no breakdown Neuro Neuro Narrative: Patient is sedated and on the ventilator Psych Psych Narrative: Patient is sedated and on the ventilator Assessment & Plan Assessment/Plan (1) Acute respiratory failure with hypoxemia: PLAN: Plan 1. Acute hypoxic respiratory failure secondary to angioedema-patient will be continued on IV Decadron, he will receive IV Benadryl and aerosol treatments, pulmonary medicine is participating in his care, and may be possible to extubate the patient tomorrow #2 essential hypertension-patient is currently on low-dose Levophed to maintain his blood pressure #3 hyperlipidemia-patient's Crestor will be held at this time #4 leukocytosis-etiology unclear at this point, patient does not appear to have an infection, CBC will be monitored Total clinical time spent by myself addressing the patient's medical issues, reviewing all of his data, and collaborating with patient's care team: 35 minutes Charges/Coding Visit Charges Inpatient E&M: 48424 Subs Hosp L2
--- NOTE | 2023-12-17 23:27 | RAD_ITS ---
EXAM: XR CHEST, 1 VIEW CLINICAL INDICATION: increased oxygen needs TECHNIQUE: Frontal view of the chest. COMPARISON: Previous chest radiographs of 12/15/2023. FINDINGS: LUNGS AND PLEURAL SPACES: Low lung volumes. Discoid atelectasis has developed within the right mid to lower lung. The patchy right basilar opacities show mild interval improvement as compared to the prior study. On the left, focal consolidation is seen within the retrocardiac portion of the left lower lobe, more dense than on the prior study but with interval decrease in the amount of involved lung as compared to the prior study; overall, the left basilar opacities are felt to be mildly improved. Upper lungs are clear. No pneumothorax. No pleural effusion. HEART: Heart size is upper normal with normal pulmonary vasculature for technique. MEDIASTINUM: Central airways and mediastinal contour are unremarkable. BONES/JOINTS: Thoracic degenerative spurring again noted. No acute fracture. SOFT TISSUES: Unremarkable. TUBES, LINES AND DEVICES: ET tube remains in place, projected over the trachea with its tip positioned approximately 5 cm above the carol, in satisfactory position. RAD/Chest 1 View (Portable) IMPRESSION: ET tube remains in place in satisfactory position. Mild improvement of the bibasilar pulmonary infiltrates, which could be due to atelectasis and/or pneumonia. No pneumothorax. No pulmonary edema. Electronically Signed: Taj Blank MD at 1:16 EDT ,
[2023-12-17 23:44] LABS: Base Excess -4 mmol/L (-2 to +2); Bicarbonate 22.5 mmol/L (22-26); Blood Gas Specimen Type ART; Mode AC; O2 Delivery Device Adult Vent; PEEP 5; PO2 52 mmHG (75-100); RR 18; SITE L Radial; SO2 84 % (95-99); Total Carbon Dioxide 24 mmol/L; pH 7.32 (7.35-7.45)
[2023-12-18] VITALS (38 sets, daily range): BP systolic 94–172; BP diastolic 54–96; PULSE 18–107; RESP 16–24; TEMP 36.6–38.1; O2SAT 64–97; BMI 29.0
[2023-12-18] MEDS: Albuterol 2.5 MG/3 ML VIAL.NEB. INHALATION ×4 (01:51→19:08)
[2023-12-18] MEDS: 0.9% Saline Lock 10 ML Syringe IV ×3 (02:11→17:32)
[2023-12-18 02:14] LABS: Absolute Lymphocyte Count 0.78 X10^3/uL (0.83-4.51); Absolute Neutrophil Count 16.5 X10^3/uL (2.0-7.7); Basophil# 0.03 X10^3/uL; Basophil% 0.2 % (0-1); Eosinophil# 0.12 X10^3/uL; Eosinophils% 0.6 % (0-5); Hematocrit 36.6 % (40-54); Hemoglobin 11.7 g/dL (13.0-16.5); Lymphocyte # 0.78 X10^3/ul (0.83-4.51); Lymphocyte % 4.1 % (19-41); Mean Corpuscular Hgb 29.8 pg (27.0-32.0); Mean Corpuscular Volume 93.1 fL (80-94); Mean Platelet Vol. 10.3 fl (6.2-12.0); Monocyte% 6.9 % (0-10); NRBC Flagged by Analyzer 0 % (0-5); Neutrophil # 16.53 X10^3/uL (2.7-7.7); Neutrophil % 87.1 % (47-70); Platelet Count 281 K/mm3 (150-450); RBC Distribution Width CV 14.3 % (11.6-14.6); RBC Distribution Width SD 48.9 fl (35.1-43.9); Red Blood Count 3.93 M/mm3 (4.6-6.2)
[2023-12-18] MEDS: Vancomycin HCl 2,000 MG in 0.9% Normal Saline (500mL Bag) 500 ML 250 MG IV (02:29)
[2023-12-18 02:32] LABS: Anion Gap 5 (5-15); BUN 29 mg/dL (7-18); BUN/Creat Ratio 34.8 RATIO (10-20); Calcium,Total 8.2 mg/dL (8.5-10.1); Chloride 116 mmol/L (98-107); Creatinine, Serum 0.83 mg/dL (0.70-1.30); EST Glomerular Filtration Rate 96 mL/min (>60); Est Glom Filt Rate - Afr Amer 117 mL/min (>60); Estimated Creatinine Clearance 87.42 ml/min; Glucose 113 mg/dL (74-106); Sodium Level 145 mmol/L (136-145)
--- NOTE | 2023-12-18 02:40 | PCM.RX.CS ---
Consult Antibiotic Management Pharmacy has been consulted to manage selected antibiotic: Vancomycin Type of Intervention Type of Consult: New start Labs Labs: Sodium 145 mmol/L (136-145) 12/18/23 02:05 Potassium 4.0 mmol/L (3.5-5.1) 12/18/23 02:05 Chloride 116 mmol/L (98-107) H 12/18/23 02:05 Carbon Dioxide 24.0 mmol/L (21.0-32.0) 12/18/23 02:05 Anion Gap 5 (5-15) 12/18/23 02:05 BUN 29 mg/dL (7-18) H 12/18/23 02:05 Creatinine 0.83 mg/dL (0.70-1.30) 12/18/23 02:05 Est GFR (MDRD) Af Amer 117 mL/min (>60) 12/18/23 02:05 Est GFR (MDRD) Non-Af 96 mL/min (>60) 12/18/23 02:05 BUN/Creatinine Ratio 34.8 RATIO (10-20) H 12/18/23 02:05 Glucose 113 mg/dL (74-106) H 12/18/23 02:05 Microbiology Microbiology: Microbiology 12/15/23 11:19 Sputum, Induced/Lukens Gram Stain - Final 12/15/23 11:19 Sputum, Induced/Lukens Respiratory Culture - Final Dosing Weight Weight used for dosin.7 kg Estimated Creatinine Clearance Estimated Creatinine Clearance: 87 Goal Trough Goal Trough: 15-20 mcg/mL Pharmacy Plan for Drug Dosing Pharmacy Plan for Drug Dosing: Pharmacy Service will continue to monitor and adjust dosing as required. Follow-Up Labs Follow-Up Labs: Trough: Vancomycin Date/Time Labs Ordered Labs to be done on [date and time ordered]: 12/19/23 @1400
[2023-12-18] MEDS: Propofol 10MG/Ml 1,000 MG/100 ML Bottle 18.6 MG CONT INF ×2 (03:00→06:52)
[2023-12-18] MEDS: hydrALAZINE 20 MG/ML Vial 10 MG IV (05:29)
[2023-12-18] MEDS: Piperacil/Tazobactam 3.375 GM in 0.9% Normal Saline (50mL MB+) 50 ML IV ×3 (05:30→20:36)
[2023-12-18] MEDS: dexAMETHasone 4 MG/ML Vial IV ×4 (05:30→23:31)
[2023-12-18] MEDS: DiphenhydrAMINE 50 MG/ML Syringe 25 MG IV (05:30)
[2023-12-18] MEDS: 0.9% Normal Saline (1000mL) 1,000 ML 150 ML IV (05:37)
--- NOTE | 2023-12-18 06:09 | PN.CC_ITS ---
Assessment & Plan Assessment/Plan (1) Acute respiratory failure with hypoxemia: PLAN: Plan RECOMMENDATIONS: 1. Continue assist-control mode mechanical ventilation. Wean FiO2 and PEEP to maintain saturations at or above 90%. 2. In light of worsening hypoxemia, will obtain CTA chest. 3. Continue current sedation regimen. 4. Discontinue Benadryl. Okay to continue Pepcid and Decadron for now. 5. Continue empiric antimicrobials. 6. Continue appropriate ICU prophylaxis. 7. Place OG tube to facilitate tube feeding. IMPRESSIONS: 1. Acute hypoxemic respiratory failure secondary to angioedema The patient presented with angioedema and impending respiratory failure with concern for reaction to valsartan. The patient was emergently intubated with fiberoptic assistance. The patient was stable from a respiratory perspective for 48 hours, with improvement in his angioedema with Pepcid and Decadron. However, on the morning of December 17, he acutely decompensated from a respiratory perspective with increasing FiO2 and PEEP, of unclear etiology. The patient's current oxygen requirement seems out of proportion to the findings noted on plain film chest x-ray. Therefore, will obtain CTA chest for further evaluation. In the interim, the patient will be continued on empiric antibiotics. 2. History of bilateral carotid artery stenosis/hypertension/hyperlipidemia/remote history of tobacco dependency Complicates care, management, recovery and prognosis. Hold home medications for now. Continue supportive care as noted above. Recommend placing OG tube to facilitate tube feeding. TIME: 35 minutes of critical care time, inclusive of procedures, was spent addressing the patient's acute respiratory failure secondary to angioedema, review of all data and collaboration with the care team. Subjective Subjective The patient was seen and examined at the bedside this morning. Events from the last 24 hours have been reviewed. Overnight, the patient was rolled by nursing staff and subsequently developed worsening hypoxemia. In fact, the patient went from having an FiO2 requirement of 28% to an increase of 75%. His PEEP was also increased. Chest x-ray demonstrated atelectasis along with a consolidation in the left lower lobe. The patient was subsequently placed on antimicrobials. The patient is currently afebrile and hemodynamically stable. White count remains elevated at 19,000. Chemistry profile was unremarkable. The patient remains sedated on fentanyl and propofol. The patient once again had a positive cuff leak noted this morning. Objective Data Objective Data The patient's most recent lab work, culture data and imaging studies have all been personally reviewed. Sputum culture has not demonstrated any growth to date. Vital Signs: Vital Signs Temp Pulse Resp BP Pulse Ox O2 Del Method FiO2 97.9 F 74 18 163/79 H 97 Mechanical Ventilator 75 12/18/23 04:00 12/18/23 05:29 12/18/23 05:00 12/18/23 05:29 12/18/23 05:00 12/18/23 05:00 12/18/23 05:00 Oxygen Delivery Method Mechanical Ventilator Weight: 196 lb 6 oz Body Mass Index (BMI) 29.0 Intake & Output: Intake and Output for Last 24 Hours 12/16/23 12/17/23 12/18/23 23:59 23:59 23:59 Intake Total 4929.48 / 4965.48 4577.12 / 4581.94 1716.42 / 1716.42 Output Total 1375 / 1375 1680 / 1680 450 / 450 Balance 3554.48 / 3590.48 2897.12 / 2901.94 1266.42 / 1266.42 Lab / Micro Data Attestation: I reviewed the patient's lab results. 12/18/23 02:05 12/18/23 02:05 Labs: Laboratory Results - last 24 hr 12/18/23 02:05: WBC 19.0 H, RBC 3.93 L, Hgb 11.7 L, Hct 36.6 L, MCV 93.1, MCH 29.8, MCHC 32.0, RDW Std Deviation 48.9 H, RDW Coeff of Marielena 14.3, Plt Count 281, MPV 10.3, Immature Gran % (Auto) 1.100 H, Neut % (Auto) 87.1 H, Lymph % (Auto) 4.1 L, [place] % (Auto) 6.9, Eos % (Auto) 0.6, Baso % (Auto) 0.2, Absolute Neuts (auto) 16.5 H, Absolute Lymphs (auto) 0.78 L, Nucleated RBC % 0, Sodium 145, Potassium 4.0, Chloride 116 H, Carbon Dioxide 24.0, Anion Gap 5, BUN 29 H, Creatinine 0.83, Estim Creat Clear Calc 87.42, Est GFR (MDRD) Af Amer 117, Est GFR (MDRD) Non-Af 96, BUN/Creatinine Ratio 34.8 H, Glucose 113 H, Calcium 8.2 L Micro: Microbiology 12/15/23 11:19 Sputum, Induced/Lukens Gram Stain - Final 12/15/23 11:19 Sputum, Induced/Lukens Respiratory Culture - Final ABG Data ABG results: ABG 12/17/23 23:40 Specimen Type ART Sample Site L Radial pH 7.32 L Bicarbonate Actual 22.5 Total CO2 24 Base Excess -4 L O2 Saturation 84 L O2 % 50.0 ABG pCO2 44.0 ABG pO2 52 L Alvaro Test N/A Respiration Rate 18 O2 Delivery Device Adult Vent Vent Mode AC Tidal Volume 450.0 POC PEEP 5 Radiography Diagnostic Testing: Radiology Impression Chest X-Ray 12/17/23 23:27 IMPRESSION: ET tube remains in place in satisfactory position. Mild improvement of the bibasilar pulmonary infiltrates, which could be due to atelectasis and/or pneumonia. No pneumothorax. No pulmonary edema. Electronically Signed: Taj Blank MD at 1:16 EDT , Physical Exam Const Constitutional Narrative: Intubated, sedated and mechanically ventilated. HEENT normocephalic HEENT Narrative: Improving oropharyngeal swelling Mouth: endotracheal tube in place Eyes EOMs intact bilaterally and conjunctivae normal Neck supple General: trachea midline Chest inspection of chest normal Resp normal respiratory effort Auscultation: diminished lung sounds; Negative for rales, rhonchi or wheezes Cardio regular rate and regular rhythm GI normal to inspection, nondistended, normoactive bowel sounds Extremity no clubbing, cyanosis or edema Skin no rashes or lesions noted Neuro Sensorium / Orientation: sedated on vent Charges/Coding Procedures Hospitalists Procedures: [id number] Critical Care 1st Hr
[2023-12-18 07:03] LABS: Base Excess -4 mmol/L (-2 to +2); Blood Gas Specimen Type ART; Mode AC; O2 Delivery Device Adult Vent; PEEP 5; PO2 68 mmHG (75-100); RR 18; SITE L Radial; SO2 92 % (95-99); Total Carbon Dioxide 23 mmol/L; pCO2 41.2 mmHg (35-45); pH 7.34 (7.35-7.45)
[2023-12-18] MEDS: fentaNYL drip 100 ML 15 MCG CONT INF ×2 (09:16→15:35)
[2023-12-18] MEDS: Heparin Injection (Vial) 5,000 UNIT/ML VIAL 5000 UNIT SC (09:16)
[2023-12-18] MEDS: Famotidine 200 MG/20 ML MDV 20 MG in 0.9% Normal Saline (Pres. free 8 ML 300 MG IV ×2 (09:16→20:36)
--- NOTE | 2023-12-18 09:50 | RAD_ITS ---
STUDY: X-RAY - ABDOMEN/PELVIS REASON FOR EXAM: Male, 73 years old. OG placement #1 TECHNIQUE: Single AP view of the abdomen / pelvis. COMPARISON: None. FINDINGS: Bibasilar pulmonary infiltrates with small bilateral pleural effusion. The tip of the orogastric tube is at the level of the gastroesophageal junction. RAD/Abdomen Single View (Portable) IMPRESSION: The tip of the orogastric tube is at the gastroesophageal junction. Electronically Signed: Jordan Cano MD at 10:43 EDT ,
--- NOTE | 2023-12-18 09:55 | RAD_ITS ---
STUDY: X-RAY - ABDOMEN/PELVIS REASON FOR EXAM: Male, 73 years old. OG PLACEMENT #2 TECHNIQUE: AP supine and decubitus views of the abdomen and pelvis. COMPARISON: Comparison is made with prior study done earlier today at 9:49 AM. FINDINGS: The tip of the orogastric tube is in the body of the stomach. EKG electrodes are seen. Bibasilar pulmonary infiltrates with small bilateral pleural effusions. Degenerative changes of the thoracic and lumbar spine. RAD/Abdomen Single View (Portable) IMPRESSION: The tip of the orogastric tube is in the body of the stomach. Bibasilar pulmonary infiltrates with small pleural effusions. Electronically Signed: Jordan Cano MD at 10:42 EDT ,
--- NOTE | 2023-12-18 10:02 | CT_ITS ---
STUDY: CTA CHEST REASON FOR EXAM: Male, 73 years old. Hypoxemia RADIATION DOSAGE (If Supplied By Facility): CTDIvol = ( 19.52 ) mGy, DLP = ( 538.18 ) mGycm TECHNIQUE: The examination was performed with the intravenous administration of IV 100mL [id number]-370. Post-processing of the angiographic images was performed, with multiplanar reformation and 3D reconstruction. Individualized dose optimization techniques were used for this CT. COMPARISON: None. FINDINGS: An orogastric tube is seen with the tip in the body of the stomach. Endotracheal tube is seen. Multiple intraluminal filling defects are seen in branches of the right upper lobe pulmonary artery. Smaller intraluminal filling defects are seen in branches of the left upper lobe pulmonary artery. Normal thoracic aorta and visualized great vessels. There is no demonstrated aortic dissection. There are calcifications of the coronary arteries. Normal mediastinum. Normal hilar regions. Normal visualized trachea and bronchi. Dense consolidation in both lower lobes. Small bilateral pleural effusions. Normal chest wall structures. There are degenerative changes of thoracic spine. Normal visualized upper abdomen. CT/CTA Chest W/WO Contrast IMPRESSION: Multiple emboli seen in branches of the right upper lobe pulmonary artery. Smaller extent of the emboli seen in branches of the left upper lobe pulmonary artery. Dense consolidation in both lower lobes with small bilateral pleural effusions. Electronically Signed: Jordan Cano MD at 10:29 EDT ,
[2023-12-18] MEDS: Propofol 10MG/Ml 1,000 MG/100 ML Bottle 21 MG CONT INF ×4 (10:33→22:12)
[2023-12-18] MEDS: Enoxaparin 100 MG/ML Syringe 90 MG SC ×2 (12:33→20:37)
[2023-12-18] MEDS: Vital AF 1.2 Cal Liquid 1,000 ML 20 ML GT (13:15)
[2023-12-18] MEDS: Vancomycin HCl 1,500 MG in 0.9% Normal Saline (500mL Bag) 500 ML 250 MG IV (13:15)
--- NOTE | 2023-12-18 16:42 | PN.HOSP_ITS ---
Reason for Visit Reason for Visit: Diagnoses Acute respiratory failure with hypoxia (12/15/23) Subjective Subjective Patient was seen and examined today, he remains on the ventilator, his oxygen demand increased overnight, critical care ordered a CT of the chest which showed bilateral pulmonary emboli. I placed him on IV heparin today and he was changed at the discretion of critical care to Lovenox subcu. I talked briefly with the patient's family about the diagnosis. Objective Data Objective Data Vital Signs: Vital Signs Temp Pulse Resp BP Pulse Ox O2 Del Method FiO2 99.5 F H 81 19 H 108/58 L 94 Mechanical Ventilator 55 12/18/23 16:00 12/18/23 16:03 12/18/23 16:03 12/18/23 16:00 12/18/23 16:03 12/18/23 16:00 12/18/23 16:00 Oxygen Delivery Method Mechanical Ventilator Weight: 89.074 kg Body Mass Index (BMI) 29.0 Intake & Output: Intake and Output for Last 24 Hours 12/16/23 12/17/23 12/18/23 23:59 23:59 23:59 Intake Total 4929.48 / 4965.48 4577.12 / 4581.94 2916.15 / 2916.15 Output Total 1375 / 1375 1680 / 1680 925 / 925 Balance 3554.48 / 3590.48 2897.12 / 2901.94 1990.15 / 1990.15 Lab / Micro Data 12/18/23 02:05 12/18/23 02:05 Labs: Laboratory Results - last 24 hr 12/18/23 02:05: WBC 19.0 H, RBC 3.93 L, Hgb 11.7 L, Hct 36.6 L, MCV 93.1, MCH 29.8, MCHC 32.0, RDW Std Deviation 48.9 H, RDW Coeff of Marielena 14.3, Plt Count 281, MPV 10.3, Immature Gran % (Auto) 1.100 H, Neut % (Auto) 87.1 H, Lymph % (Auto) 4.1 L, [place] % (Auto) 6.9, Eos % (Auto) 0.6, Baso % (Auto) 0.2, Absolute Neuts (auto) 16.5 H, Absolute Lymphs (auto) 0.78 L, Nucleated RBC % 0, Sodium 145, Potassium 4.0, Chloride 116 H, Carbon Dioxide 24.0, Anion Gap 5, BUN 29 H, Creatinine 0.83, Estim Creat Clear Calc 87.42, Est GFR (MDRD) Af Amer 117, Est GFR (MDRD) Non-Af 96, BUN/Creatinine Ratio 34.8 H, Glucose 113 H, Calcium 8.2 L Micro: Microbiology 12/15/23 11:19 Sputum, Induced/Lukens Gram Stain - Final 12/15/23 11:19 Sputum, Induced/Lukens Respiratory Culture - Final ABG Data ABG results: ABG 12/17/23 12/18/23 23:40 04:30 Specimen Type ART ART Sample Site L Radial L Radial pH 7.32 L 7.34 L Bicarbonate Actual 22.5 22.0 Total CO2 24 23 Base Excess -4 L -4 L O2 Saturation 84 L 92 L O2 % 50.0 75.0 ABG pCO2 44.0 41.2 ABG pO2 52 L 68 L Alvaro Test N/A N/A Respiration Rate 18 18 O2 Delivery Device Adult Vent Adult Vent Vent Mode AC AC Tidal Volume 450.0 450.0 POC PEEP 5 5 Radiography Diagnostic Testing: Radiology Impression Chest X-Ray 12/17/23 23:27 IMPRESSION: ET tube remains in place in satisfactory position. Mild improvement of the bibasilar pulmonary infiltrates, which could be due to atelectasis and/or pneumonia. No pneumothorax. No pulmonary edema. Electronically Signed: Taj Blank MD at 1:16 EDT , KUB X-Ray 12/18/23 09:50 IMPRESSION: The tip of the orogastric tube is at the gastroesophageal junction. Electronically Signed: Jordan Cano MD at 10:43 EDT , KUB X-Ray 12/18/23 09:55 IMPRESSION: The tip of the orogastric tube is in the body of the stomach. Bibasilar pulmonary infiltrates with small pleural effusions. Electronically Signed: Jordan Cano MD at 10:42 EDT , Chest CTA 12/18/23 10:02 IMPRESSION: Multiple emboli seen in branches of the right upper lobe pulmonary artery. Smaller extent of the emboli seen in branches of the left upper lobe pulmonary artery. Dense consolidation in both lower lobes with small bilateral pleural effusions. Electronically Signed: Jordan Cano MD at 10:29 EDT , Physical Exam Narrative healthy appearing Constitutional Narrative: Patient is sedated and on the ventilator General Appearance: well kempt and well developed HEENT normocephalic, head/scalp atraumatic and moist oral mucous membranes Eyes conjunctivae normal Neck no JVD and thyroid normal General: trachea midline Resp clear to auscultation bilaterally Auscultation: Negative for rales, rhonchi or wheezes Cardio regular rate, regular rhythm, S1 normal heart sound, S2 normal heart sound, no murmurs, no rub and no gallops GI normal to inspection, nondistended, normoactive bowel sounds, soft to palpation, non-tender and non-distended Extremity no clubbing, cyanosis or edema Skin no rashes or lesions noted General Skin Exam: no breakdown Neuro Neuro Narrative: Patient is sedated and on the ventilator Psych Psych Narrative: Patient is sedated and on the ventilator Assessment & Plan Assessment/Plan (1) Acute respiratory failure with hypoxemia: PLAN: Plan 1. Acute hypoxic respiratory failure secondary to angioedema-patient will be continued on IV Decadron, he will receive aerosol treatments, pulmonary medicine is participating in his care, patient had pulmonary emboli diagnosed today and now is on Lovenox #2 essential hypertension-patient is currently on low-dose Levophed to maintain his blood pressure #3 hyperlipidemia-patient's Crestor will be held at this time #4 Probable pneumonia-patient's lower lobes have consolidation, he is currently on IV antibiotics #5 bilateral pulmonary emboli-patient is on Lovenox Total clinical time spent by myself addressing the patient's medical issues, reviewing all of his data, and collaborating with patient's care team: 35 minutes Charges/Coding Visit Charges Inpatient E&M: 80281 Subs Hosp L2
[2023-12-18] MEDS: Chlorhexidine 15 ML PO (22:12)
[2023-12-18] MEDS: fentaNYL drip 100 ML 12.5 MCG CONT INF (23:31)
[2023-12-19] VITALS (40 sets, daily range): BP systolic 94–186; BP diastolic 48–122; PULSE 62–142; RESP 10–38; TEMP 36.7–37.4; O2SAT 83–99; BMI 29.7
[2023-12-19] MEDS: Albuterol 2.5 MG/3 ML VIAL.NEB. INHALATION ×4 (01:05→18:42)
[2023-12-19] MEDS: CHLORHEXIDINE GLUC 2% CLOTH 1 EACH TOWELETTE TOPICAL (02:10)
[2023-12-19] MEDS: Propofol 10MG/Ml 1,000 MG/100 ML Bottle 21 MG CONT INF (02:11)
[2023-12-19] MEDS: Vancomycin HCl 1,500 MG in 0.9% Normal Saline (500mL Bag) 500 ML 250 MG IV ×2 (02:11→15:29)
[2023-12-19 03:33] LABS: Absolute Lymphocyte Count 0.34 X10^3/uL (0.83-4.51); Absolute Neutrophil Count 11.4 X10^3/uL (2.0-7.7); Basophil# 0.02 X10^3/uL; Basophil% 0.2 % (0-1); Eosinophil# 0.13 X10^3/uL; Hematocrit 34.8 % (40-54); Hemoglobin 11.1 g/dL (13.0-16.5); Lymphocyte # 0.34 X10^3/ul (0.83-4.51); Lymphocyte % 2.7 % (19-41); Mean Corp Hgb Conc 31.9 g/dL (32-36); Mean Corpuscular Hgb 29.4 pg (27.0-32.0); Mean Corpuscular Volume 92.1 fL (80-94); Mean Platelet Vol. 10.8 fl (6.2-12.0); Monocyte# 0.67 X10^3/uL; Monocyte% 5.3 % (0-10); NRBC Flagged by Analyzer 0 % (0-5); Neutrophil # 11.35 X10^3/uL (2.7-7.7); Neutrophil % 90.1 % (47-70); POSITIVE DIFFERENTIAL YES; Platelet Count 196 K/mm3 (150-450); RBC Distribution Width CV 14.5 % (11.6-14.6); RBC Distribution Width SD 48.4 fl (35.1-43.9); Red Blood Count 3.78 M/mm3 (4.6-6.2); White Blood Count 12.6 K/mm3 (4.4-11.0)
[2023-12-19 03:50] LABS: ALB/GLOB Ratio 0.6 RATIO (0.9-2.4); AST(SGOT) 31 U/L (15-37); Alanine Aminotransfer ALT/SGPT 49 U/L (16-61); Alkaline Phosphatase 107 U/L (45-117); Anion Gap 2 (5-15); BUN 27 mg/dL (7-18); BUN/Creat Ratio 34.8 RATIO (10-20); Calcium,Total 8.2 mg/dL (8.5-10.1); Chloride 114 mmol/L (98-107); Creatinine, Serum 0.78 mg/dL (0.70-1.30); EST Glomerular Filtration Rate 105 mL/min (>60); Est Glom Filt Rate - Afr Amer 127 mL/min (>60); Estimated Creatinine Clearance 92.77 ml/min; Globulin 3.1 g/dL (2.2-4.2); Glucose 151 mg/dL (74-106); Potassium 4.1 mmol/L (3.5-5.1); Protein, Total 5.1 g/dL (6.4-8.2); Sodium Level 142 mmol/L (136-145)
[2023-12-19] MEDS: 0.9% Saline Lock 10 ML Syringe IV ×4 (04:24→15:30)
[2023-12-19] MEDS: dexAMETHasone 4 MG/ML Vial IV (05:13)
[2023-12-19] MEDS: TITRATION PARAMETER CHANGE 1 EACH IV (05:13)
[2023-12-19] MEDS: Piperacil/Tazobactam 3.375 GM in 0.9% Normal Saline (50mL MB+) 50 ML IV ×3 (05:13→20:09)
[2023-12-19] MEDS: dexMEDEtomidine 400 MCG in 0.9% Normal Saline (100mL Bag) 96 ML 11.4 MCG CONT INF (06:55)
--- NOTE | 2023-12-19 07:28 | PN.HOSP_ITS ---
Reason for Visit Reason for Visit: Diagnoses Acute respiratory failure with hypoxia (12/15/23) Subjective Subjective Patient was seen and examined today, he is sedated and on the ventilator, white blood cell count is improved at 12.6 today, chemistry panel was remarkable for an elevated glucose and BUN today. Objective Data Objective Data Vital Signs: Vital Signs Temp Pulse Resp BP Pulse Ox O2 Del Method FiO2 99.0 F 82 22 H 144/78 H 93 Mechanical Ventilator 45 12/19/23 07:00 12/19/23 07:00 12/19/23 07:00 12/19/23 07:00 12/19/23 07:00 12/19/23 07:00 12/19/23 07:00 Oxygen Delivery Method Mechanical Ventilator Weight: 91 kg Body Mass Index (BMI) 29.7 Intake & Output: Intake and Output for Last 24 Hours 12/17/23 12/18/23 12/19/23 23:59 23:59 23:59 Intake Total 4577.12 / 4581.94 3707.90 / 3734.94 1231.92 / 1231.92 Output Total 1680 / 1680 1725 / 1725 350 / 350 Balance 2897.12 / 2901.94 1982.90 / 2009.94 881.92 / 881.92 Lab / Micro Data 12/19/23 03:25 12/19/23 03:25 Labs: Laboratory Results - last 24 hr 12/19/23 03:25: WBC 12.6 H, RBC 3.78 L, Hgb 11.1 L, Hct 34.8 L, MCV 92.1, MCH 29.4, MCHC 31.9 L, RDW Std Deviation 48.4 H, RDW Coeff of Marielena 14.5, Plt Count 196, MPV 10.8, Immature Gran % (Auto) 0.700, Neut % (Auto) 90.1 H, Lymph % (Auto) 2.7 L, [place] % (Auto) 5.3, Eos % (Auto) 1.0, Baso % (Auto) 0.2, Absolute Neuts (auto) 11.4 H, Absolute Lymphs (auto) 0.34 L, Nucleated RBC % 0, Sodium 142, Potassium 4.1, Chloride 114 H, Carbon Dioxide 26.0, Anion Gap 2 L, BUN 27 H , Creatinine 0.78, Estim Creat Clear Calc 92.77, Est GFR (MDRD) Af Amer 127, Est GFR (MDRD) Non-Af 105, BUN/Creatinine Ratio 34.8 H, Glucose 151 H, Calcium 8.2 L , Total Bilirubin 0.40, AST 31, ALT 49, Alkaline Phosphatase 107, Total Protein 5.1 L, Albumin 2.0 L, Globulin 3.1, Albumin/Globulin Ratio 0.6 L Micro: Microbiology 12/15/23 11:19 Sputum, Induced/Lukens Gram Stain - Final 12/15/23 11:19 Sputum, Induced/Lukens Respiratory Culture - Final Radiography Diagnostic Testing: Radiology Impression KUB X-Ray 12/18/23 09:50 IMPRESSION: The tip of the orogastric tube is at the gastroesophageal junction. Electronically Signed: Jordan Cano MD at 10:43 EDT , KUB X-Ray 12/18/23 09:55 IMPRESSION: The tip of the orogastric tube is in the body of the stomach. Bibasilar pulmonary infiltrates with small pleural effusions. Electronically Signed: Jordan Cano MD at 10:42 EDT , Chest CTA 12/18/23 10:02 IMPRESSION: Multiple emboli seen in branches of the right upper lobe pulmonary artery. Smaller extent of the emboli seen in branches of the left upper lobe pulmonary artery. Dense consolidation in both lower lobes with small bilateral pleural effusions. Electronically Signed: Jordan Cano MD at 10:29 EDT , Physical Exam Narrative healthy appearing Constitutional Narrative: Patient is sedated and on the ventilator General Appearance: well kempt and well developed HEENT normocephalic, head/scalp atraumatic and moist oral mucous membranes Eyes PERRL, EOMs intact bilaterally and conjunctivae normal Neck no JVD and thyroid normal General: trachea midline Resp clear to auscultation bilaterally Auscultation: Negative for rales, rhonchi or wheezes Cardio regular rate, regular rhythm, S1 normal heart sound, S2 normal heart sound, no murmurs, no rub and no gallops GI normal to inspection, nondistended, normoactive bowel sounds, soft to palpation, non-tender and non-distended Extremity no clubbing, cyanosis or edema Skin no rashes or lesions noted General Skin Exam: no breakdown Neuro Neuro Narrative: Patient is sedated and on the ventilator Psych Psych Narrative: Patient is sedated and on the ventilator Assessment & Plan Assessment/Plan (1) Acute respiratory failure with hypoxemia: PLAN: Plan 1. Acute hypoxic respiratory failure secondary to angioedema-patient will be continued on IV Decadron, he will receive aerosol treatments, pulmonary medicine is participating in his care #2 essential hypertension-administer medications as needed for hypertension #3 hyperlipidemia-patient's Crestor will be held at this time #4 Probable pneumonia-patient's lower lobes have consolidation, he is currently on IV antibiotics #5 bilateral pulmonary emboli-patient is on Lovenox Total clinical time spent by myself addressing the patient's medical issues, reviewing all of his data, and collaborating with patient's care team: 35 minutes Charges/Coding Visit Charges Inpatient E&M: 26809 Subs Hosp L2
[2023-12-19] MEDS: Chlorhexidine 15 ML PO ×2 (07:55→20:09)
--- NOTE | 2023-12-19 08:37 | PN.CC_ITS ---
Assessment & Plan Assessment/Plan (1) Acute respiratory failure with hypoxemia: PLAN: Plan RECOMMENDATIONS: 1. Continue assist-control mode mechanical ventilation. Wean FiO2 and PEEP to maintain saturations at or above 90%. 2. Transition the patient from propofol to Precedex. Continue fentanyl for pain control. 3. Continue therapeutic Lovenox. 4. Gentle diuresis as tolerated by hemodynamics and renal function. 5. Continue tube feeding as tolerated. 6. Continue antimicrobial therapy. 7. Discontinue Decadron. 8. Continue Pepcid for GI prophylaxis. 2. In light of worsening hypoxemia, will obtain CTA chest. 3. Continue current sedation regimen. 4. Discontinue Benadryl. Okay to continue Pepcid and Decadron for now. 5. Continue empiric antimicrobials. 6. Continue appropriate ICU prophylaxis. 7. Place OG tube to facilitate tube feeding. IMPRESSIONS: 1. Acute hypoxemic respiratory failure secondary to angioedema, complicated by pneumonia and pulmonary emboli The patient presented with angioedema and impending respiratory failure with concern for reaction to valsartan. The patient was emergently intubated with fiberoptic assistance. The patient was stable from a respiratory perspective for 48 hours, with improvement in his angioedema with Pepcid and Decadron. However, on the morning of December 17, he acutely decompensated from a respiratory perspective with increasing FiO2 and PEEP, of unclear etiology. The patient's current oxygen requirement seems out of proportion to the findings noted on plain film chest x-ray. Therefore, will obtain CTA chest for further evaluation. In the interim, the patient will be continued on empiric antibiotics. 2. History of bilateral carotid artery stenosis/hypertension/hyperlipidemia/remote history of tobacco dependency Complicates care, management, recovery and prognosis. Hold home medications for now. Continue supportive care as noted above. Recommend placing OG tube to facilitate tube feeding. TIME: 35 minutes of critical care time, inclusive of procedures, was spent addressing the patient's acute respiratory failure secondary to angioedema, review of all data and collaboration with the care team. Subjective Subjective The patient was seen and examined at the bedside this morning. Events from the last 24 hours have been reviewed. The patient is currently afebrile, hemodynamically stable and maintaining appropriate oxygen saturations on assist- control mode mechanical ventilation with an FiO2 requirement of 45% and PEEP of 5. The patient failed his spontaneous breathing trial this morning. He is currently tolerating tube feeds and remains sedated on propofol and fentanyl. Given that the patient became agitated with his spontaneous awakening trial, plan to transition him to Precedex from propofol in hopes that he will perform better tomorrow on his breathing trial. White count has improved to 12,000. CTA chest completed yesterday demonstrated multiple bilateral pulmonary emboli along with dense consolidation of the bilateral lower lobes. Accordingly, the patient was initiated on therapeutic anticoagulation. Objective Data Objective Data The patient's most recent lab work, culture data and imaging studies have all been personally reviewed. Sputum culture has not demonstrated any growth to date. Vital Signs: Vital Signs Temp Pulse Resp BP Pulse Ox O2 Del Method FiO2 98.4 F 83 22 H 148/78 H 94 Mechanical Ventilator 45 12/19/23 08:00 12/19/23 08:00 12/19/23 08:00 12/19/23 08:00 12/19/23 08:00 12/19/23 08:00 12/19/23 08:00 Oxygen Delivery Method Mechanical Ventilator Weight: 200 lb 9.93 oz Body Mass Index (BMI) 29.7 Intake & Output: Intake and Output for Last 24 Hours 12/17/23 12/18/23 12/19/23 23:59 23:59 23:59 Intake Total 4577.12 / 4581.94 3707.90 / 3734.94 1440.86 / 1440.86 Output Total 1680 / 1680 1725 / 1725 350 / 350 Balance 2897.12 / 2901.94 1982.90 / 2009.94 1090.86 / 1090.86 Lab / Micro Data Attestation: I reviewed the patient's lab results. 12/19/23 03:25 12/19/23 03:25 Labs: Laboratory Results - last 24 hr 12/19/23 03:25: WBC 12.6 H, RBC 3.78 L, Hgb 11.1 L, Hct 34.8 L, MCV 92.1, MCH 29.4, MCHC 31.9 L, RDW Std Deviation 48.4 H, RDW Coeff of Marielena 14.5, Plt Count 196, MPV 10.8, Immature Gran % (Auto) 0.700, Neut % (Auto) 90.1 H, Lymph % (Auto) 2.7 L, [place] % (Auto) 5.3, Eos % (Auto) 1.0, Baso % (Auto) 0.2, Absolute Neuts (auto) 11.4 H, Absolute Lymphs (auto) 0.34 L, Nucleated RBC % 0, Sodium 142, Potassium 4.1, Chloride 114 H, Carbon Dioxide 26.0, Anion Gap 2 L, BUN 27 H , Creatinine 0.78, Estim Creat Clear Calc 92.77, Est GFR (MDRD) Af Amer 127, Est GFR (MDRD) Non-Af 105, BUN/Creatinine Ratio 34.8 H, Glucose 151 H, Calcium 8.2 L , Total Bilirubin 0.40, AST 31, ALT 49, Alkaline Phosphatase 107, Total Protein 5.1 L, Albumin 2.0 L, Globulin 3.1, Albumin/Globulin Ratio 0.6 L Micro: Microbiology 12/15/23 11:19 Sputum, Induced/Lukens Gram Stain - Final 12/15/23 11:19 Sputum, Induced/Lukens Respiratory Culture - Final ABG Data ABG results: ABG 12/17/23 23:40 Specimen Type ART Sample Site L Radial pH 7.32 L Bicarbonate Actual 22.5 Total CO2 24 Base Excess -4 L O2 Saturation 84 L O2 % 50.0 ABG pCO2 44.0 ABG pO2 52 L Alvaro Test N/A Respiration Rate 18 O2 Delivery Device Adult Vent Vent Mode AC Tidal Volume 450.0 POC PEEP 5 Radiography Diagnostic Testing: Radiology Impression KUB X-Ray 12/18/23 09:50 IMPRESSION: The tip of the orogastric tube is at the gastroesophageal junction. Electronically Signed: Jordan Cano MD at 10:43 EDT , KUB X-Ray 12/18/23 09:55 IMPRESSION: The tip of the orogastric tube is in the body of the stomach. Bibasilar pulmonary infiltrates with small pleural effusions. Electronically Signed: Jordan Cano MD at 10:42 EDT , Chest CTA 12/18/23 10:02 IMPRESSION: Multiple emboli seen in branches of the right upper lobe pulmonary artery. Smaller extent of the emboli seen in branches of the left upper lobe pulmonary artery. Dense consolidation in both lower lobes with small bilateral pleural effusions. Electronically Signed: Jordan Cano MD at 10:29 EDT , Physical Exam Const Constitutional Narrative: Intubated, sedated and mechanically ventilated. HEENT normocephalic and head/scalp atraumatic HEENT Narrative: Improving oropharyngeal swelling Mouth: endotracheal tube in place and OG tube in place Eyes EOMs intact bilaterally and conjunctivae normal Neck supple General: trachea midline Chest inspection of chest normal Resp normal respiratory effort Auscultation: rhonchi and diminished lung sounds; Negative for rales or wheezes Cardio regular rate and regular rhythm GI normal to inspection, nondistended, normoactive bowel sounds Extremity no clubbing, cyanosis or edema Skin no rashes or lesions noted Neuro Sensorium / Orientation: sedated on vent
[2023-12-19] MEDS: Enoxaparin 100 MG/ML Syringe 90 MG SC ×2 (08:41→20:10)
[2023-12-19] MEDS: Famotidine 200 MG/20 ML MDV 20 MG in 0.9% Normal Saline (Pres. free 8 ML 300 MG IV ×2 (08:42→20:09)
[2023-12-19] MEDS: Senna/Docusate Sodium 1 Tablet 2 TABLET NG ×2 (08:42→20:10)
[2023-12-19] MEDS: fentaNYL drip 100 ML 10 MCG CONT INF ×2 (09:22→19:52)
[2023-12-19] MEDS: Furosemide 40 MG/4 ML Vial IV (09:23)
[2023-12-19] MEDS: hydrALAZINE 20 MG/ML Vial 10 MG IV (11:43)
[2023-12-19] MEDS: dexMEDEtomidine 400 MCG in 0.9% Normal Saline (100mL Bag) 96 ML 18.2 MCG CONT INF (11:49)
[2023-12-19] MEDS: Vital AF 1.2 Cal Liquid 1,000 ML 50 ML GT (13:52)
[2023-12-19 14:36] LABS: Vancomycin, Trough Level 17.7 ug/mL (5.0-15.0)
--- NOTE | 2023-12-19 15:02 | PCM.RX.CS ---
Consult Antibiotic Management Pharmacy has been consulted to manage selected antibiotic: Vancomycin Type of Intervention Type of Consult: Follow-up Labs Labs: Sodium 142 mmol/L (136-145) 12/19/23 03:25 Potassium 4.1 mmol/L (3.5-5.1) 12/19/23 03:25 Chloride 114 mmol/L (98-107) H 12/19/23 03:25 Carbon Dioxide 26.0 mmol/L (21.0-32.0) 12/19/23 03:25 Anion Gap 2 (5-15) L 12/19/23 03:25 BUN 27 mg/dL (7-18) H 12/19/23 03:25 Creatinine 0.78 mg/dL (0.70-1.30) 12/19/23 03:25 Est GFR (MDRD) Af Amer 127 mL/min (>60) 12/19/23 03:25 Est GFR (MDRD) Non-Af 105 mL/min (>60) 12/19/23 03:25 BUN/Creatinine Ratio 34.8 RATIO (10-20) H 12/19/23 03:25 Glucose 151 mg/dL (74-106) H 12/19/23 03:25 Vancomycin Trough 17.7 ug/mL (5.0-15.0) H 12/19/23 13:50 Microbiology Microbiology: Microbiology 12/15/23 11:19 Sputum, Induced/Lukens Gram Stain - Final 12/15/23 11:19 Sputum, Induced/Lukens Respiratory Culture - Final Goal Trough Goal Trough: 15-20 mcg/mL Pharmacy Plan for Drug Dosing Pharmacy Plan for Drug Dosing: VANCOMYCIN LEVEL RECEIVED Current Vancomycin Dose: 1500mg IV Q12hr Number of Doses Received: 3 (load + 2 scheduled) Vancomycin Level: 17.7 Hours Since Last Dose: 11.75hr Renal Function: 0.78 Renal Function Trend: stable Lab/Micro: cultures show NGTD Vancomycin Plan/Comments: Patient had a trough drawn which resulted in a value of 17.7 (goal 15-20). The patient is within therapeutic goal. Will continue current dosing regimen and recheck a trough in 48hrs to assess dosing at that time. Pending Level: 12/21/23 @1400 Pharmacy Service will continue to monitor and adjust dosing as required.
[2023-12-19] MEDS: Dexmedetomidine 1,000 mcg in 0.9% NS 240 mL 18.2 MCG CONT INF (16:50)
[2023-12-20] VITALS (31 sets, daily range): BP systolic 95–182; BP diastolic 62–110; PULSE 58–118; RESP 12–26; TEMP 37.1–38.8; O2SAT 91–100; BMI 29.4
[2023-12-20] MEDS: Albuterol 2.5 MG/3 ML VIAL.NEB. INHALATION ×4 (00:30→19:55)
[2023-12-20] MEDS: Vancomycin HCl 1,500 MG in 0.9% Normal Saline (500mL Bag) 500 ML 250 MG IV ×2 (02:46→15:40)
[2023-12-20] MEDS: fentaNYL drip 100 ML 10 MCG CONT INF (06:00)
[2023-12-20] MEDS: Dexmedetomidine 1,000 mcg in 0.9% NS 240 mL 20.5 MCG CONT INF (06:04)
[2023-12-20] MEDS: Piperacil/Tazobactam 3.375 GM in 0.9% Normal Saline (50mL MB+) 50 ML IV ×3 (06:07→21:48)
[2023-12-20] MEDS: Senna/Docusate Sodium 1 Tablet 2 TABLET NG ×2 (07:24→21:56)
[2023-12-20] MEDS: Enoxaparin 100 MG/ML Syringe 90 MG SC ×2 (07:25→21:50)
[2023-12-20] MEDS: Chlorhexidine 15 ML PO (07:27)
[2023-12-20] MEDS: CHLORHEXIDINE GLUC 2% CLOTH 1 EACH TOWELETTE TOPICAL (07:28)
[2023-12-20] MEDS: Famotidine 200 MG/20 ML MDV 20 MG in 0.9% Normal Saline (Pres. free 8 ML 300 MG IV ×2 (09:35→21:56)
[2023-12-20] MEDS: Vital AF 1.2 Cal Liquid 1,000 ML 50 ML GT (09:38)
[2023-12-20 12:11] LABS: Allen Test Positive; Base Excess 2 mmol/L (-2 to +2); Bicarbonate 25.4 mmol/L (22-26); Blood Gas Specimen Type ART; Mode CPAP/PS; O2 Delivery Device Adult Vent; PEEP 5; PO2 71 mmHG (75-100); SITE L Radial; SO2 95 % (95-99); Total Carbon Dioxide 26 mmol/L; pCO2 35.2 mmHg (35-45); pH 7.47 (7.35-7.45)
--- NOTE | 2023-12-20 12:30 | NURSING ---
patient extubated at 1215 by RT Felicita with this RN present at bedside. Dr Davis present in ICU and approved of extubating patient. ETT and OG tube removed without complication. Patient was able to cough and clear secretions independently and maintaining spo2 of 95% on 2L Nasal Canula
--- NOTE | 2023-12-20 12:37 | PN.CC_ITS ---
Objective Data Objective Data Vital Signs: Vital Signs Last response 3 Temperature 37.3 C 12/20/23 11:00 Temperature Source Core 12/20/23 11:00 Pulse Rate 65 12/20/23 11:00 Pulse Strength Weak (1+) 12/20/23 08:07 Respiratory Rate 12 12/20/23 11:00 Respiratory Effort Normal, Non-Labored 12/20/23 07:52 Respiratory Depth Normal 12/20/23 07:52 Respiratory Pattern Normal 12/20/23 10:12 Blood Pressure 158/81 H 12/20/23 11:00 Blood Pressure Mean 106 12/20/23 11:00 Blood Pressure Source Monitor 12/20/23 11:00 Blood Pressure Position Semi-Fowlers 12/20/23 11:00 Blood Pressure Location Left Arm 12/20/23 11:00 Pulse Ox 96 12/20/23 11:00 Oxygen Delivery Method Mechanical Ventilator 12/20/23 11:00 Fraction of Inspired Oxygen (FIO2) 30 12/20/23 11:00 I&O: I&O Last 24 Hours 3 12/19/23 12/20/23 12/20/23 23:59 11:59 23:59 Intake Total 1962.10 / 3587.92 2304.47 / 2304.47 Output Total 1150 / 4400 875 / 875 Balance 812.10 / -812.08 1429.47 / 1429.47 I&O: Total Stay 3 12/15/23 10:12 thru 12/20/23 10:04 Intake Total 89857.81 Output Total 30799 Balance 01806.81 Current Meds Ordered / Administered: Current meds ordered / Administered 3 Generic Name Dose Route Start Last Admin Trade Name Freq PRN Reason Stop Dose Admin Albuterol Sulfate 2.5 mg 12/15/23 12:30 12/20/23 07:05 Albuterol 2.5 Mg/3 Ml Vial.Neb. INHALATION 2.5 mg Q6H.RT GENEVA Administration Chlorhexidine Gluconate 1 each 12/19/23 10:00 12/20/23 07:28 Chlorhexidine Gluc 2% Cloth 1 Each Towelette TOPICAL 1 each DAILY GENEVA Administration Enoxaparin Sodium 90 mg 12/18/23 12:00 12/20/23 07:25 Enoxaparin 100 Mg/Ml Syringe SC 90 mg Q12 GENEVA Administration Hydralazine HCl 10 mg 12/19/23 09:10 12/19/23 11:43 Hydralazine 20 Mg/Ml Vial IV 10 mg Q4H PRN PRN Administration SBP > 160 Protocol Famotidine 20 mg/ Sodium 10 mls @ 300 mls/hr 12/15/23 22:00 12/20/23 09:50 Chloride IV Infused Q12 GENEVA Infusion Sodium Chloride 250 mls @ 15 mls/hr 12/15/23 12:37 IV .[id number] PRN Additional IVPB Infusion Sodium Chloride 250 mls @ 15 mls/hr 12/15/23 12:37 IV .[id number] PRN Saline Flush Vancomycin IV-PHARMACY TO DOSE 500 mls @ 250 mls/hr 12/18/23 02:00 1 each/ Sodium Chloride IV PRN PRN Rx to Dose Protocol Piperacillin Sod/Tazobactam 50 mls @ 12.5 mls/hr 12/18/23 06:00 12/20/23 10:04 Sod 3.375 gm/ Sodium Chloride IV Infused Q8 GENEVA Infusion Vancomycin HCl 1,500 mg/ 530 mls @ 250 mls/hr 12/18/23 14:30 12/20/23 04:57 Sodium Chloride IV Infused Q12H GENEVA Infusion Senna/Docusate Sodium 2 tablet 12/19/23 10:00 12/20/23 07:24 Senna/Docusate Sodium 1 Tablet NG 2 tablet BID GENEVA Administration Sodium Chloride 10 - 40 ml 12/15/23 12:37 12/19/23 15:30 0.9% Saline Lock 10 Ml Syringe IV 10 ml UD PRN Administration SALINE FLUSH Vancomycin Protocol 1 lab 12/21/23 12:00 Vancomycin Trough/Random Due MC 12/21/23 16:00 DAILY GENEVA Lab / Micro Data 12/19/23 03:25 12/19/23 03:25 Labs: Laboratory Results - last 24 hr 12/19/23 13:50: Vancomycin Trough 17.7 H ABG Data ABG results: ABG 12/20/23 12:08 Specimen Type ART Sample Site L Radial pH 7.47 H Bicarbonate Actual 25.4 Total CO2 26 Base Excess 2 O2 Saturation 95 O2 % 30.0 ABG pCO2 35.2 ABG pO2 71 L Alvaro Test Positive O2 Delivery Device Adult Vent Vent Mode CPAP/PS POC PEEP 5 Assessment and Plan . Assessment and plan: Patient seen and examined Chart and data reviewed HPI 73 yo man admitted w/ ARF requiring MV support in the setting of suspected angioedema d/t ARB. Course c/b VTED and suspected PNA. Extubated earlier today Breathing 2 LPM O2 comfortably No e/o upper airway compromise currently He is receiving IV ABX as well as therapeutic LMWH PHYSICAL EXAM GEN NAD VS as above HEENT O2 N/C, no gross edema NECK obese COR RRR CHEST CTA ABD soft EXT minimal edema SKIN w/d RHYS NF ASSESSMENT 1. Acute respiratory failure requiring MV support ==> extubated 12/19 2. Angioedema ==> IMPROVED 3. VTED 4. Suspected PNA 5. Former tobacco use TREATMENT PLAN -supplemental O2 -follow clinically -receiving IV ABX and therapeutic LMWH Critical Care Time: 50 min The entirety of this encounter was done via Telemedicine Critical Care Time: 50 min The entirety of this encounter was done via Telemedicine
--- NOTE | 2023-12-20 14:23 | PCM.PN.HOSP ---
Reason for Visit Reason for Visit: Diagnoses Acute respiratory failure with hypoxia (12/15/23) Subjective Subjective Patient was seen and examined today, I extubated him early this afternoon and he tolerated being off the ventilator well. Patient's family is present in his room. Objective Data Objective Data Vital Signs: Vital Signs Temp Pulse Resp BP Pulse Ox O2 Del Method O2 Flow Rate 99.1 F 80 18 170/85 H 95 Room Air 2 12/20/23 12:00 12/20/23 14:00 12/20/23 14:00 12/20/23 14:00 12/20/23 14:00 12/20/23 14:00 12/20/23 13:00 FiO2 30 12/20/23 12:00 Oxygen Flow Rate (L/min) 2 Oxygen Delivery Method Room Air Weight: 90.22 kg Body Mass Index (BMI) 29.4 Intake & Output: Intake and Output for Last 24 Hours 12/18/23 12/19/23 12/20/23 23:59 23:59 23:59 Intake Total 3707.90 / 3734.94 3559.72 / 3587.92 2637.07 / 2637.07 Output Total 1725 / 1725 3900 / 4400 1325 / 1325 Balance 1982.90 / 2009.94 -340.28 / -812.08 1312.07 / 1312.07 Lab / Micro Data 12/19/23 03:25 12/19/23 03:25 Labs: Laboratory Results - last 24 hr 12/19/23 13:50: Vancomycin Trough 17.7 H Micro: Microbiology 12/15/23 11:19 Sputum, Induced/Lukens Gram Stain - Final 12/15/23 11:19 Sputum, Induced/Lukens Respiratory Culture - Final ABG Data ABG results: ABG 12/20/23 12:08 Specimen Type ART Sample Site L Radial pH 7.47 H Bicarbonate Actual 25.4 Total CO2 26 Base Excess 2 O2 Saturation 95 O2 % 30.0 ABG pCO2 35.2 ABG pO2 71 L Alvaro Test Positive O2 Delivery Device Adult Vent Vent Mode CPAP/PS POC PEEP 5 Physical Exam Const no apparent distress Constitutional Narrative: Patient is somnolent, he does follow commands General Appearance: cooperative, well kempt and well developed HEENT normocephalic, head/scalp atraumatic and moist oral mucous membranes Eyes PERRL, EOMs intact bilaterally and conjunctivae normal Neck supple, no JVD, thyroid normal and no carotid bruits General: trachea midline Resp normal respiratory effort, no retractions, no use of accessory muscles and clear to auscultation bilaterally Auscultation: Negative for rales, rhonchi or wheezes Cardio regular rate, regular rhythm, S1 normal heart sound, S2 normal heart sound, no murmurs, no rub and no gallops GI normal to inspection, nondistended, normoactive bowel sounds, soft to palpation, non-tender and non-distended Extremity no clubbing, cyanosis or edema Skin no rashes or lesions noted General Skin Exam: no breakdown Neuro CN's II-XII intact bilaterally, moves all extremities, no focal motor deficits and no sensory deficits noted Neuro Narrative: Patient is somnolent, he does follow command Psych Psych Narrative: Patient is somnolent, he does follow commands Assessment & Plan Assessment/Plan (1) Acute respiratory failure with hypoxemia: PLAN: Plan 1. Acute hypoxic respiratory failure secondary to angioedema-again patient was extubated today, he appears to be stable on room air at this time #2 essential hypertension-administer medications as needed for hypertension #3 hyperlipidemia-patient's Crestor will be held at this time #4 Probable pneumonia-patient's lower lobes have consolidation, he is currently on IV antibiotics #5 bilateral pulmonary emboli-patient is on Lovenox Total clinical time spent by myself addressing the patient's medical issues, reviewing all of his data, and collaborating with patient's care team: 35 minutes Charges/Coding Visit Charges Inpatient E&M: 39733 Subs Hosp L2
[2023-12-20] MEDS: Acetaminophen 325 MG Tablet 650 MG PO ×2 (16:23→20:15)
[2023-12-20] MEDS: amLODIPine 10 MG Tablet PO (16:23)
[2023-12-20] MEDS: MELATONIN 3 MG TABLET 6 MG PO (23:33)
[2023-12-21] VITALS (16 sets, daily range): BP systolic 113–172; BP diastolic 54–102; PULSE 48–105; RESP 14–26; TEMP 36.7–38.1; O2SAT 90–98; BMI 28.5
[2023-12-21] MEDS: Albuterol 2.5 MG/3 ML VIAL.NEB. INHALATION ×2 (01:10→08:08)
[2023-12-21] MEDS: Vancomycin HCl 1,500 MG in 0.9% Normal Saline (500mL Bag) 500 ML 250 MG IV (03:00)
[2023-12-21] MEDS: Piperacil/Tazobactam 3.375 GM in 0.9% Normal Saline (50mL MB+) 50 ML IV (05:36)
--- NOTE | 2023-12-21 08:28 | PN.HOSP_ITS ---
Reason for Visit Reason for Visit: Diagnoses Acute respiratory failure with hypoxia (12/15/23) Subjective Subjective Patient was seen and examined today, nursing states he was nervous last night and could not sleep, melatonin only was given to him. I feel the patient is stable for transfer to PCU today, I will write for as needed Ativan. Patient's Hernandez catheter will be removed today. I will convert him to oral antibiotics. Objective Data Objective Data Vital Signs: Vital Signs Temp Pulse Resp BP Pulse Ox O2 Del Method O2 Flow Rate 100.2 F H 98 20 H 147/69 H 96 Nasal Cannula 3 12/21/23 07:00 12/21/23 08:05 12/21/23 08:05 12/21/23 08:00 12/21/23 08:05 12/21/23 08:05 12/21/23 08:05 FiO2 25 12/21/23 05:00 Oxygen Flow Rate (L/min) 3 Oxygen Delivery Method Nasal Cannula Weight: 87.3 kg Body Mass Index (BMI) 28.5 Intake & Output: Intake and Output for Last 24 Hours 12/19/23 12/20/23 12/21/23 23:59 23:59 23:59 Intake Total 3559.72 / 3587.92 3392.07 / 3392.07 590 / 590 Output Total 3900 / 4400 2375 / 2725 800 / 800 Balance -340.28 / -812.08 1017.07 / 667.07 -210 / -210 Lab / Micro Data 12/19/23 03:25 12/19/23 03:25 Micro: Microbiology 12/15/23 11:19 Sputum, Induced/Lukens Gram Stain - Final 12/15/23 11:19 Sputum, Induced/Lukens Respiratory Culture - Final ABG Data ABG results: ABG 12/20/23 12:08 Specimen Type ART Sample Site L Radial pH 7.47 H Bicarbonate Actual 25.4 Total CO2 26 Base Excess 2 O2 Saturation 95 O2 % 30.0 ABG pCO2 35.2 ABG pO2 71 L Alvaro Test Positive O2 Delivery Device Adult Vent Vent Mode CPAP/PS POC PEEP 5 Physical Exam Const alert, oriented x3, no apparent distress, average body habitus and healthy appearing General Appearance: cooperative, well kempt and well developed Orientation / Consciousness: awake, oriented to person, oriented to place and oriented to time HEENT normocephalic, head/scalp atraumatic and moist oral mucous membranes Eyes PERRL, EOMs intact bilaterally and conjunctivae normal Neck supple, no JVD, thyroid normal and no carotid bruits General: trachea midline Resp normal respiratory effort, no retractions, no use of accessory muscles and clear to auscultation bilaterally Auscultation: Negative for rales, rhonchi or wheezes Cardio regular rate, regular rhythm, S1 normal heart sound, S2 normal heart sound, no murmurs, no rub and no gallops GI normal to inspection, nondistended, normoactive bowel sounds, soft to palpation, non-tender and non-distended Extremity no clubbing, cyanosis or edema Skin no rashes or lesions noted General Skin Exam: no breakdown Neuro oriented x3, CN's II-XII intact bilaterally, moves all extremities, no focal motor deficits and no sensory deficits noted Sensorium / Orientation: awake and alert Speech: speech normal Psych affect normal Assessment & Plan Assessment/Plan (1) Acute respiratory failure with hypoxemia: PLAN: Plan 1. Acute hypoxic respiratory failure secondary to angioedema-patient is on low- flow nasal cannula oxygen, he appears stable for transfer to PCU #2 essential hypertension-administer medications as needed for hypertension #3 hyperlipidemia-patient's Crestor will be held at this time #4 Probable pneumonia-patient's lower lobes have consolidation, he will be transition to oral antibiotics #5 bilateral pulmonary emboli-patient is on Lovenox-I will switch the patient over to Eliquis today Total clinical time spent by myself addressing the patient's medical issues, reviewing all of his data, and collaborating with patient's care team: 35 minutes Charges/Coding Visit Charges Inpatient E&M: 42365 Subs Hosp L2
[2023-12-21] MEDS: LORazepam 0.5 MG Tablet PO (09:19)
[2023-12-21] MEDS: Acetaminophen 325 MG Tablet 650 MG PO (09:19)
[2023-12-21] MEDS: amLODIPine 10 MG Tablet PO (10:03)
[2023-12-21] MEDS: APIXABAN 5 MG TABLET 10 MG PO ×2 (11:19→21:42)
[2023-12-21] MEDS: Amox/Clavulanate 875 MG Tablet PO ×2 (11:20→17:18)
[2023-12-21] MEDS: Triamterene 75MG/Hctz 50MG Tablet 1 TABLET PO (14:23)
[2023-12-22] VITALS (9 sets, daily range): BP systolic 149–158; BP diastolic 69–93; PULSE 68–92; RESP 16–20; TEMP 36.6–36.8; O2SAT 92–96; BMI 29.0
[2023-12-22] MEDS: Acetaminophen 325 MG Tablet 650 MG PO ×3 (00:15→23:14)
[2023-12-22] MEDS: APIXABAN 5 MG TABLET 10 MG PO ×2 (09:44→21:21)
[2023-12-22] MEDS: Triamterene 75MG/Hctz 50MG Tablet 1 TABLET PO (09:44)
[2023-12-22] MEDS: amLODIPine 10 MG Tablet PO (09:44)
[2023-12-22] MEDS: Amox/Clavulanate 875 MG Tablet PO ×2 (09:45→18:11)
--- NOTE | 2023-12-22 10:32 | PCM.PN.HOSP ---
Reason for Visit Reason for Visit: Diagnoses Acute respiratory failure with hypoxia (12/15/23) Subjective Subjective Patient was seen and examined today, I had nursing get him up and walk him, he required oxygen while walking and became dyspneic, discussions were carried out with the nursing staff and the patient about perhaps going to a rehab/nursing facility for short-term rehab services and the patient was not against this. Objective Data Objective Data Vital Signs: Vital Signs Temp Pulse Resp BP Pulse Ox O2 Del Method O2 Flow Rate 98 F 92 19 H 149/83 H 92 Room Air 2 12/22/23 09:40 12/22/23 09:40 12/22/23 09:40 12/22/23 09:40 12/22/23 09:40 12/22/23 09:40 12/22/23 04:00 FiO2 25 12/21/23 05:00 Oxygen Flow Rate (L/min) 2 Oxygen Delivery Method Room Air Weight: 89.1 kg Body Mass Index (BMI) 29.0 Intake & Output: Intake and Output for Last 24 Hours 12/20/23 12/21/23 12/22/23 23:59 23:59 23:59 Intake Total 3392.07 / 3392.07 2035 Output Total 2375 / 2725 2049 400 / 400 Balance 1017.07 / 667.07 -14 / -14 -400 / -400 Lab / Micro Data 12/19/23 03:25 12/19/23 03:25 Micro: Microbiology 12/15/23 11:19 Sputum, Induced/Lukens Gram Stain - Final 12/15/23 11:19 Sputum, Induced/Lukens Respiratory Culture - Final Physical Exam Narrative alert, oriented x3, no apparent distress, average body habitus and healthy appearing General Appearance: cooperative, well kempt and well developed Orientation / Consciousness: awake, oriented to person, oriented to place and oriented to time HEENT normocephalic, head/scalp atraumatic and moist oral mucous membranes Eyes PERRL, EOMs intact bilaterally and conjunctivae normal Neck supple, no JVD, thyroid normal and no carotid bruits General: trachea midline Resp normal respiratory effort, no retractions, no use of accessory muscles and clear to auscultation bilaterally Auscultation: Negative for rales, rhonchi or wheezes Cardio regular rate, regular rhythm, S1 normal heart sound, S2 normal heart sound, no murmurs, no rub and no gallops GI normal to inspection, nondistended, normoactive bowel sounds, soft to palpation, non-tender and non-distended Extremity no clubbing, cyanosis or edema Skin no rashes or lesions noted General Skin Exam: no breakdown Neuro oriented x3, CN's II-XII intact bilaterally, moves all extremities, no focal motor deficits and no sensory deficits noted Sensorium / Orientation: awake and alert Speech: speech normal Psych affect normal Assessment & Plan Assessment/Plan (1) Acute respiratory failure with hypoxemia: PLAN: Plan 1. Acute hypoxic respiratory failure secondary to angioedema-patient is on low-flow nasal cannula oxygen now, attempts will be made to wean the oxygen #2 essential hypertension-administer medications as needed for hypertension #3 hyperlipidemia-patient's Crestor will be held at this time #4 Probable pneumonia-patient's lower lobes have consolidation, he will be transition to oral antibiotics #5 bilateral pulmonary emboli-patient is on Eliquis #6 acute debility-PT and OT will continue to work with the patient, he may need short-term placement in a residential facility for rehab services. Total clinical time spent by myself addressing the patient's medical issues, reviewing all of his data, and collaborating with patient's care team: 35 minutes Charges/Coding Visit Charges Inpatient E&M: 02630 Subs Hosp L2
[2023-12-22] MEDS: Menthol/Lanolin/Calamine/Znox 113 GM Tube 1 APPLIC TOPICAL (23:46)
[2023-12-23 03:00] VITALS: BP 136/86; PULSE 69; RESP 16; RESP 92; TEMP 36.4; O2SAT 92; O2SAT 94
[2023-12-23] MEDS: Acetaminophen 325 MG Tablet 650 MG PO (04:47)
[2023-12-23 04:56] VITALS: BMI 29.2
[2023-12-23 08:10] VITALS: O2SAT 96
[2023-12-23 08:35] VITALS: BP 134/77; PULSE 89; RESP 18; TEMP 36.6; O2SAT 97
[2023-12-23] MEDS: Amox/Clavulanate 875 MG Tablet PO (08:41)
[2023-12-23] MEDS: Menthol/Lanolin/Calamine/Znox 113 GM Tube 1 APPLIC TOPICAL (08:41)
[2023-12-23] MEDS: APIXABAN 5 MG TABLET 10 MG PO (08:41)
[2023-12-23] MEDS: Triamterene 75MG/Hctz 50MG Tablet 1 TABLET PO (08:41)
[2023-12-23] MEDS: amLODIPine 10 MG Tablet PO (08:41)
--- NOTE | 2023-12-23 11:58 | CASEMGMT ---
Physician informed SW during rounds that he spoke with patient and family about [facility] Acute Rehab Unit. SW met with patient and his family. Introduced self and role at [facility]. Patient and family confirmed this information. SW explained SW made a referral and will get back to them regarding the answer. SW also provided them with a list of shelter facility providers including quality and resource use data and consistent with patient?s preferred geographic region, medical needs, and insurance network were provided from the [employer] Guide. DIANN spoke with Jennifer and she was aware of referral. Awaiting physician's answer. Plan: d/c to Rehab vs SNF [facility]
--- NOTE | 2023-12-23 12:14 | CASEMGMT ---
DIANN received a call from Jennifer and they can take patient on Rehab Unit. DIANN notified patient, his family, and physician. Plan: d/c to [facility] Acute Rehab Unit [facility]IGUEL
--- NOTE | 2023-12-23 14:47 | TREXTCAR_ITS ---
Diet Diet Order/Speech Therapy: 12/20/23 16:04 Diet: Regular - General Routine Orders/Code Status O2 Liters per Minute: 3 O2 Frequency: Continuous Keep PO Greater than or Equal to (%): 90 Wound(s) Coccyx: Wound Type: Pressure Injury Therapies Weight Bearing: Full weight bearing Physical Therapy: Eval and Treat Occupational Therapy: Eval and Treat Problem/Diagnosis (1) Acute respiratory failure with hypoxemia: Status: Acute Code(s): J96.01 - Acute respiratory failure with hypoxia Plan 1. Acute hypoxic respiratory failure secondary to angioedema-patient is on low- flow nasal cannula oxygen now, attempts will be made to wean the oxygen #2 essential hypertension-administer medications as needed for hypertension #3 hyperlipidemia-patient's Crestor will be held at this time #4 Probable pneumonia-patient's lower lobes have consolidation, he will be transition to oral antibiotics #5 bilateral pulmonary emboli-patient is on Eliquis #6 acute debility-PT and OT will continue to work with the patient, he may need [facility] for [facility] services. Total clinical time spent by myself addressing the patient's medical issues, reviewing all of his data, and collaborating with patient's care team: 35 minutes Allergies/Procedures Done in Hospital Allergies valsartan Allergy (Severe, Verified 12/19/23 09:08) Angioedema ciprofloxacin (From Cipro) Allergy (Verified 12/15/23 10:22) Rash ciprofloxacin HCl (From Cipro) Allergy (Verified 12/15/23 10:22) Rash MAKES CRAZY ertapenem sodium (From Invanz) Allergy (Verified 12/15/23 10:22) Rash hydrocodone Adverse Reaction (Verified 12/15/23 10:22) makes him crazy Procedures: None Type of Care/Length of Stay Estimated LOS: Convalescent Care Less Than 30 days Type of Care Needed: Acute Rehab Rehab Potential: Good Prognosis: Good Additional Orders/Day of Discharge H&P will serve as current which was dated: 01/15/24 Day of Discharge: 12/23/23 Dietary and Speech Recommendations Dietitian Recommendations/Changes: Continue regular diet for now; adjust to cardiac diet as needed. ONS as needed if PO established suboptimal at meals, will defer for now. Discharge Plan Admission Admit Date/Time: 12/15/23 11:48 Primary Reason for Your Visit: Respiratory failure secondary to angioedema, pu lmonary emboli, Attending Provider: Francisco Davis Primary Care Provider: Jose E Ace Consulting Providers: Jose L Diaz Discharge Orders/Prescriptions Prescriptions: New albuterol sulfate 2.5 mg /3 mL (0.083 %) Solution For Nebulization 2.5 mg inhalation Q2H PRN PRN (Reason: Dyspnea) Qty: 0 0RF lorazepam 0.5 mg Tablet 0.5 mg PO Q6H PRN PRN (Reason: Anxiety/Insomnia) Qty: 0 0RF amlodipine 10 mg Tablet 10 mg PO DAILY Qty: 0 0RF triamterene-hydrochlorothiazid 75-50 mg Tablet 1 tab PO DAILY Qty: 0 0RF menthol-zinc oxide [Calmoseptine] 0.44-20.6 % Ointment 1 applic topical BID Qty: 0 0RF Protocol: *Topical Application Instructions APPLICATION INSTRUCTIONS: coccyx, rectal area Eliquis 5 mg Tablet 10 mg PO BID Qty: 0 0RF Rx Instructions: Continue 10 mg twice daily until the morning of 12/28/2023, then begin 5 mg twice daily thereafter Continued rosuvastatin 10 MG tablet 10 mg PO DAILY Qty: 30 2RF Discontinued hydrochlorothiazide 25 MG tablet 25 mg PO DAILY Patient Comments: bp diltiazem HCl 180 MG capsule,extended release 24hr 180 mg PO BID fluticasone propionate 50 mcg/actuation spray,suspension 1 spray INTRANASAL BID Patient Comments: SPRAY 1 SPRAY INTO EACH NOSTRIL TWICE A DAY hydralazine 50 mg tablet 50 mg PO Q8H Patient Comments: TAKE 1 TABLET BY MOUTH EVERY 8 HOURS valsartan 320 mg tablet 320 mg PO DAILY Patient Comments: TAKE 1 TABLET BY MOUTH EVERY DAY cholecalciferol (vitamin D3) [Vitamin D3] 25 mcg (1,000 unit) capsule 50 mcg PO DAILY coenzyme Q10 [Co Q-10] 100 mg capsule 100 mg PO DAILY A Thru Z Select 50Plus Formula 0.4 mg-300 mcg- 250 mcg tablet 1 tab PO DAILY cetirizine [24Hour Allergy] 10 mg tablet 10 mg PO DAILY riboflavin (vitamin B2) [Vitamin B-2] 100 mg tablet 200 mg PO BID aspirin 325 mg capsule 325 mg PO DAILY Qty: 30 0RF albuterol sulfate 90 mcg/actuation HFA aerosol inhaler 1 inh INHALATION 4XD Patient Comments: INHALE 1 PUFF BY MOUTH UP TO 4 TIMES DAILY fluticasone propion-salmeterol 232-14 mcg/actuation aerosol powdr breath activated 1 inh INHALATION DAILY Referrals / Follow Up: Jose E Ace MD [Primary Care Provider] - Disposition Disposition (needs filled in before D/C Order can be placed): Inpatient Rehab Unit/Facility
--- NOTE | 2023-12-23 14:57 | DS.PCM_ITS ---
Providers Date of Admission: 12/15/23 Date of Discharge: 12/23/23 Primary Care Physician: Dr. Jose E Ace MD Consultations 12/15/23 12:05 Consult: ENT Routine Consulting Provider: Jose L Diaz Reason for Consult: airway obstruction EMERGENT Consult: No Notified: Yes Date Notified: 12/15/23 Time Notified: 11:53 Method of Notification: Verbal Consult: Laboratory Courier / Pulmonary Medicine Routine Consulting Provider: Intensivists/Pulmonary Med Reason for Consult: airway obstruction, respiratory failure EMERGENT Consult: No Notified: Yes Date Notified: 12/15/23 Time Notified: 11:53 Method of Notification: Verbal Reason For Visit: ANGIOEDEMA Diagnosis Discharge Diagnosis (1) Acute respiratory failure with hypoxemia: Status: Acute Code(s): J96.01 - Acute respiratory failure with hypoxia Plan 1. Acute hypoxic respiratory failure secondary to angioedema-patient is on low- flow nasal cannula oxygen now, attempts will be made to wean the oxygen #2 essential hypertension-administer medications as needed for hypertension #3 hyperlipidemia-patient's Crestor will be held at this time #4 Probable pneumonia-patient's lower lobes have consolidation, he will be transition to oral antibiotics #5 bilateral pulmonary emboli-patient is on Eliquis #6 acute debility-PT and OT will continue to work with the patient, he may need short-term placement in a [place] [facility] facility for rehab services. Total clinical time spent by myself addressing the patient's medical issues, reviewing all of his data, and collaborating with patient's care team: 35 minutes Medications at Discharge Home Medications rosuvastatin 10 mg tablet 10 mg PO DAILY CHOLESTEROL #30 tabs 03/25/23 albuterol sulfate 2.5 mg/3 mL (0.083 %) solution for nebulization 2.5 mg (3 mL) inhalation Q2H PRN PRN Dyspnea #0 mL 12/23/23 amlodipine 10 mg tablet 10 mg PO DAILY BP #0 tabs 12/23/23 apixaban 5 mg tablet (Eliquis) 10 mg (2 x 5 mg) PO BID Blood thinner #0 tabs 12/23/23 hydralazine 10 mg tablet 10 mg PO Q4H PRN BP 12/23/23 melatonin 3 mg capsule 3 mg PO QHS insomnia 12/23/23 menthol 0.44 %-zinc oxide 20.6 % topical ointment (Calmoseptine) 1 applic topical BID Skin protection #0 grams 12/23/23 Hospital Course Operations None Procedures None Summary of Care Provided Minutes Spent on Discharge: 32 Hospital Course: This 73-year-old white male was seen in the emergency room at [facility] with complaints of shortness of breath and feelings of swelling in the back of his throat. Patient was having trouble with his speech and swallowing, patient was seen rapidly when admitted to the emergency room and respiratory was paged for rapid intubation and difficult airway. Attempts were made to intubate patient by the emergency room physician, these attempts were unsuccessful and ENT was present and finally intubated the patient. Patient was taken to ICU, he remained on the ventilator several days with critical care participating in his care. He underwent some decompensation of his respiratory status and had a CTA of his chest performed which showed pulmonary emboli and he was placed on full anticoagulation. Patient was extubated without incident several days later and was transferred to PCU, he was seen by PT and OT, it was felt he would benefit from inpatient rehab or skilled care at a [place] [facility] facility. The rehab department at the hospital here agreed to accept the patient for inpatient rehab services. On 12/23/2023, patient was seen and examined: On examination he appeared in good health and spirits. Vital signs as documented. Skin warm and dry and without overt rashes. Neck without JVD, neck was supple, trachea midline, thyroid was normal. Lungs clear bilaterally, normal air movement was noted. Heart exam notable for regular rhythm, normal sounds and absence of murmurs, rubs or gallops. Abdomen unremarkable and without evidence of organomegaly, masses, or abdominal aortic enlargement. Bowel sounds are present, abdomen is not distended. Extremities nonedematous, no cyanosis was noted, no clubbing was noted. Neuro: Cranial nerves II through XII are grossly intact, no focal motor deficits were noted, sensation to light touch and pinprick intact, motor exam 5/5 throughout. Psych: Patient is alert and oriented x3, he does not appear anxious or depressed, he does not appear agitated. Patient appears stable for discharge to the rehab department at [facility] on 12/23/2023. Weight / BMI Weight Weight: 89.6 kg Body Mass Index (BMI) 29.2 ABG / Lab / Microbiology Data 12/19/23 03:25 12/19/23 03:25 Microbiology: Microbiology 12/15/23 11:19 Sputum, Induced/Lukens Gram Stain - Final 12/15/23 11:19 Sputum, Induced/Lukens Respiratory Culture - Final Meaningful Use Info Meaningful Use Meaningful Use Diagnoses (Choose all that apply): VTE Ischemic Stroke Statin Dosing Therapy Reference: STATIN DOSE THERAPY REFERENCE: * Patients > 75 years receive moderate or high dose statin therapy. * Patients 75 years or YOUNGER should receive HIGH intensity statin dose unless contraindicated. You will be required to document reason for non-treatment if statin daily dose does not meet guidelines. HIGH DOSE STATIN THERAPY DAILY Atorvastatin > than or = to 40 mg Rosuvastatin > than or = to 20 mg Amlodipine + Atorvastatin > than or = to 2.5/40 mg Ezetimibe + Simvastatin 10/80 mg Simvastatin 80mg VTE Anticoag overlap given w/in hospital stay or rx'd at dc?: Yes Pt receive overlap for 5 days?: No Reason overlap not ordered, prescribed, or given for 5 days: Treatment Not Indicated Discharge Plan Admission Admit Date/Time: 12/15/23 11:48 Primary Reason for Your Visit: Respiratory failure secondary to angioedema, pulmonary emboli, Attending Provider: Francisco Davis Primary Care Provider: Jose E Ace Consulting Providers: Jose L Diaz Discharge Orders/Prescriptions Prescriptions: New albuterol sulfate 2.5 mg /3 mL (0.083 %) Solution For Nebulization 2.5 mg inhalation Q2H PRN PRN (Reason: Dyspnea) Qty: 0 0RF amlodipine 10 mg Tablet 10 mg PO DAILY Qty: 0 0RF menthol-zinc oxide [Calmoseptine] 0.44-20.6 % Ointment 1 applic topical BID Qty: 0 0RF Protocol: *Topical Application Instructions APPLICATION INSTRUCTIONS: coccyx, rectal area Eliquis 5 mg Tablet 10 mg PO BID Qty: 0 0RF Rx Instructions: Continue 10 mg twice daily until the morning of 12/28/2023, then begin 5 mg twice daily thereafter Continued rosuvastatin 10 MG tablet 10 mg PO DAILY Qty: 30 2RF Discontinued hydrochlorothiazide 25 MG tablet 25 mg PO DAILY Patient Comments: bp diltiazem HCl 180 MG capsule,extended release 24hr 180 mg PO BID fluticasone propionate 50 mcg/actuation spray,suspension 1 spray INTRANASAL BID Patient Comments: SPRAY 1 SPRAY INTO EACH NOSTRIL TWICE A DAY hydralazine 50 mg tablet 50 mg PO Q8H Patient Comments: TAKE 1 TABLET BY MOUTH EVERY 8 HOURS valsartan 320 mg tablet 320 mg PO DAILY Patient Comments: TAKE 1 TABLET BY MOUTH EVERY DAY cholecalciferol (vitamin D3) [Vitamin D3] 25 mcg (1,000 unit) capsule 50 mcg PO DAILY coenzyme Q10 [Co Q-10] 100 mg capsule 100 mg PO DAILY A Thru Z Select 50Plus Formula 0.4 mg-300 mcg- 250 mcg tablet 1 tab PO DAILY cetirizine [24Hour Allergy] 10 mg tablet 10 mg PO DAILY riboflavin (vitamin B2) [Vitamin B-2] 100 mg tablet 200 mg PO BID aspirin 325 mg capsule 325 mg PO DAILY Qty: 30 0RF albuterol sulfate 90 mcg/actuation HFA aerosol inhaler 1 inh INHALATION 4XD Patient Comments: INHALE 1 PUFF BY MOUTH UP TO 4 TIMES DAILY fluticasone propion-salmeterol 232-14 mcg/actuation aerosol powdr breath activated 1 inh INHALATION DAILY No Action hydralazine 10 mg tablet 10 mg PO Q4H PRN (Reason: BP) Rx Instructions: systolic >170 or diastolic >85 melatonin 3 mg capsule 3 mg PO QHS Referrals / Follow Up: Jose E Ace MD [Primary Care Provider] - Disposition Disposition (needs filled in before D/C Order can be placed): Inpatient Rehab Unit/Facility Charges/Coding Visit Charges Inpatient E&M: 94928 Disch Hosp >30min
[2023-12-23 14:58] VITALS: BP 123/63; PULSE 83; RESP 18; TEMP 36.6; O2SAT 93
== END 2023-12-23 16:23 | DRG 207 ==
LOC: ED 11:15 → ICU 11:39 → PCU 12-21 09:49
PROVIDERS: Internal Medicine; Admitting Provider Internal Medicine; Emergency Provider Emergency Medicine; PCP Family Medicine; Visit Provider Internal Medicine
DX: J96.01 Acute respiratory failure with hypoxia (principal); R57.8 Other shock; I26.99 Other pulmonary embolism without acute cor pulmonale; J18.9 Pneumonia, unspecified organism; I10 Essential (primary) hypertension; E78.00 Pure hypercholesterolemia, unspecified; H40.9 Unspecified glaucoma; Z87.891 Personal history of nicotine dependence; T78.3XXA Angioneurotic edema, initial encounter; Z79.82 Long term (current) use of aspirin; Z79.51 Long term (current) use of inhaled steroids; Z79.52 Long term (current) use of systemic steroids; R73.9 Hyperglycemia, unspecified; Z79.01 Long term (current) use of anticoagulants; R53.81 Other malaise; Z79.899 Other long term (current) drug therapy
CPT/HCPCS: 31500; 31720; 36600; 51702; 71045; 71275; 74018; 80048; 80053; 80202; 82550; 82803; 84478; 85025; 87070; 87205; 93005; 94002; 94003; 94640; 94660; 94668; 94762; 97110; 97162; 97163; 97166; 97530; 97535; 97802; 97803; 99252; 99285; J7030; J7040; J7050; Q9967; A4216; G0463; J0330; J1940; J2405; J3490

== ENCOUNTER 2023-12-23 16:30 | Inpatient (IN) | payer MEDICARE, OTHER, SELFPAY ==
[2023-12-23 17:17] VITALS: BP 149/75; PULSE 79; RESP 18; TEMP 36.9; O2SAT 98
[2023-12-23 17:50] VITALS: BP 149/75; PULSE 79; RESP 18; TEMP 36.9; O2SAT 98
--- NOTE | 2023-12-23 18:11 | PCM.HP.STD ---
[facility] - General General Date of Admission: 12/23/23 Chief Complaint: Debility due to angioedema requiring [facility] and to BL PE's HPI Narrative FREDY KAMARA, is a 73-year-old M with a past medical history of chronic back pain with foraminal stenosis of the L4-5 and L5-S1 levels, glaucoma, ptosis, history of cochlear implant, history of GI bleed, tobacco dependence in remission, obstructive sleep apnea, migraines, hyperlipidemia, TIA, history of ischemic colitis with partial colectomy (2018) and hypertension who presented to the ED at [facility] on 12/15/23 complaining of facial and neck swelling with extreme shortness of breath that had started that morning. He did relate that he had had a similar episode the previous week but it resolved without treatment. He was diagnosed with angioedema. Initial attempt at intubation in the emergency room failed and the airway team was called. He was eventually intubated using a fiberoptic scope by Dr. Diaz. He was taking Valsartan at the time of presentation to the ED. He had previou desaturation and a CTA of the chest was ordered on 12/18/2023. The CTA showed multiple emboli seen in the branches of the right upper lobe pulmonary artery and to a smaller extent emboli seen in the branches of the left upper lobe pulmonary artery. There was dense consolidation in both lower lobes with small bilateral pleural effusions. He was started on appropriate antibiotics and was placed on anticoagulation. He was placed on SQ Heparin at admission to ICU for DVT prophylaxis. He denied any previous hx of DVT. He was extubated on 12/20/23 and the following day was transferred to telemetry. He was seen and evaluated by PT/OT and acute rehab was recommended at [place]. William lives by himself and prior to developing angioedema he was independent with all ADL's and driving. He was transferred to the acute inpt rehab unit at [facility] on 12/23/23 for 3 hours of therapy daily to restore function/independence at or near his level prior angioedema/intubation/PE's/PNA. Has been very fatigued over the past year. He is generally very active but, starting about 1 year ago he developed overwhelming fatigue. He also had marked swelling of the LUE at one point. He had a soft tissue ultrasound of the left upper extremity on August 22, 2023 and it showed soft tissue swelling with no discrete mass. On 08/27/[address] scan of the left upper extremity and there was evidence of skin thickening and subcutaneous edema overlying the anterior aspect of the mid and distal portion of the arm and forearm. No evidence of compartment syndrome. He did not have a CTA. He did not have Venous US's of the LE's after being diagnosed with BL pulmonary emboli. Tells me that he was placed on Prednisone and the swelling went away and he had energy and felt better than he had in months. He took prednisone for 4-5 weeks and then it was stopped. Denied cephalgia, visual changes, or limb girdle weakness prior to the prednisone. He was sent to the [facility] to be evaluated for a rheumatologic disease, but the swelling in the LUE was not in the joint....it was the entire arm. He denies any red or swollen joints. 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 He denies fevers, night sweats and chills. He denies any hx of VTE and also denies a FH of VTE. He was started on SQ heparin on 12/15/23. Has never had a hypercoagulable W/U. Denies any weight loss. PSA in September of this year was 0.34. He quit smoking 40 to 50 years ago. He denies any hemoptysis. Denies shortness of breath prior to presenting to the emergency department with angioedema. He has a chronic cough which is productive of clear sputum. He has seen Dr. Mace in the past. He has been on CPAP for about 6 months but has not noticed any improvement in his energy level. He was having leg cramps at night and this is definitely improved since being placed on CPAP. Has some chronic back pain and gets an occasional Epidural by Dr. Wilks. No masses mentioned on the CTA of the chest. Carotid ultrasound done in September 2023 showed 50 to 69% stenosis of the right extracranial carotid artery. MRI of the lumbar spine done in October 2020 showed no compressive disc disease or canal stenosis. There was moderate to severe foraminal stenosis at L4-L5 and L5-S1. White blood cell count on 11/25/2023 at admission was 33.7 which was up from 21.9 on 12/11/2023. White blood cell count in May of this year was 7.0 but he had 21% eosinophils.. The white blood cell differential on 12/11/2023 showed 46.5% eosinophils. On 12/15/2023 the eosinophils were 74.7%. With the Decadron started for angioedema at admission eosinophils are now 0.6. TSH was normal in August. Cortisol was normal in September but, I do not know if he was on Prednisone at that time. ESR has been elevated into the 20s at times and the CRP has been as high as 77 in the past. RA and MISAEL were both negative. No ANCA in computer [facility] Medical History (Updated 12/24/23 @ 10:[address] Yuko Calvin, DO) Generalized weakness Leukocytosis Carotid stenosis, right Carotid artery stenosis Foraminal stenosis of lumbar region Venous insufficiency Loss of hearing Wears glasses Arthritis Back pain Leg cramps History of echocardiogram Cochlear implant in place GI bleed Former smoker Sleep apnea Migraines Transient ischemic attack (TIA) Hyperlipidemia History of ischemic colitis HTN (hypertension) Glaucoma Home Medications ?Medication ?Instructions ?Recorded ?Last Taken ?Type rosuvastatin 10 mg tablet 10 mg PO DAILY CHOLESTEROL #30 tabs 03/25/23 04/14/23 Rx albuterol sulfate 2.5 mg/3 mL 2.5 mg (3 mL) inhalation Q2H PRN 12/23/23 Unknown Rx (0.083 %) solution for nebulization PRN Dyspnea #0 mL amlodipine 10 mg tablet 10 mg PO DAILY BP #0 tabs 12/23/23 12/23/23 Rx apixaban 5 mg tablet (Eliquis) 10 mg (2 x 5 mg) PO BID Blood 12/23/23 12/23/23 Rx thinner #0 tabs hydralazine 10 mg tablet 10 mg PO Q4H PRN BP 12/23/23 Unknown History melatonin 3 mg capsule 3 mg PO QHS insomnia 12/23/23 Unknown History menthol 0.44 %-zinc oxide 20.6 % 1 applic topical BID Skin 12/23/23 12/23/23 Rx topical ointment (Calmoseptine) protection #0 grams Allergy/AdvReac Type Severity Reaction Status Date / Time valsartan Allergy Severe Angioedema Verified 12/19/23 09:08 ciprofloxacin (From Cipro) Allergy Rash Verified 12/15/23 10:22 ciprofloxacin HCl (From Allergy Rash Verified 12/15/23 10:22 Cipro) ertapenem sodium (From Allergy Rash Verified 12/15/23 10:22 Invanz) hydrocodone AdvReac makes him Verified 12/15/23 10:22 gary Family History Mother Heart disease Hypertension Father Hypertension Heart disease Surgical History History of left-sided carotid endarterectomy Hx of facial fracture repair History of ear surgery Hx of tympanostomy History of surgery on lower extremity History of partial colectomy Social History (Updated 12/24/23 @ 09:[address] Yuko Calvin DO) household members: none housing: house Smoking Status: Former smoker Tobacco: How many years used: 16 how long ago did patient quit smoking: > 30 years ago second hand exposure: No alcohol intake: never substance use type: does not use seatbelt use: always ROS Constitutional Constitutional: Reports fatigue, lethargy, malaise and weakness; Denies anorexia, change in weight, chills, fever(s) or night sweats Eyes Eyes: Reports other Details: Known glaucoma but, no recent changes in vision. ; Denies blurry vision, change in vision, eye pain, itchy eyes, loss of vision or ptosis ENT HEENT: Reports abnormal hearing, hearing loss, lip swelling and throat swelling; Denies dysphagia, headache(s), mouth lesions, mouth pain, nasal congestion or sore throat Cardiovascular Cardiovascular: Reports dyspnea on exertion, edema, palpitations and other Details: Generalized weakness and fatigue ; Denies chest pain, cold extremities, cyanosis, lightheadedness, orthopnea, paroxysmal nocturnal dyspnea or syncope Respiratory/Chest Respiratory/Chest: Reports cough, shortness of breath with exertion and other Details: Is compliant with CPAP ; Denies dyspnea, hoarseness, shortness of breath at rest or wheezing Gastrointestinal Gastrointestinal: Denies abdominal pain, constipation, diarrhea, dyspepsia, hematemesis, hematochezia, nausea or vomiting Genitourinary Genitourinary: Reports other Details: Has a slower stream with urination and some dribbling afterward. ; Denies dysuria, hematuria, nocturia, urinary frequency, urinary hesitancy, urinary incontinence or urinary urgency Musculoskeletal Musculoskeletal: Reports back pain; Denies joint pain, joint swelling or neck pain Integumentary Integumentary: Denies changing lesions, jaundice, photosensitivity, pruritus, rash or skin ulcer Neurologic Neurologic: Denies confusion, disequilibrium, dizziness, focal weakness, headache(s), paresthesias, radicular pain, seizures or tremor(s) Psychiatric Psychiatric: Denies anxiety, depression, homicidal ideation or suicidal ideation Endocrine Endocrinology: Denies change in body appearance, polydipsia or polyuria Hematologic/Lymphatic Hematologic/Lymphatic: Denies easy bleeding, easy bruising or lymphadenopathy Allergic/Immunologic Allergic/Immunologic: Denies rhinitis, eczemia or asthma Vital Signs Vital Signs Vital Signs: 12/23/23 17:17 12/23/23 17:50 Temperature 98.5 F 98.5 F Temperature Source Oral Oral Pulse Rate 79 79 Respiratory Rate 18 18 Blood Pressure 149/75 H 149/75 H Blood Pressure Mean 99 99 Blood Pressure Source Monitor Monitor Blood Pressure Position Sitting Sitting Blood Pressure Location Left Arm Left Arm Pulse Ox 98 98 Oxygen Delivery Method Room Air Nasal Cannula Oxygen Flow Rate (L/min) 2 Physical Exam Const alert, oriented x3 and no apparent distress Constitutional Narrative: bonner in appearance. General Appearance: cooperative, well kempt and well developed HEENT normocephalic, head/scalp atraumatic and hearing grossly normal bilaterally HEENT Narrative: Tongue is coated however he denies any bad taste in his mouth or painful swallowing. There are no buccal lesions. I suspect the tongue is coated just because his mouth is dry. No simus pain. No facial or neck swelling. Head and Scalp: normocephalic and atraumatic Face and Sinus: sinuses nontender and face symmetric Mouth: dry mucous membranes Eyes PERRL, EOMs intact bilaterally, conjunctivae normal and no scleral icterus Eyes Narrative: No discharge from the eye and no mattering of the eyelids. General Eye: normal appearance of both eyes Neck supple, no JVD and No nodes Neck Narrative: Right carotid bruit. cicatrix Left neck from [facility] in March of 2023 General: trachea midline Chest Chest: symmetrical chest wall rise Resp Resp Narrative: Few coarse crackles in the left base with mildly decreased breath sounds in the bases but otherwise clear to auscultation. He is not tachypneic and he has no conversational dyspnea. Effort and Inspection: able to speak in complete sentences Cardio no rub and no gallops Cardio Narrative: Irregular irregular rhythm with tachycardia when I am listening to him. Denies any history of atrial fibrillation. He has a 2/6 systolic ejection murmur heard at the second right intercostal space with no radiation. GI normal to inspection, nondistended, normoactive bowel sounds, soft to palpation and non-tender GI Narrative: No guarding with palpation no CVA tenderness Extremity no calf tenderness Extremity Narrative: He has pitting edema both distal lower extremities....4+ at the ankles and distal lower leg. DP pulses are +2 BL. Could not palpate the PT due to severe swelling. Superficial varicosities in both LE's. Small scab on the Left anterior johnson about mid tibia. No erythema and no DC. Can walk over a while with no claudication. Skin no jaundice Skin Narrative: Denies pruritus. Rashes: no rashes Neuro oriented x3, CN's II-XII intact bilaterally, moves all extremities, no focal motor deficits and no sensory deficits noted Results Lab / Micro Data 12/24/23 05:07 12/24/23 05:07 Assessment & Plan Assessment/Plan (1) Physical debility: (2) Generalized weakness: (3) Acute respiratory failure with hypoxemia: (4) Angioedema: QUALIFIERS: Encounter type: subsequent encounter Qualified Code(s): T78.3XXD - Angioneurotic edema, subsequent encounter (5) History of difficult intubation: (6) Pneumonia: QUALIFIERS: Pneumonia type: due to unspecified organism Laterality: bilateral Lung location: lower lobe of lung Qualified Code(s): J18.9 - Pneumonia, unspecified organism (7) Pulmonary emboli: QUALIFIERS: Pulmonary embolism type: multiple subsegmental (without acute cor pulmonale) Qualified Code(s): I26.94 - Multiple subsegmental pulmonary emboli without acute cor pulmonale (8) DVT (deep venous thrombosis): QUALIFIERS: DVT location: lower extremity Affected thrombotic vein of extremity: unspecified vein of extremity Chronicity: acute Laterality: bilateral Qualified Code(s): I82.403 - Acute embolism and thrombosis of unspecified deep veins of lower extremity, bilateral (9) Leukocytosis: QUALIFIERS: Leukocytosis type: unspecified Qualified Code(s): D72.829 - Elevated white blood cell count, unspecified (10) Normochromic normocytic anemia: (11) Venous insufficiency: (12) Hypokalemia: (13) Ectopic atrial beats: (14) Hypomagnesemia syndrome: (15) Eosinophilia: QUALIFIERS: Eosinophilia type: unspecified eosinophilia Qualified Code(s): D72.10 - Eosinophilia, unspecified PLAN: Plan PLAN PT for gait stability OT for ADL's Analgesics as needed Bowel protocol Fall precautions Assess for Anxiety/Depression GI prophylaxis -Protonix 20 mg p.o. daily. DVT prophylaxis-continue Eliquis load of 10 mg twice daily and after the load is complete decrease to 5 mg twice daily. Follow up with Dr. Ace, hematology/oncology, Dr. Mace following DC from Rehab AM lab including CMP, CBC, Mag and Phos Obtain records form Dr. Ace, [facility], Dr. Mace...........curious to see the lab done by rheumatology when he was not on Steroids. concerned that now that he is off Decadron the leukocytosis and eosinophilia will return. Concerned he may have hypereosinophilic syndrome which may have caused the angioedema, vasculitis, BL PNA, BL PE's EKG for suspected AF Venous US of the LE's in the AM 75 Minutes spent reviewing past diagnostic tests, lab results, vital sign trends, medical history, medications, all additional paperwork sent by the previous hospital, and ordering medications, examining the the patient and completing documentation. Charges/Coding Visit Charges Inpatient E&M: 75377 Init Hosp L3
--- NOTE | 2023-12-23 18:25 | VDLE_ITS ---
Reason For Study: PAIN RIGHT LEFT GSV is normal. CFV is compressible, spontaneous, phasic, CFV is compressible, spontaneous, phasic, competent, and demonstrates normal competent and demonstrates normal augmentation. augmentation. FV is compressible, spontaneous, phasic, FV is compressible, spontaneous, phasic, competent and demonstrates normal competent and demonstrates normal augmentation. augmentation. POP V is compressible, spontaneous, phasic, POP V is compressible, spontaneous, phasic, competent and demonstrates normal competent and demonstrates normal augmentation. augmentation. T/P Trunk is compressible. T/P Trunk is compressible. LT PerV is compressible. Acute deep vein thrombosis is noted in the Acute deep vein thrombosis is noted in the PTV, ART V, SOLEUS V. It is dilated and PTV. It is dilated and NONCOMPRESSIBLE. NONCOMPRESSIBLE. GSV is partially compressible at Prox Thigh. Procedure This is a venous duplex using B-mode, color flow and spectral Doppler. Exam performed portable in patient room. A preliminary report was called and/or faxed to . VL/Venous Duplex US - Dudley Extrem Interpretation Summary Acute deep vein thrombosis is noted in the right posterior tibial vein, peronea l vein, soleus vein. Acute deep vein thrombosis is noted in the left posterior tibial vein. Ordering Physician: Yuko Calvin Referring Physician: Jose E Ace Performed By: Argenis Benavides RVT and Student
--- NOTE | 2023-12-23 18:31 | EKG12_ITS ---
Test Reason : DYSRHYTHMIA Blood Pressure : / mmHG Vent. Rate : 100 BPM Atrial Rate : 100 BPM P-R Int : 168 ms QRS Dur : 074 ms QT Int : 362 ms P-R-T Axes : 000 027 090 degrees QTc Int : 466 ms Sinus rhythm with Premature atrial complexes Septal infarct , age undetermined Abnormal ECG No previous ECGs available Confirmed by JONI DUKE, MAYRA ([id number]), subeditor JOHNNY RODRIGUEZ ([id number]) on 12/24/2023 1:13:00 PM Referred By: Yuko Calvin Confirmed By:MAYRA QUINONES MD
[2023-12-23 21:00] VITALS: BMI 26.5
[2023-12-23] MEDS: Menthol/Lanolin/Calamine/Znox 113 GM Tube 1 APPLIC TOPICAL (21:20)
[2023-12-23] MEDS: APIXABAN 5 MG TABLET 10 MG PO (21:21)
[2023-12-23] MEDS: MELATONIN 3 MG TABLET PO (21:21)
[2023-12-23 21:36] VITALS: BMI 26.6
[2023-12-23 22:00] VITALS: RESP 17
[2023-12-24] VITALS (7 sets, daily range): BP systolic 130–147; BP diastolic 71–75; PULSE 80–87; RESP 16–17; TEMP 36.3–37; O2SAT 93–97; BMI 26.7
[2023-12-24] MEDS: Acetaminophen 325 MG Tablet 650 MG PO ×3 (01:15→19:34)
[2023-12-24 06:23] LABS: Hematocrit 33.9 % (40-54); Hemoglobin 11.2 g/dL (13.0-16.5); Mean Corpuscular Hgb 29.3 pg (27.0-32.0); Mean Corpuscular Volume 88.7 fL (80-94); Mean Platelet Vol. 11.6 fl (6.2-12.0); Platelet Count 317 K/mm3 (150-450); RBC Distribution Width CV 13.2 % (11.6-14.6); RBC Distribution Width SD 42.9 fl (35.1-43.9); Red Blood Count 3.82 M/mm3 (4.6-6.2); White Blood Count 13.6 K/mm3 (4.4-11.0)
[2023-12-24 07:06] LABS: ALB/GLOB Ratio 0.7 RATIO (0.9-2.4); AST(SGOT) 19 U/L (15-37); Alanine Aminotransfer ALT/SGPT 34 U/L (16-61); Albumin, Serum 2.1 g/dL (3.2-5.0); Alkaline Phosphatase 86 U/L (45-117); Anion Gap 6 (5-15); BUN 17 mg/dL (7-18); BUN/Creat Ratio 26.6 RATIO (10-20); Calcium,Total 8.4 mg/dL (8.5-10.1); Chloride 101 mmol/L (98-107); Creatinine, Serum 0.64 mg/dL (0.70-1.30); EST Glomerular Filtration Rate 131 mL/min (>60); Est Glom Filt Rate - Afr Amer 159 mL/min (>60); Estimated Creatinine Clearance 84.69 ml/min; Glucose 103 mg/dL (74-106); Magnesium 1.7 mg/dL (1.6-2.6); Phosphorus 2.9 mg/dL (2.5-4.9); Potassium 2.8 mmol/L (3.5-5.1); Protein, Total 5.1 g/dL (6.4-8.2); Sodium Level 136 mmol/L (136-145)
[2023-12-24] MEDS: Furosemide 40 MG Tablet PO (08:05)
[2023-12-24] MEDS: amLODIPine 10 MG Tablet PO (08:05)
[2023-12-24] MEDS: APIXABAN 5 MG TABLET 10 MG PO ×2 (08:05→21:02)
[2023-12-24] MEDS: Menthol/Lanolin/Calamine/Znox 113 GM Tube 1 APPLIC TOPICAL ×2 (08:10→22:51)
[2023-12-24 08:37] LABS: Hemoglobin A1c 5.2 % (3.8-5.6)
--- NOTE | 2023-12-24 10:59 | PCM.RU.PYE ---
Admission Information Primary Diagnosis:: Debility secondary to generalized weakness due to angioedema/intubation/bilateral pneumonia/bilateral PEs Status Changes from Prescreening?: No changes Identified Actual Problem List:: DVT, Pain, ALteration in Cmfrt, Alteration in Sleep, Mobility Impaired, Self Care Deficit, Know.Dfct/Disease Process, BP, Hypertension, Alteration/ Air Exchange, Fluid Overload r/t CHF and Alteration-Leisure Activ. Potential Problem List:: DVT, Bleeding, Infection, UTI, Aspiration, Falls, Skin Integrity and Depression Risk of Complications DVT: BETZAIDA Hose and - (Eliquis) Bleeding: Monitor Lab Values, Nursing to Teach Precautions for anti-coagulation therapy., Wound, if applicable, to be assessed every shift. and Stroke patients assessed for lethargy or change in status. Infection: Clinical Staff to Monitor for S/S of infection: and S/S of infection include fever, redness, warmth, etc. Urinary Tract Infection: Monitor for frequency, burning, discomfort, or incontinence. and Nursing will obtain urine sample for urinalysis and C&S when ordered. Aspiration: Clinical staff will monitor for coughing, drooling, congestion., Speech will evaluate swallowing and dsyphasia. and Nursing will monitor patient swallowing during meals. Falls: Patient will be evaluated for Fall Precautions and Patient will be placed on Fall Precautions as indicated per protocol. Skin Breakdown: Nursing will assess skin daily using assessment tool. and Nursing will place on Skin Breakdown Precautions as indicated. Pain: Clinical staff will assess patient's pain level per protocol., Medications will be given, if needed, and the pain level reassessed. and Other methods: Massage, distraction, decrease stimulus, etc. used PRN. Plan of Care Patient requires physician specializing in physical medicine and rehab oversight to provide close medical supervision of rehab issues including: Pain Management, Sleep Problems, Bowel and Bladder, Medical and co-morbidity Management, DVT prophylaxis, Rehabilitation Leadership and Coordination of treatment team Patient needs Physical Therapy: For a minimum of 1 hour and At least 5 out of 7 days Patient needs Physical Therapy to improve:: Mobility, Strengthening, Transfers, Stretching, ROM, Endurance, Stairs, Gait and Balance Patient needs Occupational Therapy: For a minimum of 1 hour and At least 5 out of 7 days Patient needs Occupational Therapy to improve ADL's incl.: Eating, Grooming, Bathing, Dressing, Toileting, Toilet transfers, Community Reintegration, Higher functioning activities, Household tasks, Adaptive Equipment, Splinting and Other activities as determined Patient requires 24/7 Rehabilitation Nursing for: Pain Issues, Identifying and preventing risk factors, Monitoring and reporting current medical conditions, Assisting with ambulation, transfer, and all ADL's, Teaching patients about disease process and medications, Family teaching, Providing safe environment, Bowel and Bladder Issues, Skin integrity and Medication Management Patient needs Pmo Project Manager/ Case Management for: Discharge Planning, Arranging Home Equipment or Services and Family Interventions Patient needs Dietary and Nutrition Services for: Adequate Nutrition, Nutritional Supplements and Nutritional Education Goals Goals Patient will remain: free from falls Patient will perform eating at: MOD I level of assist. Patient will perform bed mobility at: MOD I level of assist. Patient will complete transfers from bed to chair at: MOD I level of assist. Patient will ambulate: - (500 feet while managing oxygen supplementation as needed to keep his pulse ox 90% or greater) Patient will complete upper body dressing at: MOD I level of assist. Patient will complete lower body dressing at: MOD I level of assist. (With adaptive equipment as needed.) Patient will complete toilet transfer at: MOD I level of assist. Patient will complete toileting at: MOD I level of assist. Patient will perform bathing at: MOD I level of assist. (With adaptive equipment as needed for lower body bathing.) Patient will perform Tub/Shower transfer at: - (Supervision) Patient will complete grooming at: MOD I level of assist. Patient will complete home management skills at: MOD I level of assist. Patient will achieve: 12 stairs (With 1 or 2 handrails at mod I) Patient will have pain level of: of 3 or less Patient's skin will: remain intact Patient will receive: adequate nutrition. Discharge Planning Pt Prognosis for Sig. Practical Improv. w/in Reasonable Time: Good Estimated Length of stay (days): 14 Anticipated D/C Destination: Home with Outpt Therapy Was Preadmission Assessment Accurate?: Yes
[2023-12-24] MEDS: Pantoprazole Sodium 20 MG Tablet PO (11:34)
[2023-12-24] MEDS: Magnesium Chloride 64 MG Delay Rel.Tablet 128 MG PO (11:34)
[2023-12-24] MEDS: Potassium Chloride Oral Tablet 20 MEQ 40 MEQ PO ×2 (11:34→17:05)
--- NOTE | 2023-12-24 11:36 | PCM.PROGNOTE ---
Subjective Subjective Afebrile VSS -blood pressure has ranged from 147/71 to 149/75 since admission to rehab. Maintaining appropriate oxygen saturation on RA Oral intake - FOOD good FLUIDS poor Discussed with nursing - no problems that need addressed Reviewed the THERAPY notes Medication list reviewed. EKG from last evening was reviewed. The heart rate was 100 bpm and he had sinus rhythm with frequent ectopic atrial beats. Poor R wave progression in the anterior precordial leads per my interpretation. All lab from this morning was personally reviewed. White blood cell count is elevated at 13.6......diff was not done but, I have ordered. Hemoglobin is stable at 11.2 with normochromic normocytic indices. Platelets are within normal limits. Sodium is 136 and the potassium is 2.8. Serum bicarb is normal. The BUN is down to 17 from 27 on 12/19/2023 and the creatinine is down to 0.64 from 1.01 on 12/16/2023. Calcium corrected for hypoalbuminemia is within normal limits. Phosphorus is normal and the magnesium is borderline low at 1.7. LFTs are unremarkable. Albumin is low at 2.1. I received the labs done at the [facility]. RA and CCP were neg. CRP and ESR were normal. CPK was normal. SPE was normal. His complaint to rheumatology was myalgia and severe fatigue. On 12/11/23 ( off steroids) the WBC was 21.9 with 46.5% eosinophils for an absolute eosinophil count of 10,183. No Physical evidence on exam of inflammatory arthritis. He slept better last night. Feels tired today and gets SOB with exertion. Denies chest pain. He has a cough productive of some clear sputum but this has been chronic for the past few years. He quit smoking greater than 10 years ago and actually told me it was greater than 20 years ago. Denies nausea/vomiting/epigastric pain/suprapubic pain/dysuria. Venous ultrasound of the lower extremities today showed DVT in both lower extremities. Official report is pending. Objective Data Objective Data Vital Signs: Vital Signs Temp Pulse Resp BP Pulse Ox O2 Del Method O2 Flow Rate 97.4 F L 80 16 147/71 H 95 Nasal Cannula 2 12/24/23 05:03 12/24/23 05:03 12/24/23 05:03 12/24/23 05:03 12/24/23 08:00 12/24/23 07:15 12/24/23 08:00 Oxygen Flow Rate (L/min) 2 Oxygen Delivery Method Nasal Cannula Weight: 180 lb 8.937 oz Body Mass Index (BMI) 26.7 Intake & Output: Intake and Output for Last 24 Hours 12/22/23 12/23/23 12/24/23 23:59 23:59 23:59 Intake Total 750 / 750 Output Total 700 / 700 1320 / 1320 Balance -700 / -700 -570 / -570 Lab / Micro Data 12/24/23 05:07 12/24/23 05:07 Labs: Laboratory Results - last 24 hr 12/24/23 05:07: WBC 13.6 H, RBC 3.82 L, Hgb 11.2 L, Hct 33.9 L, MCV 88.7, MCH 29.3, MCHC 33.0, RDW Std Deviation 42.9, RDW Coeff of Marielena 13.2, Plt Count 317, MPV 11.6, Sodium 136, Potassium 2.8 L, Chloride 101, Carbon Dioxide 29.0, Anion Gap 6, BUN 17, Creatinine 0.64 L, Estim Creat Clear Calc 84.69, Est GFR (MDRD) Af Amer 159, Est GFR (MDRD) Non-Af 131, BUN/Creatinine Ratio 26.6 H, Glucose 103, Hemoglobin A1c 5.2, Calcium 8.4 L, Phosphorus 2.9, Magnesium 1.7, Total Bilirubin 0.50, AST 19, ALT 34, Alkaline Phosphatase 86, Total Protein 5.1 L, Albumin 2.1 L, Globulin 3.0, Albumin/Globulin Ratio 0.7 L Physical Exam Const alert Constitutional Narrative: Looks fatigued but arouses easily. General Appearance: cooperative HEENT normocephalic, head/scalp atraumatic and hearing grossly normal bilaterally Mouth: dry mucous membranes Eyes PERRL, EOMs intact bilaterally, conjunctivae normal and no scleral icterus Eyes Narrative: No discharge from the eye and no mattering of the eyelids. General Eye: normal appearance of both eyes Neck supple, no JVD and No nodes Neck Narrative: Some stiffness in the cervical region. General: trachea midline Chest Chest: symmetrical chest wall rise Resp Resp Narrative: Diminished in the bases with a few coarse crackles. No wheezing. No conversational dyspnea. Denies orthopnea. Wearing his CPAP at night. Effort and Inspection: able to speak in complete sentences Cardio regular rate, regular rhythm, no rub and no gallops Cardio Narrative: Rare ectopic today GI normal to inspection, nondistended, normoactive bowel sounds, soft to palpation and non-tender GI Narrative: Bowel sounds are a little hypoactive. No guarding with palpation. no CVA tenderness Extremity no calf tenderness Extremity Narrative: Still with pitting edema of the feet and ankles bilaterally but the distal tibia area has less edema with elevation and application of BETZAIDA hose. He denies calf pain. Skin no jaundice Skin Narrative: Denies pruritus. General Skin Exam: dry skin Rashes: no rashes Wound Narrative: He has a small stage I decub on sacrococcygeal junction.........nursing is applying Calmoseptine. Neuro oriented x3, CN's II-XII intact bilaterally, moves all extremities, no focal motor deficits and no sensory deficits noted Psych Psych Narrative: flat affect. Assessment & Plan Assessment/Plan (1) Physical debility: (2) Generalized weakness: (3) Acute respiratory failure with hypoxemia: (4) Angioedema: QUALIFIERS: Encounter type: subsequent encounter Qualified Code(s): T78.3XXD - Angioneurotic edema, subsequent encounter (5) History of difficult intubation: (6) Pneumonia: QUALIFIERS: Pneumonia type: due to unspecified organism Laterality: bilateral Lung location: lower lobe of lung Qualified Code(s): J18.9 - Pneumonia, unspecified organism (7) Pulmonary emboli: QUALIFIERS: Pulmonary embolism type: multiple subsegmental (without acute cor pulmonale) Qualified Code(s): I26.94 - Multiple subsegmental pulmonary emboli without acute cor pulmonale (8) DVT (deep venous thrombosis): QUALIFIERS: DVT location: lower extremity Affected thrombotic vein of extremity: unspecified vein of extremity Chronicity: acute Laterality: bilateral Qualified Code(s): I82.403 - Acute embolism and thrombosis of unspecified deep veins of lower extremity, bilateral (9) Leukocytosis: QUALIFIERS: Leukocytosis type: unspecified Qualified Code(s): D72.829 - Elevated white blood cell count, unspecified (10) Normochromic normocytic anemia: (11) Venous insufficiency: (12) Hypokalemia: (13) Ectopic atrial beats: (14) Hypomagnesemia syndrome: (15) Eosinophilia: QUALIFIERS: Eosinophilia type: unspecified eosinophilia Qualified Code(s): D72.10 - Eosinophilia, unspecified PLAN: Plan 1. Continue therapy 2. Continue Eliquis load. Start Eliquis 5 mg twice daily on the evening of 12/28/2023. 3. Check a Hemoccult stool due to history of GI bleed in the past and anemia. 4. Add Protonix 20 mg p.o. daily for ulcer prophylaxis 5. Supplement potassium 40 mEq twice today and start 20 mEq daily in the a.m. Supplement to keep the potassium around 4. 6. Accurate I&O.......hold lasix in the AM until I see the repeat BMP 7. In light of atrial ectopy will add a magnesium supplement to keep the magnesium at approximately 2. 8. Consult Dr Foley for suspected HES. 9. Have lab do a differential on the CBC they ran this morning. 10. Check a myoglobin and CPK 11. I had a discussion with Korin today about symptoms that he should notify me of immediately. The symptoms include increasing shortness of breath, hemoptysis, blood per rectum, chest pain, palpitations. I suspect he may have vasculitis and/or a hypercoagulable disorder. Charges/Coding Visit Charges Inpatient E&M: 03714 Subs Hosp L2
[2023-12-24 12:15] LABS: CPK Total, Creatine Kinase 34 U/L (39-308)
[2023-12-24 13:15] LABS: Absolute Lymphocyte Count 1.35 X10^3/uL (0.83-4.51); Absolute Neutrophil Count 7.2 X10^3/uL (2.0-7.7); Basophil# 0.04 X10^3/uL; Basophil% 0.3 % (0-1); Eosinophil# 3.86 X10^3/uL; Eosinophils% 28.1 % (0-5); Hematocrit 41.4 % (40-54); Hemoglobin 13.7 g/dL (13.0-16.5); Lymphocyte # 1.35 X10^3/ul (0.83-4.51); Lymphocyte % 9.8 % (19-41); Mean Corp Hgb Conc 33.1 g/dL (32-36); Mean Corpuscular Hgb 29.3 pg (27.0-32.0); Mean Corpuscular Volume 88.7 fL (80-94); Mean Platelet Vol. 11.3 fl (6.2-12.0); Monocyte# 1.19 X10^3/uL; Monocyte% 8.7 % (0-10); NRBC Flagged by Analyzer 0 % (0-5); Neutrophil % 52.3 % (47-70); POSITIVE DIFFERENTIAL YES; Platelet Count 407 K/mm3 (150-450); RBC Distribution Width CV 13.2 % (11.6-14.6); RBC Distribution Width SD 42.7 fl (35.1-43.9); Red Blood Count 4.67 M/mm3 (4.6-6.2); White Blood Count 13.8 K/mm3 (4.4-11.0)
[2023-12-24 13:42] LABS: Differential Comment SCANNED; Differential Indicated SCAN CRITERIA MET
[2023-12-24 15:19] LABS: Vitamin B12 965 pg/mL (211-911)
[2023-12-24] MEDS: MELATONIN 3 MG TABLET PO (21:02)
[2023-12-24] MEDS: Atorvastatin Calcium 20 MG Tablet PO (21:02)
[2023-12-25] MEDS: Acetaminophen 325 MG Tablet 650 MG PO ×2 (01:42→08:20)
[2023-12-25 06:00] VITALS: BP 160/87; PULSE 76; RESP 18; TEMP 36.2; O2SAT 95
[2023-12-25 08:06] VITALS: O2SAT 96
[2023-12-25] MEDS: Senna Tablet 2 TABLET PO (08:19)
[2023-12-25] MEDS: Pantoprazole Sodium 20 MG Tablet PO (08:20)
[2023-12-25] MEDS: Furosemide 40 MG Tablet PO (08:20)
[2023-12-25] MEDS: Magnesium Chloride 64 MG Delay Rel.Tablet 128 MG PO (08:20)
[2023-12-25] MEDS: amLODIPine 10 MG Tablet PO (08:20)
[2023-12-25] MEDS: Potassium Chloride Oral Tablet 20 MEQ PO (08:21)
[2023-12-25] MEDS: APIXABAN 5 MG TABLET 10 MG PO ×2 (08:21→21:54)
[2023-12-25] MEDS: Menthol/Lanolin/Calamine/Znox 113 GM Tube 1 APPLIC TOPICAL (08:23)
--- NOTE | 2023-12-25 10:49 | PCM.PROGNOTE ---
Subjective Subjective Gene was seen on team rounds today. His son Rah and [id number] [place] were present in the room for rounds. Afebrile VSS -blood pressure this morning is high at 160/87. It was 130/75 yesterday afternoon. Heart rate is within normal limits. Maintaining appropriate oxygen saturation on RA Oral intake - FOOD good FLUIDS fluid balance on 12/24/2023 was -1480 and he is being diuresed with Lasix. Discussed with nursing - no problems that need addressed Reviewed the THERAPY notes Medication list reviewed. The white blood cell count yesterday was 13,800 with 28.1% eos. AE count is 3,696.8. Off steroids since 12/19/23 at 0500. Hemoglobin is 12.4 today, down from 13.7 yesterday. Hemoccult stool is negative. Platelet count is normal. ANCA and myoglobin are pending. B12 was mildly elevated. Sodium is 139 today and the BUN is 15 with a creatinine of 0.82. Potassium is up to 3.9 with supplementation and the magnesium is up to 1.9 from 1.7 with supplementation. there is a mention of toxic vacuolation on the CBC....Pathologist is gone for the day.....will D/W him in the AM. Continues to c/o RUE pain today. Tylenol has not been very effective and he has been asking for it every 6 hours. He has no other complaints. Objective Data Objective Data Vital Signs: Vital Signs Temp Pulse Resp BP Pulse Ox O2 Del Method O2 Flow Rate 97.1 F L 76 18 160/87 H 96 Nasal Cannula 2 12/25/23 06:00 12/25/23 06:00 12/25/23 06:00 12/25/23 06:00 12/25/23 08:06 12/25/23 08:06 12/25/23 08:06 Oxygen Flow Rate (L/min) 2 Oxygen Delivery Method Nasal Cannula Weight: 180 lb 8.937 oz Body Mass Index (BMI) 26.7 Intake & Output: Intake and Output for Last 24 Hours 12/23/23 12/24/23 12/25/23 23:59 23:59 23:59 Intake Total 1939 / 2059 540 / 540 Output Total 700 / 700 3420 / 3660 1140 / 1140 Balance -700 / -700 -1480 / -1600 -600 / -600 Lab / Micro Data 12/25/23 11:10 12/25/23 11:10 Labs: Laboratory Results - last 24 hr 12/24/23 05:07: Total Creatine Kinase 34 L 12/24/23 13:00: WBC 13.8 H, RBC 4.67, Hgb 13.7, Hct 41.4, MCV 88.7, MCH 29.3, MCHC 33.1, RDW Std Deviation 42.7, RDW Coeff of Marielena 13.2, Plt Count 407, MPV 11.3, Immature Gran % (Auto) 0.800, Neut % (Auto) 52.3, Lymph % (Auto) 9.8 L, Andrew % (Auto) 8.7, Eos % (Auto) 28.1 H, Baso % (Auto) 0.3, Absolute Neuts (auto) 7.2, Absolute Lymphs (auto) 1.35, Nucleated RBC % 0, Differential Comment SCANNED, Vitamin B12 965 H Micro: Microbiology 12/24/23 14:00 Stool Stool Occult Blood (SHABBIR) - Final Radiography Diagnostic Testing: Radiology Impression Venous Doppler Study 12/23/23 18:25 Interpretation Summary Acute deep vein thrombosis is noted in the right posterior tibial vein, peroneal vein, soleus vein. Acute deep vein thrombosis is noted in the left posterior tibial vein. Ordering Physician: Yuko Calvin Referring Physician: Jose E Ace Performed By: Argenis Benavides RVT and Student Physical Exam Const alert, oriented x3 and no apparent distress Constitutional Narrative: Looks fatigued but arouses easily. General Appearance: cooperative Resp Resp Narrative: Diminished in the bases with a few coarse crackles. No wheezing. No conversational dyspnea. Denies orthopnea. Wearing his CPAP at night. Effort and Inspection: able to speak in complete sentences Cardio regular rate, regular rhythm, no rub and no gallops Cardio Narrative: Rare ectopic today GI normal to inspection, nondistended, normoactive bowel sounds, soft to palpation and non-tender GI Narrative: Bowel sounds are a little hypoactive. No guarding with palpation. Extremity no calf tenderness Extremity Narrative: Still with some ankle edema but the edema is overall significantly improved since admission. He has received 2 doses of Lasix 40 mg. BETZAIDA hose are in place. Skin no jaundice Skin Narrative: Denies pruritus. General Skin Exam: dry skin Rashes: no rashes Wound Narrative: He has a small stage I decub on sacrococcygeal junction.........nursing is applying Calmoseptine. He has hyperpigmentation of sun exposed areas but no hyperpigmentation of his legs or abdomen. Neuro Neuro Narrative: Slight R facial droop which he has had since a child......due to trauma of the R face. Speech: speech normal Assessment & Plan Assessment/Plan (1) Physical debility: (2) Generalized weakness: (3) Acute respiratory failure with hypoxemia: (4) Angioedema: QUALIFIERS: Encounter type: subsequent encounter Qualified Code(s): T78.3XXD - Angioneurotic edema, subsequent encounter (5) History of difficult intubation: (6) Pneumonia: QUALIFIERS: Pneumonia type: due to unspecified organism Laterality: bilateral Lung location: lower lobe of lung Qualified Code(s): J18.9 - Pneumonia, unspecified organism (7) Pulmonary emboli: QUALIFIERS: Pulmonary embolism type: multiple subsegmental (without acute cor pulmonale) Qualified Code(s): I26.94 - Multiple subsegmental pulmonary emboli without acute cor pulmonale (8) DVT (deep venous thrombosis): QUALIFIERS: DVT location: lower extremity Affected thrombotic vein of extremity: unspecified vein of extremity Chronicity: acute Laterality: bilateral Qualified Code(s): I82.403 - Acute embolism and thrombosis of unspecified deep veins of lower extremity, bilateral (9) Leukocytosis: QUALIFIERS: Leukocytosis type: unspecified Qualified Code(s): D72.829 - Elevated white blood cell count, unspecified (10) Normochromic normocytic anemia: (11) Venous insufficiency: (12) Hypokalemia: (13) Ectopic atrial beats: (14) Hypomagnesemia syndrome: (15) Eosinophilia: QUALIFIERS: Eosinophilia type: unspecified eosinophilia Qualified Code(s): D72.10 - Eosinophilia, unspecified PLAN: Etiology? eos are increasing again. AE count today is 4,836. Still suspect he has a chronic underlying disease that we are missing. Will discuss with hematology again. PLAN: Plan 1. Continue therapy 2. Cortrosyn stimulation test in the a.m. 3. Await the results of the ANCA and the myoglobin 4. Add tramadol 50 mg every 6 hours as needed pain 4-10 to the current drug regimen 5. Schedule Tylenol 1 g p.o. every 8 hours 6. Discontinue Lasix 7. Check blood pressure every 4 hours while awake for the next 48 hours. Systolic is frequently above goal. May need to add another antihypertensive. Charges/Coding Visit Charges Inpatient E&M: 81764 Subs Hosp L2
[2023-12-25 11:19] LABS: Absolute Lymphocyte Count 1.03 X10^3/uL (0.83-4.51); Absolute Neutrophil Count 6.5 X10^3/uL (2.0-7.7); Basophil# 0.03 X10^3/uL; Basophil% 0.2 % (0-1); Eosinophil# 3.82 X10^3/uL; Eosinophils% 30.9 % (0-5); Hematocrit 37.3 % (40-54); Hemoglobin 12.4 g/dL (13.0-16.5); Lymphocyte # 1.03 X10^3/ul (0.83-4.51); Lymphocyte % 8.3 % (19-41); Mean Corp Hgb Conc 33.2 g/dL (32-36); Mean Corpuscular Hgb 29.5 pg (27.0-32.0); Mean Corpuscular Volume 88.8 fL (80-94); Mean Platelet Vol. 10.9 fl (6.2-12.0); Monocyte# 0.92 X10^3/uL; Monocyte% 7.4 % (0-10); NRBC Flagged by Analyzer 0 % (0-5); Neutrophil % 52.7 % (47-70); POSITIVE DIFFERENTIAL YES; Platelet Count 394 K/mm3 (150-450); RBC Distribution Width CV 13.2 % (11.6-14.6); RBC Distribution Width SD 43.1 fl (35.1-43.9); White Blood Count 12.4 K/mm3 (4.4-11.0)
[2023-12-25 11:20] LABS: Differential Indicated SCAN CRITERIA MET
[2023-12-25 11:49] LABS: Anion Gap 6 (5-15); BUN 15 mg/dL (7-18); BUN/Creat Ratio 18.3 RATIO (10-20); Calcium,Total 8.9 mg/dL (8.5-10.1); Chloride 106 mmol/L (98-107); Creatinine, Serum 0.82 mg/dL (0.70-1.30); EST Glomerular Filtration Rate 98 mL/min (>60); Est Glom Filt Rate - Afr Amer 119 mL/min (>60); Estimated Creatinine Clearance 82.63 ml/min; Glucose 104 mg/dL (74-106); Magnesium 1.9 mg/dL (1.6-2.6); Potassium 3.9 mmol/L (3.5-5.1); Sodium Level 139 mmol/L (136-145)
[2023-12-25 12:19] LABS: Differential Comment SCANNED; Platelet Estimate ADEQUATE (ADEQ); Red Cell Morphology NORM C+C NORMAL (NORM C&C); Vacuolated Cells 1+
--- NOTE | 2023-12-25 13:37 | CASEMGMT ---
Social Work IDT met with patient, son and DIL for Team meeting. Discussed patient's progress in PT/OT/SN. Educated to Medicare benefit. Pt is anxious to DC home. educated to medical components that will benefit pt to remain for a longer duration. SW to coordinate DC needs as indicated. Will continue to follow. Lori Mckoy, FOIL OPERATOR [employer]ALE PROFESSIONAL [employer] MARKETING
[2023-12-25 14:00] VITALS: BP 144/75; PULSE 97
[2023-12-25] MEDS: Acetaminophen 500 MG Tablet 1000 MG PO ×2 (14:42→21:54)
[2023-12-25] MEDS: traMADol 50 MG Tablet PO (16:24)
[2023-12-25 17:25] VITALS: BP 136/70; PULSE 81; RESP 18; TEMP 36.6; O2SAT 96
[2023-12-25 21:01] VITALS: BP 134/72; PULSE 76
[2023-12-25] MEDS: Atorvastatin Calcium 20 MG Tablet PO (21:54)
[2023-12-25] MEDS: MELATONIN 3 MG TABLET PO (21:54)
[2023-12-26] VITALS (7 sets, daily range): BP systolic 132–166; BP diastolic 71–92; PULSE 72–96; RESP 16–19; TEMP 36.4–36.8; O2SAT 92–96
[2023-12-26] MEDS: traMADol 50 MG Tablet PO ×2 (02:29→08:49)
[2023-12-26] MEDS: hydrALAZINE 10 MG Tablet PO (04:43)
[2023-12-26] MEDS: 0.9% Saline Lock 10 ML Syringe IV ×3 (04:44→22:12)
[2023-12-26] MEDS: Acetaminophen 500 MG Tablet 1000 MG PO ×3 (05:00→21:36)
[2023-12-26 05:07] LABS: Myoglobin, Serum 124 ng/mL (28-72)
[2023-12-26] MEDS: Cosyntropin 0.25 MG in 0.9% Normal Saline (Pres. free 4 ML 150 MG IV (05:55)
[2023-12-26] MEDS: Menthol/Lanolin/Calamine/Znox 113 GM Tube 1 APPLIC TOPICAL ×2 (07:57→21:31)
[2023-12-26] MEDS: Pantoprazole Sodium 20 MG Tablet PO (07:59)
[2023-12-26] MEDS: Magnesium Chloride 64 MG Delay Rel.Tablet 128 MG PO (07:59)
[2023-12-26] MEDS: amLODIPine 10 MG Tablet PO (07:59)
[2023-12-26] MEDS: Potassium Chloride Oral Tablet 20 MEQ PO (08:00)
[2023-12-26] MEDS: APIXABAN 5 MG TABLET 10 MG PO ×2 (08:00→21:35)
[2023-12-26] MEDS: MELATONIN 3 MG TABLET PO (21:35)
[2023-12-26] MEDS: Atorvastatin Calcium 20 MG Tablet PO (21:36)
[2023-12-26] MEDS: traMADol 50 MG Tablet 100 MG PO (21:36)
[2023-12-27] MEDS: Acetaminophen 500 MG Tablet 1000 MG PO ×3 (05:32→21:55)
[2023-12-27] MEDS: traMADol 50 MG Tablet PO ×2 (05:44→12:20)
[2023-12-27 05:48] VITALS: BP 146/74; PULSE 76; RESP 16; TEMP 36.5; O2SAT 96
[2023-12-27] MEDS: Potassium Chloride Oral Tablet 20 MEQ PO (07:48)
[2023-12-27] MEDS: Menthol/Lanolin/Calamine/Znox 113 GM Tube 1 APPLIC TOPICAL ×2 (07:49→21:56)
[2023-12-27] MEDS: APIXABAN 5 MG TABLET 10 MG PO ×2 (07:49→21:56)
[2023-12-27] MEDS: amLODIPine 10 MG Tablet PO (07:50)
[2023-12-27] MEDS: Magnesium Chloride 64 MG Delay Rel.Tablet 128 MG PO (07:50)
[2023-12-27] MEDS: Pantoprazole Sodium 20 MG Tablet PO (07:50)
[2023-12-27 08:03] VITALS: O2SAT 94
[2023-12-27 09:42] VITALS: BP 146/84; PULSE 76
[2023-12-27] MEDS: predniSONE 20 MG Tablet 40 MG PO (10:58)
[2023-12-27 18:00] VITALS: BP 145/84; PULSE 79; RESP 17; TEMP 36.3; O2SAT 96
[2023-12-27] MEDS: traMADol 50 MG Tablet 100 MG PO (21:54)
[2023-12-27] MEDS: ALPRAZolam 0.25 MG Tablet PO (21:55)
[2023-12-27] MEDS: MELATONIN 3 MG TABLET PO (21:56)
[2023-12-27] MEDS: Atorvastatin Calcium 20 MG Tablet PO (21:56)
[2023-12-27 21:58] VITALS: BP 148/77; PULSE 91; RESP 18
--- NOTE | 2023-12-28 01:02 | NURSING ---
Addendum entered by Promise Urias 12/28/23 01:06: Pt was also given 1000 mg tylenol . Original Note: 0100; Pt medicated with 100 mg ultram and 0.25 mg ativan. States his r arm pain is at a 4/10. Repositioned pt. Offered ice or heat. Denied both. Instructed to call if r arm worsens.
[2023-12-28] MEDS: Acetaminophen 500 MG Tablet 1000 MG PO ×3 (05:08→21:38)
[2023-12-28 05:37] VITALS: BP 146/84; PULSE 81; RESP 17; TEMP 36.4; O2SAT 94
[2023-12-28] MEDS: traMADol 50 MG Tablet PO ×3 (06:05→17:53)
[2023-12-28 07:41] VITALS: O2SAT 95
[2023-12-28] MEDS: APIXABAN 5 MG TABLET 10 MG PO (08:13)
[2023-12-28] MEDS: Pantoprazole Sodium 20 MG Tablet PO (08:13)
[2023-12-28] MEDS: Magnesium Chloride 64 MG Delay Rel.Tablet 128 MG PO (08:14)
[2023-12-28] MEDS: predniSONE 20 MG Tablet PO (08:14)
[2023-12-28] MEDS: Potassium Chloride Oral Tablet 20 MEQ PO (08:15)
[2023-12-28] MEDS: amLODIPine 10 MG Tablet PO (08:15)
[2023-12-28 08:30] VITALS: BP 136/71; PULSE 80
[2023-12-28 18:00] VITALS: BP 150/83; PULSE 76; RESP 17; TEMP 36.4; O2SAT 93
[2023-12-28] MEDS: Atorvastatin Calcium 20 MG Tablet PO (21:37)
[2023-12-28] MEDS: ALPRAZolam 0.25 MG Tablet PO (21:38)
[2023-12-28] MEDS: traMADol 50 MG Tablet 100 MG PO (21:38)
[2023-12-28] MEDS: MELATONIN 3 MG TABLET PO (21:38)
[2023-12-28] MEDS: APIXABAN 5 MG TABLET PO (21:39)
[2023-12-28 21:54] VITALS: PULSE 79; O2SAT 99
[2023-12-29] VITALS (7 sets, daily range): BP systolic 137–187; BP diastolic 79–106; PULSE 71–86; RESP 16–18; TEMP 36.4–36.9; O2SAT 94–97
--- NOTE | 2023-12-29 02:35 | PN.HOSP_ITS ---
Hospitalist Note Hives on the LE, upper anterior thighs, lower back, red rash and raised hives. staff forester note that he was recently started on xanax the day prior and also prednisone however these have both been over the last 2 days and are not necessarily the issue. For now, will dose with famotidine 20 mg IV x 1 and benadryl 25 mg IV x 1 and will continue to monitor him. From records he has been on steroids prior without issue.
[2023-12-29] MEDS: DiphenhydrAMINE 50 MG/ML Syringe 25 MG IV (02:50)
[2023-12-29] MEDS: Famotidine 200 MG/20 ML MDV 20 MG in 0.9% Normal Saline (Pres. free 8 ML 300 MG IV (02:51)
[2023-12-29] MEDS: 0.9% Saline Lock 10 ML Syringe IV ×2 (02:53→22:10)
[2023-12-29] MEDS: hydrALAZINE 10 MG Tablet PO ×2 (03:04→07:10)
--- NOTE | 2023-12-29 03:13 | NURSING ---
0235; Pt called nurse in states he is itching. Pt noted to have rash on anterior and posterior thighs and lower back along with scattered raised hives. Denies sob. No other swelling noted. Pt denies any other symptoms other than r arm aching. Pt is on 24 hour pulse ox. SPO2 running in mid 90's. Call to hospitalist Dr. Cooper. Orders received for iv Benadryl and iv pepcid. 0245; IV #22 insyte started in l hand without difficulty. Pt given meds as ordered. Pt tolerated well. 0255; VS obtained. Pt bp elevated. Apresoline 10 mg po given as per standing order for elevated BP. 0305; Pt states itching is resolving. Denies headache or any other complaints other than r arm is painful which has been chronic over last few weeks.
[2023-12-29] MEDS: Acetaminophen 500 MG Tablet 1000 MG PO ×3 (05:57→22:12)
[2023-12-29] MEDS: traMADol 50 MG Tablet PO ×2 (05:59→13:30)
[2023-12-29] MEDS: Menthol/Lanolin/Calamine/Znox 113 GM Tube 1 APPLIC TOPICAL ×2 (07:45→22:10)
[2023-12-29] MEDS: amLODIPine 10 MG Tablet PO (07:46)
[2023-12-29] MEDS: Magnesium Chloride 64 MG Delay Rel.Tablet 128 MG PO (07:46)
[2023-12-29] MEDS: predniSONE 20 MG Tablet PO (07:46)
[2023-12-29] MEDS: Pantoprazole Sodium 20 MG Tablet PO (07:46)
[2023-12-29] MEDS: Potassium Chloride Oral Tablet 20 MEQ PO (07:47)
[2023-12-29] MEDS: APIXABAN 5 MG TABLET PO ×2 (07:47→22:11)
--- NOTE | 2023-12-29 10:04 | PCM.PROGNOTE ---
Subjective Subjective Afebrile VSS - BP's are elevated. Maintaining appropriate oxygen saturation on RA Oral intake - FOOD good FLUIDS good Discussed with nursing - Had hives about 2 AM and received IV Benadryl and famotidine from the night hospitalist. This is new and he had 2 doses of Prednisone wince Friday? Reviewed the THERAPY notes Medication list reviewed. Has been taking tramadol 3 times daily as needed and is getting a at bedtime dose of 100 mg. Also getting scheduled Tylenol. Only antihypertensive is still amlodipine. Continues to complain of pain in the right upper extremity but the pain is actually located in the upper R back in the trapezius. He has a knot in the muscle just above the ridge in the scapula. I can compress the biceps, triceps and forearm with no c/o pain. Has had 2 doses of prednisone. No swelling in the RUE. No redness. Has good ROM in the shoulder. No hives this morning. Denies CP, shortness of breath, cough, palpitations, lightheadedness, nausea/vomiting/abdominal pain, dysuria and calf pain. Denies sweats and chills. Pain is not in the joints. Blood pressure with the highest last night went up to 187/106. Blood pressure this morning is 145/79. Objective Data Objective Data Vital Signs: Vital Signs Temp Pulse Resp BP Pulse Ox O2 Del Method O2 Flow Rate 97.6 F L 78 18 145/79 H 94 Room Air 0 12/29/23 06:00 12/29/23 07:55 12/29/23 06:00 12/29/23 07:55 12/29/23 06:00 12/29/23 06:00 12/28/23 21:54 FiO2 21 12/28/23 21:54 Oxygen Flow Rate (L/min) 0 Oxygen Delivery Method Room Air Weight: 180 lb 8.937 oz Body Mass Index (BMI) 26.7 Intake & Output: Intake and Output for Last 24 Hours 12/27/23 12/28/23 12/29/23 23:59 23:59 23:59 Intake Total 2435 / 2435 1525 / 1525 550 / 550 Output Total 2450 / 2450 1825 / 1825 500 / 500 Balance -15 / -15 -300 / -300 50 / 50 Lab / Micro Data 12/29/23 10:44 12/25/23 11:10 Micro: Microbiology 12/24/23 14:00 Stool Stool Occult Blood (SHABBIR) - Final Physical Exam Const alert Constitutional Narrative: does not appear to be in any significant pain at the present time. Full active ROM of the R shoulder General Appearance: cooperative Resp clear to auscultation bilaterally Cardio regular rate and regular rhythm GI normal to inspection, nondistended, normoactive bowel sounds, soft to palpation and non-tender Extremity no calf tenderness Extremity Narrative: No redness of the joints. No real muscle pain with compression or active contraction of the muscles of the RUE. No axillary nodes. Rheumatology workup as an outpatient was negative. General Extremity: Negative for edema Skin Rashes: no rashes Assessment & Plan Assessment/Plan (1) Physical debility: (2) Generalized weakness: (3) Acute respiratory failure with hypoxemia: (4) Angioedema: QUALIFIERS: Encounter type: subsequent encounter Qualified Code(s): T78.3XXD - Angioneurotic edema, subsequent encounter (5) History of difficult intubation: (6) Pneumonia: QUALIFIERS: Pneumonia type: due to unspecified organism Laterality: bilateral Lung location: lower lobe of lung Qualified Code(s): J18.9 - Pneumonia, unspecified organism (7) Pulmonary emboli: QUALIFIERS: Pulmonary embolism type: multiple subsegmental (without acute cor pulmonale) Qualified Code(s): I26.94 - Multiple subsegmental pulmonary emboli without acute cor pulmonale (8) DVT (deep venous thrombosis): QUALIFIERS: DVT location: lower extremity Affected thrombotic vein of extremity: unspecified vein of extremity Chronicity: acute Laterality: bilateral Qualified Code(s): I82.403 - Acute embolism and thrombosis of unspecified deep veins of lower extremity, bilateral (9) Leukocytosis: QUALIFIERS: Leukocytosis type: unspecified Qualified Code(s): D72.829 - Elevated white blood cell count, unspecified (10) Normochromic normocytic anemia: (11) Venous insufficiency: (12) Hypokalemia: (13) Ectopic atrial beats: (14) Hypomagnesemia syndrome: (15) Eosinophilia: QUALIFIERS: Eosinophilia type: unspecified eosinophilia Qualified Code(s): D72.10 - Eosinophilia, unspecified PLAN: Plan 1. Continue therapy 2. Gabapentin 200 mg now and then start 100 mg TID. Tramadol does not seem to be helpful.......still tells me the pain is terrible. Will taper Tramadol. 3. Check a CBC with diff today. 4. Plan DC home tomorrow. I would like him to follow up at [facility] main campus with allergy and immunology. Charges/Coding Visit Charges Inpatient E&M: 08470 Subs Hosp L1
[2023-12-29 10:56] LABS: Absolute Lymphocyte Count 0.78 X10^3/uL (0.83-4.51); Absolute Neutrophil Count 11.4 X10^3/uL (2.0-7.7); Basophil# 0.04 X10^3/uL; Basophil% 0.3 % (0-1); Eosinophil# 2.34 X10^3/uL; Eosinophils% 15.5 % (0-5); Hematocrit 36.7 % (40-54); Hemoglobin 11.8 g/dL (13.0-16.5); Lymphocyte # 0.78 X10^3/ul (0.83-4.51); Lymphocyte % 5.2 % (19-41); Mean Corp Hgb Conc 32.2 g/dL (32-36); Mean Corpuscular Hgb 29.4 pg (27.0-32.0); Mean Corpuscular Volume 91.3 fL (80-94); Mean Platelet Vol. 9.9 fl (6.2-12.0); Monocyte# 0.48 X10^3/uL; Monocyte% 3.2 % (0-10); NRBC Flagged by Analyzer 0 % (0-5); Neutrophil # 11.36 X10^3/uL (2.7-7.7); Neutrophil % 75.3 % (47-70); POSITIVE DIFFERENTIAL YES; Platelet Count 458 K/mm3 (150-450); RBC Distribution Width CV 12.8 % (11.6-14.6); RBC Distribution Width SD 42.8 fl (35.1-43.9); Red Blood Count 4.02 M/mm3 (4.6-6.2); White Blood Count 15.1 K/mm3 (4.4-11.0)
[2023-12-29] MEDS: Gabapentin 100 MG Capsule 200 MG PO (11:16)
[2023-12-29 11:49] LABS: Differential Indicated SCAN CRITERIA MET
[2023-12-29 13:07] LABS: Cytoplasmic Ab (C-ANCA) <1:20 titer (Neg:<1:20)
[2023-12-29] MEDS: Gabapentin 100 MG Capsule PO ×2 (13:29→17:08)
--- NOTE | 2023-12-29 13:29 | CASEMGMT ---
Social Work IDT discussed setting DC date 12/29, per pt request. SW spoke with to discuss DC. Pt requesting to DC home alone 12/29. SW educated to OP PT and offered DME referrals. Pt agreeable to DC with OP therapy at [facility]. Denies any DME needs. Family to transport at DC. SW faxed referral to [facility] for PT. Plan: DC home alone 12/29, [facility] PT Lori Mckoy, SYSTEMS AUDITOR WAREHOUSE INSULATION WORKER
[2023-12-29 14:09] LABS: Aldolase 14.6 U/L (3.3-10.3)
[2023-12-29] MEDS: predniSONE 20 MG Tablet 40 MG PO (17:08)
--- NOTE | 2023-12-29 17:32 | PCM.DC ---
Discharge Instructions Diet Discharge Diet: - (Low-fat, low-salt) Activity Discharge Activity: [address] and - (Use a cane when out in the community/public to help maintain balance.) Weight Bearing Status: Full weight bearing Dressing / Incision Call your doctor if you observe: Fever of 101 or Higher, Inability to urinate, Shortness of breath, Dizziness, Fainting spells, Swelling in the ankles, Chest pain, Increased palpitations (irregular heartbeat), Calf discomfort, Uncontrolled pain and - (diarrhea, blood in the stool, vomiting/nausea, new rashes, swelling of the throat or neck, abd pain) Follow Up Care When: appts have been scheduled for you and are listed at the end of this document. Test Results: Test results from this visit will be discussed in further detail at your follow-up appointment, if applicable. 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 I think you have a chronic illness and I think the angioedema, rashes, fatigue and pain in the arms are all related. I can not tell you what your diagnosis is but, I know you need to follow up with someone who specializes in allergies and disease of the immune system. An appt has been scheduled for you at [facility] in [place] in the next few weeks. Until that time I am placing you on daily steroids to suppress the immune system. You will be talking 60 mg of Prednisone a day for 2 weeks and then the dose will decrease to 30 mg a day. you CAN NOT STOP STEROIDS SUDDENLY. Take the medication exactly as I have prescribed. Once you are on chronic steroids stopping them suddenly can cause a drop in BP, racing heart, lightheadedness and can even cause . Take your meds exactly as prescribed. 2. I do not think you will develop recurrent angioedema while on the steroids but, if you get swelling of the face, tongue, mouth, throat or neck call 911 and have them take you to the ED. Do not drive there yourself or have a friend or family member drive you. CALL 911. 3. Angioedema can also affect the arms, legs, skin, gastrointestinal tract, etc. If you have blood in the stool, abd pain, nausea/vomiting call your doctor or go to the ED. 4. I have given you some information to read about angioedema.......please make sure to read it and have your family read it. 5. 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 I have also given you information to read about vasculitis. Please read it. I think the diffuse blood clots in your legs and lungs are caused by vasculitis. If that is the case the steroids should help with this. Steroids can cause ulcers in the stomach and people can bleed from ulcers in the stomach, sharad if they are taking an anticoagulant. you are taking an anticoagulant called Eliquis, also called apixaban. You will need to stay on this medication for 6 months before even considering stopping it. Only stop the Eliquis when advised by a physician. The anticoagulant does not dissolve the clots in your body it only prevents clots from getting bigger or new clots from forming. Your own body will dissolve the clots you already have. I am placing you on a medication called pantoprazole to help prevent ulcers in the stomach. If you develop any pain in your stomach, nausea, vomiting, blood in the stool or you vomit blood call your doctor or go to the ED. 6. Pain medication can be very addictive. I want you to take the Tramadol ONLY if you are having pain that is unrelieved with The Prednisone and Tylenol. The pain should be 4/10 or greater before you consider taking a Tramadol. 7. If you or your family have any questions after leaving rehab please do not hesitate to call me. I will be sending copies of the DC summary and all relevant labs to the [facility]. This will include the information we have gathered from other physicians you have seen. OFFICE: [phone] CELL: [phone] High dose steroids can cause insomnia and anxiety. If you are having problems with these things please call Dr. Ace for help with this. Discharge Orders/Prescriptions Prescriptions: New acetaminophen 500 mg Tablet 1,000 mg PO Q8H PRN PRN (Reason: pain 3-10) Qty: 1 0RF magnesium chloride [Mag 64] 64 mg Tablet,Delayed Release (Dr/Ec) 128 mg PO DAILY Qty: 30 0RF Eliquis 5 mg Tablet 5 mg PO BID Qty: 60 0RF prednisone 20 mg Tablet 60 mg PO BREAKFAST Qty: 70 0RF Rx Instructions: take 3 tabs daily in the AM for 2 weeks and then decrease to 1.5 tabs daily tramadol 50 mg Tablet 50 mg PO Q6H PRN PRN (Reason: pain 4-10) 7 Days Qty: 28 0RF pantoprazole 20 mg Tablet,Delayed Release (Dr/Ec) 20 mg PO BID Qty: 60 0RF potassium chloride 20 mEq Tablet,Er Particles/Crystals 20 meq PO DAILYCM Qty: 30 0RF Continued melatonin 3 mg capsule 3 mg PO QHS amlodipine 10 mg Tablet 10 mg PO DAILY Qty: 30 0RF rosuvastatin 10 MG tablet 10 mg PO DAILY Qty: 30 2RF menthol-zinc oxide [Calmoseptine] 0.44-20.6 % Ointment 1 applic topical BID Qty: 113 2RF Protocol: *Topical Application Instructions APPLICATION INSTRUCTIONS: coccyx, rectal area Rx Instructions: apply to the sore on your bottom twice a day and after BM's Discontinued hydralazine 10 mg tablet 10 mg PO Q4H PRN (Reason: BP) Rx Instructions: systolic >170 or diastolic >85 albuterol sulfate 2.5 mg /3 mL (0.083 %) Solution For Nebulization 2.5 mg inhalation Q2H PRN PRN (Reason: Dyspnea) Qty: 0 0RF Eliquis 5 mg Tablet 10 mg PO BID Qty: 0 0RF Rx Instructions: Continue 10 mg twice daily until the morning of 12/28/2023, then begin 5 mg twice daily thereafter Referrals / Follow Up: Francisco Mitchell [Other] - 01/21/24 9:45 am (Human Resource Assistant *Do Not Take Any Antihistamines For 5 Days Prior* ) Jose E Ace MD [Primary Care Provider] - 01/09/24 3:20 pm Dimas Mace MD [Med Staff - Active Staff] - 01/15/24 10:15 am Disposition Disposition (needs filled in before D/C Order can be placed): Home, Self Care
[2023-12-29] MEDS: traMADol 50 MG Tablet 100 MG PO (22:11)
[2023-12-29] MEDS: MELATONIN 3 MG TABLET PO (22:11)
[2023-12-29] MEDS: Atorvastatin Calcium 20 MG Tablet PO (22:12)
[2023-12-30] MEDS: Acetaminophen 500 MG Tablet 1000 MG PO (05:03)
[2023-12-30 06:00] VITALS: BP 161/88; PULSE 72; RESP 18; TEMP 36.3; O2SAT 94
[2023-12-30 06:04] VITALS: BP 161/88; PULSE 72
[2023-12-30] MEDS: hydrALAZINE 10 MG Tablet PO (06:04)
[2023-12-30 06:43] LABS: Anion Gap 3 (5-15); BUN 14 mg/dL (7-18); BUN/Creat Ratio 23.7 RATIO (10-20); Chloride 104 mmol/L (98-107); Creatinine, Serum 0.59 mg/dL (0.70-1.30); EST Glomerular Filtration Rate 144 mL/min (>60); Est Glom Filt Rate - Afr Amer 174 mL/min (>60); Estimated Creatinine Clearance 84.69 ml/min; Glucose 127 mg/dL (74-106); Magnesium 1.8 mg/dL (1.6-2.6); Potassium 3.7 mmol/L (3.5-5.1); Sodium Level 136 mmol/L (136-145)
[2023-12-30] MEDS: Potassium Chloride Oral Tablet 20 MEQ PO (07:45)
[2023-12-30] MEDS: APIXABAN 5 MG TABLET PO (07:46)
[2023-12-30] MEDS: Magnesium Chloride 64 MG Delay Rel.Tablet 128 MG PO (07:46)
[2023-12-30] MEDS: predniSONE 20 MG Tablet 60 MG PO (07:46)
[2023-12-30] MEDS: amLODIPine 10 MG Tablet PO (07:46)
[2023-12-30] MEDS: Pantoprazole Sodium 20 MG Tablet PO (07:46)
[2023-12-30] MEDS: Menthol/Lanolin/Calamine/Znox 113 GM Tube 1 APPLIC TOPICAL (07:46)
[2023-12-30] MEDS: Gabapentin 100 MG Capsule PO ×2 (07:49→12:33)
--- NOTE | 2023-12-30 09:11 | PCM.DC.SUM ---
Providers Date of Admission: 12/23/23 Date of Discharge: 12/30/23 Primary Care Physician: Dr. Jose E Ace MD Reason For Visit: ACUTE REPIRATORY FAILURE Diagnosis Discharge Diagnosis (1) Physical debility: Status: Acute Code(s): R53.81 - Other malaise Plan: Due to acute respiratory failure due to angioedema. Required intubation which was difficult and required airway team to intubate in the ED. (2) Generalized weakness: Status: Acute Code(s): R53.1 - Weakness Plan: Has actually been fatigued and weak for the past year. W/U is in progress to identify chronic disease. 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 Needs further evaluation as OP. Referred to allergy and immunology at [facility]. Approximately 1 week prior to presenting to the ED with severe SOB he had a similar episode of facial swelling, SOB and throat swelling but, it resolved on its own. (5) History of difficult intubation: Status: Resolved Code(s): Z91.89 - Other specified personal risk factors, not elsewhere classified Plan: Stat airway team called to ED. Intubated by ENT with a #6 ETT over a scope. (6) Pneumonia: Status: Resolved Code(s): J18.9 - Pneumonia, unspecified organism Qualifiers: Laterality: bilateral Lung location: lower lobe of lung Pneumonia type: due to unspecified organism Qualified Code(s): J18.9 - Pneumonia, unspecified organism Plan: Dense consolidation in both lower lobes on CT scan of the chest. Rare white blood cells on the Gram stain with culture showing mixed normal respiratory ranulof. (7) Pulmonary emboli: Status: Acute Code(s): I26.99 - Other pulmonary embolism without acute cor pulmonale Qualifiers: Pulmonary embolism type: multiple subsegmental (without acute cor pulmonale) Qualified Code(s): I26.94 - Multiple subsegmental pulmonary emboli without acute cor pulmonale Plan: Multiple emboli seen in the branches of the right upper lobe pulmonary artery and to a smaller extent in the left upper lobe pulmonary artery. Present at admission to hospital. continue Eliquis. Also had bilateral lower extremity DVTs. (8) DVT (deep venous thrombosis): Status: Acute Code(s): I82.409 - Acute embolism and thrombosis of unspecified deep veins of unspecified lower extremity Qualifiers: Affected thrombotic vein of extremity: unspecified vein of extremity Chronicity: acute DVT location: lower extremity Laterality: bilateral Qualified Code(s): I82.403 - Acute embolism and thrombosis of unspecified deep veins of lower extremity, bilateral Plan: Venous ultrasound after transfer to acute rehab showed acute deep vein thrombosis in the right posterior tibial vein, peroneal vein and soleus vein. There was also deep vein thrombosis in the left posterior tibial vein. Non-provoked. Continue Eliquis. (9) Leukocytosis: Status: Chronic Code(s): D72.829 - Elevated white blood cell count, unspecified Qualifiers: Leukocytosis type: unspecified Qualified Code(s): D72.829 - Elevated white blood cell count, unspecified (10) Normochromic normocytic anemia: Status: Acute Code(s): D64.9 - Anemia, unspecified (11) Venous insufficiency: Status: Chronic Code(s): I87.2 - Venous insufficiency (chronic) (peripheral) (12) Hypokalemia: Status: Resolved Code(s): E87.6 - Hypokalemia (13) Ectopic atrial beats: Status: Resolved Code(s): I49.1 - Atrial premature depolarization Plan: Resolved with the addition of a potassium supplement and magnesium supplement to his drug regimen. Potassium on the date of discharge is 3.7 and the magnesium is 1.8. Potassium and magnesium supplements were continued at discharge. (14) Hypomagnesemia syndrome: Status: Resolved Code(s): E83.42 - Hypomagnesemia (15) Eosinophilia: Status: Chronic Code(s): D72.10 - Eosinophilia, unspecified Qualifiers: Eosinophilia type: unspecified eosinophilia Qualified Code(s): D72.10 - Eosinophilia, unspecified Plan: Referred to [facility] allergy and immunology. The WBC at presentation to the hospital on 12/15/2023 was 33,700 with 74.7% eosinophils. Outpatient lab done on 12/11/2023 showed a white blood cell count of 21,900 with 46.5% eosinophils. He was not on steroids for the CBC on 12/10 or 12/14. He was started on Decadron at admission to ICU and on 12/19/23 the white blood cell count was 10.8 with 1% eosinophils. Following discontinuation of steroids the eosinophils again started increasing and on 12/25/2023 the white blood cell count was 12,400 with 30.9% eosinophils. (16) Positive P-ANCA titer: Status: Acute Code(s): R76.8 - Other specified abnormal immunological findings in serum Plan: AP ANCA drawn on 12/25/2023 was positive at 1: 640. C-ANCA was negative and the atypical p-ANCA was also negative. Rheumatoid factor has been negative in the past and he has also had a negative MISAEL. Has been seen by [facility] for possible RA and they ruled this out. (17) Elevated aldolase level: Status: Acute Code(s): R74.8 - Abnormal levels of other serum enzymes Plan: An aldolase was elevated at 14.6 with the highest normal being 10.3 on 12/26/2023. CPK was WNL when checked by rheumatology. CPK on 12/24/23 was 34. (18) Elevated myoglobin level: Status: Acute Code(s): R89.7 - Abnormal histological findings in specimens from other organs, systems and tissues Plan: Myoglobin on 12/24/2023 was mildly increased at 124 with the highest normal being 72. The CPK on that date was 34. He had begun c/o severe pain in the RUE. Exam was unremarkable. (19) Right arm pain: Status: Acute Code(s): M79.601 - Pain in right arm Plan: Started c/o this on 12/24/23. Pain remained severe with Tylenol and Tramadol. Pain much improved after started on high dose Prednisone. In August of 2023 He had severe LUE pain and the arm was swollen. PCP ordered a soft tissue US of the LUE that showed swelling only. He subsequently had a CT of the left upper extremity with contrast to rule out compartment syndrome. There was evidence of skin thickening and subcutaneous edema overlying the anterior aspect of the mid and distal portion of the left arm and forearm. There was no evidence of compartment syndrome. He was treated with Prednisone and the pain resolved. Plan 1. DC home 2. Prednisone 60 mg daily for 14 days and then decrease to 30 mg daily. Pt understands that he can NOT suddenly discontinue steroids. 3. He has an appt with Dr. Mitchell (allergy and immunology) at [facility] on 01/21/24 4. He will follow-up with Dr. Ace, PCP, on 01/09/[address] Mace from pulmonary medicine on 01/15/2024. 5. Medications at Discharge Home Medications melatonin 3 mg capsule 3 mg PO QHS insomnia 12/23/23 acetaminophen 500 mg tablet 1,000 mg (2 x 500 mg) PO Q8H PRN PRN pain 3-10 #1 TAB 12/29/23 amlodipine 10 mg tablet 10 mg PO DAILY BP #30 tabs 12/29/23 apixaban 5 mg tablet (Eliquis) 5 mg PO BID #60 tabs 12/29/23 magnesium chloride 64 mg (magnesium chloride) tablet,delayed release (Mag 64) 128 mg (2 x 64 mg) PO DAILY #30 tabs 12/29/23 menthol 0.44 %-zinc oxide 20.6 % topical ointment (Calmoseptine) 1 applic topical BID Skin protection #113 grams 12/29/23 pantoprazole 20 mg tablet,delayed release 20 mg PO BID #60 tabs 12/29/23 potassium chloride 20 mEq tablet,extended release(part/cryst) 20 meq PO DAILYCM #30 tabs 12/29/23 prednisone 20 mg tablet 60 mg (3 x 20 mg) PO BREAKFAST #70 tabs 12/29/23 rosuvastatin 10 mg tablet 10 mg PO DAILY CHOLESTEROL #30 tabs 12/29/23 tramadol 50 mg tablet 50 mg PO Q6H PRN PRN pain 4-10 7 days #28 tabs 12/29/23 Hospital Course Operations None Procedures Intubation (on 12/15/23 and mechanical ventilation. Extubated 12/20/2023.) Summary of Care Provided Minutes Spent on Discharge: 60 Hospital Course: FREDY Stan KAMARA, is a 73-year-old M with a past medical history of chronic back pain with foraminal stenosis of the L4-5 and L5-S1 levels, glaucoma, ptosis, history of cochlear implant, history of GI bleed, tobacco dependence in remission, obstructive sleep apnea, migraines, hyperlipidemia, TIA, history of ischemic colitis with partial colectomy (2018) and hypertension who presented to the ED at [facility] on 12/15/23 complaining of facial and neck swelling with extreme shortness of breath that had started that morning. He did relate that he had had a similar episode the previous week but it resolved without treatment. He was diagnosed with angioedema. Initial attempt at intubation in the emergency room failed and the airway team was called. He was eventually intubated with a #6 ET tube using a fiberoptic scope by Dr. Diaz. He was taking Valsartan at the time of presentation to the ED. Lab at admission to the emergency department showed a white blood cell count of 33,700 with 74.7% eosinophils. The BMP was unremarkable. He was admitted to the ICU and started on Decadron and Pepcid. He was also started on subcutaneous heparin for DVT prophylaxis. On 12/18/23 he was desaturating on the vent and a CTA of the chest was ordered. The CTA showed multiple emboli seen in the branches of the right upper lobe pulmonary artery and in the branches of the left upper lobe pulmonary artery. I suspect he had emboli at admission to the hospital since he was immediately placed on SQ heparin for DVT prophylaxis at admission to the ICU on 12/15/23. No venous US of the legs was done. There was dense consolidation in both lower lobes with small bilateral pleural effusions. He was started on appropriate antibiotics and was placed on anticoagulation. Sputum from the ETT was sent on 12/15/23 and there was normal respiratory ranulfo. Sputum culture and blood cultures were not obtained when he was diagnosed with PNA. He was extubated on 12/20/23 and the following day was transferred to telemetry. He was seen and evaluated by PT/OT and acute rehab was recommended at [place]. Gene lives by himself and prior to developing angioedema he was independent with all ADL's and driving. He had been c/o increased fatigue and generalized weakness for approximately 1 year prior to the admission for angioedema. He was transferred to the acute inpt rehab unit at [facility] on 12/23/23 for 3 hours of therapy daily to restore function/independence at or near his level prior angioedema/intubation/PE's/PNA. Antibiotics and steroids were discontinued prior to admission to rehab. He was on loading dose of Eliquis at presentation to rehab. Lab on 12/24/2023 showed a white blood cell count of 13.6 with 28.1% eosinophils. On 3823 while still on Decadron the percent eosinophils was 1% with a white blood cell count of 12.6. Hemoglobin was 11.2 with normochromic normocytic indices. Platelets were 317,000. Sodium was normal at 136 but the potassium was low at 2.8 and magnesium was low at 1.7. He had been started on triamterene/hydrochlorothiazide 75/50 mg prior to discharge from the hospital. The diuretic was discontinued and he was started on a potassium and magnesium supplement. On 12/24/23 he started c/o severe pain in the RUE. PE of the right shoulder and right upper extremity was unremarkable. He had full active range of motion at the shoulder and there was no joint swelling, erythema or tenderness to palpation. Compression of muscle causes no complaint of increased pain. PE did reveal pitting edema of both LE's and BL venous US was ordered of the legs. The venous Doppler showed acute deep vein thrombosis in the right posterior tibial vein, peroneal vein and soleus vein. There was also acute deep vein thrombosis noted in the left posterior tibial vein. Compression stockings were applied and the Eliquis was continued. Edema is much improved at the time of DC from rehab. He was started on scheduled Tylenol and PRN Tramadol. CPK on that date was 34. A myoglobin was increased at 124 with the highest normal being 72. Aldolase on 12/26/2023 was elevated at 14.6 with the highest normal being 10.3. Tramadol, Tylenol and gabapentin were not effective in controlling pain in the right upper extremity. He was unable to sleep at night due to severe pain. On 12/27/2023 he was started on prednisone 20 mg daily. Prednisone 20 mg daily was minimally effective in controlling the pain. Repeat CBC on 12/29/23 (after 3 doses of Prednisone 20 mg daily) showed a white blood cell count of 15.1 with 15.5% eosinophils which was down from 30.9% on 12/25/2023. RA and MISAEL were negative on rheumatology W/U at the [facility] in [facility]. I checked a p ANCA on 12/25/23 because of a suspicion of vasculitis. The p-ANCA is positive at 1:640. On 12/29/23 he was transitioned to 60 mg of Prednisone daily. On 12/1023 he stated the pain in the RUE was much better and he had slept much better the preceding night. He was no longer asking for Tramadol and had his last dose in the afternoon on 12/29/23. 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 A referral was made to [facility] and he has an appt with Dr. Francisco Mitchell from allergy and immunology for 01/21/24. He was discharged home on Prednisone 60 mg daily for 14 days and then decreased to 30 mg daily. He will be taking pantoprazole 20 mg twice daily for ulcer prophylaxis while on high-dose prednisone. A Hemoccult stool was negative prior to discharge from rehab. With the high-dose steroids blood pressure has increased and it was no longer controlled on amlodipine 10 mg daily. Metoprolol was added to his drug regimen on the date of discharge. He will follow-up with his primary care physician, Dr. Jose E Ace, on 01/09/2024 at 3:20 PM. He also has a follow-up appointment scheduled with Dr. Dimas Mace from pulmonary medicine. William was discharged home alone on 12/30/23. He will have OP therapy at [facility] in [facility]. He had no DME needs. Physical Exam Const alert Constitutional Narrative: does not appear to be in any significant pain at the present time. Full active ROM of the R shoulder General Appearance: cooperative HEENT normocephalic and head/scalp atraumatic HEENT Narrative: No tenderness of the sinuses. He does complain of some postnasal drainage. He also complains that he has had a cough for the past few years which is productive of some clear sputum. Eyes PERRL and EOMs intact bilaterally Eyes Narrative: No visual field cuts. No scleral icterus, no conjunctival injection, no discharge from the eyes. Neck No nodes Neck Narrative: He has a right carotid bruit. 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 General: trachea midline Resp normal respiratory effort and clear to auscultation bilaterally Resp Narrative: No conversational dyspnea. No cough with deep breathing. Effort and Inspection: Negative for tachypneic Cardio regular rate and regular rhythm Cardio Narrative: No ectopy. Frequent premature beats heard at admission has resolved with supplementation of magnesium and potassium. He has a 2/6 systolic ejection murmur heard at second right intercostal space with no radiation. GI normal to inspection, nondistended, normoactive bowel sounds, soft to palpation and non-tender GI Narrative: No guarding with palpation. Extremity no calf tenderness Extremity Narrative: No redness of the joints. No real muscle pain with compression or active contraction of the muscles of the RUE. No axillary nodes. Rheumatology workup as an outpatient was negative for connective tissue disease. Edema in the lower extremities has resolved with elevation and compression stockings. Dorsalis pedis pulses are 2+ bilaterally. There is no cyanosis. There is no clubbing of the digits. Both feet are warm to touch. Denies calf tenderness. He has superficial varicosities in both lower extremities. Denies claudication. General Extremity: Negative for edema Skin Rashes: no rashes Neuro CN's II-XII intact bilaterally and no focal motor deficits Psych affect normal and denies suicidal ideation Appearance: appropriate Weight / BMI Weight Weight: 180 lb 8.937 oz Body Mass Index (BMI) 26.7 ABG / Lab / Microbiology Data 12/29/23 10:44 12/30/23 05:35 Laboratory: Laboratory Results - last 24 hr 12/25/23 05:28: c-ANCA Antibody <1:20, Atypical p-ANCA <1:20, p-ANCA Antibody 1:640 H 12/26/23 05:55: Aldolase 14.6 H 12/29/23 10:44: WBC 15.1 H, RBC 4.02 L, Hgb 11.8 L, Hct 36.7 L, MCV 91.3, MCH 29.4, MCHC 32.2, RDW Std Deviation 42.8, RDW Coeff of Marielena 12.8, Plt Count 458 H, MPV 9.9, Immature Gran % (Auto) 0.500, Neut % (Auto) 75.3 H, Lymph % (Auto) 5.2 L, [place] % (Auto) 3.2, Eos % (Auto) 15.5 H, Baso % (Auto) 0.3, Absolute Neuts (auto) 11.4 H, Absolute Lymphs (auto) 0.78 L, Nucleated RBC % 0 12/30/23 05:35: Sodium 136, Potassium 3.7, Chloride 104, Carbon Dioxide 29.0, Anion Gap 3 L, BUN 14, Creatinine 0.59 L, Estim Creat Clear Calc 84.69, Est GFR (MDRD) Af Amer 174, Est GFR (MDRD) Non-Af 144, BUN/Creatinine Ratio 23.7 H, Glucose 127 H, Calcium 9.0, Magnesium 1.8 Microbiology: Microbiology 12/24/23 14:00 Stool Stool Occult Blood (SHABBIR) - Final D/C Instructions Discharge Diet: - (Low-fat, low-salt) Weight Bearing Status: Full weight bearing Call your doctor if you observe: Fever of 101 or Higher, Inability to urinate, Shortness of breath, Dizziness, Fainting spells, Swelling in the ankles, Chest pain, Increased palpitations (irregular heartbeat), Calf discomfort, Uncontrolled pain and - (diarrhea, blood in the stool, vomiting/nausea, new rashes, swelling of the throat or neck, abd pain) Pending Tests Upon Discharge: none When: appts have been scheduled for you and are listed at the end of this document. Meaningful Use Info Meaningful Use Meaningful Use Diagnoses (Choose all that apply): None applicable Ischemic Stroke Statin Dosing Therapy Reference: STATIN DOSE THERAPY REFERENCE: * Patients > 75 years receive moderate or high dose statin therapy. * Patients 75 years or YOUNGER should receive HIGH intensity statin dose unless contraindicated. You will be required to document reason for non-treatment if statin daily dose does not meet guidelines. HIGH DOSE STATIN THERAPY DAILY Atorvastatin > than or = to 40 mg Rosuvastatin > than or = to 20 mg Amlodipine + Atorvastatin > than or = to 2.5/40 mg Ezetimibe + Simvastatin 10/80 mg Simvastatin 80mg Discharge Plan Admission Admit Date/Time: 12/23/23 16:30 Primary Reason for Your Visit: Debility due to angioedema requiring intubation Attending Provider: Yuko Calvin Primary Care Provider: Jose E Ace Instructions Patient Instructions: Understanding Vasculitis, ED Angioedema Additional Instructions / Restrictions: 1. I think you have a chronic illness and I think the angioedema, rashes, fatigue and pain in the arms are all related. I can not tell you what your diagnosis is but, I know you need to follow up with someone who specializes in allergies and disease of the immune system. An appt has been scheduled for you at [facility] in [place] in the next few weeks. Until that time I am placing you on daily steroids to suppress the immune system. You will be talking 60 mg of Prednisone a day for 2 weeks and then the dose will decrease to 30 mg a day. you CAN NOT STOP STEROIDS SUDDENLY. Take the medication exactly as I have prescribed. Once you are on chronic steroids stopping them suddenly can cause a drop in BP, racing heart, lightheadedness and can even cause . Take your meds exactly as prescribed. 2. I do not think you will develop recurrent angioedema while on the steroids but, if you get swelling of the face, tongue, mouth, throat or neck call 911 and have them take you to the ED. Do not drive there yourself or have a friend or family member drive you. CALL 911. 3. Angioedema can also affect the arms, legs, skin, gastrointestinal tract, etc. If you have blood in the stool, abd pain, nausea/vomiting call your doctor or go to the ED. 4. I have given you some information to read about angioedema.......please make sure to read it and have your family read it. 5. 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 I have also given you information to read about vasculitis. Please read it. I think the diffuse blood clots in your legs and lungs are caused by vasculitis. If that is the case the steroids should help with this. Steroids can cause ulcers in the stomach and people can bleed from ulcers in the stomach, sharad if they are taking an anticoagulant. you are taking an anticoagulant called Eliquis, also called apixaban. You will need to stay on this medication for 6 months before even considering stopping it. Only stop the Eliquis when advised by a physician. The anticoagulant does not dissolve the clots in your body it only prevents clots from getting bigger or new clots from forming. Your own body will dissolve the clots you already have. I am placing you on a medication called pantoprazole to help prevent ulcers in the stomach. If you develop any pain in your stomach, nausea, vomiting, blood in the stool or you vomit blood call your doctor or go to the ED. 6. Pain medication can be very addictive. I want you to take the Tramadol ONLY if you are having pain that is unrelieved with The Prednisone and Tylenol. The pain should be 4/10 or greater before you consider taking a Tramadol. 7. If you or your family have any questions after leaving rehab please do not hesitate to call me. I will be sending copies of the DC summary and all relevant labs to the [facility]. This will include the information we have gathered from other physicians you have seen. OFFICE: [phone] CELL: [phone] High dose steroids can cause insomnia and anxiety. If you are having problems with these things please call Dr. Ace for help with this. Discharge Orders/Prescriptions Prescriptions: New acetaminophen 500 mg Tablet 1,000 mg PO Q8H PRN PRN (Reason: pain 3-10) Qty: 1 0RF magnesium chloride [Mag 64] 64 mg Tablet,Delayed Release (Dr/Ec) 128 mg PO DAILY Qty: 30 0RF Eliquis 5 mg Tablet 5 mg PO BID Qty: 60 0RF prednisone 20 mg Tablet 60 mg PO BREAKFAST Qty: 70 0RF Rx Instructions: take 3 tabs daily in the AM for 2 weeks and then decrease to 1.5 tabs daily tramadol 50 mg Tablet 50 mg PO Q6H PRN PRN (Reason: pain 4-10) 7 Days Qty: 28 0RF pantoprazole 20 mg Tablet,Delayed Release (Dr/Ec) 20 mg PO BID Qty: 60 0RF potassium chloride 20 mEq Tablet,Er Particles/Crystals 20 meq PO DAILYCM Qty: 30 0RF Continued melatonin 3 mg capsule 3 mg PO QHS amlodipine 10 mg Tablet 10 mg PO DAILY Qty: 30 0RF rosuvastatin 10 MG tablet 10 mg PO DAILY Qty: 30 2RF menthol-zinc oxide [Calmoseptine] 0.44-20.6 % Ointment 1 applic topical BID Qty: 113 2RF Protocol: *Topical Application Instructions APPLICATION INSTRUCTIONS: coccyx, rectal area Rx Instructions: apply to the sore on your bottom twice a day and after BM's Discontinued hydralazine 10 mg tablet 10 mg PO Q4H PRN (Reason: BP) Rx Instructions: systolic >170 or diastolic >85 albuterol sulfate 2.5 mg /3 mL (0.083 %) Solution For Nebulization 2.5 mg inhalation Q2H PRN PRN (Reason: Dyspnea) Qty: 0 0RF Eliquis 5 mg Tablet 10 mg PO BID Qty: 0 0RF Rx Instructions: Continue 10 mg twice daily until the morning of 12/28/2023, then begin 5 mg twice daily thereafter Referrals / Follow Up: Francisco Mitchell [Other] - 01/21/24 9:45 am ([employer] *Do Not Take Any Antihistamines For 5 Days Prior* ) Jose E Ace MD [Primary Care Provider] - 01/09/24 3:20 pm Dimas Mace MD [Med Staff - Active Staff] - 01/15/24 10:15 am Disposition Disposition (needs filled in before D/C Order can be placed): Home, Self Care Charges/Coding Visit Charges Inpatient E&M: 92275 Disch Hosp >30min
[2023-12-30 10:31] VITALS: BP 161/88; PULSE 72
[2023-12-30] MEDS: Metoprolol Tartrate 25 MG Tablet PO (10:31)
[2023-12-30 11:41] VITALS: BP 147/76; PULSE 61
[2023-12-30 14:00] VITALS: BP 157/87; PULSE 72; RESP 18; TEMP 36.3; O2SAT 94
--- NOTE | 2023-12-30 14:46 | NURSING ---
discharged home with family.discharge instructions, medications and appointments reviewed with pt and family. denies questions or concerns
== END 2023-12-30 14:30 | disposition home or self-care (01) | DRG 175 ==
PROVIDERS: Admitting Provider Internal Medicine; PCP Family Medicine; Referring Provider Internal Medicine; Visit Provider Internal Medicine
DX: I26.94 Multiple subsegmental thrombotic pulmonary emboli without acute cor pulmonale (principal); J18.9 Pneumonia, unspecified organism; J96.01 Acute respiratory failure with hypoxia; I82.403 Acute embolism and thrombosis of unspecified deep veins of lower extremity, bilateral; D72.10 Eosinophilia, unspecified; I10 Essential (primary) hypertension; D64.9 Anemia, unspecified; E83.42 Hypomagnesemia; E87.6 Hypokalemia; I87.2 Venous insufficiency (chronic) (peripheral); E78.5 Hyperlipidemia, unspecified; G47.33 Obstructive sleep apnea (adult) (pediatric); T78.3XXD Angioneurotic edema, subsequent encounter; Z79.01 Long term (current) use of anticoagulants; Z87.891 Personal history of nicotine dependence; G89.29 Other chronic pain
CPT/HCPCS: 36415; 80048; 80053; 82085; 82274; 82533; 82550; 82607; 83036; 83735; 83874; 84100; 85025; 85027; 86256; 93005; 93970; 94668; 94762; 97110; 97116; 97162; 97166; 97530; 97535; 97802; A4216; J0834; J3490

== ENCOUNTER 2024-01-07 11:39 | Outpatient (RCR) | payer MEDICARE, OTHER, SELFPAY ==
--- NOTE | 2024-01-07 12:55 | HP.PTEVAL ---
Patient's Visit Information Visit Information Visit Information: FREDY KAMARA is a 73 year old M referred to Physical Therapy by Dr. Yuko Calvin DO with a diagnosis of Debility. Date of Evaluation: 01/07/24 Physical Therapist: Santo Curry DPT Visit Plan Frequency: 1x/Week Duration: 4 Weeks Plan: Pt. to trial a progressive walking program at home. He is to complete for the next 2 weeks then follow back up with PT if needed. He tested very well today with all functional mobility, endurance and strengthening. Subjective Subjective: Pt. is here today for his initial evaluation with diagnosis of debility, PNA, carotid stenosis and respiratory failure. He had respiratory failure in later November. He was intubated at that point time. He spent a week on rehab as well. Pt. reports getting home last week. 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 He reports increased overall fatigue. R shoulder pain, but may be unrelated. He is sleeping okay, but does use a CPAP. CPAP is now broken, but trying to get to fixed. Pt. is attempting to walking more, but fatigues rapidly. Pain R shoulder: Pain Intensity (Out of 10): 2 Pain Intensity Range: 0 and 4 Objective Objective: POSTURE: Pt. has decent posture in stance. Slight FH posture. Normal BRAYAN noted. PALPATION: Pt. NEURO: normal sensation and normal DTR. Pt. is able to rise on heels and toes without issues. ROM: Pt. has normal knee and hip ROM bilaterally. MMT: RLE: knee ext 58.4#, flexion 38.6#, hip flexion 25.1# LLE: knee ext 61.4, flexion 33.9#., hip flexion 33.5# GAIT: normal gait pattern STAIRS: no HR with reciprocal pattern without issues 6 MWT: 1431feet no AD, HR at 87 post, SpO2 92% 30 sec sit to stand rep test 17 without use of UEs. Balance/Special Test Scores Lower Extremity Functional Score: 45 30 Second Chair Rise Test Seconds: 17 Goals Goal 1:: LTG: pt. to be I with progressive walking program. Goal Time Frame: 2-4 Weeks Goal 2:: LTG: pt. to complete 6 min walk test with distance of at least 1500'. Goal Time Frame: 4-6 Weeks Goal 3:: LTG: Pt to resume all of his recreational and hobby activities without limitations. Goal Time Frame: 4-6 Weeks Rehabilitation Potential Physical Therapy Diagnosis: Pt. has signs and symptoms consistent with debility after a acute respiratory failure. Pt. is overall doing well and is close to age adjusted norms with his functional mobility. Pt. has some fatigue iwth his 6 min walk test, but not much. I would like for him to work on his own for a few weeks progressing his walking tolerance then come back to PT if needed. Rehabilitation Potential: Excellent Anticipated Interventions Patient/Client Instruction: Educate patient on: Condition, Plan of Care, Risk Factors and Benefits of Fitness Program For the Purpose of:: To foster healthy habits, To improve decision making, To facilitate caregiver knowledge, To improve self management, To prevent re-injury and To improve ability to perform tasks related to life management Therapeutic Exercise to Include: Strength training, Postural training, Flexibilty training and Gait and locomotor training For the Purpose of:: To decrease pain, To increase ROM, To increase flexibility/ROM and To improve endurance Text: Thank you for the opportunity to evaluate your patient. For Medicare and Medicare HMO plans, please review the plan of care and approve it. It will need to be FAXED BACK to us at [phone] for Medicare purposes. For Medicare only, by signing this I certify the plan of care. Please let me know if there are questions or concerns regarding this plan of care. Physician Signature: Date:
== END 2024-01-07 19:00 | disposition home or self-care (01) ==
LOC: PT 11:39
PROVIDERS: PCP Family Medicine; Referring Provider Internal Medicine; Visit Provider Internal Medicine
DX: R53.1 Weakness (principal); J18.9 Pneumonia, unspecified organism; I65.29 Occlusion and stenosis of unspecified carotid artery; J96.90 Respiratory failure, unspecified, unspecified whether with hypoxia or hypercapnia
CPT/HCPCS: 97161

== ENCOUNTER → 2024-04-29 | Outpatient (CLI) | payer MEDICARE, OTHER, SELFPAY ==
--- NOTE | 2024-04-29 08:55 | CDU_ITS ---
Reason For Study: S/P Left CEA Rt. Velocities/BP Lt. Velocities/BP Prox CCA 66.4/14.5 cm/sec. Prox CCA 70.4/18.8 cm/sec. Mid CCA 69.2/18.2 cm/sec. Mid CCA 72.8/22.5 cm/sec. Dist CCA 70.2/16.3 cm/sec. Dist CCA 61.8/12.6 cm/sec. Prox ICA 141.2/44.6 cm/sec. Prox ICA 74/19 cm/sec. Mid ICA 61.9/21.2 cm/sec. Mid ICA 81.7/26.7 cm/sec. Dist ICA 75.1/28.9 cm/sec. Dist ICA 74/17.9 cm/sec. Rt. ICA/CCA = 2.04. Lt. ICA/CCA = 1.12. Prox ECA 67.4/10.7 cm/sec. Prox ECA 40.9/6 cm/sec. Rt. Vert. 38.8/9.1 cm/sec. Lt. Vert. 48.7/16.8 cm/sec. Right Extracranial There is intimal thickening but no significant atherosclerotic plaque noted in the right common carotid artery. There is heterogeneous, irregular atherosclerotic plaque noted in the right internal carotid artery. There is intimal thickening but no significant atherosclerotic plaque noted in the right external carotid artery. Antegrade flow is noted in the right vertebral artery. Left Extracranial There is homogeneous, smooth atherosclerotic plaque noted in the left common carotid artery. There is intimal thickening but no significant atherosclerotic plaque noted in the left internal carotid artery. There is intimal thickening but no significant atherosclerotic plaque noted in the left external carotid artery. Antegrade flow is noted in the left vertebral artery. Procedure This is a Carotid Duplex examination using B-mode, color flow and specral Doppler. Carotid Duplex [id number]. Exam performed in department. VL/Carotid Duplex Ultrasound Interpretation Summary Moderate (50-69%) stenosis right extracranial internal carotid. Normal left extracranial internal carotid. Patent and antegrade vertebrals bilaterally. Ordering Physician: Jacey Roblero Referring Physician: Jose E Ace Performed By: Argenis Benavides RVT
== END | disposition home or self-care (01) ==
LOC: CVS 08:50
PROVIDERS: PCP Family Medicine; Referring Provider Physician Assistant; Visit Provider Physician Assistant
DX: Z48.812 Encounter for surgical aftercare following surgery on the circulatory system (principal); I65.22 Occlusion and stenosis of left carotid artery
CPT/HCPCS: 93880

== ENCOUNTER → 2024-08-26 | Outpatient (CLI) | payer MEDICARE, OTHER, SELFPAY ==
[2024-08-26 10:01] LABS: Bacteria 0 SEEN /hpf (None Seen); Mucous, Urine 0 SEEN /hpf (<or=2+); Red Blood Cells-Urine 0 SEEN /hpf (0-5); White Blood Cells 0 SEEN /hpf (0-5)
[2024-08-26 11:20] LABS: Absolute Lymphocyte Count 1.75 X10^3/uL (0.83-4.51); Absolute Neutrophil Count 5.8 X10^3/uL (2.0-7.7); Basophil# 0.14 X10^3/uL; Basophil% 1.1 % (0-1); Eosinophil# 4.06 X10^3/uL; Hematocrit 43.1 % (40-54); Hemoglobin 14.5 g/dL (13.0-16.5); Lymphocyte # 1.75 X10^3/ul (0.83-4.51); Lymphocyte % 13.8 % (19-41); Mean Corp Hgb Conc 33.6 g/dL (32-36); Mean Corpuscular Hgb 29.8 pg (27.0-32.0); Mean Corpuscular Volume 88.7 fL (80-94); Monocyte% 7.1 % (0-10); NRBC Flagged by Analyzer 0 % (0-5); Neutrophil # 5.78 X10^3/uL (2.7-7.7); Neutrophil % 45.7 % (47-70); POSITIVE DIFFERENTIAL YES; Platelet Count 310 K/mm3 (150-450); RBC Distribution Width CV 12.8 % (11.6-14.6); Red Blood Count 4.86 M/mm3 (4.6-6.2); White Blood Count 12.7 K/mm3 (4.4-11.0)
[2024-08-26 11:55] LABS: Differential Indicated SCAN CRITERIA MET
[2024-08-26 11:57] LABS: ALB/GLOB Ratio 1.6 RATIO (0.9-2.4); AST(SGOT) 19 U/L (<=37); Alanine Aminotransfer ALT/SGPT 13 U/L (<=46); Albumin, Serum 4.3 g/dL (3.4-4.8); Alkaline Phosphatase 162 U/L (40-129); Anion Gap 10 (5-15); BUN 14 mg/dL (4-19); Calcium,Total 9.5 mg/dL (7.6-11.0); Chloride 103 mmol/L (98-108); Cholesterol 135 mg/dL (<=200); Creatinine, Serum 0.96 mg/dL (0.70-1.20); EST Glomerular Filtration Rate 84 (>60); Globulin 2.7 g/dL (2.2-4.2); Glucose 82 mg/dL (70-99); High Density Lipoprotein 50 mg/dL; Low Density Lipoprotein Calc. 65 mg/dL; Potassium 3.9 mmol/L (3.3-5.1); Protein, Total 6.9 g/dL (5.9-8.4); Sodium Level 140 mmol/L (133-145); Total Bilirubin 0.34 mg/dL (0.00-1.30); Triglycerides 101 mg/dL; Very Low Density Lipoprotein 20 mg/dL (5-40); Vitamin D,25 Hydroxy 33.7 ng/mL (30-100); cholesterol:hdl ratio screen 2.69
[2024-08-26 15:06] LABS: Color, Urine Straw (Yellow); Glucose, Dipstick Normal (Normal); Ketone-Dipstick Negative (Negative); Leukocyte Esterase-Dipstick Negative /ul (Negative); Nitrite-Dipstick Negative (Negative); Occult Blood-Urine Negative /ul (Negative); Protein-Dipstick Negative (Negative); Specific Gravity, Urine 1.005 (1.002-1.030); Urine Bilirubin Dipstick Negative (Negative); Urine Clarity Clear (Clear); Urine Urobilinogen Normal (Normal)
[2024-08-26 15:48] LABS: Squamous Epithelial Cells - UA 0-5 SEEN /hpf (0-5)
[2024-08-29 08:07] LABS: GGTP 17 IU/L (0-65)
== END | disposition home or self-care (01) ==
LOC: MFPLAB 09:15
PROVIDERS: PCP Family Medicine; Referring Provider Family Medicine; Visit Provider Family Medicine
DX: R74.8 Abnormal levels of other serum enzymes (principal); I10 Essential (primary) hypertension; E78.5 Hyperlipidemia, unspecified; E55.9 Vitamin D deficiency, unspecified
CPT/HCPCS: 36415; 80053; 80061; 81001; 82306; 82977; 85025

== ENCOUNTER → 2024-09-17 | Outpatient (CLI) | payer MEDICARE, OTHER, SELFPAY ==
[2024-09-17 13:37] LABS: ALB/GLOB Ratio 1.4 RATIO (0.9-2.4); AST(SGOT) 19 U/L (<=37); Alanine Aminotransfer ALT/SGPT 14 U/L (<=46); Albumin, Serum 4.1 g/dL (3.4-4.8); Alkaline Phosphatase 173 U/L (40-129); Anion Gap 10 (5-15); BUN 12 mg/dL (4-19); Calcium,Total 9.4 mg/dL (7.6-11.0); Carbon Dioxide 26.8 mmol/L (21.0-32.0); Chloride 100 mmol/L (98-108); Cholesterol 123 mg/dL (<=200); Creatinine, Serum 0.95 mg/dL (0.70-1.20); EST Glomerular Filtration Rate 85 (>60); Globulin 2.8 g/dL (2.2-4.2); Glucose 76 mg/dL (70-99); High Density Lipoprotein 44 mg/dL; Low Density Lipoprotein Calc. 58 mg/dL; Potassium 3.9 mmol/L (3.3-5.1); Protein, Total 6.9 g/dL (5.9-8.4); Sodium Level 138 mmol/L (133-145); Total Bilirubin 0.31 mg/dL (0.00-1.30); Triglycerides 104 mg/dL; Very Low Density Lipoprotein 21 mg/dL (5-40); Vitamin D,25 Hydroxy 29.2 ng/mL (30-100)
== END | disposition home or self-care (01) ==
LOC: MFPLAB 10:05
PROVIDERS: PCP Family Medicine; Visit Provider Family Medicine
DX: E55.9 Vitamin D deficiency, unspecified (principal); E78.5 Hyperlipidemia, unspecified; R74.8 Abnormal levels of other serum enzymes
CPT/HCPCS: 36415; 80053; 80061; 82306

== ENCOUNTER → 2024-10-25 | Outpatient (CLI) | payer MEDICARE, OTHER, SELFPAY ==
[2024-10-25 13:06] LABS: AST(SGOT) 17 U/L (<=37); Alanine Aminotransfer ALT/SGPT 11 U/L (<=46); Albumin, Serum 4.1 g/dL (3.4-4.8); Alkaline Phosphatase 169 U/L (40-129); Anion Gap 10 (5-15); BUN 12 mg/dL (4-19); BUN/Creat Ratio 12.0 RATIO (10-20); Calcium,Total 9.3 mg/dL (7.6-11.0); Carbon Dioxide 28.3 mmol/L (21.0-32.0); Chloride 102 mmol/L (98-108); Globulin 2.6 g/dL (2.2-4.2); Glucose 86 mg/dL (70-99); Potassium 3.6 mmol/L (3.3-5.1)
== END | disposition home or self-care (01) ==
LOC: MFPLAB 09:12
PROVIDERS: PCP Family Medicine; Referring Provider Family Medicine; Visit Provider Family Medicine
DX: R74.8 Abnormal levels of other serum enzymes (principal)
CPT/HCPCS: 36415; 80053

== ENCOUNTER → 2024-11-03 | Outpatient (CLI) | payer MEDICARE, OTHER, SELFPAY ==
[2024-11-03 18:42] LABS: PTHIN 70 pg/mL (11-61)
[2024-11-03 19:10] LABS: Vitamin D,25 Hydroxy 35.5 ng/mL (30-100)
== END | disposition home or self-care (01) ==
LOC: MFPLAB 14:40
PROVIDERS: PCP Family Medicine; Referring Provider Family Medicine; Visit Provider Family Medicine
DX: R74.8 Abnormal levels of other serum enzymes (principal); I10 Essential (primary) hypertension; E55.9 Vitamin D deficiency, unspecified
CPT/HCPCS: 36415; 82306; 83970; 84100; 84443

== ENCOUNTER → 2024-11-12 | Outpatient (CLI) | payer MEDICARE, OTHER, SELFPAY ==
--- NOTE | 2024-11-12 09:06 | RAD_ITS ---
EXAM: XR Abdomen, 2 Views and XR Chest, 1 View CLINICAL INDICATION: ELEVATED ALK PHOS WITH NORMAL GGT, EVAL FOR PAGETS TECHNIQUE: Frontal view of the chest, frontal view of the abdomen/pelvis and upright or decubitus view of the abdomen. COMPARISON: No relevant prior studies available. FINDINGS: LUNGS AND PLEURAL SPACES: Unremarkable. No consolidation. No pneumothorax. HEART: Unremarkable. No cardiomegaly. MEDIASTINUM: Unremarkable. Normal mediastinal contour. INTRAPERITONEAL SPACE: No free air. GASTROINTESTINAL TRACT: Fecal retention in the colon consistent with constipation. No dilation. ORGANS: Left renal calculi, largest measuring up to 5 mm. BONES/JOINTS: Unremarkable. No acute fracture. RAD/Acute Abdomen Inc Chest IMPRESSION: 1. Left renal calculi, largest measuring up to 5 mm. 2. Fecal retention in the colon consistent with constipation. Reading Location: [id number]
== END | disposition home or self-care (01) ==
LOC: MTRAD 09:06
PROVIDERS: PCP Family Medicine; Referring Provider Family Medicine; Visit Provider Family Medicine
DX: M89.8X9 Other specified disorders of bone, unspecified site (principal)
CPT/HCPCS: 74022

== ENCOUNTER → 2024-12-22 | Outpatient (CLI) | payer MEDICARE, OTHER, SELFPAY ==
[2024-12-22 09:56] LABS: Mucous, Urine 0 SEEN /hpf (<or=2+); Squamous Epithelial Cells - UA 0 SEEN /hpf (0-5)
[2024-12-22 12:33] LABS: Hematocrit 44.3 % (40-54); Hemoglobin 14.4 g/dL (13.0-16.5); Immature Granulocytes Count 0.030 X10^3/uL (0.0-0.0); Mean Corp Hgb Conc 32.5 g/dL (32-36); Mean Corpuscular Volume 87.9 fL (80-94); Mean Platelet Vol. 11.2 fl (6.2-12.0); NRBC Flagged by Analyzer 0 % (0-5); Platelet Count 225 K/mm3 (150-450); RBC Distribution Width CV 12.7 % (11.6-14.6); RBC Distribution Width SD 41.1 fl (35.1-43.9); Red Blood Count 5.04 M/mm3 (4.6-6.2); White Blood Count 7.2 K/mm3 (4.4-11.0)
[2024-12-22 12:36] LABS: Color, Urine Straw (Yellow); Glucose, Dipstick Normal (Normal); Ketone-Dipstick Negative (Negative); Leukocyte Esterase-Dipstick Negative /ul (Negative); Nitrite-Dipstick Negative (Negative); Occult Blood-Urine Negative /ul (Negative); Protein-Dipstick Negative (Negative); Specific Gravity, Urine 1.010 (1.002-1.030); Urine Bilirubin Dipstick Negative (Negative)
[2024-12-22 12:58] LABS: Red Blood Cells-Urine 0-5 SEEN /hpf (0-5)
[2024-12-22 13:18] LABS: AST(SGOT) 24 U/L (<=37); Alanine Aminotransfer ALT/SGPT 20 U/L (<=46); Albumin, Serum 4.3 g/dL (3.4-4.8); Alkaline Phosphatase 173 U/L (40-129); Anion Gap 12 (5-15); BUN 12 mg/dL (4-19); BUN/Creat Ratio 13.1 RATIO (10-20); Calcium,Total 9.7 mg/dL (7.6-11.0); Carbon Dioxide 27.4 mmol/L (21.0-32.0); Chloride 101 mmol/L (98-108); Cholesterol 140 mg/dL (<=200); Globulin 2.9 g/dL (2.2-4.2); Glucose 86 mg/dL (70-99); Low Density Lipoprotein Calc. 70 mg/dL; Potassium 3.6 mmol/L (3.3-5.1); Triglycerides 104 mg/dL; Very Low Density Lipoprotein 21 mg/dL (5-40); Vitamin D,25 Hydroxy 43.4 ng/mL (30-100); cholesterol:hdl ratio screen 2.82
== END | disposition home or self-care (01) ==
LOC: MFPLAB 09:53
PROVIDERS: PCP Family Medicine; Visit Provider Family Medicine
DX: E55.9 Vitamin D deficiency, unspecified (principal); I10 Essential (primary) hypertension; E78.5 Hyperlipidemia, unspecified
CPT/HCPCS: 36415; 80053; 80061; 81001; 82306; 85025

== ENCOUNTER → 2024-12-29 | Outpatient (CLI) | payer MEDICARE, OTHER, SELFPAY ==
--- NOTE | 2024-12-29 12:44 | US_ITS ---
PROCEDURE: POST VOID RESIDUAL BLADDER 12/29/2024 REASON FOR EXAM: URINARY RETENTION, BPH TECHNIQUE: Procedure Code: USPVU Modality: US Procedure: Urinary bladder ultrasound, also with POST VOID RESIDUAL BLADDER COMPARISON: None. FINDINGS: A heterogenous prostate gland is measured at 3.0 x 4.4 x 2.9 cm. The urinary bladder is unremarkable in appearance, with volume approximately 402.9 mL. Bilateral ureteral jets are seen. Following voiding, a moderate postvoid residual of 119.5 mL is noted. No evidence of urinary bladder wall thickening or focal abnormality. No bladder calculus is seen. US/Post Void Residual Bladder IMPRESSION: Moderate urinary bladder postvoid residual. Reading Location: [place] [id number]
== END | disposition home or self-care (01) ==
LOC: US 12:40
PROVIDERS: PCP Family Medicine; Referring Provider Family Medicine; Visit Provider Family Medicine
DX: R33.9 Retention of urine, unspecified (principal)
CPT/HCPCS: 51798

== ENCOUNTER → 2025-02-07 | Outpatient (CLI) | payer MEDICARE, OTHER, SELFPAY ==
[2025-02-07 10:19] LABS: PSA,Total - Annual Screen 0.37 ng/mL (0.02-4.00)
== END | disposition home or self-care (01) ==
LOC: LAB 09:17
PROVIDERS: PCP Family Medicine; Referring Provider Urology; Visit Provider Urology
DX: Z12.5 Encounter for screening for malignant neoplasm of prostate (principal)
CPT/HCPCS: 36415; 84153; G0103